=== PATIENT | male | born 1945 | race African-American/Black ===

== ENCOUNTER 2019-10-29 15:28 | Inpatient (IN) | payer OTHER ==
[~2019-10-29] VITALS: Ht 190.5 cm; Wt 85.5 kg
[2019-10-29] MEDS ORDERED: IV NORMAL SALINE 1000ML BAG 1,000 ML IV SCH (16:41)
[2019-10-29] MEDS ORDERED: fentaNYL PF VIAL 100 MCG/2 ML VIAL IVP ONE (16:45)
[2019-10-29] MEDS ORDERED: VANCOMYCIN PER PHARMACY MC ONE (17:00)
[2019-10-29] MEDS ORDERED: PIPERACILLIN/TAZOBACTAM 3.375 GM in IV NORMAL SALINE 50ML 50 ML IV ONE (17:00)
[2019-10-29] MEDS ORDERED: VANCOMYCIN 2 GM in IV NORMAL SALINE 500ML BAG 500 ML IV ONE (17:00)
--- NOTE | 2019-10-29 17:05 | PHYS DOC ---
Past Medical History Past Medical History: Hypertension Additional Past Medical Histor: PVD,NEUROPATHY Past Surgical History: Other Additional Past Surgical Histo: X2 TOE REMOVAL (01/15), X3 TOE REMOVAL (05/18) Smoking Status: Former Smoker Alcohol Use: Rarely General Adult EDM: Chief Complaint: OTHER COMPLAINTS HPI: HPI: Patient is a 74 year old male who presents with [facility] in his primary care physician. 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 Patient here today with multiple unstageable circular ulcerations to his right lower leg with maggots. Wounds are odorous. Patient rates his pain a 7 out of 10 states it is aching and sharp. Wounds are covered and exudative material and maggots. The wound that is on the lower posterior leg has ligaments showing. Patient states he has been going to [facility] care [facility] the [facility] and they have stated that everything looks good. Patient is currently on no antibiotics. Patient denies fevers. While I was in examining the patient Dr. Vickers who will be the admitting doctor walked into the room and took a look at the leg himself. Patient is and family are already educated the patient will be admitted to the hospital. Review of Systems: Review of Systems: Constitutional: Denies fever or chills. [] Eyes: Denies change in visual acuity. [] HENT: Denies nasal congestion or sore throat. [] Respiratory: Denies cough or shortness of breath. [] Cardiovascular: Denies chest pain or edema. [] GI: Denies abdominal pain, nausea, vomiting, bloody stools or diarrhea. [] : Denies dysuria. [] Musculoskeletal: Denies back pain or joint pain. [] Integument: Denies rash. [] Neurologic: Denies headache, focal weakness or sensory changes. [] Endocrine: Denies polyuria or polydipsia. [] Lymphatic: Denies swollen glands. [] Psychiatric: Denies depression or anxiety. [] Heart Score: Risk Factors: Risk Factors: DM, Current or recent (<one month) smoker, HTN, HLP, family history of CAD, obesity. Risk Scores: Score 0 - 3: 2.5% MACE over next 6 weeks - Discharge Home Score 4 - 6: 20.3% MACE over next 6 weeks - Admit for Clinical Observation Score 7 - 10: 72.7% MACE over next 6 weeks - Early Invasive Strategies Current Medications: Current Medications Medications (Trade) Dose Ordered Sig/Yannick Start Time Stop Time Status Last Admin Dose Admin Fentanyl Citrate (Fentanyl 2ml Vial) 50 mcg 1X ONCE 10/29/19 16:45 10/29/19 16:46 DC Piperacillin Sod/ Tazobactam Sod 3.375 gm/Sodium Chloride 50 ml @ 100 mls/hr 1X ONCE 10/29/19 17:00 10/29/19 17:29 Sodium Chloride 1,000 ml @ 1,000 mls/hr Q1H 10/29/19 16:41 10/29/19 17:40 Vancomycin HCl (Vanco Per Pharmacy) 1 each 1X ONCE 10/29/19 16:45 10/29/19 16:46 UNV Vancomycin HCl 2 gm/Sodium Chloride 500 ml @ 250 mls/hr 1X ONCE 10/29/19 17:00 10/29/19 18:59 Allergies: Allergies: Allergies Coded Allergies Type Severity Reaction Last Updated Verified No Known Drug Allergies 10/29/19 No Physical Exam: PE: Constitutional: Well developed, well nourished, no acute distress, non-toxic appearance. [] HENT: Normocephalic, atraumatic, bilateral external ears normal, oropharynx moist, no oral exudates, nose normal. [] Eyes: PERRLA, EOMI, conjunctiva normal, no discharge. [] Neck: Normal range of motion, no tenderness, supple, no stridor. [] Cardiovascular:Heart rate regular rhythm, no murmur [] Lungs & Thorax: Bilateral breath sounds clear to auscultation [] Abdomen: Bowel sounds normal, soft, no tenderness, no masses, no pulsatile m asses. [] Skin: Warm, dry, no erythema, no rash. [] Back: No tenderness, no CVA tenderness. [] Extremities: No tenderness, no cyanosis, no clubbing, ROM intact, no edema. [] Neurologic: Alert and oriented X 3, normal motor function, normal sensory function, no focal deficits noted. [] Psychologic: Affect normal, judgement normal, mood normal. [] Current Patient Data: Vital Signs: Vital Signs Date Time Temp Pulse Resp B/P (MAP) Pulse Ox O2 Delivery O2 Flow Rate FiO2 10/29/19 16:41 98.6 96 18 146/70 (95) 100 Room Air 98.6 EKG: EKG: [] Radiology/Procedures: Radiology/Procedures: [] Impression: [facility] [address] [place] [address] IMAGING REPORT Signed PATIENT: ERI MARQUES ACCOUNT: [id number] : 1945 LOCATION: ER AGE: 74 SEX: M EXAM STATUS: REG ER ORD. PHYSICIAN: GALI ZEE APRN REASON: wounds PROCEDURE: TIBIA FIBULA RIGHT FOOT RIGHT 3V, TIBIA FIBULA RIGHT Clinical Indication: Reason: wounds / Spl. Instructions: / History: Comparison: None. Findings: Probable old fracture of the fifth proximal phalanx. No acute fracture is seen. No bony erosion is identified. There is no dislocation. Arterial calcifications are seen. There is a soft tissue defect/ulcer of the dorsal foot overlying the fourth and fifth metatarsals. There are 2 small anterior soft tissue defects of the distal tibia each measuring about 8-9 mm. There is a large soft tissue defect posterior and medial to the distal diaphysis of the tibia. Small soft tissue defect posterior to the mid to distal tibial diaphysis. No acute fracture or bony erosion of the tibia or fibula is identified. The knee and ankle joints are intact. IMPRESSION: 1. No acute bone abnormality. 2. There are soft tissue defects/ulcers of the distal calf and foot as detailed above. Electronically signed by: Cristi Zavala MD (10/29/2019 5:42 PM) [id number] DICTATED and SIGNED BY: CRISTI ZAVALA MD DATE: 10/29/19 174 [facility] [address] [place] [address] IMAGING REPORT Signed PATIENT: ERI MARQUES ACCOUNT: [id number] : 1945 LOCATION: ER AGE: 74 SEX: M EXAM STATUS: REG ER ORD. PHYSICIAN: GALI ZEE APRN REASON: wound, PVD PROCEDURE: VENOUS LOWER EXTREMITY RIGHT Right lower extremity venous duplex Doppler ultrasound HISTORY: Right leg wound, peripheral vascular disease, no other clinical history provided. FINDINGS: No DVT evident by x-ray imaging with compressibility, patent color Doppler blood flow and augmentation of blood flow the right common femoral vein, common femoral vein, superficial femoral vein and popliteal vein. No DVT evident with patent color Doppler blood flow the posterior tibial and peroneal veins in the calf. IMPRESSION: Negative right leg for DVT. Electronically signed by: Rafa Madison MD (10/29/2019 6:14 PM) [facility] [place] DICTATED and SIGNED BY: RAFA MADISON MD DATE: 10/29/191813 Course & Med Decision Making: Course & Med Decision Making Pertinent Labs and Imaging studies reviewed. (See chart for details) Patient states that they have him on gabapentin and ibuprofen for his pain but is not working. There is no swelling of the extremity. A weak pulse can be felt in the right lower leg. The left lower leg is dressed from room wound care and he has a walking boot on. He is afebrile. Patient is ambulatory with a steady gait. Speaks in full clear sentences. Alert and oriented. I have ordered a culture of the wounds. I have started the patient on Zosyn and vancomycin. Wounds are cleaned with betadine and to also remove the maggots. Patient admitted to Dr. Vickers. I will also consult ID. [] Jenny Disclaimer: Jenny Disclaimer: This electronic medical record was generated, in whole or in part, using a voice recognition dictation system. Departure Departure Impression: Primary Impression: Lower extremity ulceration Qualified Codes: L97.919 - Non-pressure chronic ulcer of unspecified part of right lower leg with unspecified severity Disposition: ADMITTED INPATIENT Admitting Physician: [facility] Referrals: ROSELYN CHANG (PCP) Justicifation of Admission Dx: Justifications for Admission: Justification of Admission Dx: Yes Comments: multiple lower leg ulcerations GALI ZEE RAILWAYS ASSISTANT Oct 29, 2019 17:05
[2019-10-29 17:07] LABS: BASO # 0.2 x10^3/uL (0.0-0.2); BASO % 2 % (0-3); EOS # 0.2 x10^3/uL (0.0-0.7); EOS % 2 % (0-3); HEMATOCRIT 30.3 % (39.0-53.0); HEMOGLOBIN 10.1 g/dL (13.0-17.5); LYMPH # 2.8 x10^3/uL (1.0-4.8); LYMPH % 24 % (24-48); MEAN CORPUSCULAR HEMOGLOBIN 27 pg (25-35); MEAN CORPUSCULAR HGB CONC 33 g/dL (31-37); MEAN CORPUSCULAR VOLUME 81 fL (79-100); MONO % 8 % (0-9); NEUT # 7.6 x10^3/uL (1.8-7.7); NEUT % 65 % (31-73); PLATELET COUNT 567 x10^3/uL (140-400); RED BLOOD COUNT 3.75 x10^6/uL (4.30-5.70); RED CELL DISTRIBUTION WIDTH 15.3 % (11.5-14.5); WHITE BLOOD COUNT 11.7 x10^3/uL (4.0-11.0)
[2019-10-29 17:19] LABS: CALCIUM 9.4 mg/dL (8.5-10.1); CREATININE 1.5 mg/dL (0.7-1.3); GFR 55.5; POTASSIUM 3.2 mmol/L (3.5-5.1)
[2019-10-29 17:25] LABS: ALBUMIN 2.7 g/dL (3.4-5.0); ALBUMIN/GLOBULIN RATIO 0.6 (1.0-1.7); C-REACTIVE PROTEIN 4.6 mg/L (0-3.3); TOTAL BILIRUBIN 0.3 mg/dL (0.2-1.0); TOTAL PROTEIN 7.5 g/dL (6.4-8.2)
--- NOTE | 2019-10-29 17:45 | RAD ---
FOOT RIGHT 3V, TIBIA FIBULA RIGHT Clinical Indication: Reason: wounds / Spl. Instructions: / History: Comparison: None. Findings: Probable old fracture of the fifth proximal phalanx. No acute fracture is seen. No bony erosion is identified. There is no dislocation. Arterial calcifications are seen. There is a soft tissue defect/ulcer of the dorsal foot overlying the fourth and fifth metatarsals. There are 2 small anterior soft tissue defects of the distal tibia each measuring about 8-9 mm. There is a large soft tissue defect posterior and medial to the distal diaphysis of the tibia. Small soft tissue defect posterior to the mid to distal tibial diaphysis. No acute fracture or bony erosion of the tibia or fibula is identified. The knee and ankle joints are intact. IMPRESSION: 1. No acute bone abnormality. 2. There are soft tissue defects/ulcers of the distal calf and foot as detailed above. Electronically signed by: Cristi Zavala MD (10/29/2019 5:42 PM) [id number]
[2019-10-29] MEDS ORDERED: ONDANSETRON PF 4 MG/2 ML VIAL. IV PRN (18:00)
--- NOTE | 2019-10-29 18:17 | RAD ---
Right lower extremity venous duplex Doppler ultrasound HISTORY: Right leg wound, peripheral vascular disease, no other clinical history provided. FINDINGS: No DVT evident by x-ray imaging with compressibility, patent color Doppler blood flow and augmentation of blood flow the right common femoral vein, common femoral vein, superficial femoral vein and popliteal vein. No DVT evident with patent color Doppler blood flow the posterior tibial and peroneal veins in the calf. IMPRESSION: Negative right leg for DVT. Electronically signed by: Chris Madison MD (10/29/2019 6:14 PM) [facility]
[2019-10-29] MEDS: fentaNYL PF VIAL 100 MCG/2 ML VIAL IV PRN ×2 (20:14→22:48)
--- NOTE | 2019-10-29 21:47 | NUR ---
Call placed to patient's significant other, Shyanne Guerrero,[phone], left message regarding patient admitted, with the number to return call. Patient says that she would have the info on his meds, as he is forgetful and she keeps track of them.
[2019-10-29 23:00] VITALS: BP 143/64
--- NOTE | 2019-10-29 23:23 | NUR ---
In assessing patient's history regarding medications, he says he takes about 12 pills every 4 hours for his feet and legs pain, gabapentin was listed as one of them, but he doesn't know them all. this advertising writer used room phone, called SO's number, handed the phone to patient, to see if he can get names of the medications he's on. Monitoring. He did report that the medicine (fentanyl ivp) that he is getting doesn't work.
[2019-10-29] MEDS ORDERED: VANCOMYCIN PER PHARMACY MC PRN (23:45)
[2019-10-29] MEDS: oxyCODONE/APAP 10/325 1 TAB TABLET PO PRN (23:58)
--- NOTE | 2019-10-30 01:00 | NUR ---
Patient's wouds cleansed with saline wound wash, left lower leg xeroform petroleum gauze replaced, kerlix, patient refuses to let this check writer change the dressing on his left foot, 'It's got a pig skin graft on it..they just changed it saturday, and its to be changed once a week' It has a mesh covering\dressing over the areas of toe and foot amputation. His right lower leg cleansed with saline wound wash, non-adherant dressings applied, kerlix wrapped.
--- NOTE | 2019-10-30 01:35 | NUR ---
Pharmacy Vancomycin Dosing Note S:Consulted to monitor and dose vancomycin started 10/29/19. O:ERI MARQUES is a 74 year old M with Bacteremia . Height: 6 feet, 3 inches Weight: 85.5 kg [place] Body Weight: 84.50 Adjusted Body Weight: 84.90 Dosing Weight: Actual Other Antibiotics: LABS: Last BUN: 19 Last Creatinine: 1.5 Creatinine Clearance: 53 mL/min Last WBC: 11.7 Last Procalcitonin: Tmax (past 24 hours): Microbiology: I/O: Drug Levels: Last level: on at Last dose given 10/29/19 at 1700 Vancomycin Dosing: Loading Dose: 2000 mg x1 Dosing Weight: Actual Target Trough: 10-20 A: Based on: WT AND CRCL P: 1. Begin Vancomycin 1250 mg IV q24h 2. Follow up Trough level on 10/31/19 at 1630 3. Pharmacy will continue to monitor, follow and adjust therapy as needed. LOBO VALDEZ RPH, 10/30/19 0135 Signed: 10/30/19 at 0135 by LOBO VALDEZ RPH PHA
[2019-10-30 03:03] VITALS: BP 158/77
[2019-10-30] MEDS: oxyCODONE/APAP 10/325 1 TAB TABLET PO PRN ×4 (06:00→21:02)
[2019-10-30 07:00] VITALS: BP 156/78
--- NOTE | 2019-10-30 07:19 | NUR ---
Consult for Dr Perry left phone number on mobile phone,
[2019-10-30] MEDS: HYDROmorphone 2 MG/ML VIAL IV PRN (07:49)
[2019-10-30 11:00] VITALS: BP 156/70
[2019-10-30] MEDS ORDERED: PIP/TAZO PER PHARMACY MC PRN (12:00)
--- NOTE | 2019-10-30 12:01 | PDOC ---
Infectious Disease Note Vital Sign Vital Signs Vital Signs Date Time Temp Pulse Resp B/P (MAP) Pulse Ox O2 Delivery O2 Flow Rate FiO2 10/30/19 11:00 98.5 93 18 156/70 (98) 98 Room Air 98.5 Labs Lab Laboratory Tests Test 10/29/19 16:58 White Blood Count 11.7 x10^3/uL (4.0-11.0) Red Blood Count 3.75 x10^6/uL (4.30-5.70) Hemoglobin 10.1 g/dL (13.0-17.5) Hematocrit 30.3 % (39.0-53.0) Mean Corpuscular Volume 81 fL (79-100) Mean Corpuscular Hemoglobin 27 pg (25-35) Mean Corpuscular Hemoglobin Concent 33 g/dL (31-37) Red Cell Distribution Width 15.3 % (11.5-14.5) Platelet Count 567 x10^3/uL (140-400) Neutrophils (%) (Auto) 65 % (31-73) Lymphocytes (%) (Auto) 24 % (24-48) Monocytes (%) (Auto) 8 % (0-9) Eosinophils (%) (Auto) 2 % (0-3) Basophils (%) (Auto) 2 % (0-3) Neutrophils # (Auto) 7.6 x10^3/uL (1.8-7.7) Lymphocytes # (Auto) 2.8 x10^3/uL (1.0-4.8) Monocytes # (Auto) 1.0 x10^3/uL (0.0-1.1) Eosinophils # (Auto) 0.2 x10^3/uL (0.0-0.7) Basophils # (Auto) 0.2 x10^3/uL (0.0-0.2) Sodium Level 140 mmol/L (136-145) Potassium Level 3.2 mmol/L (3.5-5.1) Chloride Level 107 mmol/L (98-107) Carbon Dioxide Level 22 mmol/L (21-32) Anion Gap 11 (6-14) Blood Urea Nitrogen 19 mg/dL (8-26) Creatinine 1.5 mg/dL (0.7-1.3) Estimated GFR (Cockcroft-Gault) 55.5 BUN/Creatinine Ratio 13 (6-20) Glucose Level 79 mg/dL (70-99) Lactic Acid Level 1.2 mmol/L (0.4-2.0) Calcium Level 9.4 mg/dL (8.5-10.1) Total Bilirubin 0.3 mg/dL (0.2-1.0) Aspartate Amino Transf (AST/SGOT) 24 U/L (15-37) Alanine Aminotransferase (ALT/SGPT) 18 U/L (16-63) Alkaline Phosphatase 81 U/L (46-116) C-Reactive Protein, Quantitative 4.6 mg/L (0-3.3) Total Protein 7.5 g/dL (6.4-8.2) Albumin 2.7 g/dL (3.4-5.0) Albumin/Globulin Ratio 0.6 (1.0-1.7) Objective Assessment Chronic ulcerations right lower extremity asso increase pain, drainage, odor and maggots Nonhealing left forefoot amputation Leukocytosis Renal insufficiency. baseline Cr not known PVD h/o stents Peripheral neuropathy Plan Plan of Care [facility] Last seen a couple of days ago. Records requested Continue Zosyn Hold further vancomycin for now. Repeat labs f/u cultures Consult vascular Further rec to follow Full consult to follows Thank you Seen and d/w family. Dr. Ramos note reviewed and plan on B LE amp Will cont abx but given elevated WBC and risk for resistance with previous hospitaliztions and Renal insuff. Change to Dapto and Meropenem and micafungin F/u labs CK/Cr and CBC in am Attending Co-Sign Attending Co-Sign The patient was seen and interviewed as well as examined at the bedside. The chart was reviewed. The case was discussed. Agree with the plan of care. CHIQUITA FERREIRA APRN Oct 30, 2019 12:01 SHANIA WILLIAM MD Oct 30, 2019 16:07
--- NOTE | 2019-10-30 12:03 | PDOC ---
[employer] PROGRESS NOTE Chief Complaint Chief Complaint Severe peripheral vascular disease Chronic ulcerations right lower extremity asso increase pain, drainage, odor and maggots Nonhealing left forefoot amputation Leukocytosis Renal insufficiency. baseline Cr not known PVD h/o stents Peripheral neuropathy History of Present Illness History of Present Illness 10/30/2019 Patient seen and examined He has clean dry intact dressings on now He wants to have a bilateral below the knee amputation Chart reviewed Discussed with RN Vitals/I&O Vitals/I&O: Vital Signs Date Time Temp Pulse Resp B/P (MAP) Pulse Ox O2 Delivery O2 Flow Rate FiO2 10/30/19 11:00 98.5 93 18 156/70 (98) 98 Room Air 98.5 I & O 10/29/19 10/29/19 10/30/19 15:00 23:00 07:00 Intake Total 1550 ml Output Total 300 ml 1500 ml Balance 1250 ml -1500 ml Physical Exam General: Alert Heart: Regular rate Lungs: Clear Abdomen: Normal bowel sounds Extremities: Other (Both lower extremities with clean dry intact dressing) Skin: Other (He has numerous wounds on his legs please see the pictures) Labs Labs: Laboratory Tests Test 10/29/19 16:58 White Blood Count 11.7 x10^3/uL (4.0-11.0) Red Blood Count 3.75 x10^6/uL (4.30-5.70) Hemoglobin 10.1 g/dL (13.0-17.5) Hematocrit 30.3 % (39.0-53.0) Mean Corpuscular Volume 81 fL (79-100) Mean Corpuscular Hemoglobin 27 pg (25-35) Mean Corpuscular Hemoglobin Concent 33 g/dL (31-37) Red Cell Distribution Width 15.3 % (11.5-14.5) Platelet Count 567 x10^3/uL (140-400) Neutrophils (%) (Auto) 65 % (31-73) Lymphocytes (%) (Auto) 24 % (24-48) Monocytes (%) (Auto) 8 % (0-9) Eosinophils (%) (Auto) 2 % (0-3) Basophils (%) (Auto) 2 % (0-3) Neutrophils # (Auto) 7.6 x10^3/uL (1.8-7.7) Lymphocytes # (Auto) 2.8 x10^3/uL (1.0-4.8) Monocytes # (Auto) 1.0 x10^3/uL (0.0-1.1) Eosinophils # (Auto) 0.2 x10^3/uL (0.0-0.7) Basophils # (Auto) 0.2 x10^3/uL (0.0-0.2) Sodium Level 140 mmol/L (136-145) Potassium Level 3.2 mmol/L (3.5-5.1) Chloride Level 107 mmol/L (98-107) Carbon Dioxide Level 22 mmol/L (21-32) Anion Gap 11 (6-14) Blood Urea Nitrogen 19 mg/dL (8-26) Creatinine 1.5 mg/dL (0.7-1.3) Estimated GFR (Cockcroft-Gault) 55.5 BUN/Creatinine Ratio 13 (6-20) Glucose Level 79 mg/dL (70-99) Lactic Acid Level 1.2 mmol/L (0.4-2.0) Calcium Level 9.4 mg/dL (8.5-10.1) Total Bilirubin 0.3 mg/dL (0.2-1.0) Aspartate Amino Transf (AST/SGOT) 24 U/L (15-37) Alanine Aminotransferase (ALT/SGPT) 18 U/L (16-63) Alkaline Phosphatase 81 U/L (46-116) C-Reactive Protein, Quantitative 4.6 mg/L (0-3.3) Total Protein 7.5 g/dL (6.4-8.2) Albumin 2.7 g/dL (3.4-5.0) Albumin/Globulin Ratio 0.6 (1.0-1.7) Assessment and Plan Assessmemt and Plan Problems Medical Problems: (1) Lower extremity ulceration Status: Acute Severe peripheral vascular disease Chronic ulcerations right lower extremity asso increase pain, drainage, odor and maggots Nonhealing left forefoot amputation Leukocytosis Renal insufficiency. baseline Cr not known PVD h/o stents Peripheral neuropathy Plan Suspect he will need amputations but will await orthopedics input For now IV antibiotics Wound assisted meds DVT prophylaxis Full code Long-term prognosis guarded Comment Review of Relevant I have reviewed the following items solomon (where applicable) has been applied. Medications: Current Medications Medications (Trade) Dose Ordered Sig/Yannick Route PRN Reason Start Time Stop Time Status Last Admin Dose Admin Sodium Chloride 1,000 ml @ 1,000 mls/hr Q1H IV 10/29/19 16:41 10/29/19 17:40 DC 10/29/19 17:17 Fentanyl Citrate (Fentanyl 2ml Vial) 50 mcg 1X ONCE IVP 10/29/19 16:45 10/29/19 16:46 DC 10/29/19 17:17 Piperacillin Sod/ Tazobactam Sod 3.375 gm/Sodium Chloride 50 ml @ 100 mls/hr 1X ONCE IV 10/29/19 17:00 10/29/19 17:29 DC 10/29/19 18:06 Vancomycin HCl 2 gm/Sodium Chloride 500 ml @ 250 mls/hr 1X ONCE IV 10/29/19 17:00 10/29/19 18:59 DC 10/29/19 17:18 Fentanyl Citrate (Fentanyl 2ml Vial) 50 mcg PRN Q1HR PRN IV PAIN 10/29/19 18:00 10/29/19 23:47 DC 10/29/19 22:48 Oxycodone/ Acetaminophen (Percocet 10/325) 1 tab PRN Q4HRS PRN PO SEVERE PAIN 7-10 10/30/19 00:00 10/30/19 06:00 Vancomycin HCl (Vanco Per Pharmacy) 1 each PRN DAILY PRN MC SEE COMMENTS 10/29/19 23:45 10/30/19 01:33 Hydromorphone HCl (Dilaudid) 1 mg PRN Q2HR PRN IV breakthrough pain 10/30/19 07:15 10/30/19 07:49 Justicifation of Admission Dx: Justifications for Admission: Justification of Admission Dx: Yes BRIANNA LOVE III DO Oct 30, 2019 12:03
[2019-10-30] MEDS ORDERED: PIPERACILLIN/TAZOBACTAM 3.375 GM in IV NORMAL SALINE 50ML 50 ML IV SCH (12:15)
--- NOTE | 2019-10-30 12:35 | HP ---
ADMIT DATE: 10/29/2019 CHIEF COMPLAINT: This is redictated H and P. I dictated it last night, but apparently it has not showed up in the chart yet. Lower extremity swelling and wounds and maggots. HISTORY OF PRESENT ILLNESS: The patient is a pleasant 74-year-old male who presented yesterday afternoon to the ER with maggots coming out of his left leg. He has numerous wounds. I saw him in the ER. I discussed the case with ER physician. We have admitted the patient. We are consulting Orthopedics and Infectious Disease. PAST MEDICAL HISTORY: Peripheral vascular disease, chronic wounds. ALLERGIES: None. FAMILY HISTORY: Diabetes. SOCIAL HISTORY: He lives in the [facility]. He does not drink, smoke or take drugs. MEDICATIONS: Reviewed, please refer to the MRAD. REVIEW OF SYSTEMS: GENERAL: No history of weight change, weakness or fevers. SKIN: No bruising, hair changes or rashes. EYES: No blurred, double or loss of vision. NOSE AND THROAT: No history of nosebleeds, hoarseness or sore throat. HEART: No history of palpitations, chest pain or shortness of breath on exertion. LUNGS: Denies cough, hemoptysis, wheezing or shortness of breath. GASTROINTESTINAL: Denies changes in appetite, nausea, vomiting, diarrhea or constipation. GENITOURINARY: No history of frequency, urgency, hesitancy or nocturia. NEUROLOGIC: Denies history of numbness, tingling, tremor or weakness. PSYCHIATRIC: No history of panic, anxiety or depression. ENDOCRINE: No history of heat or cold intolerance, polyuria or polydipsia. EXTREMITIES: He complains of left leg wounds. PHYSICAL EXAMINATION: VITALS: Within normal limits and are stable. GENERAL: No apparent distress. Alert and oriented. HEENT: Normal cephalic atraumatic, external auditory canals are patent EYES: Extraocular muscles are intact, pupils are equally round and reactive to light and accommodation MUSCULOSKELETAL: Well developed, well nourished, good range of motion ENDOCRINE: No thyromegaly was palpated LYMPHATICS: No cervical chain or axillary nodes were noted HEMATOPOIETIC: No bruising NECK: Supple, no JVD, no thyromegaly was noted. LUNGS: Clear to auscultation in all lung cruz without rhonchi or wheezing. HEART: RRR, S1, S2 present. Peripheral pulses intact, no obvious murmurs were noted. ABDOMEN: Soft, nontender. Positive bowel sounds no organomegaly, normal bowel sounds. The left leg has numerous ulcerations with some maggots, please see the pictures. NEUROLOGIC: Normal speech, normal tone. A & O x3, moves all extremities, no obvious focal deficits. PSYCHIATRIC: Normal affect, normal mood. Stable. SKIN: No ulcerations or rashes, good skin turgor, no jaundice. VASCULAR: Good capillary refill, neurovascular bundle appears to be intact. ASSESSMENT AND PLAN: Severe peripheral vascular disease with severe lower extremity wound, suspect he is going to need a [id number] amputation. The patient will be admitted. We will start IV antibiotics. Consult Orthopedics. Consult Infectious Disease. Home meds, DVT prophylaxis. Full code. BRIANNA LOVE DO DR: EREN/deny JOB#: [id number] / [id number]
--- NOTE | 2019-10-30 12:55 | PDOC2 ---
CONSULT Date of Consult Date of Consult DATE: 10/30/19 TIME: 12:49 History of Present Illness Reason for Visit: Is a very pleasant 74-year-old male who has had significant bilateral lower extremity wounds who underwent debridement and transmetatarsal amputation on the left. Apparently had significant infestation with maggots requiring surgical therapy and ultimately amputation for gangrenous disease. He received a dermal graft to the left TMA site at the [facility]. These bandages are still in place. He has significant pain from both lower extremities and multiple wounds that are full-thickness gangrenous type wounds. We were asked to see the patient for evaluation of arterial blood flow as well as to advise on his lower extremity wounds. Patient apparently has had peripheral revascularization with stent placement at an outside facility. Past Medical History Cardiovascular: CAD, HTN, Hyperlipidemia Pulmonary: COPD Endocrine: Diabetes Family History Family History: Diabetes, Heart Disease Social History Quit ALCOHOL: none Current Problem List Problem List Problems Medical Problems: (1) Lower extremity ulceration Status: Acute Current Medications Current Medications Current Medications Vancomycin HCl (Vanco Per Pharmacy) 1 each 1X ONCE MC ; Start 10/29/19 at 17:00; Stop 10/29/19 at 18:04; Status DC Sodium Chloride 1,000 ml @ 1,000 mls/hr Q1H IV Last administered on 10/29/19at 17:17; Start 10/29/19 at 16:41; Stop 10/29/19 at 17:40; Status DC Fentanyl Citrate (Fentanyl 2ml Vial) 50 mcg 1X ONCE IVP Last administered on 10/29/19at 17:17; Start 10/29/19 at 16:45; Stop 10/29/19 at 16:46; Status DC Piperacillin Sod/ Tazobactam Sod 3.375 gm/Sodium Chloride 50 ml @ 100 mls/hr 1X ONCE IV Last administered on 10/29/19at 18:06; Start 10/29/19 at 17:00; Stop 10/29/19 at 17:29; Status DC Vancomycin HCl 2 gm/Sodium Chloride 500 ml @ 250 mls/hr 1X ONCE IV Last administered on 10/29/19at 17:18; Start 10/29/19 at 17:00; Stop 10/29/19 at 18:59; Status DC Ondansetron HCl (Zofran) 4 mg PRN Q8HRS PRN IV NAUSEA/VOMITING; Start 10/29/19 at 18:00; Stop 10/30/19 at 17:59 Fentanyl Citrate (Fentanyl 2ml Vial) 50 mcg PRN Q1HR PRN IV PAIN Last administ ered on 10/29/19at 22:48; Start 10/29/19 at 18:00; Stop 10/29/19 at 23:47; Status DC Oxycodone/ Acetaminophen (Percocet 10/325) 1 tab PRN Q4HRS PRN PO SEVERE PAIN 7-10 Last administered on 10/30/19at 06:00; Start 10/30/19 at 00:00 Vancomycin HCl 1.25 gm/Sodium Chloride 250 ml @ 167 mls/hr Q24H IV ; Start 10/30/19 at 17:00; Stop 10/30/19 at 12:06; Status DC Vancomycin HCl (Vancomycin Trough Level) 1 each 1X ONCE MC ; Start 10/31/19 at 16:30; Stop 10/31/19 at 16:31; Status Cancel Vancomycin HCl (Vanco Per Pharmacy) 1 each PRN DAILY PRN MC SEE COMMENTS Last administered on 10/30/19at 01:33; Start 10/29/19 at 23:45; Stop 10/30/19 at 12:06; Status DC Hydromorphone HCl (Dilaudid) 1 mg PRN Q2HR PRN IV breakthrough pain Last administered on 10/30/19at 07:49; Start 10/30/19 at 07:15 Lactobacillus Rhamnosus (Culturelle) 1 cap BID PO ; Start 10/30/19 at 21:00 Piperacillin Sod/ Tazobactam Sod (Zosyn Per Pharmacy) 1 each PRN DAILY PRN MC SEE COMMENTS; Start 10/30/19 at 12:00 Piperacillin Sod/ Tazobactam Sod 3.375 gm/Sodium Chloride 50 ml @ 100 mls/hr Q6HRS IV ; Start 10/30/19 at 12:15 Allergies Allergies: Coded Allergies: No Known Drug Allergies (Unverified , 10/29/19) ROS Skin: Yes Skin Lesion Changes Physical Exam General: Alert, Oriented X3, Cooperative HEENT: Atraumatic, PERRLA Lungs: Clear to auscultation, Normal air movement Heart: Regular rate, Normal S1, Normal S2 Abdomen: Normal bowel sounds, Soft, No tenderness Extremities: No edema, Other (Palpable popliteal pulses bilaterally, palpable femoral pulses bilaterally) Skin: Other (Significant full-thickness diffuse wounds involving bilateral lower extremities with full-thickness wound to the level of the Achilles tendon on the right and multiple other full-thickness wounds scattered throughout the below-knee area on the right and the left. The patient has an open TMA amputation site with dermal graft in place.) Neuro: Normal speech, Strength at 5/5 X4 ext, Normal tone, Sensation intact, Cranial nerves 3-12 NL Psych/Mental Status: Mental status NL, Mood NL MUSCULOSKELETAL: No muscular tenderness noted, Full range of motion without pain Vitals VITALS Vital Signs Date Time Temp Pulse Resp B/P (MAP) Pulse Ox O2 Delivery O2 Flow Rate FiO2 10/30/19 11:00 98.5 93 18 156/70 (98) 98 Room Air 98.5 Labs Labs Laboratory Tests Test 10/29/19 16:58 White Blood Count 11.7 x10^3/uL (4.0-11.0) Red Blood Count 3.75 x10^6/uL (4.30-5.70) Hemoglobin 10.1 g/dL (13.0-17.5) Hematocrit 30.3 % (39.0-53.0) Mean Corpuscular Volume 81 fL (79-100) Mean Corpuscular Hemoglobin 27 pg (25-35) Mean Corpuscular Hemoglobin Concent 33 g/dL (31-37) Red Cell Distribution Width 15.3 % (11.5-14.5) Platelet Count 567 x10^3/uL (140-400) Neutrophils (%) (Auto) 65 % (31-73) Lymphocytes (%) (Auto) 24 % (24-48) Monocytes (%) (Auto) 8 % (0-9) Eosinophils (%) (Auto) 2 % (0-3) Basophils (%) (Auto) 2 % (0-3) Neutrophils # (Auto) 7.6 x10^3/uL (1.8-7.7) Lymphocytes # (Auto) 2.8 x10^3/uL (1.0-4.8) Monocytes # (Auto) 1.0 x10^3/uL (0.0-1.1) Eosinophils # (Auto) 0.2 x10^3/uL (0.0-0.7) Basophils # (Auto) 0.2 x10^3/uL (0.0-0.2) Sodium Level 140 mmol/L (136-145) Potassium Level 3.2 mmol/L (3.5-5.1) Chloride Level 107 mmol/L (98-107) Carbon Dioxide Level 22 mmol/L (21-32) Anion Gap 11 (6-14) Blood Urea Nitrogen 19 mg/dL (8-26) Creatinine 1.5 mg/dL (0.7-1.3) Estimated GFR (Cockcroft-Gault) 55.5 BUN/Creatinine Ratio 13 (6-20) Glucose Level 79 mg/dL (70-99) Lactic Acid Level 1.2 mmol/L (0.4-2.0) Calcium Level 9.4 mg/dL (8.5-10.1) Total Bilirubin 0.3 mg/dL (0.2-1.0) Aspartate Amino Transf (AST/SGOT) 24 U/L (15-37) Alanine Aminotransferase (ALT/SGPT) 18 U/L (16-63) Alkaline Phosphatase 81 U/L (46-116) C-Reactive Protein, Quantitative 4.6 mg/L (0-3.3) Total Protein 7.5 g/dL (6.4-8.2) Albumin 2.7 g/dL (3.4-5.0) Albumin/Globulin Ratio 0.6 (1.0-1.7) Laboratory Tests Test 10/29/19 16:58 White Blood Count 11.7 x10^3/uL (4.0-11.0) Red Blood Count 3.75 x10^6/uL (4.30-5.70) Hemoglobin 10.1 g/dL (13.0-17.5) Hematocrit 30.3 % (39.0-53.0) Mean Corpuscular Volume 81 fL (79-100) Mean Corpuscular Hemoglobin 27 pg (25-35) Mean Corpuscular Hemoglobin Concent 33 g/dL (31-37) Red Cell Distribution Width 15.3 % (11.5-14.5) Platelet Count 567 x10^3/uL (140-400) Neutrophils (%) (Auto) 65 % (31-73) Lymphocytes (%) (Auto) 24 % (24-48) Monocytes (%) (Auto) 8 % (0-9) Eosinophils (%) (Auto) 2 % (0-3) Basophils (%) (Auto) 2 % (0-3) Neutrophils # (Auto) 7.6 x10^3/uL (1.8-7.7) Lymphocytes # (Auto) 2.8 x10^3/uL (1.0-4.8) Monocytes # (Auto) 1.0 x10^3/uL (0.0-1.1) Eosinophils # (Auto) 0.2 x10^3/uL (0.0-0.7) Basophils # (Auto) 0.2 x10^3/uL (0.0-0.2) Sodium Level 140 mmol/L (136-145) Potassium Level 3.2 mmol/L (3.5-5.1) Chloride Level 107 mmol/L (98-107) Carbon Dioxide Level 22 mmol/L (21-32) Anion Gap 11 (6-14) Blood Urea Nitrogen 19 mg/dL (8-26) Creatinine 1.5 mg/dL (0.7-1.3) Estimated GFR (Cockcroft-Gault) 55.5 BUN/Creatinine Ratio 13 (6-20) Glucose Level 79 mg/dL (70-99) Lactic Acid Level 1.2 mmol/L (0.4-2.0) Calcium Level 9.4 mg/dL (8.5-10.1) Total Bilirubin 0.3 mg/dL (0.2-1.0) Aspartate Amino Transf (AST/SGOT) 24 U/L (15-37) Alanine Aminotransferase (ALT/SGPT) 18 U/L (16-63) Alkaline Phosphatase 81 U/L (46-116) C-Reactive Protein, Quantitative 4.6 mg/L (0-3.3) Total Protein 7.5 g/dL (6.4-8.2) Albumin 2.7 g/dL (3.4-5.0) Albumin/Globulin Ratio 0.6 (1.0-1.7) Assessment/Plan Assessment/Plan Bilateral lower extremity atherosclerosis with gangrene--I do not see that limb salvage is possible for either lower extremity. Patient has diffuse tissue loss bilaterally with particular full-thickness wound involving the Achilles tendon on the right and a nonhealing transmetatarsal amputation site on the left. Patient is in extreme pain and does not want to go on with prolonged wound care. I have recommended bilateral below-knee amputations. He does understand that there is a risk of poor wound healing in this setting but I still think this would be the best operation. Patient understands the procedure offered and I did explain all the risks involved. He is agreeable to proceed. We will make appropriate arrangements for bilateral below-knee amputations. In the meantime he will continue broad-spectrum IV antibiotic therapy. If orthopedic surgery is involved and would like to do his amputations, that is also okay with us. Dalton Ramos DO, DALTON ROBLES DO Oct 30, 2019 12:55
--- NOTE | 2019-10-30 13:20 | NUR ---
Patient wounds on his BLE's were assessed by Dr Ramos with the discussion of bilateral BKA. Patient agreeable at this time to possibly have that done on Saturday. [facility]. IV antibiotics started and patient understands the prognosis and plan for the weekend. Will continue to monitor.
[2019-10-30 14:32] LABS: BASO % 0 % (0-3); EOS # 0.1 x10^3/uL (0.0-0.7); EOS % 1 % (0-3); HEMATOCRIT 27.1 % (39.0-53.0); HEMOGLOBIN 9.3 g/dL (13.0-17.5); LYMPH # 2.1 x10^3/uL (1.0-4.8); LYMPH % 18 % (24-48); MEAN CORPUSCULAR HEMOGLOBIN 28 pg (25-35); MEAN CORPUSCULAR HGB CONC 34 g/dL (31-37); MEAN CORPUSCULAR VOLUME 81 fL (79-100); MONO # 0.9 x10^3/uL (0.0-1.1); MONO % 7 % (0-9); NEUT # 8.7 x10^3/uL (1.8-7.7); NEUT % 73 % (31-73); PLATELET COUNT 527 x10^3/uL (140-400); RED BLOOD COUNT 3.35 x10^6/uL (4.30-5.70); RED CELL DISTRIBUTION WIDTH 15.1 % (11.5-14.5); WHITE BLOOD COUNT 11.9 x10^3/uL (4.0-11.0)
[2019-10-30 15:00] VITALS: BP 131/69
[2019-10-30 15:04] LABS: CALCIUM 8.7 mg/dL (8.5-10.1); CREATININE 1.2 mg/dL (0.7-1.3); GFR 71.8
[2019-10-30 15:07] LABS: POTASSIUM 2.4 mmol/L (3.5-5.1)
[2019-10-30] MEDS ORDERED: POTASSIUM CHLORIDE 20 MEQ TABLET.ER. PO ONE ×2 (15:30→19:30)
[2019-10-30] MEDS ORDERED: DAPTOmycin (GENERIC) IVPB 510 MG in IV NORMAL SALINE 50ML 50 ML IV SCH (16:00)
[2019-10-30] MEDS ORDERED: VANCOMYCIN 1.25 GM in IV NORMAL SALINE 250ML 250 ML IV SCH (17:00)
[2019-10-30] MEDS: MICAFUNGIN 100 MG in IV DEXTROSE 5% 100ML 100 ML IV SCH (17:08)
--- NOTE | 2019-10-30 18:11 | CONS ---
DATE OF CONSULTATION: 10/30/2019 REQUESTING PHYSICIAN: Jackelyn Long APRN REASON FOR CONSULTATION: Leg ulcerations. HISTORY OF PRESENT ILLNESS: This patient is a 74-year-old -[place] male with a past medical history of diabetes, hypertension, hyperlipidemia, peripheral neuropathy and peripheral vascular disease, status post revascularization lower extremities. [facility] [place] [facility] for chronic ulcerations lower extremities bilaterally. Earlier this year, he underwent an open transmetatarsal amputation of his left foot due to gangrene and osteomyelitis. He says he has been on antibiotics with little improvement. Over the last few days, he developed worsening pain, drainage and odor. He was found to have maggots in his wounds. X-ray imaging showed soft tissue defects. No fractures or bony erosions. A venous ultrasound was negative for DVT. The wounds were cleaned. The maggots removed and cultures were sent. He has since been admitted and started on vancomycin and Zosyn. PAST MEDICAL HISTORY: Peripheral vascular disease, peripheral neuropathy, diabetes, hypertension, hyperlipidemia, CVA, COPD, sleep apnea, posttraumatic stress disorder, depression, coronary artery disease. PAST SURGICAL HISTORY: Open transmetatarsal amputation of left foot. SOCIAL HISTORY: The patient lives at home. He has a significant other. 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 He drinks occasional beer. FAMILY HISTORY: Diabetes. ALLERGIES: No known drug allergies. MEDICATIONS: Reviewed on the MAR and includes vancomycin and Zosyn. REVIEW OF SYSTEMS: Today, the patient is feeling tired. He says he is still having quite a bit of pain. He is not very hungry. He denies fevers, chills, sweats or body aches. Denies nausea, vomiting or diarrhea. Denies cough, shortness of air, or chest discomfort. He is ambulatory. Denies rash or itching. Other reviews of systems negative. PHYSICAL EXAMINATION: VITAL SIGNS: Temperature 98.5, blood pressure 156/70, heart rate 93, respiratory rate 18, pulse oximetry 98% on room air. GENERAL: The patient is propped up in bed, alert, no apparent distress. HEENT: Pupils equally round and reactive. Oropharynx pink and moist. No lesions seen. NECK: Supple. LUNGS: Clear to auscultation. HEART: S1 and S2. ABDOMEN: Nondistended, soft, nontender with bowel sounds present. EXTREMITIES: No gross edema. He has multiple ulcerations various sizes with a foul odor and a sound with tendon exposure, lower extremities bilaterally. He has an open TMA left foot with a graft in place (refer to Wound Care notes for further descriptions and pictures). SKIN: Warm to touch. No signs of rash. NEUROLOGIC: Alert, answering questions appropriately, but is forgetful and is somewhat a poor historian. LABORATORY DATA: On admission, WBC 11.7, hemoglobin 10.1, platelets 567,000. Sodium 140, potassium 3.2, creatinine 1.5, BUN 19, glucose 79. Lactic acid 1.2, total bilirubin 0.3, AST 24, ALT 18. CRP 4.6, albumin 2.7. Wound cultures pending. Blood cultures pending. IMAGING: Per HPI. IMPRESSION: 1. Chronic ulceration lower extremities bilaterally associated with increased pain, drainage, odor and tendon exposure. 3. Nonhealing open transmetatarsal amputation, left foot. 4. Leukocytosis. 5. Renal insufficiency, baseline creatinine not known. 6. Peripheral vascular disease, status post revascularization. 7. Peripheral neuropathy. 8. Diabetes. 9. Hypertension. PLAN: 1. Records from the [facility] [place] have been requested. Given elevated WBC count and risk for resistance of previous hospitalizations and renal insufficiency, recommend changing antibiotics to daptomycin, meropenem and micafungin. Monitor for antibiotic toxicities. Vascular Surgery has been consulted. Dr. Ramos is recommending below-knee amputation bilaterally. 2. Local wound care as directed. Pain management per primary. 3. Discussed with nursing and significant other at bedside. Thank you, Jackelyn Long APRN, for asking us to participate in this patient's care. Should you have further questions or concerns, please call. The patient seen and examined and plan of care implemented by Dr. Shania William. SHANIA WILLIAM MD DR: MARY/deny JOB#: [id number] / [id number] DIANA
[2019-10-30] MEDS: MEROPENEM 500 MG in IV NORMAL SALINE 50ML 50 ML IV SCH ×2 (18:12→23:42)
[2019-10-30] MEDS: DAPTOmycin (GENERIC) IVPB 500 MG in IV NORMAL SALINE 50ML 50 ML IV SCH (18:41)
[2019-10-30 19:00] VITALS: BP 147/75
[2019-10-30] MEDS: LACTOBACILLUS RHAMNOSUS GG 1 CAPSULE. PO SCH (19:54)
[2019-10-30 23:00] VITALS: BP 146/83
[2019-10-31 03:00] VITALS: BP 148/77
[2019-10-31 04:26] LABS: BASO % 0 % (0-3); EOS # 0.1 x10^3/uL (0.0-0.7); EOS % 1 % (0-3); HEMATOCRIT 28.5 % (39.0-53.0); HEMOGLOBIN 9.4 g/dL (13.0-17.5); LYMPH % 18 % (24-48); MEAN CORPUSCULAR HEMOGLOBIN 27 pg (25-35); MEAN CORPUSCULAR HGB CONC 33 g/dL (31-37); MEAN CORPUSCULAR VOLUME 81 fL (79-100); MONO # 0.8 x10^3/uL (0.0-1.1); MONO % 8 % (0-9); NEUT # 8.2 x10^3/uL (1.8-7.7); NEUT % 73 % (31-73); PLATELET COUNT 486 x10^3/uL (140-400); RED BLOOD COUNT 3.52 x10^6/uL (4.30-5.70); WHITE BLOOD COUNT 11.1 x10^3/uL (4.0-11.0)
[2019-10-31 04:50] LABS: CREATININE 1.1 mg/dL (0.7-1.3); GFR 79.4
[2019-10-31] MEDS: MEROPENEM 500 MG in IV NORMAL SALINE 50ML 50 ML IV SCH ×3 (06:24→21:10)
[2019-10-31 07:59] VITALS: BP 154/89
--- NOTE | 2019-10-31 08:11 | RAD ---
Examination: TIBIA FIBULA LEFT History: Reason: pre-op for BKA / Spl. Instructions: / History: Comparison/Correlation: None Findings: Frontal and lateral views of the left tibia and fibula were obtained. There is graft material noted along the expected course of the distal left superficial femoral artery the proximal popliteal arterial level. Extensive vascular calcification is noted at the left knee and proximal tibial level. Significant calcifications are seen more distally involving the posterior tibial arterial level. Soft tissue gas or laceration is noted at the posterior medial distal tibial diametaphyseal level. No fracture or bony destructive findings. Impression: No fracture or bone destruction. Soft tissue gas or or ulceration of the distal segmental level. Electronically signed by: Lauri Lockett MD (10/31/2019 8:08 AM) [id number]
[2019-10-31] MEDS: LACTOBACILLUS RHAMNOSUS GG 1 CAPSULE. PO SCH ×2 (08:29→20:13)
[2019-10-31] MEDS: oxyCODONE/APAP 10/325 1 TAB TABLET PO PRN ×2 (08:29→15:26)
[2019-10-31] MEDS: HYDROmorphone 2 MG/ML VIAL IV PRN ×2 (08:30→15:27)
--- NOTE | 2019-10-31 11:48 | PDOC ---
Infectious Disease Note Subjective Subjective Pain controlled at the moment No fevers/chills/muscle aches/N/V/D/SOA ROS ROS as mentioned above Vital Sign Vital Signs Vital Signs Date Time Temp Pulse Resp B/P (MAP) Pulse Ox O2 Delivery O2 Flow Rate FiO2 10/31/19 09:29 20 Room Air 10/31/19 07:59 97.7 107 154/89 (110) 97 97.7 Physical Exam PHYSICAL EXAM GENERAL: Propped up in bed, alert, no apparent distress. HEENT: Pupils equally round and reactive. Oropharynx pink and moist. No lesions seen. NECK: Supple. LUNGS: Clear to auscultation. HEART: S1 and S2. ABDOMEN: Nondistended, soft, nontender with bowel sounds present. EXTREMITIES: No gross edema. Multiple ulcerations various sizes with foul odor and a some with tendon exposure, lower extremities bilaterally. Open TMA left foot with a graft in place. Today's dressings not taken down at this time. SKIN: Warm to touch. No signs of rash. NEUROLOGIC: Alert, answering questions appropriately, but is forgetful and is somewhat a poor historian. Labs Lab Laboratory Tests Test 10/30/19 13:40 10/30/19 14:10 10/31/19 03:12 Sodium Level 141 mmol/L (136-145) Potassium Level 2.4 mmol/L (3.5-5.1) 3.0 mmol/L (3.5-5.1) Chloride Level 107 mmol/L (98-107) Carbon Dioxide Level 23 mmol/L (21-32) Anion Gap 11 (6-14) Blood Urea Nitrogen 14 mg/dL (8-26) Creatinine 1.2 mg/dL (0.7-1.3) 1.1 mg/dL (0.7-1.3) Estimated GFR (Cockcroft-Gault) 71.8 79.4 Glucose Level 92 mg/dL (70-99) Calcium Level 8.7 mg/dL (8.5-10.1) White Blood Count 11.9 x10^3/uL (4.0-11.0) 11.1 x10^3/uL (4.0-11.0) Red Blood Count 3.35 x10^6/uL (4.30-5.70) 3.52 x10^6/uL (4.30-5.70) Hemoglobin 9.3 g/dL (13.0-17.5) 9.4 g/dL (13.0-17.5) Hematocrit 27.1 % (39.0-53.0) 28.5 % (39.0-53.0) Mean Corpuscular Volume 81 fL (79-100) 81 fL (79-100) Mean Corpuscular Hemoglobin 28 pg (25-35) 27 pg (25-35) Mean Corpuscular Hemoglobin Concent 34 g/dL (31-37) 33 g/dL (31-37) Red Cell Distribution Width 15.1 % (11.5-14.5) 15.0 % (11.5-14.5) Platelet Count 527 x10^3/uL (140-400) 486 x10^3/uL (140-400) Neutrophils (%) (Auto) 73 % (31-73) 73 % (31-73) Lymphocytes (%) (Auto) 18 % (24-48) 18 % (24-48) Monocytes (%) (Auto) 7 % (0-9) 8 % (0-9) Eosinophils (%) (Auto) 1 % (0-3) 1 % (0-3) Basophils (%) (Auto) 0 % (0-3) 0 % (0-3) Neutrophils # (Auto) 8.7 x10^3/uL (1.8-7.7) 8.2 x10^3/uL (1.8-7.7) Lymphocytes # (Auto) 2.1 x10^3/uL (1.0-4.8) 2.0 x10^3/uL (1.0-4.8) Monocytes # (Auto) 0.9 x10^3/uL (0.0-1.1) 0.8 x10^3/uL (0.0-1.1) Eosinophils # (Auto) 0.1 x10^3/uL (0.0-0.7) 0.1 x10^3/uL (0.0-0.7) Basophils # (Auto) 0.0 x10^3/uL (0.0-0.2) 0.0 x10^3/uL (0.0-0.2) Creatine Kinase 64 U/L (39-308) Findings: Frontal and lateral views of the left tibia and fibula were obtained. There is graft material noted along the expected course of the distal left superficial femoral artery the proximal popliteal arterial level. Extensive vascular calcification is noted at the left knee and proximal tibial level. Significant calcifications are seen more distally involving the posterior tibial arterial level. Soft tissue gas or laceration is noted at the posterior medial distal tibial diametaphyseal level. No fracture or bony destructive findings. Impression: No fracture or bone destruction. Soft tissue gas or or ulceration of the distal segmental level. Micro 10/29/19 Blood Culture - Preliminary, Resulted NO GROWTH AFTER 1 DAY GRAM STAIN Final Final GRAM NEGATIVE RODS:MODERATE SQUAMOUS EPI CELL:NONE SEEN PMN (WBCs):NONE SEEN ANAEROBIC-AEROBIC CULTURE PENDING Objective Assessment Chronic ulcerations right lower extremity asso increase pain, drainage, odor, tendon exposure and maggots. GNR on gram stain. 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 Cr better PVD h/o stents Peripheral neuropathy Plan [facility] of Care [facility] [place] Awaiting records Continue Dapto, meropenem, micafungin CK is 64 Monitor labs f/u cultures Vascular recommending bilateral BKA Local wound care as directed Patient discussed with [facility]. Chart reviewed in detail. Above plan co-formulated and agreed upon with [facility] on 10/31/2019. CHIQUITA FERREIRA APRN Oct 31, 2019 11:48 ASHLEY ALMAZAN MD Nov 01, 2019 19:50
[2019-10-31 11:59] VITALS: BP 159/73
--- NOTE | 2019-10-31 12:33 | PDOC ---
[facility] PROGRESS NOTE Chief Complaint Chief Complaint Severe peripheral vascular disease Chronic ulcerations right lower extremity asso increase pain, drainage, odor and maggots Nonhealing left forefoot amputation Leukocytosis Renal insufficiency. baseline Cr not known PVD h/o stents Peripheral neuropathy History of Present Illness History of Present Illness 10/30/2021 Patient seen and examined His lower extremities are both wrapped with clean dry intact dressing Chart reviewed Discussed with RN He is apparently been scheduled for bilateral below the knee amputations 10/30/2019 Patient seen and examined He has clean dry intact dressings on now He wants to have a bilateral below the knee amputation Chart reviewed Discussed with RN Vitals/I&O Vitals/I&O: Vital Signs Date Time Temp Pulse Resp B/P (MAP) Pulse Ox O2 Delivery O2 Flow Rate FiO2 10/31/19 09:29 20 Room Air 10/31/19 07:59 97.7 107 154/89 (110) 97 97.7 I & O 10/30/19 10/30/19 10/31/19 15:00 23:00 07:00 Intake Total 200 ml 300 ml Output Total 250 ml 300 ml 200 ml Balance -250 ml -100 ml 100 ml Physical Exam Physical Exam: GENERAL: Propped up in bed, alert, no apparent distress. HEENT: Pupils equally round and reactive. Oropharynx pink and moist. No lesions seen. NECK: Supple. LUNGS: Clear to auscultation. HEART: S1 and S2. ABDOMEN: Nondistended, soft, nontender with bowel sounds present. EXTREMITIES: No gross edema. Multiple ulcerations various sizes with foul odor and a some with tendon exposure, lower extremities bilaterally. Open TMA left foot with a graft in place. Today's dressings not taken down at this time. SKIN: Warm to touch. No signs of rash. NEUROLOGIC: Alert, answering questions appropriately, but is forgetful and is somewhat a poor historian. General: Alert, Oriented X3, Cooperative Heart: Regular rate, Normal S1, Normal S2 Lungs: Clear Abdomen: Normal bowel sounds, Soft, No tenderness Extremities: No edema, Other (Palpable popliteal pulses bilaterally, palpable femoral pulses bilaterally) Skin: Other (Significant full-thickness diffuse wounds involving bilateral lower extremities with full-thickness wound to the level of the Achilles tendon on the right and multiple other full-thickness wounds scattered throughout the below-knee area on the right and the left. The patient has an open TMA amputation site with dermal graft in place.) Labs Labs: Laboratory Tests Test 10/30/19 13:40 10/30/19 14:10 10/31/19 03:12 Sodium Level 141 mmol/L (136-145) Potassium Level 2.4 mmol/L (3.5-5.1) 3.0 mmol/L (3.5-5.1) Chloride Level 107 mmol/L (98-107) Carbon Dioxide Level 23 mmol/L (21-32) Anion Gap 11 (6-14) Blood Urea Nitrogen 14 mg/dL (8-26) Creatinine 1.2 mg/dL (0.7-1.3) 1.1 mg/dL (0.7-1.3) Estimated GFR (Cockcroft-Gault) 71.8 79.4 Glucose Level 92 mg/dL (70-99) Calcium Level 8.7 mg/dL (8.5-10.1) White Blood Count 11.9 x10^3/uL (4.0-11.0) 11.1 x10^3/uL (4.0-11.0) Red Blood Count 3.35 x10^6/uL (4.30-5.70) 3.52 x10^6/uL (4.30-5.70) Hemoglobin 9.3 g/dL (13.0-17.5) 9.4 g/dL (13.0-17.5) Hematocrit 27.1 % (39.0-53.0) 28.5 % (39.0-53.0) Mean Corpuscular Volume 81 fL (79-100) 81 fL (79-100) Mean Corpuscular Hemoglobin 28 pg (25-35) 27 pg (25-35) Mean Corpuscular Hemoglobin Concent 34 g/dL (31-37) 33 g/dL (31-37) Red Cell Distribution Width 15.1 % (11.5-14.5) 15.0 % (11.5-14.5) Platelet Count 527 x10^3/uL (140-400) 486 x10^3/uL (140-400) Neutrophils (%) (Auto) 73 % (31-73) 73 % (31-73) Lymphocytes (%) (Auto) 18 % (24-48) 18 % (24-48) Monocytes (%) (Auto) 7 % (0-9) 8 % (0-9) Eosinophils (%) (Auto) 1 % (0-3) 1 % (0-3) Basophils (%) (Auto) 0 % (0-3) 0 % (0-3) Neutrophils # (Auto) 8.7 x10^3/uL (1.8-7.7) 8.2 x10^3/uL (1.8-7.7) Lymphocytes # (Auto) 2.1 x10^3/uL (1.0-4.8) 2.0 x10^3/uL (1.0-4.8) Monocytes # (Auto) 0.9 x10^3/uL (0.0-1.1) 0.8 x10^3/uL (0.0-1.1) Eosinophils # (Auto) 0.1 x10^3/uL (0.0-0.7) 0.1 x10^3/uL (0.0-0.7) Basophils # (Auto) 0.0 x10^3/uL (0.0-0.2) 0.0 x10^3/uL (0.0-0.2) Creatine Kinase 64 U/L (39-308) Assessment and Plan Assessmemt and Plan Problems Medical Problems: (1) Lower extremity ulceration Status: Acute Severe peripheral vascular disease Chronic ulcerations right lower extremity asso increase pain, drainage, odor and maggots Nonhealing left forefoot amputation Leukocytosis Renal insufficiency. baseline Cr not known PVD h/o stents Peripheral neuropathy Plan Wound care IV antibiotics Home meds DVT prophylaxis Full code He will be going for probable bilateral below the knee amputation soon Appreciate subspecialist input Per infectious disease please see below; Plan of Care [facility] Awaiting records Continue Dapto, meropenem, micafungin CK is 64 Monitor labs f/u cultures Vascular recommending bilateral BKA Local wound care as directed Comment Review of Relevant I have reviewed the following items solomon (where applicable) has been applied. Medications: Current Medications Medications (Trade) Dose Ordered Sig/Yannick Route PRN Reason Start Time Stop Time Status Last Admin Dose Admin Lactobacillus Rhamnosus (Culturelle) 1 cap BID PO 10/30/19 21:00 10/31/19 08:29 Potassium Chloride (Klor-Con) 40 meq 1X ONCE PO 10/30/19 15:30 10/30/19 15:31 DC 10/30/19 15:35 Potassium Chloride (Klor-Con) 40 meq 1X ONCE PO 10/30/19 19:30 10/30/19 19:31 DC 10/30/19 19:53 Meropenem 500 mg/ Sodium Chloride 50 ml @ 100 mls/hr Q6HRS IV 10/30/19 18:00 10/31/19 06:24 Micafungin Sodium 100 mg/Dextrose 100 ml @ 100 mls/hr Q24H IV 10/30/19 17:00 10/30/19 17:08 Daptomycin 500 mg/ Sodium Chloride 50 ml @ 100 mls/hr Q24H IV 10/30/19 17:00 10/30/19 18:41 Justicifation of Admission Dx: Justifications for Admission: Justification of Admission Dx: Yes BRIANNA LOVE III DO Oct 31, 2019 12:33
[2019-10-31 15:59] VITALS: BP 133/75
[2019-10-31] MEDS: MICAFUNGIN 100 MG in IV DEXTROSE 5% 100ML 100 ML IV SCH (17:50)
[2019-10-31 19:35] VITALS: BP 131/77
[2019-10-31] MEDS: DAPTOmycin (GENERIC) IVPB 500 MG in IV NORMAL SALINE 50ML 50 ML IV SCH (20:04)
[2019-10-31] MEDS ORDERED: POTASSIUM CHLORIDE 20 MEQ TABLET.ER. PO ONE (20:30)
[2019-10-31 23:10] VITALS: BP 149/85
[2019-11-01] MEDS: MEROPENEM 500 MG in IV NORMAL SALINE 50ML 50 ML IV SCH ×5 (00:52→23:34)
[2019-11-01] MEDS: oxyCODONE/APAP 10/325 1 TAB TABLET PO PRN ×4 (01:00→23:42)
[2019-11-01 03:15] VITALS: BP 164/98
[2019-11-01 07:48] LABS: CALCIUM 8.6 mg/dL (8.5-10.1); GFR 88.6
[2019-11-01 07:51] LABS: POTASSIUM 2.8 mmol/L (3.5-5.1)
[2019-11-01 07:59] VITALS: BP 151/74
[2019-11-01] MEDS ORDERED: POTASSIUM CHLORIDE 20 MEQ TABLET.ER. PO ONE ×2 (08:30→17:00)
[2019-11-01] MEDS ORDERED: MAGNESIUM SULFATE 4GM 100 ML IV ONE (09:00)
[2019-11-01] MEDS: HYDROmorphone 2 MG/ML VIAL IV PRN ×2 (09:37→21:40)
[2019-11-01] MEDS: LACTOBACILLUS RHAMNOSUS GG 1 CAPSULE. PO SCH ×2 (09:38→21:00)
--- NOTE | 2019-11-01 11:37 | PDOC ---
Infectious Disease Note Subjective Subjective Says doing alright, hoping he will have his surgery tomorrow No increase pain/F/C/aches/N/V/D/SOA ROS ROS as mentioned above Vital Sign Vital Signs Vital Signs Date Time Temp Pulse Resp B/P (MAP) Pulse Ox O2 Delivery O2 Flow Rate FiO2 11/01/19 09:39 20 Room Air 11/01/19 07:59 98.1 91 151/74 (99) 96 98.1 Physical Exam PHYSICAL EXAM GENERAL: Propped up in bed, alert, watching TV HEENT: RERL, Oropharynx pink and moist. No lesions seen. NECK: Supple. LUNGS: Clear to auscultation. HEART: S1 and S2. ABDOMEN: Nondistended, soft, nontender with bowel sounds present. EXTREMITIES: No gross edema. Multiple ulcerations various sizes with foul odor and a some with tendon exposure, lower extremities bilaterally. Open TMA left foot with a graft in place. Today's dressings not taken down per patient's request. SKIN: Warm to touch. No signs of rash. NEUROLOGIC: Alert, answering questions appropriately, but is forgetful and is somewhat a poor historian. Labs Lab Laboratory Tests Test 11/01/19 06:00 Sodium Level 141 mmol/L (136-145) Potassium Level 2.8 mmol/L (3.5-5.1) Chloride Level 108 mmol/L (98-107) Carbon Dioxide Level 22 mmol/L (21-32) Anion Gap 11 (6-14) Blood Urea Nitrogen 9 mg/dL (8-26) Creatinine 1.0 mg/dL (0.7-1.3) Estimated GFR (Cockcroft-Gault) 88.6 Glucose Level 100 mg/dL (70-99) Calcium Level 8.6 mg/dL (8.5-10.1) Micro 10/29/19 Blood Culture - Preliminary, Resulted NO GROWTH AFTER 2 DAY GRAM STAIN Final Final GRAM NEGATIVE RODS:MODERATE SQUAMOUS EPI CELL:NONE SEEN PMN (WBCs):NONE SEEN ANAEROBIC-AEROBIC CULTURE PENDING Objective Assessment Chronic ulcerations right lower extremity asso increase pain, drainage, odor, tendon exposure and maggots. GNR on gram stain. 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 Cr better PVD h/o stents Peripheral neuropathy Hypokalemia Plan Plan of Care [facility] Awaiting records Continue Dapto, meropenem, micafungin CK is 64 Monitor labs f/u cultures Probiotics Vascular recommending bilateral BKA, deferred to ortho. Local wound care as directed Hypokalemia per primary D/w nursing Patient discussed with [employer] SYSTEMS ENGINEER. Chart reviewed in detail. Above plan co-formulated and agreed upon with [employer] SYSTEMS ENGINEER on 11/01/2019. CHIQUITA FERREIRA APRN Nov 01, 2019 11:37 ASHLEY ALMAZAN MD Nov 01, 2019 19:51
[2019-11-01 11:59] VITALS: BP 117/67
--- NOTE | 2019-11-01 13:54 | PDOC ---
[facility] PROGRESS NOTE Chief Complaint Chief Complaint Severe peripheral vascular disease Chronic ulcerations right lower extremity asso increase pain, drainage, odor and maggots Nonhealing left forefoot amputation Leukocytosis Renal insufficiency. baseline Cr not known PVD h/o stents Peripheral neuropathy History of Present Illness History of Present Illness 11/01/2019 Patient seen and examined Chart reviewed Discussed with RN 10/30/2021 Patient seen and examined His lower extremities are both wrapped with clean dry intact dressing Chart reviewed Discussed with RN He is apparently been scheduled for bilateral below the knee amputations 10/30/2019 Patient seen and examined He has clean dry intact dressings on now He wants to have a bilateral below the knee amputation Chart reviewed Discussed with RN Vitals/I&O Vitals/I&O: Vital Signs Date Time Temp Pulse Resp B/P (MAP) Pulse Ox O2 Delivery O2 Flow Rate FiO2 11/01/19 11:59 98.3 87 18 117/67 (84) 97 Room Air 98.3 I & O 10/31/19 10/31/19 11/01/19 15:00 23:00 07:00 Intake Total 150 ml Output Total 300 ml 875 ml Balance -300 ml -725 ml Physical Exam Physical Exam: GENERAL: Propped up in bed, alert, watching TV HEENT: RERL, Oropharynx pink and moist. No lesions seen. NECK: Supple. LUNGS: Clear to auscultation. HEART: S1 and S2. ABDOMEN: Nondistended, soft, nontender with bowel sounds present. EXTREMITIES: No gross edema. Multiple ulcerations various sizes with foul odor and a some with tendon exposure, lower extremities bilaterally. Open TMA left foot with a graft in place. Today's dressings not taken down per patient's request. SKIN: Warm to touch. No signs of rash. NEUROLOGIC: Alert, answering questions appropriately, but is forgetful and is somewhat a poor historian. General: Alert, Oriented X3, Cooperative Heart: Regular rate, Normal S1, Normal S2 Lungs: Clear Abdomen: Normal bowel sounds, Soft, No tenderness Extremities: No edema, Other (Palpable popliteal pulses bilaterally, palpable femoral pulses bilaterally) Skin: Other (Significant full-thickness diffuse wounds involving bilateral lower extremities with full-thickness wound to the level of the Achilles tendon on the right and multiple other full-thickness wounds scattered throughout the below-knee area on the right and the left. The patient has an open TMA amputation site with dermal graft in place.) Labs Labs: Laboratory Tests Test 11/01/19 06:00 Sodium Level 141 mmol/L (136-145) Potassium Level 2.8 mmol/L (3.5-5.1) Chloride Level 108 mmol/L (98-107) Carbon Dioxide Level 22 mmol/L (21-32) Anion Gap 11 (6-14) Blood Urea Nitrogen 9 mg/dL (8-26) Creatinine 1.0 mg/dL (0.7-1.3) Estimated GFR (Cockcroft-Gault) 88.6 Glucose Level 100 mg/dL (70-99) Calcium Level 8.6 mg/dL (8.5-10.1) Assessment and Plan Assessmemt and Plan Problems Medical Problems: (1) Lower extremity ulceration Status: Acute Severe peripheral vascular disease Chronic ulcerations right lower extremity asso increase pain, drainage, odor and maggots Nonhealing left forefoot amputation Leukocytosis Renal insufficiency. baseline Cr not known PVD h/o stents Peripheral neuropathy Plan Dr. Ramos is arranging for patient to go for bilateral lower extremity below the knee amputations and we certainly appreciate his help. For now we will continue the following; Wound care IV antibiotics Home meds DVT prophylaxis Full code Appreciate subspecialist input Per infectious disease please see below; Comment Review of Relevant I have reviewed the following items solomon (where applicable) has been applied. Medications: Current Medications Medications (Trade) Dose Ordered Sig/Yannick Route PRN Reason Start Time Stop Time Status Last Admin Dose Admin Potassium Chloride (Klor-Con) 40 meq 1X ONCE PO 10/31/19 20:30 10/31/19 20:31 DC 10/31/19 21:11 Magnesium Sulfate 100 ml @ 25 mls/hr 1X ONCE IV 11/01/19 09:00 11/01/19 12:59 DC 11/01/19 09:37 Potassium Chloride (Klor-Con) 40 meq 1X ONCE PO 11/01/19 08:30 11/01/19 08:31 DC 11/01/19 09:38 Justicifation of Admission Dx: Justifications for Admission: Justification of Admission Dx: Yes BRIANNA LOVE III DO Nov 01, 2019 13:54
[2019-11-01 15:59] VITALS: BP 145/76
[2019-11-01] MEDS: MICAFUNGIN 100 MG in IV DEXTROSE 5% 100ML 100 ML IV SCH (17:20)
[2019-11-01 19:00] VITALS: BP_SYST 144; BP_SYST 92; BP_DIAS 63; BP_DIAS 78
--- NOTE | 2019-11-01 20:00 | NUR ---
Pt refused to have BLE dressings changed. Pt stated that he's just going to get them "taken off" tomorrow. Explained to pt, that his surgery is likely not going to be until saturday or saturday d/t physician and OR availability, which is what had been communicated to this RN in report from Les. Pt does not think that is correct, insists that his surgery is tomorrow and there is no need for dressings to be changed.
[2019-11-01] MEDS: DAPTOmycin (GENERIC) IVPB 500 MG in IV NORMAL SALINE 50ML 50 ML IV SCH (20:35)
[2019-11-01 23:38] VITALS: BP 144/67
[2019-11-02] VITALS (7 sets, daily range): BP systolic 151–208; BP diastolic 77–116
[2019-11-02 05:07] LABS: CREATININE 1.2 mg/dL (0.7-1.3); GFR 71.8; POTASSIUM 3.3 mmol/L (3.5-5.1)
[2019-11-02] MEDS: MEROPENEM 500 MG in IV NORMAL SALINE 50ML 50 ML IV SCH ×3 (05:31→18:00)
[2019-11-02] MEDS: LACTOBACILLUS RHAMNOSUS GG 1 CAPSULE. PO SCH ×2 (08:12→21:00)
[2019-11-02] MEDS: POTASSIUM CHLORIDE 20 MEQ TABLET.ER. PO SCH (08:12)
--- NOTE | 2019-11-02 08:48 | NUR ---
SW following. Discussed with RN, pt from home, room air, COVID-19 negative. Pt having bilateral BKA, likely not today. PT/OT to work with pt after surgery. SW will continue to follow.
--- NOTE | 2019-11-02 08:52 | PDOC ---
PROGRESS NOTES Chief Complaint Chief Complaint Chronic ulceration lower extremities bilaterally associated with increased pain, drainage, odor and tendon exposure as well as maggot infestation Nonhealing open transmetatarsal amputation, left foot. Leukocytosis. Renal insufficiency, baseline creatinine not known. Peripheral vascular disease, status post revascularization. Peripheral neuropathy. Diabetes. Hypertension. History of Present Illness History of Present Illness Mr Guardado is a 74yo M [facility] w/ PMHx diabetes, hypertension, hyperlipidemia, peripheral neuropathy and peripheral vascular disease, status post revascularization lower extremities. He is followed by the [facility] wound care for chronic ulcerations lower extremities bilaterally. Earlier this year, he underwent an open transmetatarsal amputation of his left foot due to gangrene and osteomyelitis. He says he has been on antibiotics with little improvement. Over the last few days, he developed worsening pain, drainage and odor. He was found to have maggots in his wounds. X-ray imaging showed soft tissue defects. No fractures or bony erosions. A venous ultrasound was negative for DVT. The wounds were cleaned. The maggots removed and cultures were sent. He has since been admitted and started on vancomycin and Zosyn. Vascular surgery and ID were consulted. Afebrile. His only complaint today is that he wants to have his legs amputated. No chest pain or shortness of breath. 11/01/2019 Patient seen and examined Chart reviewed Discussed with RN 10/30/2021 Patient seen and examined His lower extremities are both wrapped with clean dry intact dressing Chart reviewed Discussed with RN He is apparently been scheduled for bilateral below the knee amputations 10/30/2019 Patient seen and examined He has clean dry intact dressings on now He wants to have a bilateral below the knee amputation Chart reviewed Discussed with RN Vitals Vitals Vital Signs Date Time Temp Pulse Resp B/P (MAP) Pulse Ox O2 Delivery O2 Flow Rate FiO2 11/02/19 07:00 98.3 92 18 151/77 (101) Room Air 98.0 98.3 11/01/19 23:38 97 Physical Exam Physical Exam GENERAL: Propped up in bed, alert, watching TV HEENT: RERL, Oropharynx pink and moist. No lesions seen. NECK: Supple. LUNGS: Clear to auscultation. HEART: S1 and S2. ABDOMEN: Nondistended, soft, nontender with bowel sounds present. EXTREMITIES: No gross edema. Multiple ulcerations various sizes with foul odor and a some with tendon exposure, lower extremities bilaterally. Open TMA left foot with a graft in place. Today's dressings not taken down per patient's request. SKIN: Warm to touch. No signs of rash. NEUROLOGIC: Alert, answering questions appropriately, but is forgetful and is somewhat a poor historian. General: Alert, Oriented X3, Cooperative Heart: Regular rate, Normal S1, Normal S2 Lungs: Clear Abdomen: Normal bowel sounds, Soft, No tenderness Extremities: No edema, Other (Palpable popliteal pulses bilaterally, palpable femoral pulses bilaterally) Skin: Other (Significant full-thickness diffuse wounds involving bilateral lower extremities with full-thickness wound to the level of the Achilles tendon on the right and multiple other full-thickness wounds scattered throughout the below-knee area on the right and the left. The patient has an open TMA amputation site with dermal graft in place.) Labs LABS Laboratory Tests Test 11/01/19 09:30 11/02/19 04:25 Coronavirus (COVID-19)(PCR) Negative (NEGATIVE) Sodium Level 145 mmol/L (136-145) Potassium Level 3.3 mmol/L (3.5-5.1) Chloride Level 112 mmol/L (98-107) Carbon Dioxide Level 21 mmol/L (21-32) Anion Gap 12 (6-14) Blood Urea Nitrogen 9 mg/dL (8-26) Creatinine 1.2 mg/dL (0.7-1.3) Estimated GFR (Cockcroft-Gault) 71.8 Glucose Level 102 mg/dL (70-99) Calcium Level 8.0 mg/dL (8.5-10.1) Assessment and Plan Assessmemt and Plan Problems Medical Problems: (1) Lower extremity ulceration Status: Acute Comment Review of Relevant I have reviewed the following items solomon (where applicable) has been applied. Labs Laboratory Tests Test 11/01/19 06:00 11/01/19 09:30 11/02/19 04:25 Sodium Level 141 mmol/L (136-145) 145 mmol/L (136-145) Potassium Level 2.8 mmol/L (3.5-5.1) 3.3 mmol/L (3.5-5.1) Chloride Level 108 mmol/L (98-107) 112 mmol/L (98-107) Carbon Dioxide Level 22 mmol/L (21-32) 21 mmol/L (21-32) Anion Gap 11 (6-14) 12 (6-14) Blood Urea Nitrogen 9 mg/dL (8-26) 9 mg/dL (8-26) Creatinine 1.0 mg/dL (0.7-1.3) 1.2 mg/dL (0.7-1.3) Estimated GFR (Cockcroft-Gault) 88.6 71.8 Glucose Level 100 mg/dL (70-99) 102 mg/dL (70-99) Calcium Level 8.6 mg/dL (8.5-10.1) 8.0 mg/dL (8.5-10.1) Coronavirus (COVID-19)(PCR) Negative (NEGATIVE) Laboratory Tests Test 11/01/19 09:30 11/02/19 04:25 Coronavirus (COVID-19)(PCR) Negative (NEGATIVE) Sodium Level 145 mmol/L (136-145) Potassium Level 3.3 mmol/L (3.5-5.1) Chloride Level 112 mmol/L (98-107) Carbon Dioxide Level 21 mmol/L (21-32) Anion Gap 12 (6-14) Blood Urea Nitrogen 9 mg/dL (8-26) Creatinine 1.2 mg/dL (0.7-1.3) Estimated GFR (Cockcroft-Gault) 71.8 Glucose Level 102 mg/dL (70-99) Calcium Level 8.0 mg/dL (8.5-10.1) Microbiology 10/29/19 Gram Stain - Final, Resulted 10/29/19 Aerobic and Anaerobic Culture - Preliminary, Resulted 10/29/19 Blood Culture - Preliminary, Resulted NO GROWTH AFTER 3 DAYS Medications Current Medications Vancomycin HCl (Vanco Per Pharmacy) 1 each 1X ONCE MC ; Start 10/29/19 at 17:00; Stop 10/30/19 at 16:05; Status DC Sodium Chloride 1,000 ml @ 1,000 mls/hr Q1H IV Last administered on 10/29/19at 17:17; Start 10/29/19 at 16:41; Stop 10/29/19 at 17:40; Status DC Fentanyl Citrate (Fentanyl 2ml Vial) 50 mcg 1X ONCE IVP Last administered on 10/29/19at 17:17; Start 10/29/19 at 16:45; Stop 10/29/19 at 16:46; Status DC Piperacillin Sod/ Tazobactam Sod 3.375 gm/Sodium Chloride 50 ml @ 100 mls/hr 1X ONCE IV Last administered on 10/29/19at 18:06; Start 10/29/19 at 17:00; Stop 10/29/19 at 17:29; Status DC Vancomycin HCl 2 gm/Sodium Chloride 500 ml @ 250 mls/hr 1X ONCE IV Last administered on 10/29/19at 17:18; Start 10/29/19 at 17:00; Stop 10/29/19 at 18:59; Status DC Ondansetron HCl (Zofran) 4 mg PRN Q8HRS PRN IV NAUSEA/VOMITING; Start 10/29/19 at 18:00; Stop 10/30/19 at 17:59; Status DC Fentanyl Citrate (Fentanyl 2ml Vial) 50 mcg PRN Q1HR PRN IV PAIN Last administered on 10/29/19at 22:48; Start 10/29/19 at 18:00; Stop 10/29/19 at 23:47; Status DC Oxycodone/ Acetaminophen (Percocet 10/325) 1 tab PRN Q4HRS PRN PO SEVERE PAIN 7-10 Last administered on 11/01/19at 23:42; Start 10/30/19 at 00:00 Vancomycin HCl 1.25 gm/Sodium Chloride 250 ml @ 167 mls/hr Q24H IV ; Start 10/30/19 at 17:00; Stop 10/30/19 at 12:06; Status DC Vancomycin HCl (Vancomycin Trough Level) 1 each 1X ONCE MC ; Start 10/31/19 at 16:30; Stop 10/31/19 at 16:31; Status Cancel Vancomycin HCl (Vanco Per Pharmacy) 1 each PRN DAILY PRN MC SEE COMMENTS Last administered on 10/30/19at 01:33; Start 10/29/19 at 23:45; Stop 10/30/19 at 12:06; Status DC Hydromorphone HCl (Dilaudid) 1 mg PRN Q2HR PRN IV breakthrough pain Last administered on 11/01/19at 21:40; Start 10/30/19 at 07:15 Lactobacillus Rhamnosus (Culturelle) 1 cap BID PO Last administered on 11/02/19at 08:12; Start 10/30/19 at 21:00 Piperacillin Sod/ Tazobactam Sod (Zosyn Per Pharmacy) 1 each PRN DAILY PRN MC SEE COMMENTS; Start 10/30/19 at 12:00; Stop 10/30/19 at 16:05; Status DC Piperacillin Sod/ Tazobactam Sod 3.375 gm/Sodium Chloride 50 ml @ 100 mls/hr Q6HRS IV Last administered on 10/30/19at 12:51; Start 10/30/19 at 12:15; Stop 10/30/19 at 16:05; Status DC Potassium Chloride (Klor-Con) 40 meq 1X ONCE PO Last administered on 10/30/19at 15:35; Start 10/30/19 at 15:30; Stop 10/30/19 at 15:31; Status DC Potassium Chloride (Klor-Con) 40 meq 1X ONCE PO Last administered on 10/30/19at 19:53; Start 10/30/19 at 19:30; Stop 10/30/19 at 19:31; Status DC Meropenem 500 mg/ Sodium Chloride 50 ml @ 100 mls/hr Q6HRS IV Last administered on 11/02/19at 05:31; Start 10/30/19 at 18:00 Daptomycin 510 mg/ Sodium Chloride 50 ml @ 100 mls/hr Q24H IV ; Start 10/30/19 at 16:00; Status Cancel Micafungin Sodium 100 mg/Dextrose 100 ml @ 100 mls/hr Q24H IV Last administered on 11/01/19at 17:20; Start 10/30/19 at 17:00 Daptomycin 500 mg/ Sodium Chloride 50 ml @ 100 mls/hr Q24H IV Last administered on 11/01/19at 20:35; Start 10/30/19 at 17:00 Potassium Chloride (Klor-Con) 40 meq 1X ONCE PO Last administered on 10/31/19at 21:11; Start 10/31/19 at 20:30; Stop 10/31/19 at 20:31; Status DC Magnesium Sulfate 100 ml @ 25 mls/hr 1X ONCE IV Last administered on 11/01/19at 09:37; Start 11/01/19 at 09:00; Stop 11/01/19 at 12:59; Status DC Potassium Chloride (Klor-Con) 40 meq 1X ONCE PO Last administered on 11/01/19at 09:38; Start 11/01/19 at 08:30; Stop 11/01/19 at 08:31; Status DC Potassium Chloride (Klor-Con) 20 meq [id number] PO Last administered on 11/02/19at 08:12; Start 11/02/19 at 08:00 Potassium Chloride (Klor-Con) 40 meq 1X ONCE PO Last administered on 11/01/19at 17:23; Start 11/01/19 at 17:00; Stop 11/01/19 at 17:01; Status DC Vitals/I & O Vital Sign - Last 24 Hours 11/01/19 11/01/19 11/01/19 11/01/19 09:37 09:39 10:07 10:39 Resp 20 20 20 20 O2 Delivery Room Air Room Air Room Air Room Air 11/01/19 11/01/19 11/01/19 11/01/19 11:59 15:59 17:23 18:24 Temp 98.3 98.6 98.3 98.6 Pulse 87 75 Resp 18 18 20 20 B/P (MAP) 117/67 (84) 145/76 (99) Pulse Ox 97 99 O2 Delivery Room Air Room Air Room Air Room Air 11/01/19 11/01/19 11/01/19 11/01/19 19:00 20:00 21:40 22:10 Temp 98.1 98.1 Pulse 75 Resp 18 20 18 B/P (MAP) 144/78 (100) Pulse Ox 100 O2 Delivery Room Air Room Air Room Air Room Air 11/01/19 11/01/19 11/02/19 11/02/19 23:38 23:42 00:42 03:00 Temp 99.1 98.6 99.1 98.6 Pulse 113 100 Resp 18 20 18 18 B/P (MAP) 144/67 (92) 153/82 (105) Pulse Ox 97 O2 Delivery Room Air Room Air Room Air Room Air O2 Flow Rate 98.0 11/02/19 07:00 Temp 98.3 98.3 Pulse 92 Resp 18 B/P (MAP) 151/77 (101) O2 Delivery Room Air O2 Flow Rate 98.0 Intake and Output 11/01/19 11/01/19 11/02/19 15:00 23:00 07:00 Intake Total 120 ml 200 ml 50 ml Output Total 200 ml 500 ml 450 ml Balance -80 ml -300 ml -400 ml Nutrition Consultation Dietary Evaluation: Recommendations by RD: Dietary education by RD, Increase Calorie Intake, Protein supplementation Comments: cardiac diet with trung bid rec : mvi q day per wound protocol Expected Outcomes/Goals: to meet >75% est nutr needs Malnutrition Findings: Body Fat Depletion (Non Severe: Mild Depletion Weight Status: Underweight Justicifation of Admission Dx: Justifications for Admission: Justification of Admission Dx: Yes RADHA HOLT MD Nov 02, 2019 08:52
[2019-11-02] MEDS ORDERED: PROCHLORPERAZINE 10 MG/2 ML VIAL. IV PRN (11:45)
[2019-11-02] MEDS ORDERED: ONDANSETRON PF 4 MG/2 ML VIAL. IV PRN (11:45)
[2019-11-02] MEDS ORDERED: IV RINGERS,LACTATED 1000ML 1,000 ML IV SCH ×2 (12:00→20:00)
[2019-11-02] MEDS: MULTIVITAMIN with MINERAL TABLET. PO SCH (13:32)
[2019-11-02] MEDS: ASCORBIC ACID 500 MG TABLET PO SCH ×2 (13:32→21:00)
[2019-11-02] MEDS ORDERED: PROPOFOL 10 MG/ML (20ML) VIAL. IV ONE (14:52)
[2019-11-02] MEDS ORDERED: LIDOCAINE 2% PF 5 ML VIAL. ONE (14:52)
[2019-11-02] MEDS ORDERED: ONDANSETRON PF 4 MG/2 ML VIAL. ONE (14:52)
[2019-11-02] MEDS ORDERED: DEXAMETHASONE SOD PHOS 4 MG/ML VIAL ONE (14:52)
[2019-11-02] MEDS ORDERED: fentaNYL PF VIAL 100 MCG/2 ML VIAL ONE ×4 (14:53→20:00)
--- NOTE | 2019-11-02 15:20 | NUR ---
Pt to surgery by bed accompanied by spouse.
--- NOTE | 2019-11-02 15:29 | NUR ---
Wound Care Pt off unit at time of WC team arrival, will FU tomorrow
--- NOTE | 2019-11-02 15:30 | PDOC ---
PROGRESS NOTES Subjective Subjective My legs hurt. I know I need to have them amputated. Pleasant 74-year-old male who has had significant bilateral lower extremity wounds who underwent debridement and transmetatarsal amputation on the left. Apparently had significant infestation with maggots requiring surgical therapy and ultimately amputation for gangrenous disease. He received a dermal graft to the left TMA site at the [facility]. These bandages are still in place. He has significant pain from both lower extremities and multiple wounds that are full-thickness gangrenous type wounds. We were asked to see the patient for evaluation of arterial blood flow as well as to advise on his lower extremity wounds. Patient apparently has had peripheral revascularization with stent placement at an outside facility. He was examined today at the bedside. He denies fever and chills, he denies CP and SOA. He denies N/V/D/C. Dr. Overton will be doing his bilateral BKA's today. Objective Objective Vital Signs Date Time Temp Pulse Resp B/P (MAP) Pulse Ox O2 Delivery O2 Flow Rate FiO2 11/02/19 11:00 98.1 87 18 156/86 (109) 100 Room Air 98.1 11/02/19 07:00 98.0 Intake and Output 11/02/19 07:00 Intake Total 370 ml Output Total 1150 ml Balance -780 ml Intake Oral 120 ml IV Total 250 ml Output Urine Total 1150 ml Physical Exam Physical Exam Alert and oriented x3. NAD. Respirations unlabored. He has significant full-thickness diffuse wounds involving bilateral lower extremities with full-thickness wound to the level of the Achilles tendon on the right and multiple other full-thickness wounds scattered throughout the below- knee area on the right and the left. The patient has an open TMA amputation site with dermal graft in place, with purulent drainage. He has 2+ femoral pulses and doppler PT pulses behind his ankles bilaterally. General: Alert, Oriented X3, Cooperative Neuro: Normal speech Psych/Mental Status: Mental status NL Assessment Assessment Problems Medical Problems: (1) Lower extremity ulceration Status: Acute Plan Plan of Care 74 year old gentleman with non-healing leg and foot wounds bilaterally, in spite of the presence of peripheral pulses. He is otherwise doing well and is ready for amputation for pain relief. Plan: proceed with bilateral BKA per ortho today. Vascular will sign off for now. We would be happy to see him again if there are any additional vascular concerns. Comment Review of Relevant I have reviewed the following items solomon (where applicable) has been applied. Labs Laboratory Tests Test 11/01/19 06:00 11/01/19 09:30 11/02/19 04:25 Sodium Level 141 mmol/L (136-145) 145 mmol/L (136-145) Potassium Level 2.8 mmol/L (3.5-5.1) 3.3 mmol/L (3.5-5.1) Chloride Level 108 mmol/L (98-107) 112 mmol/L (98-107) Carbon Dioxide Level 22 mmol/L (21-32) 21 mmol/L (21-32) Anion Gap 11 (6-14) 12 (6-14) Blood Urea Nitrogen 9 mg/dL (8-26) 9 mg/dL (8-26) Creatinine 1.0 mg/dL (0.7-1.3) 1.2 mg/dL (0.7-1.3) Estimated GFR (Cockcroft-Gault) 88.6 71.8 Glucose Level 100 mg/dL (70-99) 102 mg/dL (70-99) Calcium Level 8.6 mg/dL (8.5-10.1) 8.0 mg/dL (8.5-10.1) Coronavirus (COVID-19)(PCR) Negative (NEGATIVE) Laboratory Tests Test 11/02/19 04:25 Sodium Level 145 mmol/L (136-145) Potassium Level 3.3 mmol/L (3.5-5.1) Chloride Level 112 mmol/L (98-107) Carbon Dioxide Level 21 mmol/L (21-32) Anion Gap 12 (6-14) Blood Urea Nitrogen 9 mg/dL (8-26) Creatinine 1.2 mg/dL (0.7-1.3) Estimated GFR (Cockcroft-Gault) 71.8 Glucose Level 102 mg/dL (70-99) Calcium Level 8.0 mg/dL (8.5-10.1) Microbiology 10/29/19 Gram Stain - Final, Resulted 10/29/19 Aerobic and Anaerobic Culture - Preliminary, Resulted 10/29/19 Antimicrobic Susceptibility - Preliminary, Resulted 10/29/19 Blood Culture - Preliminary, Resulted NO GROWTH AFTER 3 DAYS Medications Current Medications Vancomycin HCl (Vanco Per Pharmacy) 1 each 1X ONCE MC ; Start 10/29/19 at 17:00; Stop 10/30/19 at 16:05; Status DC Sodium Chloride 1,000 ml @ 1,000 mls/hr Q1H IV Last administered on 10/29/19at 17:17; Start 10/29/19 at 16:41; Stop 10/29/19 at 17:40; Status DC Fentanyl Citrate (Fentanyl 2ml Vial) 50 mcg 1X ONCE IVP Last administered on 10/29/19at 17:17; Start 10/29/19 at 16:45; Stop 10/29/19 at 16:46; Status DC Piperacillin Sod/ Tazobactam Sod 3.375 gm/Sodium Chloride 50 ml @ 100 mls/hr 1X ONCE IV Last administered on 10/29/19at 18:06; Start 10/29/19 at 17:00; Stop 10/29/19 at 17:29; Status DC Vancomycin HCl 2 gm/Sodium Chloride 500 ml @ 250 mls/hr 1X ONCE IV Last administered on 10/29/19at 17:18; Start 10/29/19 at 17:00; Stop 10/29/19 at 18:59; Status DC Ondansetron HCl (Zofran) 4 mg PRN Q8HRS PRN IV NAUSEA/VOMITING; Start 10/29/19 at 18:00; Stop 10/30/19 at 17:59; Status DC Fentanyl Citrate (Fentanyl 2ml Vial) 50 mcg PRN Q1HR PRN IV PAIN Last administered on 10/29/19at 22:48; Start 10/29/19 at 18:00; Stop 10/29/19 at 23:47; Status DC Oxycodone/ Acetaminophen (Percocet 10/325) 1 tab PRN Q4HRS PRN PO SEVERE PAIN 7-10 Last administered on 11/01/19at 23:42; Start 10/30/19 at 00:00 Vancomycin HCl 1.25 gm/Sodium Chloride 250 ml @ 167 mls/hr Q24H IV ; Start 10/30/19 at 17:00; Stop 10/30/19 at 12:06; Status DC Vancomycin HCl (Vancomycin Trough Level) 1 each 1X ONCE MC ; Start 10/31/19 at 16:30; Stop 10/31/19 at 16:31; Status Cancel Vancomycin HCl (Vanco Per Pharmacy) 1 each PRN DAILY PRN MC SEE COMMENTS Last administered on 10/30/19at 01:33; Start 10/29/19 at 23:45; Stop 10/30/19 at 12:06; Status DC Hydromorphone HCl (Dilaudid) 1 mg PRN Q2HR PRN IV breakthrough pain Last administered on 11/01/19at 21:40; Start 10/30/19 at 07:15 Lactobacillus Rhamnosus (Culturelle) 1 cap BID PO Last administered on 11/02/19at 08:12; Start 10/30/19 at 21:00 Piperacillin Sod/ Tazobactam Sod (Zosyn Per Pharmacy) 1 each PRN DAILY PRN MC SEE COMMENTS; Start 10/30/19 at 12:00; Stop 10/30/19 at 16:05; Status DC Piperacillin Sod/ Tazobactam Sod 3.375 gm/Sodium Chloride 50 ml @ 100 mls/hr Q6HRS IV Last administered on 10/30/19at 12:51; Start 10/30/19 at 12:15; Stop 10/30/19 at 16:05; Status DC Potassium Chloride (Klor-Con) 40 meq 1X ONCE PO Last administered on 10/30/19at 15:35; Start 10/30/19 at 15:30; Stop 10/30/19 at 15:31; Status DC Potassium Chloride (Klor-Con) 40 meq 1X ONCE PO Last administered on 10/30/19at 19:53; Start 10/30/19 at 19:30; Stop 10/30/19 at 19:31; Status DC Meropenem 500 mg/ Sodium Chloride 50 ml @ 100 mls/hr Q6HRS IV Last administered on 11/02/19at 11:48; Start 10/30/19 at 18:00 Daptomycin 510 mg/ Sodium Chloride 50 ml @ 100 mls/hr Q24H IV ; Start 10/30/19 at 16:00; Status Cancel Micafungin Sodium 100 mg/Dextrose 100 ml @ 100 mls/hr Q24H IV Last administered on 11/01/19at 17:20; Start 10/30/19 at 17:00 Daptomycin 500 mg/ Sodium Chloride 50 ml @ 100 mls/hr Q24H IV Last administered on 11/01/19at 20:35; Start 10/30/19 at 17:00 Potassium Chloride (Klor-Con) 40 meq 1X ONCE PO Last administered on 10/31/19at 21:11; Start 10/31/19 at 20:30; Stop 10/31/19 at 20:31; Status DC Magnesium Sulfate 100 ml @ 25 mls/hr 1X ONCE IV Last administered on 11/01/19at 09:37; Start 11/01/19 at 09:00; Stop 11/01/19 at 12:59; Status DC Potassium Chloride (Klor-Con) 40 meq 1X ONCE PO Last administered on 11/01/19at 09:38; Start 11/01/19 at 08:30; Stop 11/01/19 at 08:31; Status DC Potassium Chloride (Klor-Con) 20 meq DAILYWBKFT PO Last administered on 11/02/19at 08:12; Start 11/02/19 at 08:00 Potassium Chloride (Klor-Con) 40 meq 1X ONCE PO Last administered on 11/01/19at 17:23; Start 11/01/19 at 17:00; Stop 11/01/19 at 17:01; Status DC Ondansetron HCl (Zofran) 4 mg PRN Q6HRS PRN IV NAUSEA/VOMITING; Start 11/02/19 at 11:45; Stop 11/02/19 at 21:00 Ringer's Solution 1,000 ml @ 30 mls/hr Q24H IV ; Start 11/02/19 at 12:00; Stop 11/02/19 at 21:00 Prochlorperazine Edisylate (Compazine) 5 mg PACU PRN PRN IV NAUSEA, MRX1; Start 11/02/19 at 11:45; Stop 11/02/19 at 21:00 Multivitamins (Thera M Plus) 1 tab DAILY PO ; Start 11/02/19 at 14:00 Ascorbic Acid (Vitamin C) 500 mg BID PO ; Start 11/02/19 at 14:00 Dexamethasone Sodium Phosphate (Decadron) 4 mg STK-MED ONCE .ROUTE ; Start 11/02/19 at 14:52; Stop 11/02/19 at 14:56; Status DC Ondansetron HCl (Zofran) 4 mg STK-MED ONCE .ROUTE ; Start 11/02/19 at 14:52; Stop 11/02/19 at 14:56; Status DC Lidocaine HCl (Lidocaine Pf 2% Vial) 5 ml STK-MED ONCE .ROUTE ; Start 11/02/19 at 14:52; Stop 11/02/19 at 14:57; Status DC Propofol (Diprivan) 200 mg STK-MED ONCE IV ; Start 11/02/19 at 14:52; Stop 11/02/19 at 14:59; Status DC Fentanyl Citrate (Fentanyl 2ml Vial) 100 mcg STK-MED ONCE .ROUTE ; Start 11/02/19 at 14:53; Stop 11/02/19 at 14:59; Status DC Vitals/I & O Vital Sign - Last 24 Hours 11/01/19 11/01/19 11/01/19 11/01/19 15:59 17:23 18:24 19:00 Temp 98.6 98.1 98.6 98.1 Pulse 75 75 Resp 18 20 20 18 B/P (MAP) 145/76 (99) 144/78 (100) Pulse Ox 99 100 O2 Delivery Room Air Room Air Room Air Room Air 11/01/19 11/01/19 11/01/19 11/01/19 20:00 21:40 22:10 23:38 Temp 99.1 99.1 Pulse 113 Resp 20 18 18 B/P (MAP) 144/67 (92) Pulse Ox 97 O2 Delivery Room Air Room Air Room Air Room Air 11/01/19 11/02/19 11/02/19 11/02/19 23:42 00:42 03:00 07:00 Temp 98.6 98.3 98.6 98.3 Pulse 100 92 Resp 20 18 18 18 B/P (MAP) 153/82 (105) 151/77 (101) O2 Delivery Room Air Room Air Room Air Room Air O2 Flow Rate 98.0 98.0 11/02/19 11/02/19 08:00 11:00 Temp 98.1 98.1 Pulse 87 Resp 18 B/P (MAP) 156/86 (109) Pulse Ox 100 O2 Delivery Room Air Room Air Intake and Output 11/01/19 11/01/19 11/02/19 15:00 23:00 07:00 Intake Total 120 ml 200 ml 50 ml Output Total 200 ml 500 ml 450 ml Balance -80 ml -300 ml -400 ml Justicifation of Admission Dx: Justifications for Admission: Justification of Admission Dx: Yes FUNMILAYO ZIEGLER [employer]TER Nov 02, 2019 15:30
[2019-11-02] MEDS: DAPTOmycin (GENERIC) IVPB 500 MG in IV NORMAL SALINE 50ML 50 ML IV SCH (16:41)
[2019-11-02] MEDS: MICAFUNGIN 100 MG in IV DEXTROSE 5% 100ML 100 ML IV SCH (17:40)
[2019-11-02] MEDS ORDERED: PHENYLEPHRINE in 0.9% NACL PF 1 MG/10 ML SYRINGE. IV ONE (17:41)
[2019-11-02] MEDS ORDERED: ePHEDrine PF IN SALINE 50 MG/10 ML SYRINGE. IV ONE (17:57)
[2019-11-02] MEDS ORDERED: MORPHINE SULFATE 2 MG/ML VIAL. ONE (19:54)
[2019-11-02] MEDS ORDERED: MORPHINE SULFATE 2 MG/ML VIAL. IV ONE (20:00)
[2019-11-02] MEDS: fentaNYL PF VIAL 100 MCG/2 ML VIAL IVP PRN ×2 (20:09→20:19)
[2019-11-02] MEDS ORDERED: MORPHINE SULFATE 2 MG/ML VIAL. IV PRN (20:15)
[2019-11-02] MEDS: HYDROmorphone 2 MG/ML VIAL IV PRN ×3 (20:20→22:04)
[2019-11-02] MEDS: LABETALOL 20 MG/4 ML DISP.SYRIN. IVP PRN ×2 (20:27→21:49)
[2019-11-02] MEDS ORDERED: IV NORMAL SALINE 1000ML BAG 1,000 ML IV ONE (21:00)
[2019-11-02] MEDS ORDERED: LABETALOL 20 MG/4 ML DISP.SYRIN. IVP PRN (22:45)
[2019-11-02] MEDS ORDERED: amLODIPine BESYLATE 5 MG TABLET PO ONE (23:00)
--- NOTE | 2019-11-02 23:24 | PDOC4 ---
Operative Note Operative Note Date of surgery: 11/02/2019 Preoperative diagnosis: Nonhealing infected odorous ulcers bilateral lower extremities with nonhealing left transmetatarsal amputation Postoperative diagnosis: Same Operative procedure: Bilateral below knee amputation Surgeon: Tian Anesthesia: General Estimated blood loss: 50 cc Complications: None Operative indications: Please see my dictated orthopedic consultation for detailed operative indications Operative text: Patient was identified procedure verified patient placed in the supine position on the operating table. After adequate amounts of general anesthesia were administered bilateral lower extremities were prepped and draped in the standard sterile fashion with thigh tourniquets. After timeout was performed patient procedure identified and verified the left lower extremity thi gh tourniquet was first inflated to 300 mmHg and the anterior portion of the below-knee amputation site was selected at 4 finger breaths below the tibial tubercle. The skin was sharply incised transversely and a posterior flap was fashioned to approximate anteriorly with the padding of the muscle and fascia. Anterior compartment muscle was divided by electrocautery at the proposed level of amputation skin was peeled back off the tibia to allow a transverse cut that was beveled anteriorly. Neurovascular bundles were doubly tied off with silk suture. Fibula was divided approximately 2 cm proximal to the tibial amputation site. And fascia and muscular padding were retained at the posterior flap neurovascular bundles were allowed to retract to avoid pressure or neuroma. Following removal of the distal extremity the tourniquet was deflated and bleeding points controlled by electrocautery thorough irrigation carried out with normal saline solution and the remaining tissue was well perfused. The fascia layers were reapposed with #1 Vicryl suture and skin was stapled. Attention was then turned to the right lower extremity where the thigh tourniquet was first inflated to 300 mmHg and the anterior portion of the below- knee amputation site was selected at 4 finger breaths below the tibial tubercle. The skin was sharply incised transversely and a posterior flap was fashioned to approximate anteriorly with the padding of the muscle and fascia. I specifically avoided 1 particular ulcerated skin area laterally and fashioning of the flaps and anterior compartment muscle was divided by electrocautery at the level of amputation skin was peeled back off the tibia to allow a transverse cut that was beveled anteriorly. Neurovascular bundles were doubly tied off with silk suture. Fibula was divided approximately 2 cm proximal to the tibial bony amputation site. Fascia and muscular padding were retained at the posterior flap neurovascular bundles were allowed to retract to avoid pressure or neuroma. Following removal of the distal extremity the tourniquet was deflated and bleeding points controlled by electrocautery thorough irrigation carried out with normal saline solution and the remaining tissue was noted to be well perfused. The fascia layers were reapposed with #1 Vicryl suture and skin was stapled. Dressings were then applied to both lower extremities consisting of Xeroform gauze at the staple line. Well-padded sterile dressings were then placed followed by soft roll and plaster casts were placed with the knees both held in extension for protection of the stump and avoidance of any contracture. Patient was returned to recovery room in stable condition having tolerated the procedure well MIRANDA CHAMBERS MD Nov 02, 2019 23:24
[2019-11-03] VITALS (12 sets, daily range): BP systolic 146–209; BP diastolic 50–112
[2019-11-03] MEDS: hydrALAZINE 20 MG/ML VIAL. IVP PRN ×2 (01:00→15:04)
[2019-11-03] MEDS: oxyCODONE/APAP 10/325 1 TAB TABLET PO PRN ×5 (01:03→20:46)
[2019-11-03] MEDS: HYDROmorphone 2 MG/ML VIAL IV PRN ×6 (01:11→23:34)
[2019-11-03] MEDS: MEROPENEM 500 MG in IV NORMAL SALINE 50ML 50 ML IV SCH ×5 (01:19→23:23)
[2019-11-03] MEDS ORDERED: LABETALOL 20 MG/4 ML DISP.SYRIN. IVP PRN (03:45)
--- NOTE | 2019-11-03 03:55 | CONS ---
DATE OF CONSULTATION: 11/02/2019 ORTHOPEDIC CONSULTATION REQUESTING PHYSICIAN: Bridgett Rock MD from Vascular Surgery. REASON FOR CONSULTATION: Recommendation for surgical treatment of bilateral below-knee amputations. HISTORY OF PRESENT ILLNESS: The patient is a 74-year-old male who is a of the [employer] who served in [employer] and has a history of diabetes and peripheral neuropathy and had undergone a previous revascularization of his lower extremities for peripheral vascular disease and had had some chronic ongoing ulcerations in his lower extremities and had undergone a transmetatarsal amputation of his left foot several months ago due to osteomyelitis and remains on antibiotics. His daughter who is with him indicates that despite the ongoing wound care at the [facility], she has noted it worsening and had voiced concern that not only is the foot not healing, but he is having ongoing other ulcerations in his legs and prior to admission, developed drainage, odor, worsening pain and she requested outside transfer and therefore he was admitted here for treatment and was found to have maggots in his wounds and since admission remains on intravenous antibiotics. Vascular Surgery evaluated him with vascular studies and strongly felt that due to his course of treatment that he would have very poor chance of healing the ongoing wounds and recommended bilateral below-knee amputations. PAST MEDICAL HISTORY: Significant for type 2 diabetes with peripheral neuropathy, peripheral vascular disease, COPD, history of stroke, hypertension, hyperlipidemia, sleep apnea, posttraumatic stress disorder, heart disease, and depression. PAST SURGICAL HISTORY: Significant for the left foot transmetatarsal amputation. 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 Occasional beer as far as alcohol consumption. Denies any drug use. He lives at home with his significant other and his daughters are involved in his care as well. FAMILY HISTORY: Significant for diabetes. ALLERGIES: He has no known drug allergies. MEDICATIONS: List is reviewed. REVIEW OF SYSTEMS: He says the legs are very painful for him and have been particularly over the last several days very severely. He said that he has been dealing with this for a very long time that the wound care is not working. He does get around with a motorized scooter and has been transferring previously, but has had some upper extremity weakness recently, which is also verified by his daughter that over really the past year or so, he has really lost some muscle mass and strength that he used to have. Denies any current chest pain, shortness of breath and is ambulatory in a limited fashion. IMPRESSION: 1. Nonhealing left foot transmetatarsal amputation and multiple chronic ulcerations and wounds of his lower extremities bilaterally with odor and drainage. 2. Increased pain in both lower extremities and leukocytosis. TREATMENT PLAN: I went over with he and his daughter my discussion with the vascular surgeons and their recommendations of bilateral below-knee amputations. I agree with this assessment, particularly given the difficult course with his wound care. There is really no reasonable way to obtain coverage over the exposed tendons that he has and the wound odor and additional sores on his legs make that even more difficult. I had gone over with him also the fact that while based on his vascular studies and evaluations that the below-knee amputation site would be expected to heal. There is a small possibility of nonhealing or continued infection and there is also the downside of increased energy of ambulating even with prostheses with the below-knee amputations approximately 40% more energy for each of them. He indicated that he was not really too concerned about that as he mainly got around with a scooter and he would have to work on transfers and we could cross the bridge later in terms of any prostheses. He had all his questions answered as did his daughter and he wants to proceed unequivocally with [id number] amputations bilaterally and wants to get it over with him and get on with it, so he can get healed up and stronger. Therefore, I agreed to proceed with surgery with him today and informed consent was obtained for bilateral below-knee amputations. MIRANDA CHAMBERS MD DR: DEBBY/deny JOB#: [id number] / [id number]
[2019-11-03 06:02] LABS: BASO % 0 % (0-3); EOS % 0 % (0-3); HEMATOCRIT 30.9 % (39.0-53.0); HEMOGLOBIN 10.2 g/dL (13.0-17.5); LYMPH # 1.5 x10^3/uL (1.0-4.8); LYMPH % 10 % (24-48); MEAN CORPUSCULAR HEMOGLOBIN 27 pg (25-35); MEAN CORPUSCULAR HGB CONC 33 g/dL (31-37); MEAN CORPUSCULAR VOLUME 81 fL (79-100); MONO # 1.4 x10^3/uL (0.0-1.1); MONO % 9 % (0-9); NEUT % 82 % (31-73); PLATELET COUNT 472 x10^3/uL (140-400); RED CELL DISTRIBUTION WIDTH 15.4 % (11.5-14.5)
[2019-11-03 06:16] LABS: CALCIUM 8.4 mg/dL (8.5-10.1); CREATININE 1.2 mg/dL (0.7-1.3); GFR 71.8; MAGNESIUM 2.1 mg/dL (1.8-2.4)
[2019-11-03 06:56] LABS: % LYMPHS 16 % (24-48); % MONOS 5 % (0-10); % SEGS 79 % (35-66)
[2019-11-03 06:57] LABS: PLT ESTIMATE INCREASED (ADEQUATE)
--- NOTE | 2019-11-03 07:11 | NUR ---
IP: Pt is mrsa + in R leg wound requiring contact precautions.
[2019-11-03] MEDS ORDERED: DEXTROSE 50% 25 GM / 50ML DISP.SYRIN. IV PRN (07:30)
[2019-11-03] MEDS ORDERED: POTASSIUM CHLORIDE 20 MEQ TABLET.ER. PO ONE (07:30)
[2019-11-03] MEDS: INSULIN LISPRO 300 UNITS/3 ML VIAL. SQ SCH ×4 (07:30→21:00)
--- NOTE | 2019-11-03 07:36 | PDOC ---
PROGRESS NOTES Chief Complaint Chief Complaint Chronic ulceration lower extremities bilaterally associated with increased pain, drainage, odor and tendon exposure as well as maggot infestation Nonhealing open transmetatarsal amputation, left foot. Leukocytosis. Renal insufficiency, baseline creatinine not known. Peripheral vascular disease, status post revascularization. Peripheral neuropathy. Diabetes. Hypertension. History of Present Illness History of Present Illness Mr Guardado is a 74yo M [facility] w/ PMHx diabetes, hypertension, hyperlipidemia, peripheral neuropathy and peripheral vascular disease, status post revascularization lower extremities. He is followed by the [facility] wound care for chronic ulcerations lower extremities bilaterally. Earlier this year, he underwent an open transmetatarsal amputation of his left foot due to gangrene and osteomyelitis. He says he has been on antibiotics with little improvement. Over the last few days, he developed worsening pain, drainage and odor. He was found to have maggots in his wounds. X-ray imaging showed soft tissue defects. No fractures or bony erosions. A venous ultrasound was negative for DVT. The wounds were cleaned. The maggots removed and cultures were sent. He has since been admitted and started on vancomycin and Zosyn. Vascular surgery and ID were consulted. 10/29: He wants to have a bilateral below the knee amputation 10/30: His lower extremities are both wrapped with clean dry intact dressing 10/31: BP elevated 11/01: Afebrile. Bilateral BKA. No chest pain or shortness of breath. Overnight hypertensive, minimally responsive to hydralazine, added labetalol with good effect. Afebrile. WBC 16. K 3. He is drowsy today, in quite a bit of pain, did just work with PT and OT. Plan: Cont daptomycin, merrem, micafungin Add glucose checks, sliding scale Vitals Vitals Vital Signs Date Time Temp Pulse Resp B/P (MAP) Pulse Ox O2 Delivery O2 Flow Rate FiO2 11/03/19 06:42 99 Nasal Cannula 2.0 11/03/19 05:55 97 16 163/89 (113) 11/03/19 03:00 99.0 99.0 Physical Exam Physical Exam GENERAL: Propped up in bed, alert, watching TV HEENT: RERL, Oropharynx pink and moist. No lesions seen. NECK: Supple. LUNGS: Clear to auscultation. HEART: S1 and S2. ABDOMEN: Nondistended, soft, nontender with bowel sounds present. EXTREMITIES: No gross edema. Multiple ulcerations various sizes with foul odor and a some with tendon exposure, lower extremities bilaterally. Open TMA left foot with a graft in place. Today's dressings not taken down per patient's request. SKIN: Warm to touch. No signs of rash. NEUROLOGIC: Alert, answering questions appropriately, but is forgetful and is somewhat a poor historian. General: Alert, Oriented X3, Cooperative Heart: Regular rate, Normal S1, Normal S2 Lungs: Clear Abdomen: Normal bowel sounds, Soft, No tenderness Extremities: No edema, Other (Palpable popliteal pulses bilaterally, palpable femoral pulses bilaterally) Skin: Other (Significant full-thickness diffuse wounds involving bilateral lower extremities with full-thickness wound to the level of the Achilles tendon on the right and multiple other full-thickness wounds scattered throughout the below-knee area on the right and the left. The patient has an open TMA amputation site with dermal graft in place.) Labs LABS Laboratory Tests Test 11/03/19 04:40 White Blood Count 16.0 x10^3/uL (4.0-11.0) Red Blood Count 3.80 x10^6/uL (4.30-5.70) Hemoglobin 10.2 g/dL (13.0-17.5) Hematocrit 30.9 % (39.0-53.0) Mean Corpuscular Volume 81 fL (79-100) Mean Corpuscular Hemoglobin 27 pg (25-35) Mean Corpuscular Hemoglobin Concent 33 g/dL (31-37) Red Cell Distribution Width 15.4 % (11.5-14.5) Platelet Count 472 x10^3/uL (140-400) Neutrophils (%) (Auto) 82 % (31-73) Lymphocytes (%) (Auto) 10 % (24-48) Monocytes (%) (Auto) 9 % (0-9) Eosinophils (%) (Auto) 0 % (0-3) Basophils (%) (Auto) 0 % (0-3) Neutrophils # (Auto) 13.0 x10^3/uL (1.8-7.7) Lymphocytes # (Auto) 1.5 x10^3/uL (1.0-4.8) Monocytes # (Auto) 1.4 x10^3/uL (0.0-1.1) Eosinophils # (Auto) 0.0 x10^3/uL (0.0-0.7) Basophils # (Auto) 0.0 x10^3/uL (0.0-0.2) Segmented Neutrophils % 79 % (35-66) Lymphocytes % 16 % (24-48) Monocytes % 5 % (0-10) Platelet Estimate Increased (ADEQUATE) Sodium Level 142 mmol/L (136-145) Potassium Level 3.0 mmol/L (3.5-5.1) Chloride Level 110 mmol/L (98-107) Carbon Dioxide Level 19 mmol/L (21-32) Anion Gap 13 (6-14) Blood Urea Nitrogen 11 mg/dL (8-26) Creatinine 1.2 mg/dL (0.7-1.3) Estimated GFR (Cockcroft-Gault) 71.8 Glucose Level 110 mg/dL (70-99) Calcium Level 8.4 mg/dL (8.5-10.1) Magnesium Level 2.1 mg/dL (1.8-2.4) Assessment and Plan Assessmemt and Plan Problems Medical Problems: (1) Lower extremity ulceration Status: Acute Comment Review of Relevant I have reviewed the following items solomon (where applicable) has been applied. Labs Laboratory Tests Test 11/01/19 09:30 11/02/19 04:25 11/03/19 04:40 Coronavirus (COVID-19)(PCR) Negative (NEGATIVE) Sodium Level 145 mmol/L (136-145) 142 mmol/L (136-145) Potassium Level 3.3 mmol/L (3.5-5.1) 3.0 mmol/L (3.5-5.1) Chloride Level 112 mmol/L (98-107) 110 mmol/L (98-107) Carbon Dioxide Level 21 mmol/L (21-32) 19 mmol/L (21-32) Anion Gap 12 (6-14) 13 (6-14) Blood Urea Nitrogen 9 mg/dL (8-26) 11 mg/dL (8-26) Creatinine 1.2 mg/dL (0.7-1.3) 1.2 mg/dL (0.7-1.3) Estimated GFR (Cockcroft-Gault) 71.8 71.8 Glucose Level 102 mg/dL (70-99) 110 mg/dL (70-99) Calcium Level 8.0 mg/dL (8.5-10.1) 8.4 mg/dL (8.5-10.1) White Blood Count 16.0 x10^3/uL (4.0-11.0) Red Blood Count 3.80 x10^6/uL (4.30-5.70) Hemoglobin 10.2 g/dL (13.0-17.5) Hematocrit 30.9 % (39.0-53.0) Mean Corpuscular Volume 81 fL (79-100) Mean Corpuscular Hemoglobin 27 pg (25-35) Mean Corpuscular Hemoglobin Concent 33 g/dL (31-37) Red Cell Distribution Width 15.4 % (11.5-14.5) Platelet Count 472 x10^3/uL (140-400) Neutrophils (%) (Auto) 82 % (31-73) Lymphocytes (%) (Auto) 10 % (24-48) Monocytes (%) (Auto) 9 % (0-9) Eosinophils (%) (Auto) 0 % (0-3) Basophils (%) (Auto) 0 % (0-3) Neutrophils # (Auto) 13.0 x10^3/uL (1.8-7.7) Lymphocytes # (Auto) 1.5 x10^3/uL (1.0-4.8) Monocytes # (Auto) 1.4 x10^3/uL (0.0-1.1) Eosinophils # (Auto) 0.0 x10^3/uL (0.0-0.7) Basophils # (Auto) 0.0 x10^3/uL (0.0-0.2) Segmented Neutrophils % 79 % (35-66) Lymphocytes % 16 % (24-48) Monocytes % 5 % (0-10) Platelet Estimate Increased (ADEQUATE) Magnesium Level 2.1 mg/dL (1.8-2.4) Laboratory Tests Test 11/03/19 04:40 White Blood Count 16.0 x10^3/uL (4.0-11.0) Red Blood Count 3.80 x10^6/uL (4.30-5.70) Hemoglobin 10.2 g/dL (13.0-17.5) Hematocrit 30.9 % (39.0-53.0) Mean Corpuscular Volume 81 fL (79-100) Mean Corpuscular Hemoglobin 27 pg (25-35) Mean Corpuscular Hemoglobin Concent 33 g/dL (31-37) Red Cell Distribution Width 15.4 % (11.5-14.5) Platelet Count 472 x10^3/uL (140-400) Neutrophils (%) (Auto) 82 % (31-73) Lymphocytes (%) (Auto) 10 % (24-48) Monocytes (%) (Auto) 9 % (0-9) Eosinophils (%) (Auto) 0 % (0-3) Basophils (%) (Auto) 0 % (0-3) Neutrophils # (Auto) 13.0 x10^3/uL (1.8-7.7) Lymphocytes # (Auto) 1.5 x10^3/uL (1.0-4.8) Monocytes # (Auto) 1.4 x10^3/uL (0.0-1.1) Eosinophils # (Auto) 0.0 x10^3/uL (0.0-0.7) Basophils # (Auto) 0.0 x10^3/uL (0.0-0.2) Segmented Neutrophils % 79 % (35-66) Lymphocytes % 16 % (24-48) Monocytes % 5 % (0-10) Platelet Estimate Increased (ADEQUATE) Sodium Level 142 mmol/L (136-145) Potassium Level 3.0 mmol/L (3.5-5.1) Chloride Level 110 mmol/L (98-107) Carbon Dioxide Level 19 mmol/L (21-32) Anion Gap 13 (6-14) Blood Urea Nitrogen 11 mg/dL (8-26) Creatinine 1.2 mg/dL (0.7-1.3) Estimated GFR (Cockcroft-Gault) 71.8 Glucose Level 110 mg/dL (70-99) Calcium Level 8.4 mg/dL (8.5-10.1) Magnesium Level 2.1 mg/dL (1.8-2.4) Microbiology 10/29/19 Gram Stain - Final, Resulted 10/29/19 Aerobic and Anaerobic Culture - Preliminary, Resulted 10/29/19 Antimicrobic Susceptibility - Preliminary, Resulted 10/29/19 Blood Culture - Preliminary, Resulted NO GROWTH AFTER 4 DAYS Medications Current Medications Vancomycin HCl (Vanco Per Pharmacy) 1 each 1X ONCE MC ; Start 10/29/19 at 17:00; Stop 10/30/19 at 16:05; Status DC Sodium Chloride 1,000 ml @ 1,000 mls/hr Q1H IV Last administered on 10/29/19at 17:17; Start 10/29/19 at 16:41; Stop 10/29/19 at 17:40; Status DC Fentanyl Citrate (Fentanyl 2ml Vial) 50 mcg 1X ONCE IVP Last administered on 10/29/19at 17:17; Start 10/29/19 at 16:45; Stop 10/29/19 at 16:46; Status DC Piperacillin Sod/ Tazobactam Sod 3.375 gm/Sodium Chloride 50 ml @ 100 mls/hr 1X ONCE IV Last administered on 10/29/19at 18:06; Start 10/29/19 at 17:00; Stop 10/29/19 at 17:29; Status DC Vancomycin HCl 2 gm/Sodium Chloride 500 ml @ 250 mls/hr 1X ONCE IV Last administered on 10/29/19at 17:18; Start 10/29/19 at 17:00; Stop 10/29/19 at 18:59; Status DC Ondansetron HCl (Zofran) 4 mg PRN Q8HRS PRN IV NAUSEA/VOMITING; Start 10/29/19 at 18:00; Stop 10/30/19 at 17:59; Status DC Fentanyl Citrate (Fentanyl 2ml Vial) 50 mcg PRN Q1HR PRN IV PAIN Last administered on 10/29/19at 22:48; Start 10/29/19 at 18:00; Stop 10/29/19 at 23:47; Status DC Oxycodone/ Acetaminophen (Percocet 10/325) 1 tab PRN Q4HRS PRN PO SEVERE PAIN 7-10 Last administered on 11/03/19at 06:36; Start 10/30/19 at 00:00 Vancomycin HCl 1.25 gm/Sodium Chloride 250 ml @ 167 mls/hr Q24H IV ; Start 10/30/19 at 17:00; Stop 10/30/19 at 12:06; Status DC Vancomycin HCl (Vancomycin Trough Level) 1 each 1X ONCE MC ; Start 10/31/19 at 16:30; Stop 10/31/19 at 16:31; Status Cancel Vancomycin HCl (Vanco Per Pharmacy) 1 each PRN DAILY PRN MC SEE COMMENTS Last administered on 10/30/19at 01:33; Start 10/29/19 at 23:45; Stop 10/30/19 at 12:06; Status DC Hydromorphone HCl (Dilaudid) 1 mg PRN Q2HR PRN IV breakthrough pain Last administered on 11/03/19at 06:36; Start 10/30/19 at 07:15 Lactobacillus Rhamnosus (Culturelle) 1 cap BID PO Last administered on 11/02/19at 08:12; Start 10/30/19 at 21:00 Piperacillin Sod/ Tazobactam Sod (Zosyn Per Pharmacy) 1 each PRN DAILY PRN MC SEE COMMENTS; Start 10/30/19 at 12:00; Stop 10/30/19 at 16:05; Status DC Piperacillin Sod/ Tazobactam Sod 3.375 gm/Sodium Chloride 50 ml @ 100 mls/hr Q6HRS IV Last administered on 10/30/19at 12:51; Start 10/30/19 at 12:15; Stop 10/30/19 at 16:05; Status DC Potassium Chloride (Klor-Con) 40 meq 1X ONCE PO Last administered on 10/30/19at 15:35; Start 10/30/19 at 15:30; Stop 10/30/19 at 15:31; Status DC Potassium Chloride (Klor-Con) 40 meq 1X ONCE PO Last administered on 10/30/19at 19:53; Start 10/30/19 at 19:30; Stop 10/30/19 at 19:31; Status DC Meropenem 500 mg/ Sodium Chloride 50 ml @ 100 mls/hr Q6HRS IV Last administered on 11/03/19at 06:37; Start 10/30/19 at 18:00 Daptomycin 510 mg/ Sodium Chloride 50 ml @ 100 mls/hr Q24H IV ; Start 10/30/19 at 16:00; Status Cancel Micafungin Sodium 100 mg/Dextrose 100 ml @ 100 mls/hr Q24H IV Last administered on 11/02/19at 17:40; Start 10/30/19 at 17:00 Daptomycin 500 mg/ Sodium Chloride 50 ml @ 100 mls/hr Q24H IV Last administered on 11/02/19at 16:41; Start 10/30/19 at 17:00 Potassium Chloride (Klor-Con) 40 meq 1X ONCE PO Last administered on 10/31/19at 21:11; Start 10/31/19 at 20:30; Stop 10/31/19 at 20:31; Status DC Magnesium Sulfate 100 ml @ 25 mls/hr 1X ONCE IV Last administered on 11/01/19at 09:37; Start 11/01/19 at 09:00; Stop 11/01/19 at 12:59; Status DC Potassium Chloride (Klor-Con) 40 meq 1X ONCE PO Last administered on 11/01/19at 09:38; Start 11/01/19 at 08:30; Stop 11/01/19 at 08:31; Status DC Potassium Chloride (Klor-Con) 20 meq DAILYWBKFT PO Last administered on 11/02/19at 08:12; Start 11/02/19 at 08:00 Potassium Chloride (Klor-Con) 40 meq 1X ONCE PO Last administered on 11/01/19at 17:23; Start 11/01/19 at 17:00; Stop 11/01/19 at 17:01; Status DC Ondansetron HCl (Zofran) 4 mg PRN Q6HRS PRN IV NAUSEA/VOMITING; Start 11/02/19 at 11:45; Stop 11/02/19 at 21:00; Status DC Ringer's Solution 1,000 ml @ 30 mls/hr Q24H IV ; Start 11/02/19 at 12:00; Stop 11/02/19 at 21:00; Status Cancel Prochlorperazine Edisylate (Compazine) 5 mg PACU PRN PRN IV NAUSEA, MRX1 Last administered on 11/02/19at 20:18; Start 11/02/19 at 11:45; Stop 11/02/19 at 21:00; Status DC Multivitamins (Thera M Plus) 1 tab DAILY PO ; Start 11/02/19 at 14:00 Ascorbic Acid (Vitamin C) 500 mg BID PO ; Start 11/02/19 at 14:00 Dexamethasone Sodium Phosphate (Decadron) 4 mg STK-MED ONCE .ROUTE ; Start 11/02/19 at 14:52; Stop 11/02/19 at 14:56; Status DC Ondansetron HCl (Zofran) 4 mg STK-MED ONCE .ROUTE ; Start 11/02/19 at 14:52; Stop 11/02/19 at 14:56; Status DC Lidocaine HCl (Lidocaine Pf 2% Vial) 5 ml STK-MED ONCE .ROUTE ; Start 11/02/19 at 14:52; Stop 11/02/19 at 14:57; Status DC Propofol (Diprivan) 200 mg STK-MED ONCE IV ; Start 11/02/19 at 14:52; Stop 11/02/19 at 14:59; Status DC Fentanyl Citrate (Fentanyl 2ml Vial) 100 mcg STK-MED ONCE .ROUTE ; Start 11/02/19 at 14:53; Stop 11/02/19 at 14:59; Status DC Phenylephrine HCl (PHENYLEPHRINE in 0.9% NACL PF) 1 mg STK-MED ONCE IV ; Start 11/02/19 at 17:41; Stop 11/02/19 at 17:41; Status DC Fentanyl Citrate (Fentanyl 2ml Vial) 100 mcg STK-MED ONCE .ROUTE ; Start 11/02/19 at 17:45; Stop 11/02/19 at 17:45; Status DC Ephedrine Sulfate (ePHEDrine PF IN SALINE SYRINGE) 50 mg STK-MED ONCE IV ; Start 11/02/19 at 17:57; Stop 11/02/19 at 17:57; Status DC Fentanyl Citrate (Fentanyl 2ml Vial) 100 mcg STK-MED ONCE .ROUTE ; Start 11/02/19 at 18:59; Stop 11/02/19 at 18:59; Status DC Morphine Sulfate (Morphine Sulfate) 2 mg STK-MED ONCE .ROUTE ; Start 11/02/19 at 19:54; Stop 11/02/19 at 19:54; Status DC Morphine Sulfate (Morphine Sulfate) 2 mg 1X ONCE IV Last administered on 11/02/19at 20:02; Start 11/02/19 at 20:00; Stop 11/02/19 at 20:08; Status DC Ringer's Solution 1,000 ml @ 30 mls/hr Q24H IV ; Start 11/02/19 at 20:00; Stop 11/03/19 at 07:59 Fentanyl Citrate (Fentanyl 2ml Vial) 100 mcg STK-MED ONCE .ROUTE ; Start 11/02/19 at 20:00; Stop 11/02/19 at 20:01; Status DC Fentanyl Citrate (Fentanyl 2ml Vial) 50 mcg PRN Q10MIN PRN IVP PAIN Last administered on 11/02/19at 20:09; Start 11/02/19 at 20:15; Stop 11/03/19 at 01:00; Status DC Morphine Sulfate (Morphine Sulfate) 2 mg PRN Q10MIN PRN IV pain ; Start 11/02/19 at 20:15; Stop 11/03/19 at 01:00; Status DC Hydromorphone HCl (Dilaudid) 1 mg PRN Q10MIN PRN IV pain, 2ND CHOICE Last administered on 11/02/19at 20:46; Start 11/02/19 at 20:15; Stop 11/03/19 at 01:00; Status DC Labetalol HCl (Normodyne Iv Push) 10 mg PRN Q10MIN PRN IVP HYPERTENSION Last administered on 11/02/19at 21:49; Start 11/02/19 at 20:15; Stop 11/02/19 at 22:12; Status DC Sodium Chloride 1,000 ml @ 125 mls/hr 1X ONCE IV ; Start 11/02/19 at 21:00; Stop 11/03/19 at 04:59; Status DC Hydralazine HCl (Apresoline Inj) 10 mg PRN Q4HRS PRN IVP ELEVATED BP, SEE COMMENTS Last administered on 11/03/19at 01:00; Start 11/02/19 at 22:45 Polyethylene Glycol (miraLAX PACKET) 17 gm DAILY PO ; Start 11/03/19 at 09:00 Psyllium Hydrophilic Mucilloid (Metamucil Fiber Packet) 1 pkt DAILY PO ; Start 11/03/19 at 09:00 Amlodipine Besylate (Norvasc) 5 mg 1X ONCE PO Last administered on 11/03/19at 02:56; Start 11/02/19 at 23:00; Stop 11/02/19 at 23:01; Status DC Amlodipine Besylate (Norvasc) 5 mg DAILY PO ; Start 11/03/19 at 09:00 Labetalol HCl (Normodyne Iv Push) 10 mg PRN Q2HR PRN IVP HYPERTENSION Last administered on 11/03/19at 02:08; Start 11/02/19 at 22:45; Stop 11/03/19 at 03:46; Status DC Labetalol HCl (Normodyne Iv Push) 20 mg PRN Q2HR PRN IVP HYPERTENSION Last administered on 11/03/19at 04:04; Start 11/03/19 at 03:45 Potassium Chloride/Water 100 ml @ 100 mls/hr Q1H IV ; Start 11/03/19 at 07:30; Stop 11/03/19 at 09:29; Status UNV Potassium Chloride (Klor-Con) 20 meq 1X ONCE PO ; Start 11/03/19 at 07:30; Stop 11/03/19 at 07:31; Status UNV Insulin Human Lispro (HumaLOG) 0-5 UNITS TIDACHC SQ ; Start 11/03/19 at 07:30; Status UNV Dextrose (Dextrose 50%-Water Syringe) 12.5 gm PRN Q15MIN PRN IV SEE COMMENTS; Start 11/03/19 at 07:30; Status UNV Vitals/I & O Vital Sign - Last 24 Hours 11/02/19 11/02/19 11/02/19 11/02/19 08:00 11:00 15:00 15:38 Temp 98.1 98.0 97.6 98.1 98.0 97.6 Pulse 87 82 103 Resp 18 18 20 B/P (MAP) 156/86 (109) 179/85 (116) 192/91 Pulse Ox 100 98 98 O2 Delivery Room Air Room Air Room Air Room Air 11/02/19 11/02/19 11/02/19 11/02/19 16:00 19:47 19:47 20:02 Temp 97.9 97.9 Pulse 85 97 Resp 20 20 20 B/P (MAP) 180/85 179/89 Pulse Ox 100 97 O2 Delivery Room Air Simple Mask Mask Simple Mask O2 Flow Rate 10 10 10.0 11/02/19 11/02/19 11/02/19 11/02/19 20:02 20:09 20:17 20:19 Pulse 104 127 Resp 22 22 20 20 B/P (MAP) 190/105 218/105 Pulse Ox 100 99 100 O2 Delivery Simple Mask Simple Mask Simple Mask Simple Mask O2 Flow Rate 10 10.0 10 10.0 11/02/19 11/02/19 11/02/19 11/02/19 20:20 20:27 20:32 20:46 Pulse 144 90 Resp 20 20 20 B/P (MAP) 218/105 182/88 Pulse Ox 99 100 99 O2 Delivery Simple Mask Room Air Aerosol Mask O2 Flow Rate 10.0 10.0 11/02/19 11/02/19 11/02/19 11/02/19 20:47 21:00 21:20 21:20 Pulse 93 119 Resp 20 B/P (MAP) 165/79 199/115 (143) Pulse Ox 98 98 O2 Delivery Nasal Cannula Nasal Cannula Nasal Cannula Nasal Cannula O2 Flow Rate 2 2 2.0 2.0 11/02/19 11/02/19 11/02/19 11/02/19 21:35 21:49 21:50 22:04 Pulse 106 119 101 B/P (MAP) 199/115 Pulse Ox 98 97 99 O2 Delivery Nasal Cannula Nasal Cannula Nasal Cannula O2 Flow Rate 2.0 2.0 2.0 11/02/19 11/02/19 11/02/19 11/02/19 22:25 22:34 22:50 23:50 Pulse 100 117 111 B/P (MAP) 208/116 (146) 175/98 (123) Pulse Ox 95 97 97 O2 Delivery Nasal Cannula Nasal Cannula Nasal Cannula Nasal Cannula O2 Flow Rate 2.0 2.0 2.0 2.0 11/03/19 11/03/19 11/03/19 11/03/19 00:50 01:00 01:03 01:11 Pulse 137 137 B/P (MAP) 209/112 (144) 209/112 Pulse Ox 99 O2 Delivery Nasal Cannula Nasal Cannula Nasal Cannula O2 Flow Rate 2.0 2.0 2.0 11/03/19 11/03/19 11/03/19 11/03/19 01:50 02:08 02:17 02:17 Pulse 115 115 B/P (MAP) 176/93 (120) 183/92 Pulse Ox 100 O2 Delivery Nasal Cannula Nasal Cannula Nasal Cannula O2 Flow Rate 2.0 2.0 2.0 11/03/19 11/03/19 11/03/19 11/03/19 02:56 03:00 03:34 03:35 Temp 99.0 99.0 Pulse 109 112 108 Resp 16 16 B/P (MAP) 181/92 182/94 (123) 196/99 (131) Pulse Ox 99 100 100 O2 Delivery Nasal Cannula Nasal Cannula Nasal Cannula O2 Flow Rate 2.0 2.0 2.0 11/03/19 11/03/19 11/03/19 11/03/19 04:02 04:04 05:55 06:36 Pulse 110 109 97 Resp 16 16 B/P (MAP) 176/87 (116) 176/87 163/89 (113) Pulse Ox 99 99 99 O2 Delivery Nasal Cannula Nasal Cannula Nasal Cannula O2 Flow Rate 2.0 2.0 2.0 11/03/19 11/03/19 06:36 06:42 Pulse Ox 99 99 O2 Delivery Nasal Cannula Nasal Cannula O2 Flow Rate 2.0 2.0 Intake and Output 11/02/19 11/02/19 11/03/19 15:00 23:00 07:00 Intake Total 0 ml 600 ml Output Total 400 ml 475 ml 975 ml Balance -400 ml 125 ml -975 ml Nutrition Consultation Dietary Evaluation: Recommendations by RD: Dietary education by RD, Increase Calorie Intake, Protein supplementation Comments: cardiac diet with ensure tid mvi and vit c per wound protocal Expected Outcomes/Goals: to meet >75% est nutr needs- not met, goal ongoing Malnutrition Findings: Body Fat Depletion (Non Severe: Mild Depletion Weight Status: Underweight Justicifation of Admission Dx: Justifications for Admission: Justification of Admission Dx: Yes RADHA HOLT MD Nov 03, 2019 07:36
[2019-11-03] MEDS: ASCORBIC ACID 500 MG TABLET PO SCH ×2 (08:26→20:45)
[2019-11-03] MEDS: MULTIVITAMIN with MINERAL TABLET. PO SCH (08:26)
[2019-11-03] MEDS: LACTOBACILLUS RHAMNOSUS GG 1 CAPSULE. PO SCH ×2 (08:26→20:45)
[2019-11-03] MEDS: amLODIPine BESYLATE 5 MG TABLET PO SCH (08:27)
[2019-11-03] MEDS: PSYLLIUM HUSK (SUGAR FREE) 1 PKT PACKET PO SCH (08:27)
[2019-11-03] MEDS: POTASSIUM CHLORIDE 20 MEQ TABLET.ER. PO SCH (08:27)
[2019-11-03] MEDS: POLYETHYLENE GLYCOL 3350 17 GM PACKET. PO SCH (08:27)
[2019-11-03] MEDS: POTASSIUM CHLORIDE 10MEQ 100 ML IV SCH ×2 (08:30→10:15)
--- NOTE | 2019-11-03 09:55 | NUR ---
SW following. Discussed with RN, pt had bilateral BKA late last night. PT/OT to work with pt to determine needs at discharge. SW will continue to follow.
--- NOTE | 2019-11-03 11:00 | PDOC ---
Infectious Disease Note Subjective Subjective Sleepy. nodded ok No F/C/aches/N/V/D/SOA ROS ROS o/w neg Vital Sign Vital Signs Vital Signs Date Time Temp Pulse Resp B/P (MAP) Pulse Ox O2 Delivery O2 Flow Rate FiO2 11/03/19 10:20 100 Room Air 11/03/19 08:27 101 159/87 11/03/19 07:31 2.0 11/03/19 07:00 97.9 18 97.9 Physical Exam PHYSICAL EXAM GENERAL: Propped up in bed, Arousable. NAD HEENT: RERL, Oropharynx pink and moist. No lesions seen. NECK: Supple. LUNGS: Clear to auscultation. HEART: S1 and S2. ABDOMEN: Nondistended, soft, nontender with bowel sounds present. EXTREMITIES: No gross edema. Wounds dressed with casts Luis Antonio SKIN: Warm to touch. No signs of rash. NEUROLOGIC: Awakens but min responses Labs Lab Laboratory Tests Test 11/03/19 04:40 11/03/19 07:46 White Blood Count 16.0 x10^3/uL (4.0-11.0) Red Blood Count 3.80 x10^6/uL (4.30-5.70) Hemoglobin 10.2 g/dL (13.0-17.5) Hematocrit 30.9 % (39.0-53.0) Mean Corpuscular Volume 81 fL (79-100) Mean Corpuscular Hemoglobin 27 pg (25-35) Mean Corpuscular Hemoglobin Concent 33 g/dL (31-37) Red Cell Distribution Width 15.4 % (11.5-14.5) Platelet Count 472 x10^3/uL (140-400) Neutrophils (%) (Auto) 82 % (31-73) Lymphocytes (%) (Auto) 10 % (24-48) Monocytes (%) (Auto) 9 % (0-9) Eosinophils (%) (Auto) 0 % (0-3) Basophils (%) (Auto) 0 % (0-3) Neutrophils # (Auto) 13.0 x10^3/uL (1.8-7.7) Lymphocytes # (Auto) 1.5 x10^3/uL (1.0-4.8) Monocytes # (Auto) 1.4 x10^3/uL (0.0-1.1) Eosinophils # (Auto) 0.0 x10^3/uL (0.0-0.7) Basophils # (Auto) 0.0 x10^3/uL (0.0-0.2) Segmented Neutrophils % 79 % (35-66) Lymphocytes % 16 % (24-48) Monocytes % 5 % (0-10) Platelet Estimate Increased (ADEQUATE) Sodium Level 142 mmol/L (136-145) Potassium Level 3.0 mmol/L (3.5-5.1) Chloride Level 110 mmol/L (98-107) Carbon Dioxide Level 19 mmol/L (21-32) Anion Gap 13 (6-14) Blood Urea Nitrogen 11 mg/dL (8-26) Creatinine 1.2 mg/dL (0.7-1.3) Estimated GFR (Cockcroft-Gault) 71.8 Glucose Level 110 mg/dL (70-99) Calcium Level 8.4 mg/dL (8.5-10.1) Magnesium Level 2.1 mg/dL (1.8-2.4) Glucose (Fingerstick) 121 mg/dL (70-99) Micro ANAEROBIC-AEROBIC CULTURE Preliminary Preliminary MIXED AEROBIC ZAIDA INCLUDING: FEW [STAPHYLOCOCCUS AUREUS (MRSA)] MANY [ESCHERICHIA COLI] MANY [KLEBSIELLA PNEUMONIAE] FEW [PROTEUS SPECIES] STAPHYLOCOCCUS AUREUS (MRSA) ESCHERICHIA COLI KLEBSIELLA PNEUMONIAE PROTEUS SPECIES ANTIMICROBIAL SUSCEPTIBILITY Preliminary Comment POS KERRIE TYPE 38 STAPHYLOCOCCUS AUREUS (MRSA) ANTIBIOTIC RESULT INTERPRETATION AZITHROMYCIN >4 R CLINDAMYCIN 0.5 S CEFOXITIN SCREEN >4 POS CIPROFLOXACIN >2 R CEFTAROLINE <=0.5 S DAPTOMYCIN 1 S ERYTHROMYCIN >4 R GENTAMICIN <=4 S INDUCIBLE CLINDAMYCIN <=4/0.5 NEG LINEZOLID 2 S CONTINUED ON NEXT PAGE RUN DATE: 11/02/19 [facility] *LIVE* PAGE 2 RUN TIME: 1223 Specimen Inquiry SPEC: [id number] PATIENT: ERI MARQUES [id number] (Continued) Procedure Result ANTIMICROBIAL SUSCEPTIBILITY Preliminary (continued) LEVOFLOXACIN >4 R OXACILLIN >2 R PENICILLIN >2 R* RIFAMPIN <=1 S TRIMETHOPRIM/SULFAMETHOXAZOLE <=0.5/9.5 S TETRACYCLINE >8 R VANCOMYCIN 1 S Microbiology 10/29/19 Gram Stain - Final, Resulted 10/29/19 Aerobic and Anaerobic Culture - Preliminary, Resulted 10/29/19 Antimicrobic Susceptibility - Preliminary, Resulted 10/29/19 Blood Culture - Preliminary, Resulted NO GROWTH AFTER 4 DAYS Objective Assessment Chronic ulcerations right lower extremity assoc increase pain, drainage, odor, tendon exposure and maggots. 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 Cr stable PVD h/o stents Peripheral neuropathy Hypokalemia Plan [facility] Awaiting records Continue Dapto, meropenem, micafungin CK is 65 Monitor labs f/u cultures Probiotics Local wound care per Ortho SHANIA WILLIAM MD Nov 03, 2019 10:59
[2019-11-03] MEDS: DAPTOmycin (GENERIC) IVPB 500 MG in IV NORMAL SALINE 50ML 50 ML IV SCH (16:29)
[2019-11-03] MEDS ORDERED: KETOROLAC 15 MG/ML VIAL. IVP ONE (16:45)
[2019-11-03] MEDS: MICAFUNGIN 100 MG in IV DEXTROSE 5% 100ML 100 ML IV SCH (18:04)
--- NOTE | 2019-11-03 19:12 | RAD ---
AP chest. HISTORY: Elevated temperature, elevated heart rate AP view was taken of the chest. Patient's taken a poor inspiration. Heart is normal in size. There are no confluent infiltrates. There is no effusion. IMPRESSION: 1. No acute infiltrates. Electronically signed by: Piero Linares MD (11/03/2019 7:09 PM) [facility]
[2019-11-04 03:00] VITALS: BP 153/76
[2019-11-04 05:25] LABS: BASO # 0.1 x10^3/uL (0.0-0.2); BASO % 1 % (0-3); EOS % 0 % (0-3); HEMATOCRIT 28.1 % (39.0-53.0); HEMOGLOBIN 9.3 g/dL (13.0-17.5); LYMPH # 1.5 x10^3/uL (1.0-4.8); LYMPH % 11 % (24-48); MEAN CORPUSCULAR HEMOGLOBIN 27 pg (25-35); MEAN CORPUSCULAR HGB CONC 33 g/dL (31-37); MEAN CORPUSCULAR VOLUME 82 fL (79-100); MONO # 1.2 x10^3/uL (0.0-1.1); MONO % 8 % (0-9); NEUT # 11.4 x10^3/uL (1.8-7.7); NEUT % 81 % (31-73); PLATELET COUNT 397 x10^3/uL (140-400); RED BLOOD COUNT 3.45 x10^6/uL (4.30-5.70); RED CELL DISTRIBUTION WIDTH 15.2 % (11.5-14.5); WHITE BLOOD COUNT 14.2 x10^3/uL (4.0-11.0)
[2019-11-04 05:48] LABS: CREATININE 1.1 mg/dL (0.7-1.3); GFR 79.4; POTASSIUM 3.1 mmol/L (3.5-5.1)
[2019-11-04] MEDS: MEROPENEM 500 MG in IV NORMAL SALINE 50ML 50 ML IV SCH ×3 (06:03→17:00)
[2019-11-04] MEDS: oxyCODONE/APAP 10/325 1 TAB TABLET PO PRN ×4 (06:11→21:12)
[2019-11-04 07:00] VITALS: BP 182/83
[2019-11-04] MEDS: INSULIN LISPRO 300 UNITS/3 ML VIAL. SQ SCH ×2 (07:30→11:30)
[2019-11-04] MEDS: PSYLLIUM HUSK (SUGAR FREE) 1 PKT PACKET PO SCH (08:07)
[2019-11-04] MEDS: POLYETHYLENE GLYCOL 3350 17 GM PACKET. PO SCH (08:07)
[2019-11-04] MEDS: ASCORBIC ACID 500 MG TABLET PO SCH ×2 (08:10→21:12)
[2019-11-04] MEDS: amLODIPine BESYLATE 5 MG TABLET PO SCH (08:10)
[2019-11-04] MEDS: LACTOBACILLUS RHAMNOSUS GG 1 CAPSULE. PO SCH ×2 (08:10→21:11)
[2019-11-04] MEDS: MULTIVITAMIN with MINERAL TABLET. PO SCH (08:10)
[2019-11-04] MEDS: POTASSIUM CHLORIDE 20 MEQ TABLET.ER. PO SCH (08:10)
[2019-11-04] MEDS: HYDROmorphone 2 MG/ML VIAL IV PRN ×2 (08:12→10:24)
--- NOTE | 2019-11-04 09:14 | PDOC ---
PROGRESS NOTES Chief Complaint Chief Complaint impression Chronic ulceration lower extremities bilaterally associated with increased pain, drainage, odor and tendon exposure as well as maggot infestation Nonhealing open transmetatarsal amputation, left foot. Leukocytosis. Renal insufficiency, baseline creatinine not known. Peripheral vascular disease, status post revascularization. Peripheral neuropathy. Diabetes. Hypertension 11/03 Continue Dapto, meropenem, micafungin IV d/w RN History of Present Illness History of Present Illness Mr Guardado is a 74yo M [facility] w/ PMHx diabetes, hypertension, hyperlipidemia, peripheral neuropathy and peripheral vascular disease, status post revascularization lower extremities. He is followed by the [place] wound care for chronic ulcerations lower extremities bilaterally. Earlier this year, he underwent an open transmetatarsal amputation of his left foot due to gangrene and osteomyelitis. He says he has been on antibiotics with little improvement. Over the last few days, he developed worsening pain, drainage and odor. He was found to have maggots in his wounds. X-ray imaging showed soft tissue defects. No fractures or bony erosions. A venous ultrasound was negative for DVT. The wounds were cleaned. The maggots removed and cultures were sent. He has since been admitted and started on vancomycin and Zosyn. Vascular surgery and ID were consulted. 10/29: He wants to have a bilateral below the knee amputation 10/30: His lower extremities are both wrapped with clean dry intact dressing 10/31: BP elevated 11/01: Afebrile. Bilateral BKA. No chest pain or shortness of breath. Overnight hypertensive, minimally responsive to hydralazine, added labetalol with good effect. Afebrile. WBC 16. K 3. He is drowsy today, in quite a bit of pain, did just work with PT and OT. Plan: Cont daptomycin, merrem, micafungin Add glucose checks, sliding scale Vitals Vitals Vital Signs Date Time Temp Pulse Resp B/P (MAP) Pulse Ox O2 Delivery O2 Flow Rate FiO2 11/04/19 08:12 99 Room Air 11/04/19 08:10 106 182/83 11/04/19 07:00 98.8 18 98.8 11/04/19 06:11 2.0 Physical Exam Physical Exam GENERAL: Propped up in bed, Arousable. NAD HEENT: RERL, Oropharynx pink and moist. No lesions seen. NECK: Supple. LUNGS: Clear to auscultation. HEART: S1 and S2. ABDOMEN: Nondistended, soft, nontender with bowel sounds present. EXTREMITIES: No gross edema. Wounds dressed with casts Luis Antonio SKIN: Warm to touch. No signs of rash. NEUROLOGIC: Awakens but min responses General: Alert, Oriented X3, Cooperative, mild distress Heart: Regular rate, Normal S1, Normal S2 Lungs: Clear Abdomen: Normal bowel sounds, Soft, No tenderness Extremities: No edema, Other (Palpable popliteal pulses bilaterally, palpable femoral pulses bilaterally) Skin: Other (Significant full-thickness diffuse wounds involving bilateral lower extremities with full-thickness wound to the level of the Achilles tendon on the right and multiple other full-thickness wounds scattered throughout the below-knee area on the right and the left. The patient has an open TMA amputation site with dermal graft in place.) Labs LABS Examination: TIBIA FIBULA LEFT History: Reason: pre-op for BKA / Spl. Instructions: / History: Comparison/Correlation: None Findings: Frontal and lateral views of the left tibia and fibula were obtained. There is graft material noted along the expected course of the distal left superficial femoral artery the proximal popliteal arterial level. Extensive vascular calcification is noted at the left knee and proximal tibial level. Significant calcifications are seen more distally involving the posterior tibial arterial level. Soft tissue gas or laceration is noted at the posterior medial distal tibial diametaphyseal level. No fracture or bony destructive findings. Impression: No fracture or bone destruction. Soft tissue gas or or ulceration of the distal segmental level. Electronically signed by: Lauri Sharma MD (10/31/2019 8:08 AM) [id number] DICTATED and SIGNED BY: LAURI SHARMA MD DATE: 10/31/19 0808 Laboratory Tests Test 11/03/19 11:34 11/03/19 17:03 11/03/19 20:57 11/04/19 04:50 Glucose (Fingerstick) 119 mg/dL (70-99) 120 mg/dL (70-99) 110 mg/dL (70-99) White Blood Count 14.2 x10^3/uL (4.0-11.0) Red Blood Count 3.45 x10^6/uL (4.30-5.70) Hemoglobin 9.3 g/dL (13.0-17.5) Hematocrit 28.1 % (39.0-53.0) Mean Corpuscular Volume 82 fL (79-100) Mean Corpuscular Hemoglobin 27 pg (25-35) Mean Corpuscular Hemoglobin Concent 33 g/dL (31-37) Red Cell Distribution Width 15.2 % (11.5-14.5) Platelet Count 397 x10^3/uL (140-400) Neutrophils (%) (Auto) 81 % (31-73) Lymphocytes (%) (Auto) 11 % (24-48) Monocytes (%) (Auto) 8 % (0-9) Eosinophils (%) (Auto) 0 % (0-3) Basophils (%) (Auto) 1 % (0-3) Neutrophils # (Auto) 11.4 x10^3/uL (1.8-7.7) Lymphocytes # (Auto) 1.5 x10^3/uL (1.0-4.8) Monocytes # (Auto) 1.2 x10^3/uL (0.0-1.1) Eosinophils # (Auto) 0.0 x10^3/uL (0.0-0.7) Basophils # (Auto) 0.1 x10^3/uL (0.0-0.2) Sodium Level 144 mmol/L (136-145) Potassium Level 3.1 mmol/L (3.5-5.1) Chloride Level 111 mmol/L (98-107) Carbon Dioxide Level 18 mmol/L (21-32) Anion Gap 15 (6-14) Blood Urea Nitrogen 10 mg/dL (8-26) Creatinine 1.1 mg/dL (0.7-1.3) Estimated GFR (Cockcroft-Gault) 79.4 Glucose Level 128 mg/dL (70-99) Calcium Level 8.0 mg/dL (8.5-10.1) Test 11/04/19 07:17 Glucose (Fingerstick) 113 mg/dL (70-99) Assessment and Plan Assessmemt and Plan Problems Medical Problems: (1) Lower extremity ulceration Status: Acute Comment Review of Relevant I have reviewed the following items solomon (where applicable) has been applied. Labs Laboratory Tests Test 11/03/19 04:40 11/03/19 07:46 11/03/19 11:34 11/03/19 17:03 White Blood Count 16.0 x10^3/uL (4.0-11.0) Red Blood Count 3.80 x10^6/uL (4.30-5.70) Hemoglobin 10.2 g/dL (13.0-17.5) Hematocrit 30.9 % (39.0-53.0) Mean Corpuscular Volume 81 fL (79-100) Mean Corpuscular Hemoglobin 27 pg (25-35) Mean Corpuscular Hemoglobin Concent 33 g/dL (31-37) Red Cell Distribution Width 15.4 % (11.5-14.5) Platelet Count 472 x10^3/uL (140-400) Neutrophils (%) (Auto) 82 % (31-73) Lymphocytes (%) (Auto) 10 % (24-48) Monocytes (%) (Auto) 9 % (0-9) Eosinophils (%) (Auto) 0 % (0-3) Basophils (%) (Auto) 0 % (0-3) Neutrophils # (Auto) 13.0 x10^3/uL (1.8-7.7) Lymphocytes # (Auto) 1.5 x10^3/uL (1.0-4.8) Monocytes # (Auto) 1.4 x10^3/uL (0.0-1.1) Eosinophils # (Auto) 0.0 x10^3/uL (0.0-0.7) Basophils # (Auto) 0.0 x10^3/uL (0.0-0.2) Segmented Neutrophils % 79 % (35-66) Lymphocytes % 16 % (24-48) Monocytes % 5 % (0-10) Platelet Estimate Increased (ADEQUATE) Sodium Level 142 mmol/L (136-145) Potassium Level 3.0 mmol/L (3.5-5.1) Chloride Level 110 mmol/L (98-107) Carbon Dioxide Level 19 mmol/L (21-32) Anion Gap 13 (6-14) Blood Urea Nitrogen 11 mg/dL (8-26) Creatinine 1.2 mg/dL (0.7-1.3) Estimated GFR (Cockcroft-Gault) 71.8 Glucose Level 110 mg/dL (70-99) Calcium Level 8.4 mg/dL (8.5-10.1) Magnesium Level 2.1 mg/dL (1.8-2.4) Glucose (Fingerstick) 121 mg/dL (70-99) 119 mg/dL (70-99) 120 mg/dL (70-99) Test 11/03/19 20:57 11/04/19 04:50 11/04/19 07:17 Glucose (Fingerstick) 110 mg/dL (70-99) 113 mg/dL (70-99) White Blood Count 14.2 x10^3/uL (4.0-11.0) Red Blood Count 3.45 x10^6/uL (4.30-5.70) Hemoglobin 9.3 g/dL (13.0-17.5) Hematocrit 28.1 % (39.0-53.0) Mean Corpuscular Volume 82 fL (79-100) Mean Corpuscular Hemoglobin 27 pg (25-35) Mean Corpuscular Hemoglobin Concent 33 g/dL (31-37) Red Cell Distribution Width 15.2 % (11.5-14.5) Platelet Count 397 x10^3/uL (140-400) Neutrophils (%) (Auto) 81 % (31-73) Lymphocytes (%) (Auto) 11 % (24-48) Monocytes (%) (Auto) 8 % (0-9) Eosinophils (%) (Auto) 0 % (0-3) Basophils (%) (Auto) 1 % (0-3) Neutrophils # (Auto) 11.4 x10^3/uL (1.8-7.7) Lymphocytes # (Auto) 1.5 x10^3/uL (1.0-4.8) Monocytes # (Auto) 1.2 x10^3/uL (0.0-1.1) Eosinophils # (Auto) 0.0 x10^3/uL (0.0-0.7) Basophils # (Auto) 0.1 x10^3/uL (0.0-0.2) Sodium Level 144 mmol/L (136-145) Potassium Level 3.1 mmol/L (3.5-5.1) Chloride Level 111 mmol/L (98-107) Carbon Dioxide Level 18 mmol/L (21-32) Anion Gap 15 (6-14) Blood Urea Nitrogen 10 mg/dL (8-26) Creatinine 1.1 mg/dL (0.7-1.3) Estimated GFR (Cockcroft-Gault) 79.4 Glucose Level 128 mg/dL (70-99) Calcium Level 8.0 mg/dL (8.5-10.1) Laboratory Tests Test 11/03/19 11:34 11/03/19 17:03 11/03/19 20:57 11/04/19 04:50 Glucose (Fingerstick) 119 mg/dL (70-99) 120 mg/dL (70-99) 110 mg/dL (70-99) White Blood Count 14.2 x10^3/uL (4.0-11.0) Red Blood Count 3.45 x10^6/uL (4.30-5.70) Hemoglobin 9.3 g/dL (13.0-17.5) Hematocrit 28.1 % (39.0-53.0) Mean Corpuscular Volume 82 fL (79-100) Mean Corpuscular Hemoglobin 27 pg (25-35) Mean Corpuscular Hemoglobin Concent 33 g/dL (31-37) Red Cell Distribution Width 15.2 % (11.5-14.5) Platelet Count 397 x10^3/uL (140-400) Neutrophils (%) (Auto) 81 % (31-73) Lymphocytes (%) (Auto) 11 % (24-48) Monocytes (%) (Auto) 8 % (0-9) Eosinophils (%) (Auto) 0 % (0-3) Basophils (%) (Auto) 1 % (0-3) Neutrophils # (Auto) 11.4 x10^3/uL (1.8-7.7) Lymphocytes # (Auto) 1.5 x10^3/uL (1.0-4.8) Monocytes # (Auto) 1.2 x10^3/uL (0.0-1.1) Eosinophils # (Auto) 0.0 x10^3/uL (0.0-0.7) Basophils # (Auto) 0.1 x10^3/uL (0.0-0.2) Sodium Level 144 mmol/L (136-145) Potassium Level 3.1 mmol/L (3.5-5.1) Chloride Level 111 mmol/L (98-107) Carbon Dioxide Level 18 mmol/L (21-32) Anion Gap 15 (6-14) Blood Urea Nitrogen 10 mg/dL (8-26) Creatinine 1.1 mg/dL (0.7-1.3) Estimated GFR (Cockcroft-Gault) 79.4 Glucose Level 128 mg/dL (70-99) Calcium Level 8.0 mg/dL (8.5-10.1) Test 11/04/19 07:17 Glucose (Fingerstick) 113 mg/dL (70-99) Microbiology 10/29/19 Gram Stain - Final, Resulted 10/29/19 Aerobic and Anaerobic Culture - Preliminary, Resulted 10/29/19 Antimicrobic Susceptibility - Preliminary, Resulted 10/29/19 Blood Culture - Final, Complete NO GROWTH AFTER 5 DAYS Medications Current Medications Vancomycin HCl (Vanco Per Pharmacy) 1 each 1X ONCE MC ; Start 10/29/19 at 17:00; Stop 10/30/19 at 16:05; Status DC Sodium Chloride 1,000 ml @ 1,000 mls/hr Q1H IV Last administered on 10/29/19at 17:17; Start 10/29/19 at 16:41; Stop 10/29/19 at 17:40; Status DC Fentanyl Citrate (Fentanyl 2ml Vial) 50 mcg 1X ONCE IVP Last administered on 10/29/19at 17:17; Start 10/29/19 at 16:45; Stop 10/29/19 at 16:46; Status DC Piperacillin Sod/ Tazobactam Sod 3.375 gm/Sodium Chloride 50 ml @ 100 mls/hr 1X ONCE IV Last administered on 10/29/19at 18:06; Start 10/29/19 at 17:00; Stop 10/29/19 at 17:29; Status DC Vancomycin HCl 2 gm/Sodium Chloride 500 ml @ 250 mls/hr 1X ONCE IV Last administered on 10/29/19at 17:18; Start 10/29/19 at 17:00; Stop 10/29/19 at 18:59; Status DC Ondansetron HCl (Zofran) 4 mg PRN Q8HRS PRN IV NAUSEA/VOMITING; Start 10/29/19 at 18:00; Stop 10/30/19 at 17:59; Status DC Fentanyl Citrate (Fentanyl 2ml Vial) 50 mcg PRN Q1HR PRN IV PAIN Last administered on 10/29/19at 22:48; Start 10/29/19 at 18:00; Stop 10/29/19 at 23:47; Status DC Oxycodone/ Acetaminophen (Percocet 10/325) 1 tab PRN Q4HRS PRN PO SEVERE PAIN 7-10 Last administered on 11/04/19at 06:11; Start 10/30/19 at 00:00 Vancomycin HCl 1.25 gm/Sodium Chloride 250 ml @ 167 mls/hr Q24H IV ; Start 10/30/19 at 17:00; Stop 10/30/19 at 12:06; Status DC Vancomycin HCl (Vancomycin Trough Level) 1 each 1X ONCE MC ; Start 10/31/19 at 16:30; Stop 10/31/19 at 16:31; Status Cancel Vancomycin HCl (Vanco Per Pharmacy) 1 each PRN DAILY PRN MC SEE COMMENTS Last administered on 10/30/19at 01:33; Start 10/29/19 at 23:45; Stop 10/30/19 at 12:06; Status DC Hydromorphone HCl (Dilaudid) 1 mg PRN Q2HR PRN IV breakthrough pain Last administered on 11/04/19at 08:12; Start 10/30/19 at 07:15 Lactobacillus Rhamnosus (Culturelle) 1 cap BID PO Last administered on 11/04/19at 08:10; Start 10/30/19 at 21:00 Piperacillin Sod/ Tazobactam Sod (Zosyn Per Pharmacy) 1 each PRN DAILY PRN MC SEE COMMENTS; Start 10/30/19 at 12:00; Stop 10/30/19 at 16:05; Status DC Piperacillin Sod/ Tazobactam Sod 3.375 gm/Sodium Chloride 50 ml @ 100 mls/hr Q6HRS IV Last administered on 10/30/19at 12:51; Start 10/30/19 at 12:15; Stop 10/30/19 at 16:05; Status DC Potassium Chloride (Klor-Con) 40 meq 1X ONCE PO Last administered on 10/30/19at 15:35; Start 10/30/19 at 15:30; Stop 10/30/19 at 15:31; Status DC Potassium Chloride (Klor-Con) 40 meq 1X ONCE PO Last administered on 10/30/19at 19:53; Start 10/30/19 at 19:30; Stop 10/30/19 at 19:31; Status DC Meropenem 500 mg/ Sodium Chloride 50 ml @ 100 mls/hr Q6HRS IV Last administered on 11/04/19at 06:03; Start 10/30/19 at 18:00 Daptomycin 510 mg/ Sodium Chloride 50 ml @ 100 mls/hr Q24H IV ; Start 10/30/19 at 16:00; Status Cancel Micafungin Sodium 100 mg/Dextrose 100 ml @ 100 mls/hr Q24H IV Last administered on 11/03/19at 18:04; Start 10/30/19 at 17:00 Daptomycin 500 mg/ Sodium Chloride 50 ml @ 100 mls/hr Q24H IV Last administered on 11/03/19at 16:29; Start 10/30/19 at 17:00 Potassium Chloride (Klor-Con) 40 meq 1X ONCE PO Last administered on 10/31/19at 21:11; Start 10/31/19 at 20:30; Stop 10/31/19 at 20:31; Status DC Magnesium Sulfate 100 ml @ 25 mls/hr 1X ONCE IV Last administered on 11/01/19at 09:37; Start 11/01/19 at 09:00; Stop 11/01/19 at 12:59; Status DC Potassium Chloride (Klor-Con) 40 meq 1X ONCE PO Last administered on 11/01/19at 09:38; Start 11/01/19 at 08:30; Stop 11/01/19 at 08:31; Status DC Potassium Chloride (Klor-Con) 20 meq DAILYWBKFT PO Last administered on 11/04/19at 08:10; Start 11/02/19 at 08:00 Potassium Chloride (Klor-Con) 40 meq 1X ONCE PO Last administered on 11/01/19at 17:23; Start 11/01/19 at 17:00; Stop 11/01/19 at 17:01; Status DC Ondansetron HCl (Zofran) 4 mg PRN Q6HRS PRN IV NAUSEA/VOMITING; Start 11/02/19 at 11:45; Stop 11/02/19 at 21:00; Status DC Ringer's Solution 1,000 ml @ 30 mls/hr Q24H IV ; Start 11/02/19 at 12:00; Stop 11/02/19 at 21:00; Status Cancel Prochlorperazine Edisylate (Compazine) 5 mg PACU PRN PRN IV NAUSEA, MRX1 Last administered on 11/02/19at 20:18; Start 11/02/19 at 11:45; Stop 11/02/19 at 21:00; Status DC Multivitamins (Thera M Plus) 1 tab DAILY PO Last administered on 11/04/19at 08:10; Start 11/02/19 at 14:00 Ascorbic Acid (Vitamin C) 500 mg BID PO Last administered on 11/04/19at 08:10; Start 11/02/19 at 14:00 Dexamethasone Sodium Phosphate (Decadron) 4 mg STK-MED ONCE .ROUTE ; Start 11/02/19 at 14:52; Stop 11/02/19 at 14:56; Status DC Ondansetron HCl (Zofran) 4 mg STK-MED ONCE .ROUTE ; Start 11/02/19 at 14:52; Stop 11/02/19 at 14:56; Status DC Lidocaine HCl (Lidocaine Pf 2% Vial) 5 ml STK-MED ONCE .ROUTE ; Start 11/02/19 at 14:52; Stop 11/02/19 at 14:57; Status DC Propofol (Diprivan) 200 mg STK-MED ONCE IV ; Start 11/02/19 at 14:52; Stop 11/02/19 at 14:59; Status DC Fentanyl Citrate (Fentanyl 2ml Vial) 100 mcg STK-MED ONCE .ROUTE ; Start 11/02/19 at 14:53; Stop 11/02/19 at 14:59; Status DC Phenylephrine HCl (PHENYLEPHRINE in 0.9% NACL PF) 1 mg STK-MED ONCE IV ; Start 11/02/19 at 17:41; Stop 11/02/19 at 17:41; Status DC Fentanyl Citrate (Fentanyl 2ml Vial) 100 mcg STK-MED ONCE .ROUTE ; Start 11/02/19 at 17:45; Stop 11/02/19 at 17:45; Status DC Ephedrine Sulfate (ePHEDrine PF IN SALINE SYRINGE) 50 mg STK-MED ONCE IV ; Start 11/02/19 at 17:57; Stop 11/02/19 at 17:57; Status DC Fentanyl Citrate (Fentanyl 2ml Vial) 100 mcg STK-MED ONCE .ROUTE ; Start 11/02/19 at 18:59; Stop 11/02/19 at 18:59; Status DC Morphine Sulfate (Morphine Sulfate) 2 mg STK-MED ONCE .ROUTE ; Start 11/02/19 at 19:54; Stop 11/02/19 at 19:54; Status DC Morphine Sulfate (Morphine Sulfate) 2 mg 1X ONCE IV Last administered on 11/02/19at 20:02; Start 11/02/19 at 20:00; Stop 11/02/19 at 20:08; Status DC Ringer's Solution 1,000 ml @ 30 mls/hr Q24H IV ; Start 11/02/19 at 20:00; Stop 11/03/19 at 07:59; Status DC Fentanyl Citrate (Fentanyl 2ml Vial) 100 mcg STK-MED ONCE .ROUTE ; Start 11/02/19 at 20:00; Stop 11/02/19 at 20:01; Status DC Fentanyl Citrate (Fentanyl 2ml Vial) 50 mcg PRN Q10MIN PRN IVP PAIN Last administered on 11/02/19at 20:09; Start 11/02/19 at 20:15; Stop 11/03/19 at 01:00; Status DC Morphine Sulfate (Morphine Sulfate) 2 mg PRN Q10MIN PRN IV pain ; Start 11/02/19 at 20:15; Stop 11/03/19 at 01:00; Status DC Hydromorphone HCl (Dilaudid) 1 mg PRN Q10MIN PRN IV pain, 2ND CHOICE Last administered on 11/02/19at 20:46; Start 11/02/19 at 20:15; Stop 11/03/19 at 01:00; Status DC Labetalol HCl (Normodyne Iv Push) 10 mg PRN Q10MIN PRN IVP HYPERTENSION Last administered on 11/02/19at 21:49; Start 11/02/19 at 20:15; Stop 11/02/19 at 22:12; Status DC Sodium Chloride 1,000 ml @ 125 mls/hr 1X ONCE IV ; Start 11/02/19 at 21:00; Stop 11/03/19 at 04:59; Status DC Hydralazine HCl (Apresoline Inj) 10 mg PRN Q4HRS PRN IVP HTN, SEE COMMENTS, 1ST CHOICE Last administered on 11/03/19at 15:04; Start 11/02/19 at 22:45 Polyethylene Glycol (miraLAX PACKET) 17 gm DAILY PO Last administered on 11/04/19 08:07; Start 11/03/19 at 09:00 Psyllium Hydrophilic Mucilloid (Metamucil Fiber Packet) 1 pkt DAILY PO Last ad ministered on 11/04/19 08:07; Start 11/03/19 at 09:00 Amlodipine Besylate (Norvasc) 5 mg 1X ONCE PO Last administered on 11/03/19at 02:56; Start 11/02/19 at 23:00; Stop 11/02/19 at 23:01; Status DC Amlodipine Besylate (Norvasc) 5 mg DAILY PO Last administered on 11/04/19 08:10; Start 11/03/19 at 09:00 Labetalol HCl (Normodyne Iv Push) 10 mg PRN Q2HR PRN IVP HYPERTENSION Last administered on 11/03/19at 02:08; Start 11/02/19 at 22:45; Stop 11/03/19 at 03:46; Status DC Labetalol HCl (Normodyne Iv Push) 20 mg PRN Q2HR PRN IVP HYPERTENSION, 2ND CHOICE Last administered on 11/03/19at 04:04; Start 11/03/19 at 03:45 Potassium Chloride/Water 100 ml @ 100 mls/hr Q1H IV Last administered on 11/03/19at 10:15; Start 11/03/19 at 08:00; Stop 11/03/19 at 09:59; Status DC Potassium Chloride (Klor-Con) 20 meq 1X ONCE PO Last administered on 11/03/19at 08:26; Start 11/03/19 at 07:30; Stop 11/03/19 at 07:43; Status DC Insulin Human Lispro (HumaLOG) 0-5 UNITS TIDACHC SQ ; Start 11/03/19 at 07:30 Dextrose (Dextrose 50%-Water Syringe) 12.5 gm PRN Q15MIN PRN IV SEE COMMENTS; Start 11/03/19 at 07:30 Ketorolac Tromethamine (Toradol 15mg Vial) 15 mg 1X ONCE IVP Last administered on 11/03/19at 16:52; Start 11/03/19 at 16:45; Stop 11/03/19 at 16:46; Status DC Vitals/I & O Vital Sign - Last 24 Hours 11/03/19 11/03/19 11/03/19 11/03/19 10:20 11:00 11:22 14:59 Temp 98.0 98.0 Pulse 89 Resp 18 B/P (MAP) 162/79 (106) Pulse Ox 100 100 100 100 O2 Delivery Room Air Room Air Room Air Room Air 11/03/19 11/03/19 11/03/19 11/03/19 15:00 15:00 15:04 15:44 Temp 101.1 101.1 Pulse 113 112 Resp 18 B/P (MAP) 167/89 (115) 176/88 Pulse Ox 100 98 100 O2 Delivery Room Air Room Air 11/03/19 11/03/19 11/03/19 11/03/19 15:44 16:46 17:17 17:19 Temp 101.3 101.8 101.3 101.8 Pulse 124 126 B/P (MAP) 162/85 (110) 157/85 (109) Pulse Ox 100 100 O2 Delivery Room Air Room Air 11/03/19 11/03/19 11/03/19 11/03/19 17:38 18:07 19:50 20:46 Temp 100.4 100.4 Resp 18 Pulse Ox 100 100 O2 Delivery Room Air Room Air Room Air O2 Flow Rate 2.0 11/03/19 11/03/19 11/03/19 11/04/19 21:46 23:00 23:34 00:04 Temp 97.7 97.7 Pulse 116 Resp 19 20 17 18 B/P (MAP) 146/50 (82) Pulse Ox 100 95 100 100 O2 Delivery Room Air Room Air Room Air Room Air O2 Flow Rate 2.0 2.0 2.0 11/04/19 11/04/19 11/04/19 11/04/19 03:00 06:11 07:00 07:27 Temp 99.0 98.8 99.0 98.8 Pulse 115 106 Resp 18 17 18 B/P (MAP) 153/76 (101) 182/83 (116) Pulse Ox 99 99 96 99 O2 Delivery Room Air Room Air Room Air Room Air O2 Flow Rate 2.0 11/04/19 11/04/19 11/04/19 07:30 08:10 08:12 Pulse 106 B/P (MAP) 182/83 Pulse Ox 99 O2 Delivery Room Air Room Air Intake and Output 11/03/19 11/03/19 11/04/19 15:00 23:00 07:00 Intake Total 100 ml 300 ml 450 ml Output Total 975 ml 700 ml Balance 100 ml -675 ml -250 ml Nutrition Consultation Dietary Evaluation: Recommendations by RD: Dietary education by RD, Increase Calorie Intake, Protein supplementation Comments: cardiac diet with ensure tid mvi and vit c per wound protocal Expected Outcomes/Goals: to meet >75% est nutr needs- not met, goal ongoing Malnutrition Findings: Body Fat Depletion (Non Severe: Mild Depletion Weight Status: Underweight Justicifation of Admission Dx: Justifications for Admission: Justification of Admission Dx: Yes MARKIE GARCIA MD Nov 04, 2019 09:14
--- NOTE | 2019-11-04 09:56 | PDOC ---
Infectious Disease Note Subjective Subjective Having pain. No Flatus or BM yet No F/C/aches/N/V/D/SOA Vital Sign Vital Signs Vital Signs Date Time Temp Pulse Resp B/P (MAP) Pulse Ox O2 Delivery O2 Flow Rate FiO2 11/04/19 09:24 99 Room Air 11/04/19 08:10 106 182/83 11/04/19 07:00 98.8 18 98.8 11/04/19 06:11 2.0 Physical Exam PHYSICAL EXAM GENERAL: Propped up in bed, Alert. NAD HEENT: COSME, Oropharynx pink and moist. No lesions seen. NECK: Supple. LUNGS: Clear to auscultation. HEART: S1 and S2. ABDOMEN: Nondistended, soft, nontender with bowel sounds present. EXTREMITIES: No gross edema. Wounds dressed with casts Luis Antonio SKIN: Warm to touch. No signs of rash. NEUROLOGIC: Alert and appropriate Labs Lab Laboratory Tests Test 11/03/19 11:34 11/03/19 17:03 11/03/19 20:57 11/04/19 04:50 Glucose (Fingerstick) 119 mg/dL (70-99) 120 mg/dL (70-99) 110 mg/dL (70-99) White Blood Count 14.2 x10^3/uL (4.0-11.0) Red Blood Count 3.45 x10^6/uL (4.30-5.70) Hemoglobin 9.3 g/dL (13.0-17.5) Hematocrit 28.1 % (39.0-53.0) Mean Corpuscular Volume 82 fL (79-100) Mean Corpuscular Hemoglobin 27 pg (25-35) Mean Corpuscular Hemoglobin Concent 33 g/dL (31-37) Red Cell Distribution Width 15.2 % (11.5-14.5) Platelet Count 397 x10^3/uL (140-400) Neutrophils (%) (Auto) 81 % (31-73) Lymphocytes (%) (Auto) 11 % (24-48) Monocytes (%) (Auto) 8 % (0-9) Eosinophils (%) (Auto) 0 % (0-3) Basophils (%) (Auto) 1 % (0-3) Neutrophils # (Auto) 11.4 x10^3/uL (1.8-7.7) Lymphocytes # (Auto) 1.5 x10^3/uL (1.0-4.8) Monocytes # (Auto) 1.2 x10^3/uL (0.0-1.1) Eosinophils # (Auto) 0.0 x10^3/uL (0.0-0.7) Basophils # (Auto) 0.1 x10^3/uL (0.0-0.2) Sodium Level 144 mmol/L (136-145) Potassium Level 3.1 mmol/L (3.5-5.1) Chloride Level 111 mmol/L (98-107) Carbon Dioxide Level 18 mmol/L (21-32) Anion Gap 15 (6-14) Blood Urea Nitrogen 10 mg/dL (8-26) Creatinine 1.1 mg/dL (0.7-1.3) Estimated GFR (Cockcroft-Gault) 79.4 Glucose Level 128 mg/dL (70-99) Calcium Level 8.0 mg/dL (8.5-10.1) Test 11/04/19 07:17 Glucose (Fingerstick) 113 mg/dL (70-99) Micro ANAEROBIC-AEROBIC CULTURE Preliminary Preliminary MIXED AEROBIC ZAIDA INCLUDING: FEW [STAPHYLOCOCCUS AUREUS (MRSA)] MANY [ESCHERICHIA COLI] MANY [KLEBSIELLA PNEUMONIAE] FEW [PROTEUS SPECIES] STAPHYLOCOCCUS AUREUS (MRSA) ESCHERICHIA COLI KLEBSIELLA PNEUMONIAE PROTEUS SPECIES ANTIMICROBIAL SUSCEPTIBILITY Preliminary Comment POS KERRIE TYPE 38 STAPHYLOCOCCUS AUREUS (MRSA) ANTIBIOTIC RESULT INTERPRETATION AZITHROMYCIN >4 R CLINDAMYCIN 0.5 S CEFOXITIN SCREEN >4 POS CIPROFLOXACIN >2 R CEFTAROLINE <=0.5 S DAPTOMYCIN 1 S ERYTHROMYCIN >4 R GENTAMICIN <=4 S INDUCIBLE CLINDAMYCIN <=4/0.5 NEG LINEZOLID 2 S CONTINUED ON NEXT PAGE RUN DATE: 11/02/19 [facility] *LIVE* PAGE 2 RUN TIME: 1223 Specimen Inquiry --------- --- SPEC: [id number] PATIENT: ERI MARQUES [id number] (Continued) Procedure Result ANTIMICROBIAL SUSCEPTIBILITY Preliminary (continued) LEVOFLOXACIN >4 R OXACILLIN >2 R PENICILLIN >2 R* RIFAMPIN <=1 S TRIMETHOPRIM/SULFAMETHOXAZOLE <=0.5/9.5 S TETRACYCLINE >8 R VANCOMYCIN 1 S Microbiology 10/29/19 Gram Stain - Final, Resulted 10/29/19 Aerobic and Anaerobic Culture - Preliminary, Resulted 10/29/19 Antimicrobic Susceptibility - Preliminary, Resulted 10/29/19 Blood Culture - Preliminary, Resulted NO GROWTH AFTER 4 DAYS Objective Assessment Fever - better Chronic ulcerations right lower extremity assoc increase pain, drainage, odor, tendon exposure and maggots. 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 Cr stable PVD h/o stents Peripheral neuropathy Hypokalemia Plan Plan of Care Continue Dapto, meropenem, micafungin will wean soon hopefully. Await Ortho f/u CK is 64 Monitor labs f/u cultures Probiotics Local wound care per Ortho SHANIA WILLIAM MD Nov 04, 2019 09:56
--- NOTE | 2019-11-04 10:20 | NUR ---
SW following. Discussed with RN, pt in too much pain to work with PT yesterday, OT recommending acute rehab. SW to meet with pt to determine where he would like to go for rehab. Pt currently on IV dapto, merrem, micafungin. SW reached out to [facility] to determine if they are in [facility]. SW will continue to follow.
[2019-11-04 11:00] VITALS: BP 166/89
[2019-11-04] MEDS ORDERED: POTASSIUM CHLORIDE 20 MEQ TABLET.ER. PO ONE (12:15)
[2019-11-04] MEDS: IV 1/2 NORMAL SALINE 1,000 ML IV SCH (12:34)
[2019-11-04] MEDS: hydrALAZINE 20 MG/ML VIAL. IVP PRN (12:36)
[2019-11-04 13:08] LABS: BILIRUBIN,URINE NEGATIVE (NEG); CLARITY,URINE CLEAR; COLOR,URINE YELLOW; NITRITE,URINE NEGATIVE (NEG); PROTEIN,URINE 100 mg/dL (NEG-TRACE)
[2019-11-04 13:17] LABS: BACTERIA,URINE FEW /HPF (0-FEW)
[2019-11-04 14:53] VITALS: BP 149/78
[2019-11-04] MEDS: DAPTOmycin (GENERIC) IVPB 500 MG in IV NORMAL SALINE 50ML 50 ML IV SCH (15:28)
[2019-11-04] MEDS: MICAFUNGIN 100 MG in IV DEXTROSE 5% 100ML 100 ML IV SCH (16:03)
--- NOTE | 2019-11-04 16:57 | NUR ---
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 Overton. No other wounds noted on skin assessment. Wound care will sign off.
[2019-11-04 19:00] VITALS: BP 155/80
[2019-11-04 23:00] VITALS: BP 141/62
[2019-11-05] MEDS: HYDROmorphone 2 MG/ML VIAL IV PRN (00:59)
[2019-11-05] MEDS: MEROPENEM 500 MG in IV NORMAL SALINE 50ML 50 ML IV SCH ×2 (01:00→05:15)
[2019-11-05] MEDS: IV 1/2 NORMAL SALINE 1,000 ML IV SCH ×2 (01:01→16:15)
[2019-11-05 03:00] VITALS: BP 162/80
[2019-11-05 04:34] LABS: BASO % 0 % (0-3); EOS % 0 % (0-3); HEMATOCRIT 25.5 % (39.0-53.0); HEMOGLOBIN 8.4 g/dL (13.0-17.5); LYMPH % 17 % (24-48); MEAN CORPUSCULAR HEMOGLOBIN 27 pg (25-35); MEAN CORPUSCULAR HGB CONC 33 g/dL (31-37); MEAN CORPUSCULAR VOLUME 82 fL (79-100); MONO # 1.1 x10^3/uL (0.0-1.1); MONO % 9 % (0-9); NEUT # 8.5 x10^3/uL (1.8-7.7); NEUT % 73 % (31-73); PLATELET COUNT 363 x10^3/uL (140-400); RED BLOOD COUNT 3.11 x10^6/uL (4.30-5.70); RED CELL DISTRIBUTION WIDTH 14.9 % (11.5-14.5); WHITE BLOOD COUNT 11.7 x10^3/uL (4.0-11.0)
[2019-11-05 05:08] LABS: ALBUMIN/GLOBULIN RATIO 0.4 (1.0-1.7); CALCIUM 8.3 mg/dL (8.5-10.1); GFR 88.6; POTASSIUM 3.2 mmol/L (3.5-5.1); TOTAL BILIRUBIN 0.4 mg/dL (0.2-1.0); TOTAL PROTEIN 6.8 g/dL (6.4-8.2)
[2019-11-05] MEDS: hydrALAZINE 20 MG/ML VIAL. IVP PRN (05:44)
[2019-11-05] MEDS: oxyCODONE/APAP 10/325 1 TAB TABLET PO PRN ×2 (06:21→16:15)
[2019-11-05 07:00] VITALS: BP 166/72
[2019-11-05] MEDS ORDERED: POTASSIUM CHLORIDE 20 MEQ TABLET.ER. PO SCH (08:00)
[2019-11-05] MEDS: PSYLLIUM HUSK (SUGAR FREE) 1 PKT PACKET PO SCH (09:06)
[2019-11-05] MEDS: POLYETHYLENE GLYCOL 3350 17 GM PACKET. PO SCH (09:06)
[2019-11-05] MEDS: amLODIPine BESYLATE 5 MG TABLET PO SCH (09:07)
[2019-11-05] MEDS: ASCORBIC ACID 500 MG TABLET PO SCH ×2 (09:07→21:51)
[2019-11-05] MEDS: LACTOBACILLUS RHAMNOSUS GG 1 CAPSULE. PO SCH ×2 (09:07→21:51)
[2019-11-05] MEDS: POTASSIUM CHLORIDE 20 MEQ TABLET.ER. PO SCH (09:07)
[2019-11-05] MEDS: MULTIVITAMIN with MINERAL TABLET. PO SCH (09:07)
--- NOTE | 2019-11-05 09:28 | PDOC ---
Infectious Disease Note Subjective Subjective Better. No N/V/D/constipation No F/C/aches/SOA ROS ROS o/w neg Vital Sign Vital Signs Vital Signs Date Time Temp Pulse Resp B/P (MAP) Pulse Ox O2 Delivery O2 Flow Rate FiO2 11/05/19 09:07 97 166/72 11/05/19 07:00 98.6 18 97 Room Air 98.6 11/05/19 06:21 2.0 Physical Exam PHYSICAL EXAM GENERAL: Propped up in bed, Alert. NAD looks better HEENT: COSME, Oropharynx pink and moist. No lesions seen. NECK: Supple. LUNGS: Clear to auscultation. HEART: S1 and S2. ABDOMEN: Nondistended, soft, nontender with bowel sounds present. EXTREMITIES: No gross edema. Wounds dressed with casts Luis Antonio SKIN: Warm to touch. No signs of rash. NEUROLOGIC: Alert and appropriate Labs Lab Laboratory Tests Test 11/04/19 11:50 11/04/19 12:40 11/05/19 03:50 Glucose (Fingerstick) 94 mg/dL (70-99) Urine Collection Type Unknown Urine Color Yellow Urine Clarity Clear Urine pH 7.0 (<5.0-8.0) Urine Specific [place] 1.015 (1.000-1.030) Urine Protein 100 mg/dL (NEG-TRACE) Urine Glucose (UA) Negative mg/dL (NEG) Urine Ketones (Stick) Trace mg/dL (NEG) Urine Blood Large (NEG) Urine Nitrite Negative (NEG) Urine Bilirubin Negative (NEG) Urine Urobilinogen Dipstick 1.0 mg/dL (0.2 mg/dL) Urine Leukocyte Esterase Negative (NEG) Urine RBC 6-10 /HPF (0-2) Urine WBC 1-4 /HPF (0-4) Urine Bacteria Few /HPF (0-FEW) White Blood Count 11.7 x10^3/uL (4.0-11.0) Red Blood Count 3.11 x10^6/uL (4.30-5.70) Hemoglobin 8.4 g/dL (13.0-17.5) Hematocrit 25.5 % (39.0-53.0) Mean Corpuscular Volume 82 fL (79-100) Mean Corpuscular Hemoglobin 27 pg (25-35) Mean Corpuscular Hemoglobin Concent 33 g/dL (31-37) Red Cell Distribution Width 14.9 % (11.5-14.5) Platelet Count 363 x10^3/uL (140-400) Neutrophils (%) (Auto) 73 % (31-73) Lymphocytes (%) (Auto) 17 % (24-48) Monocytes (%) (Auto) 9 % (0-9) Eosinophils (%) (Auto) 0 % (0-3) Basophils (%) (Auto) 0 % (0-3) Neutrophils # (Auto) 8.5 x10^3/uL (1.8-7.7) Lymphocytes # (Auto) 2.0 x10^3/uL (1.0-4.8) Monocytes # (Auto) 1.1 x10^3/uL (0.0-1.1) Eosinophils # (Auto) 0.0 x10^3/uL (0.0-0.7) Basophils # (Auto) 0.0 x10^3/uL (0.0-0.2) Sodium Level 143 mmol/L (136-145) Potassium Level 3.2 mmol/L (3.5-5.1) Chloride Level 110 mmol/L (98-107) Carbon Dioxide Level 17 mmol/L (21-32) Anion Gap 16 (6-14) Blood Urea Nitrogen 12 mg/dL (8-26) Creatinine 1.0 mg/dL (0.7-1.3) Estimated GFR (Cockcroft-Gault) 88.6 BUN/Creatinine Ratio 12 (6-20) Glucose Level 99 mg/dL (70-99) Calcium Level 8.3 mg/dL (8.5-10.1) Total Bilirubin 0.4 mg/dL (0.2-1.0) Aspartate Amino Transf (AST/SGOT) 80 U/L (15-37) Alanine Aminotransferase (ALT/SGPT) 41 U/L (16-63) Alkaline Phosphatase 80 U/L (46-116) Total Protein 6.8 g/dL (6.4-8.2) Albumin 2.0 g/dL (3.4-5.0) Albumin/Globulin Ratio 0.4 (1.0-1.7) Micro ANAEROBIC-AEROBIC CULTURE Preliminary Preliminary MIXED AEROBIC ZAIDA INCLUDING: FEW [STAPHYLOCOCCUS AUREUS (MRSA)] MANY [ESCHERICHIA COLI] MANY [KLEBSIELLA PNEUMONIAE] FEW [PROTEUS SPECIES] STAPHYLOCOCCUS AUREUS (MRSA) ESCHERICHIA COLI KLEBSIELLA PNEUMONIAE PROTEUS SPECIES ANTIMICROBIAL SUSCEPTIBILITY Preliminary Comment POS KERRIE TYPE 38 STAPHYLOCOCCUS AUREUS (MRSA) ANTIBIOTIC RESULT INTERPRETATION AZITHROMYCIN >4 R CLINDAMYCIN 0.5 S CEFOXITIN SCREEN >4 POS CIPROFLOXACIN >2 R CEFTAROLINE <=0.5 S DAPTOMYCIN 1 S ERYTHROMYCIN >4 R GENTAMICIN <=4 S INDUCIBLE CLINDAMYCIN <=4/0.5 NEG LINEZOLID 2 S CONTINUED ON NEXT PAGE RUN DATE: 11/02/19 [facility] *LIVE* PAGE 2 RUN TIME: 1223 Specimen Inquiry SPEC: [id number] PATIENT: ERI MARQUES [id number] (Continued) Procedure Result ANTIMICROBIAL SUSCEPTIBILITY Preliminary (continued) LEVOFLOXACIN >4 R OXACILLIN >2 R PENICILLIN >2 R* RIFAMPIN <=1 S TRIMETHOPRIM/SULFAMETHOXAZOLE <=0.5/9.5 S TETRACYCLINE >8 R VANCOMYCIN 1 S Microbiology 10/29/19 Gram Stain - Final, Resulted 10/29/19 Aerobic and Anaerobic Culture - Preliminary, Resulted 10/29/19 Antimicrobic Susceptibility - Preliminary, Resulted 10/29/19 Blood Culture - Preliminary, Resulted NO GROWTH AFTER 4 DAYS Objective Assessment Fever - better Chronic ulcerations right lower extremity assoc increase pain, drainage, odor, tendon exposure and maggots. 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 Cr stable PVD h/o stents Peripheral neuropathy Hypokalemia Plan Plan of Care D/w Dr. Overton this am - states source of potential infection is gone and the tissue bled well and looked good post op- cast to prevent Contractures Discontinue Dapto, meropenem, micafungin will wean soon hopefully. Await Ortho f/u CK is 64 Monitor labs f/u cultures Probiotics Local wound care per Ortho ID to sign off d/w nursing SHANIA WILLIAM MD Nov 05, 2019 09:28
[2019-11-05 11:00] VITALS: BP 151/78
--- NOTE | 2019-11-05 11:00 | PDOC ---
PROGRESS NOTES Chief Complaint Chief Complaint impression Chronic ulceration lower extremities bilaterally associated with increased pain, drainage, odor and tendon exposure as well as maggot infestation Nonhealing open transmetatarsal amputation, left foot. Leukocytosis. Renal insufficiency, baseline creatinine not known. Peripheral vascular disease, status post revascularization. Peripheral neuropathy. Diabetes. Hypertension 11/03 Continue Dapto, meropenem, micafungin IV 11/04 cast to prevent Contractures Discontinue Dapto, meropenem, micafungin will wean soon Await Ortho f/u d/w RN History of Present Illness History of Present Illness Mr Guardado is a 74yo M [facility] w/ PMHx diabetes, hypertension, hyperlipidemia, peripheral neuropathy and peripheral vascular disease, status post revascularization lower extremities. He is followed by the [place] wound care for chronic ulcerations lower extremities bilaterally. Earlier this year, he underwent an open transmetatarsal amputation of his left foot due to gangrene and osteomyelitis. He says he has been on antibiotics with little improvement. Over the last few days, he developed worsening pain, drainage and odor. He was found to have maggots in his wounds. X-ray imaging showed soft tissue defects. No fractures or bony erosions. A venous ultrasound was negative for DVT. The wounds were cleaned. The maggots removed and cultures were sent. He has since been admitted and started on vancomycin and Zosyn. Vascular surgery and ID were consulted. 10/29: He wants to have a bilateral below the knee amputation 10/30: His lower extremities are both wrapped with clean dry intact dressing 10/31: BP elevated 11/01: Afebrile. Bilateral BKA. No chest pain or shortness of breath. Overnight hypertensive, minimally responsive to hydralazine, added labetalol with good effect. Afebrile. WBC 16. K 3. He is drowsy today, in quite a bit of pain, did just work with PT and OT. Plan: Cont daptomycin, merrem, micafungin Add glucose checks, sliding scale Vitals Vitals Vital Signs Date Time Temp Pulse Resp B/P (MAP) Pulse Ox O2 Delivery O2 Flow Rate FiO2 11/05/19 09:07 97 166/72 11/05/19 07:00 98.6 18 97 Room Air 98.6 11/05/19 06:21 2.0 Physical Exam Physical Exam GENERAL: Propped up in bed, Alert. NAD looks better HEENT: COSME, Oropharynx pink and moist. No lesions seen. NECK: Supple. LUNGS: Clear to auscultation. HEART: S1 and S2. ABDOMEN: Nondistended, soft, nontender with bowel sounds present. EXTREMITIES: No gross edema. Wounds dressed with casts Luis Antonio SKIN: Warm to touch. No signs of rash. NEUROLOGIC: Alert and appropriate General: Alert, Oriented X3, Cooperative, mild distress Heart: Regular rate, Normal S1, Normal S2 Lungs: Clear Abdomen: Normal bowel sounds, Soft, No tenderness Extremities: No edema, Other (Palpable popliteal pulses bilaterally, palpable femoral pulses bilaterally) Skin: Other (Significant full-thickness diffuse wounds involving bilateral lower extremities with full-thickness wound to the level of the Achilles tendon on the right and multiple other full-thickness wounds scattered throughout the below-knee area on the right and the left. The patient has an open TMA amputation site with dermal graft in place.) Labs LABS BERNARDO,ROSELYN CHAMBERS,MIRANDA Mckee MD ORDERED: BCULT Procedure Result BLOOD CULTURE Preliminary NO GROWTH AFTER 1 DAY Laboratory Tests Test 11/04/19 11:50 11/04/19 12:40 11/05/19 03:50 Glucose (Fingerstick) 94 mg/dL (70-99) Urine Collection Type Unknown Urine Color Yellow Urine Clarity Clear Urine pH 7.0 (<5.0-8.0) Urine Specific [place] 1.015 (1.000-1.030) Urine Protein 100 mg/dL (NEG-TRACE) Urine Glucose (UA) Negative mg/dL (NEG) Urine Ketones (Stick) Trace mg/dL (NEG) Urine Blood Large (NEG) Urine Nitrite Negative (NEG) Urine Bilirubin Negative (NEG) Urine Urobilinogen Dipstick 1.0 mg/dL (0.2 mg/dL) Urine Leukocyte Esterase Negative (NEG) Urine RBC 6-10 /HPF (0-2) Urine WBC 1-4 /HPF (0-4) Urine Bacteria Few /HPF (0-FEW) White Blood Count 11.7 x10^3/uL (4.0-11.0) Red Blood Count 3.11 x10^6/uL (4.30-5.70) Hemoglobin 8.4 g/dL (13.0-17.5) Hematocrit 25.5 % (39.0-53.0) Mean Corpuscular Volume 82 fL (79-100) Mean Corpuscular Hemoglobin 27 pg (25-35) Mean Corpuscular Hemoglobin Concent 33 g/dL (31-37) Red Cell Distribution Width 14.9 % (11.5-14.5) Platelet Count 363 x10^3/uL (140-400) Neutrophils (%) (Auto) 73 % (31-73) Lymphocytes (%) (Auto) 17 % (24-48) Monocytes (%) (Auto) 9 % (0-9) Eosinophils (%) (Auto) 0 % (0-3) Basophils (%) (Auto) 0 % (0-3) Neutrophils # (Auto) 8.5 x10^3/uL (1.8-7.7) Lymphocytes # (Auto) 2.0 x10^3/uL (1.0-4.8) Monocytes # (Auto) 1.1 x10^3/uL (0.0-1.1) Eosinophils # (Auto) 0.0 x10^3/uL (0.0-0.7) Basophils # (Auto) 0.0 x10^3/uL (0.0-0.2) Sodium Level 143 mmol/L (136-145) Potassium Level 3.2 mmol/L (3.5-5.1) Chloride Level 110 mmol/L (98-107) Carbon Dioxide Level 17 mmol/L (21-32) Anion Gap 16 (6-14) Blood Urea Nitrogen 12 mg/dL (8-26) Creatinine 1.0 mg/dL (0.7-1.3) Estimated GFR (Cockcroft-Gault) 88.6 BUN/Creatinine Ratio 12 (6-20) Glucose Level 99 mg/dL (70-99) Calcium Level 8.3 mg/dL (8.5-10.1) Total Bilirubin 0.4 mg/dL (0.2-1.0) Aspartate Amino Transf (AST/SGOT) 80 U/L (15-37) Alanine Aminotransferase (ALT/SGPT) 41 U/L (16-63) Alkaline Phosphatase 80 U/L (46-116) Total Protein 6.8 g/dL (6.4-8.2) Albumin 2.0 g/dL (3.4-5.0) Albumin/Globulin Ratio 0.4 (1.0-1.7) Assessment and Plan Assessmemt and Plan Problems Medical Problems: (1) Lower extremity ulceration Status: Acute Comment Review of Relevant I have reviewed the following items solomon (where applicable) has been applied. Labs Laboratory Tests Test 11/03/19 11:34 11/03/19 17:03 11/03/19 20:57 11/04/19 04:50 Glucose (Fingerstick) 119 mg/dL (70-99) 120 mg/dL (70-99) 110 mg/dL (70-99) White Blood Count 14.2 x10^3/uL (4.0-11.0) Red Blood Count 3.45 x10^6/uL (4.30-5.70) Hemoglobin 9.3 g/dL (13.0-17.5) Hematocrit 28.1 % (39.0-53.0) Mean Corpuscular Volume 82 fL (79-100) Mean Corpuscular Hemoglobin 27 pg (25-35) Mean Corpuscular Hemoglobin Concent 33 g/dL (31-37) Red Cell Distribution Width 15.2 % (11.5-14.5) Platelet Count 397 x10^3/uL (140-400) Neutrophils (%) (Auto) 81 % (31-73) Lymphocytes (%) (Auto) 11 % (24-48) Monocytes (%) (Auto) 8 % (0-9) Eosinophils (%) (Auto) 0 % (0-3) Basophils (%) (Auto) 1 % (0-3) Neutrophils # (Auto) 11.4 x10^3/uL (1.8-7.7) Lymphocytes # (Auto) 1.5 x10^3/uL (1.0-4.8) Monocytes # (Auto) 1.2 x10^3/uL (0.0-1.1) Eosinophils # (Auto) 0.0 x10^3/uL (0.0-0.7) Basophils # (Auto) 0.1 x10^3/uL (0.0-0.2) Sodium Level 144 mmol/L (136-145) Potassium Level 3.1 mmol/L (3.5-5.1) Chloride Level 111 mmol/L (98-107) Carbon Dioxide Level 18 mmol/L (21-32) Anion Gap 15 (6-14) Blood Urea Nitrogen 10 mg/dL (8-26) Creatinine 1.1 mg/dL (0.7-1.3) Estimated GFR (Cockcroft-Gault) 79.4 Glucose Level 128 mg/dL (70-99) Calcium Level 8.0 mg/dL (8.5-10.1) Test 11/04/19 07:17 11/04/19 11:50 11/04/19 12:40 11/05/19 03:50 Glucose (Fingerstick) 113 mg/dL (70-99) 94 mg/dL (70-99) Urine Collection Type Unknown Urine Color Yellow Urine Clarity Clear Urine pH 7.0 (<5.0-8.0) Urine Specific [place] 1.015 (1.000-1.030) Urine Protein 100 mg/dL (NEG-TRACE) Urine Glucose (UA) Negative mg/dL (NEG) Urine Ketones (Stick) Trace mg/dL (NEG) Urine Blood Large (NEG) Urine Nitrite Negative (NEG) Urine Bilirubin Negative (NEG) Urine Urobilinogen Dipstick 1.0 mg/dL (0.2 mg/dL) Urine Leukocyte Esterase Negative (NEG) Urine RBC 6-10 /HPF (0-2) Urine WBC 1-4 /HPF (0-4) Urine Bacteria Few /HPF (0-FEW) White Blood Count 11.7 x10^3/uL (4.0-11.0) Red Blood Count 3.11 x10^6/uL (4.30-5.70) Hemoglobin 8.4 g/dL (13.0-17.5) Hematocrit 25.5 % (39.0-53.0) Mean Corpuscular Volume 82 fL (79-100) Mean Corpuscular Hemoglobin 27 pg (25-35) Mean Corpuscular Hemoglobin Concent 33 g/dL (31-37) Red Cell Distribution Width 14.9 % (11.5-14.5) Platelet Count 363 x10^3/uL (140-400) Neutrophils (%) (Auto) 73 % (31-73) Lymphocytes (%) (Auto) 17 % (24-48) Monocytes (%) (Auto) 9 % (0-9) Eosinophils (%) (Auto) 0 % (0-3) Basophils (%) (Auto) 0 % (0-3) Neutrophils # (Auto) 8.5 x10^3/uL (1.8-7.7) Lymphocytes # (Auto) 2.0 x10^3/uL (1.0-4.8) Monocytes # (Auto) 1.1 x10^3/uL (0.0-1.1) Eosinophils # (Auto) 0.0 x10^3/uL (0.0-0.7) Basophils # (Auto) 0.0 x10^3/uL (0.0-0.2) Sodium Level 143 mmol/L (136-145) Potassium Level 3.2 mmol/L (3.5-5.1) Chloride Level 110 mmol/L (98-107) Carbon Dioxide Level 17 mmol/L (21-32) Anion Gap 16 (6-14) Blood Urea Nitrogen 12 mg/dL (8-26) Creatinine 1.0 mg/dL (0.7-1.3) Estimated GFR (Cockcroft-Gault) 88.6 BUN/Creatinine Ratio 12 (6-20) Glucose Level 99 mg/dL (70-99) Calcium Level 8.3 mg/dL (8.5-10.1) Total Bilirubin 0.4 mg/dL (0.2-1.0) Aspartate Amino Transf (AST/SGOT) 80 U/L (15-37) Alanine Aminotransferase (ALT/SGPT) 41 U/L (16-63) Alkaline Phosphatase 80 U/L (46-116) Total Protein 6.8 g/dL (6.4-8.2) Albumin 2.0 g/dL (3.4-5.0) Albumin/Globulin Ratio 0.4 (1.0-1.7) Laboratory Tests Test 11/04/19 11:50 11/04/19 12:40 11/05/19 03:50 Glucose (Fingerstick) 94 mg/dL (70-99) Urine Collection Type Unknown Urine Color Yellow Urine Clarity Clear Urine pH 7.0 (<5.0-8.0) Urine Specific [place] 1.015 (1.000-1.030) Urine Protein 100 mg/dL (NEG-TRACE) Urine Glucose (UA) Negative mg/dL (NEG) Urine Ketones (Stick) Trace mg/dL (NEG) Urine Blood Large (NEG) Urine Nitrite Negative (NEG) Urine Bilirubin Negative (NEG) Urine Urobilinogen Dipstick 1.0 mg/dL (0.2 mg/dL) Urine Leukocyte Esterase Negative (NEG) Urine RBC 6-10 /HPF (0-2) Urine WBC 1-4 /HPF (0-4) Urine Bacteria Few /HPF (0-FEW) White Blood Count 11.7 x10^3/uL (4.0-11.0) Red Blood Count 3.11 x10^6/uL (4.30-5.70) Hemoglobin 8.4 g/dL (13.0-17.5) Hematocrit 25.5 % (39.0-53.0) Mean Corpuscular Volume 82 fL (79-100) Mean Corpuscular Hemoglobin 27 pg (25-35) Mean Corpuscular Hemoglobin Concent 33 g/dL (31-37) Red Cell Distribution Width 14.9 % (11.5-14.5) Platelet Count 363 x10^3/uL (140-400) Neutrophils (%) (Auto) 73 % (31-73) Lymphocytes (%) (Auto) 17 % (24-48) Monocytes (%) (Auto) 9 % (0-9) Eosinophils (%) (Auto) 0 % (0-3) Basophils (%) (Auto) 0 % (0-3) Neutrophils # (Auto) 8.5 x10^3/uL (1.8-7.7) Lymphocytes # (Auto) 2.0 x10^3/uL (1.0-4.8) Monocytes # (Auto) 1.1 x10^3/uL (0.0-1.1) Eosinophils # (Auto) 0.0 x10^3/uL (0.0-0.7) Basophils # (Auto) 0.0 x10^3/uL (0.0-0.2) Sodium Level 143 mmol/L (136-145) Potassium Level 3.2 mmol/L (3.5-5.1) Chloride Level 110 mmol/L (98-107) Carbon Dioxide Level 17 mmol/L (21-32) Anion Gap 16 (6-14) Blood Urea Nitrogen 12 mg/dL (8-26) Creatinine 1.0 mg/dL (0.7-1.3) Estimated GFR (Cockcroft-Gault) 88.6 BUN/Creatinine Ratio 12 (6-20) Glucose Level 99 mg/dL (70-99) Calcium Level 8.3 mg/dL (8.5-10.1) Total Bilirubin 0.4 mg/dL (0.2-1.0) Aspartate Amino Transf (AST/SGOT) 80 U/L (15-37) Alanine Aminotransferase (ALT/SGPT) 41 U/L (16-63) Alkaline Phosphatase 80 U/L (46-116) Total Protein 6.8 g/dL (6.4-8.2) Albumin 2.0 g/dL (3.4-5.0) Albumin/Globulin Ratio 0.4 (1.0-1.7) Microbiology 11/03/19 Blood Culture - Preliminary, Resulted NO GROWTH AFTER 1 DAY 10/29/19 Gram Stain - Final, Complete 10/29/19 Aerobic and Anaerobic Culture - Final, Complete 10/29/19 Antimicrobic Susceptibility - Final, Complete Medications Current Medications Vancomycin HCl (Vanco Per Pharmacy) 1 each 1X ONCE MC ; Start 10/29/19 at 17:00; Stop 10/30/19 at 16:05; Status DC Sodium Chloride 1,000 ml @ 1,000 mls/hr Q1H IV Last administered on 10/29/19at 17:17; Start 10/29/19 at 16:41; Stop 10/29/19 at 17:40; Status DC Fentanyl Citrate (Fentanyl 2ml Vial) 50 mcg 1X ONCE IVP Last administered on 10/29/19at 17:17; Start 10/29/19 at 16:45; Stop 10/29/19 at 16:46; Status DC Piperacillin Sod/ Tazobactam Sod 3.375 gm/Sodium Chloride 50 ml @ 100 mls/hr 1X ONCE IV Last administered on 10/29/19at 18:06; Start 10/29/19 at 17:00; Stop 10/29/19 at 17:29; Status DC Vancomycin HCl 2 gm/Sodium Chloride 500 ml @ 250 mls/hr 1X ONCE IV Last administered on 10/29/19at 17:18; Start 10/29/19 at 17:00; Stop 10/29/19 at 18:59; Status DC Ondansetron HCl (Zofran) 4 mg PRN Q8HRS PRN IV NAUSEA/VOMITING; Start 10/29/19 at 18:00; Stop 10/30/19 at 17:59; Status DC Fentanyl Citrate (Fentanyl 2ml Vial) 50 mcg PRN Q1HR PRN IV PAIN Last administered on 10/29/19at 22:48; Start 10/29/19 at 18:00; Stop 10/29/19 at 23:47; Status DC Oxycodone/ Acetaminophen (Percocet 10/325) 1 tab PRN Q4HRS PRN PO SEVERE PAIN 7-10 Last administered on 11/05/19at 06:21; Start 10/30/19 at 00:00 Vancomycin HCl 1.25 gm/Sodium Chloride 250 ml @ 167 mls/hr Q24H IV ; Start 10/30/19 at 17:00; Stop 10/30/19 at 12:06; Status DC Vancomycin HCl (Vancomycin Trough Level) 1 each 1X ONCE MC ; Start 10/31/19 at 16:30; Stop 10/31/19 at 16:31; Status Cancel Vancomycin HCl (Vanco Per Pharmacy) 1 each PRN DAILY PRN MC SEE COMMENTS Last administered on 10/30/19at 01:33; Start 10/29/19 at 23:45; Stop 10/30/19 at 12:06; Status DC Hydromorphone HCl (Dilaudid) 1 mg PRN Q2HR PRN IV breakthrough pain Last administered on 11/05/19at 00:59; Start 10/30/19 at 07:15 Lactobacillus Rhamnosus (Culturelle) 1 cap BID PO Last administered on 11/05/19at 09:07; Start 10/30/19 at 21:00 Piperacillin Sod/ Tazobactam Sod (Zosyn Per Pharmacy) 1 each PRN DAILY PRN MC SEE COMMENTS; Start 10/30/19 at 12:00; Stop 10/30/19 at 16:05; Status DC Piperacillin Sod/ Tazobactam Sod 3.375 gm/Sodium Chloride 50 ml @ 100 mls/hr Q6HRS IV Last administered on 10/30/19at 12:51; Start 10/30/19 at 12:15; Stop 10/30/19 at 16:05; Status DC Potassium Chloride (Klor-Con) 40 meq 1X ONCE PO Last administered on 10/30/19at 15:35; Start 10/30/19 at 15:30; Stop 10/30/19 at 15:31; Status DC Potassium Chloride (Klor-Con) 40 meq 1X ONCE PO Last administered on 10/30/19at 19:53; Start 10/30/19 at 19:30; Stop 10/30/19 at 19:31; Status DC Meropenem 500 mg/ Sodium Chloride 50 ml @ 100 mls/hr Q6HRS IV Last administered on 11/05/19at 05:15; Start 10/30/19 at 18:00; Stop 11/05/19 at 09:59; Status DC Daptomycin 510 mg/ Sodium Chloride 50 ml @ 100 mls/hr Q24H IV ; Start 10/30/19 at 16:00; Status Cancel Micafungin Sodium 100 mg/Dextrose 100 ml @ 100 mls/hr Q24H IV Last administered on 11/04/19at 16:03; Start 10/30/19 at 17:00; Stop 11/05/19 at 09:59; Status DC Daptomycin 500 mg/ Sodium Chloride 50 ml @ 100 mls/hr Q24H IV Last administered on 11/04/19at 15:28; Start 10/30/19 at 17:00; Stop 11/05/19 at 09:59; Status DC Potassium Chloride (Klor-Con) 40 meq 1X ONCE PO Last administered on 10/31/19at 21:11; Start 10/31/19 at 20:30; Stop 10/31/19 at 20:31; Status DC Magnesium Sulfate 100 ml @ 25 mls/hr 1X ONCE IV Last administered on 11/01/19at 09:37; Start 11/01/19 at 09:00; Stop 11/01/19 at 12:59; Status DC Potassium Chloride (Klor-Con) 40 meq 1X ONCE PO Last administered on 11/01/19at 09:38; Start 11/01/19 at 08:30; Stop 11/01/19 at 08:31; Status DC Potassium Chloride (Klor-Con) 20 meq DAILYWBKFT PO Last administered on 11/05/19at 09:07; Start 11/02/19 at 08:00 Potassium Chloride (Klor-Con) 40 meq 1X ONCE PO Last administered on 11/01/19at 17:23; Start 11/01/19 at 17:00; Stop 11/01/19 at 17:01; Status DC Ondansetron HCl (Zofran) 4 mg PRN Q6HRS PRN IV NAUSEA/VOMITING; Start 11/02/19 at 11:45; Stop 11/02/19 at 21:00; Status DC Ringer's Solution 1,000 ml @ 30 mls/hr Q24H IV ; Start 11/02/19 at 12:00; Stop 11/02/19 at 21:00; Status Cancel Prochlorperazine Edisylate (Compazine) 5 mg PACU PRN PRN IV NAUSEA, MRX1 Last administered on 11/02/19at 20:18; Start 11/02/19 at 11:45; Stop 11/02/19 at 21:00; Status DC Multivitamins (Thera M Plus) 1 tab DAILY PO Last administered on 11/05/19at 09:07; Start 11/02/19 at 14:00 Ascorbic Acid (Vitamin C) 500 mg BID PO Last administered on 11/05/19at 09:07; Start 11/02/19 at 14:00 Dexamethasone Sodium Phosphate (Decadron) 4 mg STK-MED ONCE .ROUTE ; Start 11/02/19 at 14:52; Stop 11/02/19 at 14:56; Status DC Ondansetron HCl (Zofran) 4 mg STK-MED ONCE .ROUTE ; Start 11/02/19 at 14:52; Stop 11/02/19 at 14:56; Status DC Lidocaine HCl (Lidocaine Pf 2% Vial) 5 ml STK-MED ONCE .ROUTE ; Start 11/02/19 at 14:52; Stop 11/02/19 at 14:57; Status DC Propofol (Diprivan) 200 mg STK-MED ONCE IV ; Start 11/02/19 at 14:52; Stop 11/02/19 at 14:59; Status DC Fentanyl Citrate (Fentanyl 2ml Vial) 100 mcg STK-MED ONCE .ROUTE ; Start 11/02/19 at 14:53; Stop 11/02/19 at 14:59; Status DC Phenylephrine HCl (PHENYLEPHRINE in 0.9% NACL PF) 1 mg STK-MED ONCE IV ; Start 11/02/19 at 17:41; Stop 11/02/19 at 17:41; Status DC Fentanyl Citrate (Fentanyl 2ml Vial) 100 mcg STK-MED ONCE .ROUTE ; Start 11/02/19 at 17:45; Stop 11/02/19 at 17:45; Status DC Ephedrine Sulfate (ePHEDrine PF IN SALINE SYRINGE) 50 mg STK-MED ONCE IV ; Start 11/02/19 at 17:57; Stop 11/02/19 at 17:57; Status DC Fentanyl Citrate (Fentanyl 2ml Vial) 100 mcg STK-MED ONCE .ROUTE ; Start 11/02/19 at 18:59; Stop 11/02/19 at 18:59; Status DC Morphine Sulfate (Morphine Sulfate) 2 mg STK-MED ONCE .ROUTE ; Start 11/02/19 at 19:54; Stop 11/02/19 at 19:54; Status DC Morphine Sulfate (Morphine Sulfate) 2 mg 1X ONCE IV Last administered on 11/02/19at 20:02; Start 11/02/19 at 20:00; Stop 11/02/19 at 20:08; Status DC Ringer's Solution 1,000 ml @ 30 mls/hr Q24H IV ; Start 11/02/19 at 20:00; Stop 11/03/19 at 07:59; Status DC Fentanyl Citrate (Fentanyl 2ml Vial) 100 mcg STK-MED ONCE .ROUTE ; Start 11/02/19 at 20:00; Stop 11/02/19 at 20:01; Status DC Fentanyl Citrate (Fentanyl 2ml Vial) 50 mcg PRN Q10MIN PRN IVP PAIN Last administered on 11/02/19at 20:09; Start 11/02/19 at 20:15; Stop 11/03/19 at 01:00; Status DC Morphine Sulfate (Morphine Sulfate) 2 mg PRN Q10MIN PRN IV pain ; Start 11/02/19 at 20:15; Stop 11/03/19 at 01:00; Status DC Hydromorphone HCl (Dilaudid) 1 mg PRN Q10MIN PRN IV pain, 2ND CHOICE Last administered on 11/02/19at 20:46; Start 11/02/19 at 20:15; Stop 11/03/19 at 01:00; Status DC Labetalol HCl (Normodyne Iv Push) 10 mg PRN Q10MIN PRN IVP HYPERTENSION Last administered on 11/02/19at 21:49; Start 11/02/19 at 20:15; Stop 11/02/19 at 22:12; Status DC Sodium Chloride 1,000 ml @ 125 mls/hr 1X ONCE IV ; Start 11/02/19 at 21:00; Stop 11/03/19 at 04:59; Status DC Hydralazine HCl (Apresoline Inj) 10 mg PRN Q4HRS PRN IVP HTN, SEE COMMENTS, 1ST CHOICE Last administered on 11/05/19at 05:44; Start 11/02/19 at 22:45 Polyethylene Glycol (miraLAX PACKET) 17 gm DAILY PO Last administered on 11/05/19at 09:06; Start 11/03/19 at 09:00 Psyllium Hydrophilic Mucilloid (Metamucil Fiber Packet) 1 pkt DAILY PO Last administered on 11/05/19at 09:06; Start 11/03/19 at 09:00 Amlodipine Besylate (Norvasc) 5 mg 1X ONCE PO Last administered on 11/03/19at 02:56; Start 11/02/19 at 23:00; Stop 11/02/19 at 23:01; Status DC Amlodipine Besylate (Norvasc) 5 mg DAILY PO Last administered on 11/05/19at 09:07; Start 11/03/19 at 09:00 Labetalol HCl (Normodyne Iv Push) 10 mg PRN Q2HR PRN IVP HYPERTENSION Last administered on 11/03/19at 02:08; Start 11/02/19 at 22:45; Stop 11/03/19 at 03:46; Status DC Labetalol HCl (Normodyne Iv Push) 20 mg PRN Q2HR PRN IVP HYPERTENSION, 2ND CHOICE Last administered on 11/03/19at 04:04; Start 11/03/19 at 03:45 Potassium Chloride/Water 100 ml @ 100 mls/hr Q1H IV Last administered on 11/03/19at 10:15; Start 11/03/19 at 08:00; Stop 11/03/19 at 09:59; Status DC Potassium Chloride (Klor-Con) 20 meq 1X ONCE PO Last administered on 11/03/19at 08:26; Start 11/03/19 at 07:30; Stop 11/03/19 at 07:43; Status DC Insulin Human Lispro (HumaLOG) 0-5 UNITS TIDACHC SQ ; Start 11/03/19 at 07:30; Stop 11/04/19 at 17:06; Status DC Dextrose (Dextrose 50%-Water Syringe) 12.5 gm PRN Q15MIN PRN IV SEE COMMENTS; Start 11/03/19 at 07:30; Stop 11/04/19 at 17:06; Status DC Ketorolac Tromethamine (Toradol 15mg Vial) 15 mg 1X ONCE IVP Last administered on 11/03/19at 16:52; Start 11/03/19 at 16:45; Stop 11/03/19 at 16:46; Status DC Potassium Chloride (Klor-Con) 40 meq 1X ONCE PO Last administered on 11/04/19at 12:34; Start 11/04/19 at 12:15; Stop 11/04/19 at 12:18; Status DC Potassium Chloride (Klor-Con) 20 meq DAILYWBKFT PO ; Start 11/05/19 at 08:00 Sodium Chloride 1,000 ml @ 75 mls/hr [id number] IV Last administered on 11/05/19at 01:01; Start 11/04/19 at 12:15 Vitals/I & O Vital Sign - Last 24 Hours 11/04/19 11/04/19 11/04/19 11/04/19 11:00 11:40 12:36 14:53 Temp 98.1 98.2 98.1 98.2 Pulse 109 109 117 Resp 18 20 B/P (MAP) 166/89 (114) 166/89 149/78 (101) Pulse Ox 97 97 98 O2 Delivery Room Air Room Air Room Air 11/04/19 11/04/19 11/04/19 11/04/19 15:26 16:27 19:00 19:50 Temp 98.8 98.8 Pulse 116 Resp 18 B/P (MAP) 155/80 (105) Pulse Ox 98 98 99 O2 Delivery Room Air Room Air Room Air Room Air 11/04/19 11/04/19 11/04/19 11/05/19 21:12 22:12 23:00 00:59 Temp 98.9 98.9 Pulse 103 Resp 18 18 18 17 B/P (MAP) 141/62 (88) Pulse Ox 99 97 97 97 O2 Delivery Room Air Room Air Room Air Room Air O2 Flow Rate 2.0 2.0 2.0 11/05/19 11/05/19 11/05/19 11/05/19 01:29 03:00 05:44 06:21 Temp 98.9 98.9 Pulse 100 100 Resp 17 18 18 B/P (MAP) 162/80 (107) 162/80 Pulse Ox 97 96 96 O2 Delivery Room Air Room Air Room Air O2 Flow Rate 2.0 2.0 11/05/19 11/05/19 07:00 09:07 Temp 98.6 98.6 Pulse 97 97 Resp 18 B/P (MAP) 166/72 (103) 166/72 Pulse Ox 97 O2 Delivery Room Air Intake and Output 11/04/19 11/04/19 11/05/19 15:00 23:00 07:00 Intake Total 0 ml 0 ml 1050 ml Output Total 800 ml Balance 0 ml 0 ml 250 ml Nutrition Consultation Dietary Evaluation: Recommendations by RD: Dietary education by RD, Increase Calorie Intake, Protein supplementation Comments: cardiac diet with ensure tid mvi and vit c per wound protocal Expected Outcomes/Goals: to meet >75% est nutr needs- not met, goal ongoing Malnutrition Findings: Body Fat Depletion (Non Severe: Mild Depletion Weight Status: Underweight Justicifation of Admission Dx: Justifications for Admission: Justification of Admission Dx: Yes MARKIE GARCIA MD Nov 05, 2019 11:00
--- NOTE | 2019-11-05 11:26 | NUR ---
Dtr Brandie Guardado [phone] called for update
[2019-11-05 15:00] VITALS: BP 169/81
--- NOTE | 2019-11-05 16:24 | NUR ---
CHARLES following. Spoke with RN and CM. Reviewed chart. CHARLES LVM for dtr Rita at [phone]. CHARLES phoned and faxed a referral to [facility], , (fax) as [facility] stated they are in-network [facility]. CHARLES also LVM for [facility] to see if they are in-network. Pt COVID negative and on IV abx per [facility]. CHARLES to continue following. Addendum: 11/05/19 at 1738 by ANTONIO SOTO Spoke with dtr Rita and pt on the phone. Patient Choice of Vendor form completed.
[2019-11-05 19:00] VITALS: BP 138/76
[2019-11-05 23:00] VITALS: BP 153/79
[2019-11-06] VITALS (7 sets, daily range): BP systolic 108–170; BP diastolic 68–96
[2019-11-06] MEDS: hydrALAZINE 20 MG/ML VIAL. IVP PRN (04:41)
[2019-11-06] MEDS: IV 1/2 NORMAL SALINE 1,000 ML IV SCH (04:42)
[2019-11-06] MEDS: oxyCODONE/APAP 10/325 1 TAB TABLET PO PRN ×2 (05:25→21:27)
[2019-11-06] MEDS ORDERED: POTASSIUM CHLORIDE 20 MEQ TABLET.ER. PO SCH (08:00)
[2019-11-06] MEDS: POTASSIUM CHLORIDE 20 MEQ TABLET.ER. PO SCH (08:25)
[2019-11-06] MEDS: LACTOBACILLUS RHAMNOSUS GG 1 CAPSULE. PO SCH ×2 (08:25→21:27)
[2019-11-06] MEDS: ASCORBIC ACID 500 MG TABLET PO SCH ×2 (08:25→21:27)
[2019-11-06] MEDS: amLODIPine BESYLATE 5 MG TABLET PO SCH (08:25)
[2019-11-06] MEDS: MULTIVITAMIN with MINERAL TABLET. PO SCH (08:25)
[2019-11-06] MEDS: PSYLLIUM HUSK (SUGAR FREE) 1 PKT PACKET PO SCH (08:26)
[2019-11-06] MEDS: POLYETHYLENE GLYCOL 3350 17 GM PACKET. PO SCH (08:26)
[2019-11-06 09:25] LABS: CALCIUM 8.4 mg/dL (8.5-10.1); CREATININE 0.9 mg/dL (0.7-1.3); GFR 100.1
--- NOTE | 2019-11-06 09:30 | PDOC ---
PROGRESS NOTES Chief Complaint Chief Complaint impression Chronic ulceration lower extremities bilaterally associated with increased pain, drainage, odor and tendon exposure as well as maggot infestation Nonhealing open transmetatarsal amputation, left foot. Leukocytosis. Renal insufficiency, baseline creatinine not known. Peripheral vascular disease, status post revascularization. Peripheral neuropathy. Diabetes. 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 He is followed by the [facility] wound care for chronic ulcerations lower extremities bilaterally. Earlier this year, he underwent an open transmetatarsal amputation of his left foot due to gangrene and osteomyelitis. He says he has been on antibiotics with little improvement. Over the last few days, he developed worsening pain, drainage and odor. He was found to have maggots in his wounds. X-ray imaging showed soft tissue defects. No fractures or bony erosions. A venous ultrasound was negative for DVT. The wounds were cleaned. The maggots removed and cultures were sent. He has since been admitted and started on vancomycin and Zosyn. Vascular surgery and ID were consulted. 10/29: He wants to have a bilateral below the knee amputation 10/30: His lower extremities are both wrapped with clean dry intact dressing 10/31: BP elevated 11/01: Afebrile. Bilateral BKA. No chest pain or shortness of breath. Overnight hypertensive, minimally responsive to hydralazine, added labetalol with good effect. Afebrile. WBC 16. K 3. He is drowsy today, in quite a bit of pain, did just work with PT and OT. Plan: d/c daptomycin, merrem, micafungin 11/04 Add glucose checks, sliding scale Vitals Vitals Vital Signs Date Time Temp Pulse Resp B/P (MAP) Pulse Ox O2 Delivery O2 Flow Rate FiO2 11/06/19 08:25 95 142/68 11/06/19 08:00 Room Air 11/06/19 07:15 98.2 16 99 98.2 Physical Exam Physical Exam GENERAL: Propped up in bed, Alert. NAD looks better HEENT: COSME, Oropharynx pink and moist. No lesions seen. NECK: Supple. LUNGS: Clear to auscultation. HEART: S1 and S2. ABDOMEN: Nondistended, soft, nontender with bowel sounds present. EXTREMITIES: No gross edema. Wounds dressed with casts Luis Antonio SKIN: Warm to touch. No signs of rash. NEUROLOGIC: Alert and appropriate General: Alert, Oriented X3, Cooperative, mild distress Heart: Regular rate, Normal S1, Normal S2 Lungs: Clear Abdomen: Normal bowel sounds, Soft, No tenderness Extremities: No cyanosis, No edema, Other (Palpable popliteal pulses bilaterally, palpable femoral pulses bilaterally) Skin: Other (Significant full-thickness diffuse wounds involving bilateral lower extremities with full-thickness wound to the level of the Achilles tendon on the right and multiple other full-thickness wounds scattered throughout the below-knee area on the right and the left. The patient has an open TMA amputation site with dermal graft in place.) Assessment and Plan Assessmemt and Plan Problems Medical Problems: (1) Lower extremity ulceration Status: Acute Comment Review of Relevant I have reviewed the following items solomon (where applicable) has been applied. Labs Laboratory Tests Test 11/04/19 11:50 11/04/19 12:40 11/05/19 03:50 Glucose (Fingerstick) 94 mg/dL (70-99) Urine Collection Type Unknown Urine Color Yellow Urine Clarity Clear Urine pH 7.0 (<5.0-8.0) Urine Specific Ava 1.015 (1.000-1.030) Urine Protein 100 mg/dL (NEG-TRACE) Urine Glucose (UA) Negative mg/dL (NEG) Urine Ketones (Stick) Trace mg/dL (NEG) Urine Blood Large (NEG) Urine Nitrite Negative (NEG) Urine Bilirubin Negative (NEG) Urine Urobilinogen Dipstick 1.0 mg/dL (0.2 mg/dL) Urine Leukocyte Esterase Negative (NEG) Urine RBC 6-10 /HPF (0-2) Urine WBC 1-4 /HPF (0-4) Urine Bacteria Few /HPF (0-FEW) White Blood Count 11.7 x10^3/uL (4.0-11.0) Red Blood Count 3.11 x10^6/uL (4.30-5.70) Hemoglobin 8.4 g/dL (13.0-17.5) Hematocrit 25.5 % (39.0-53.0) Mean Corpuscular Volume 82 fL (79-100) Mean Corpuscular Hemoglobin 27 pg (25-35) Mean Corpuscular Hemoglobin Concent 33 g/dL (31-37) Red Cell Distribution Width 14.9 % (11.5-14.5) Platelet Count 363 x10^3/uL (140-400) Neutrophils (%) (Auto) 73 % (31-73) Lymphocytes (%) (Auto) 17 % (24-48) Monocytes (%) (Auto) 9 % (0-9) Eosinophils (%) (Auto) 0 % (0-3) Basophils (%) (Auto) 0 % (0-3) Neutrophils # (Auto) 8.5 x10^3/uL (1.8-7.7) Lymphocytes # (Auto) 2.0 x10^3/uL (1.0-4.8) Monocytes # (Auto) 1.1 x10^3/uL (0.0-1.1) Eosinophils # (Auto) 0.0 x10^3/uL (0.0-0.7) Basophils # (Auto) 0.0 x10^3/uL (0.0-0.2) Sodium Level 143 mmol/L (136-145) Potassium Level 3.2 mmol/L (3.5-5.1) Chloride Level 110 mmol/L (98-107) Carbon Dioxide Level 17 mmol/L (21-32) Anion Gap 16 (6-14) Blood Urea Nitrogen 12 mg/dL (8-26) Creatinine 1.0 mg/dL (0.7-1.3) Estimated GFR (Cockcroft-Gault) 88.6 BUN/Creatinine Ratio 12 (6-20) Glucose Level 99 mg/dL (70-99) Calcium Level 8.3 mg/dL (8.5-10.1) Total Bilirubin 0.4 mg/dL (0.2-1.0) Aspartate Amino Transf (AST/SGOT) 80 U/L (15-37) Alanine Aminotransferase (ALT/SGPT) 41 U/L (16-63) Alkaline Phosphatase 80 U/L (46-116) Total Protein 6.8 g/dL (6.4-8.2) Albumin 2.0 g/dL (3.4-5.0) Albumin/Globulin Ratio 0.4 (1.0-1.7) Microbiology 11/03/19 Blood Culture - Preliminary, Resulted NO GROWTH AFTER 2 DAYS 10/29/19 Gram Stain - Final, Complete 10/29/19 Aerobic and Anaerobic Culture - Final, Complete 10/29/19 Antimicrobic Susceptibility - Final, Complete Medications Current Medications Vancomycin HCl (Vanco Per Pharmacy) 1 each 1X ONCE MC ; Start 10/29/19 at 17:00; Stop 10/30/19 at 16:05; Status DC Sodium Chloride 1,000 ml @ 1,000 mls/hr Q1H IV Last administered on 10/29/19at 17:17; Start 10/29/19 at 16:41; Stop 10/29/19 at 17:40; Status DC Fentanyl Citrate (Fentanyl 2ml Vial) 50 mcg 1X ONCE IVP Last administered on 10/29/19at 17:17; Start 10/29/19 at 16:45; Stop 10/29/19 at 16:46; Status DC Piperacillin Sod/ Tazobactam Sod 3.375 gm/Sodium Chloride 50 ml @ 100 mls/hr 1X ONCE IV Last administered on 10/29/19at 18:06; Start 10/29/19 at 17:00; Stop 10/29/19 at 17:29; Status DC Vancomycin HCl 2 gm/Sodium Chloride 500 ml @ 250 mls/hr 1X ONCE IV Last administered on 10/29/19at 17:18; Start 10/29/19 at 17:00; Stop 10/29/19 at 18:59; Status DC Ondansetron HCl (Zofran) 4 mg PRN Q8HRS PRN IV NAUSEA/VOMITING; Start 10/29/19 at 18:00; Stop 10/30/19 at 17:59; Status DC Fentanyl Citrate (Fentanyl 2ml Vial) 50 mcg PRN Q1HR PRN IV PAIN Last administered on 10/29/19at 22:48; Start 10/29/19 at 18:00; Stop 10/29/19 at 23:47; Status DC Oxycodone/ Acetaminophen (Percocet 10/325) 1 tab PRN Q4HRS PRN PO SEVERE PAIN 7-10 Last administered on 11/06/19at 05:25; Start 10/30/19 at 00:00 Vancomycin HCl 1.25 gm/Sodium Chloride 250 ml @ 167 mls/hr Q24H IV ; Start 10/30/19 at 17:00; Stop 10/30/19 at 12:06; Status DC Vancomycin HCl (Vancomycin Trough Level) 1 each 1X ONCE MC ; Start 10/31/19 at 16:30; Stop 10/31/19 at 16:31; Status Cancel Vancomycin HCl (Vanco Per Pharmacy) 1 each PRN DAILY PRN MC SEE COMMENTS Last administered on 10/30/19at 01:33; Start 10/29/19 at 23:45; Stop 10/30/19 at 12:06; Status DC Hydromorphone HCl (Dilaudid) 1 mg PRN Q2HR PRN IV breakthrough pain Last administered on 11/05/19at 00:59; Start 10/30/19 at 07:15 Lactobacillus Rhamnosus (Culturelle) 1 cap BID PO Last administered on 11/06/19at 08:25; Start 10/30/19 at 21:00 Piperacillin Sod/ Tazobactam Sod (Zosyn Per Pharmacy) 1 each PRN DAILY PRN MC SEE COMMENTS; Start 10/30/19 at 12:00; Stop 10/30/19 at 16:05; Status DC Piperacillin Sod/ Tazobactam Sod 3.375 gm/Sodium Chloride 50 ml @ 100 mls/hr Q6HRS IV Last administered on 10/30/19at 12:51; Start 10/30/19 at 12:15; Stop 10/30/19 at 16:05; Status DC Potassium Chloride (Klor-Con) 40 meq 1X ONCE PO Last administered on 10/30/19at 15:35; Start 10/30/19 at 15:30; Stop 10/30/19 at 15:31; Status DC Potassium Chloride (Klor-Con) 40 meq 1X ONCE PO Last administered on 10/30/19at 19:53; Start 10/30/19 at 19:30; Stop 10/30/19 at 19:31; Status DC Meropenem 500 mg/ Sodium Chloride 50 ml @ 100 mls/hr Q6HRS IV Last administered on 11/05/19at 05:15; Start 10/30/19 at 18:00; Stop 11/05/19 at 09:59; Status DC Daptomycin 510 mg/ Sodium Chloride 50 ml @ 100 mls/hr Q24H IV ; Start 10/30/19 at 16:00; Status Cancel Micafungin Sodium 100 mg/Dextrose 100 ml @ 100 mls/hr Q24H IV Last administe red on 11/04/19at 16:03; Start 10/30/19 at 17:00; Stop 11/05/19 at 09:59; Status DC Daptomycin 500 mg/ Sodium Chloride 50 ml @ 100 mls/hr Q24H IV Last administered on 11/04/19at 15:28; Start 10/30/19 at 17:00; Stop 11/05/19 at 09:59; Status DC Potassium Chloride (Klor-Con) 40 meq 1X ONCE PO Last administered on 10/31/19at 21:11; Start 10/31/19 at 20:30; Stop 10/31/19 at 20:31; Status DC Magnesium Sulfate 100 ml @ 25 mls/hr 1X ONCE IV Last administered on 11/01/19at 09:37; Start 11/01/19 at 09:00; Stop 11/01/19 at 12:59; Status DC Potassium Chloride (Klor-Con) 40 meq 1X ONCE PO Last administered on 11/01/19at 09:38; Start 11/01/19 at 08:30; Stop 11/01/19 at 08:31; Status DC Potassium Chloride (Klor-Con) 20 meq DAILYWBKFT PO Last administered on 11/06/19at 08:25; Start 11/02/19 at 08:00 Potassium Chloride (Klor-Con) 40 meq 1X ONCE PO Last administered on 11/01/19at 17:23; Start 11/01/19 at 17:00; Stop 11/01/19 at 17:01; Status DC Ondansetron HCl (Zofran) 4 mg PRN Q6HRS PRN IV NAUSEA/VOMITING; Start 11/02/19 at 11:45; Stop 11/02/19 at 21:00; Status DC Ringer's Solution 1,000 ml @ 30 mls/hr Q24H IV ; Start 11/02/19 at 12:00; Stop 11/02/19 at 21:00; Status Cancel Prochlorperazine Edisylate (Compazine) 5 mg PACU PRN PRN IV NAUSEA, MRX1 Last administered on 11/02/19at 20:18; Start 11/02/19 at 11:45; Stop 11/02/19 at 21:00; Status DC Multivitamins (Thera M Plus) 1 tab DAILY PO Last administered on 11/06/19at 08:25; Start 11/02/19 at 14:00 Ascorbic Acid (Vitamin C) 500 mg BID PO Last administered on 11/06/19at 08:25; Start 11/02/19 at 14:00 Dexamethasone Sodium Phosphate (Decadron) 4 mg STK-MED ONCE .ROUTE ; Start 11/02/19 at 14:52; Stop 11/02/19 at 14:56; Status DC Ondansetron HCl (Zofran) 4 mg STK-MED ONCE .ROUTE ; Start 11/02/19 at 14:52; Stop 11/02/19 at 14:56; Status DC Lidocaine HCl (Lidocaine Pf 2% Vial) 5 ml STK-MED ONCE .ROUTE ; Start 11/02/19 at 14:52; Stop 11/02/19 at 14:57; Status DC Propofol (Diprivan) 200 mg STK-MED ONCE IV ; Start 11/02/19 at 14:52; Stop 11/02/19 at 14:59; Status DC Fentanyl Citrate (Fentanyl 2ml Vial) 100 mcg STK-MED ONCE .ROUTE ; Start 11/02/19 at 14:53; Stop 11/02/19 at 14:59; Status DC Phenylephrine HCl (PHENYLEPHRINE in 0.9% NACL PF) 1 mg STK-MED ONCE IV ; Start 11/02/19 at 17:41; Stop 11/02/19 at 17:41; Status DC Fentanyl Citrate (Fentanyl 2ml Vial) 100 mcg STK-MED ONCE .ROUTE ; Start 11/02/19 at 17:45; Stop 11/02/19 at 17:45; Status DC Ephedrine Sulfate (ePHEDrine PF IN SALINE SYRINGE) 50 mg STK-MED ONCE IV ; Start 11/02/19 at 17:57; Stop 11/02/19 at 17:57; Status DC Fentanyl Citrate (Fentanyl 2ml Vial) 100 mcg STK-MED ONCE .ROUTE ; Start 11/02/19 at 18:59; Stop 11/02/19 at 18:59; Status DC Morphine Sulfate (Morphine Sulfate) 2 mg STK-MED ONCE .ROUTE ; Start 11/02/19 at 19:54; Stop 11/02/19 at 19:54; Status DC Morphine Sulfate (Morphine Sulfate) 2 mg 1X ONCE IV Last administered on 11/02/19at 20:02; Start 11/02/19 at 20:00; Stop 11/02/19 at 20:08; Status DC Ringer's Solution 1,000 ml @ 30 mls/hr Q24H IV ; Start 11/02/19 at 20:00; Stop 11/03/19 at 07:59; Status DC Fentanyl Citrate (Fentanyl 2ml Vial) 100 mcg STK-MED ONCE .ROUTE ; Start 11/02/19 at 20:00; Stop 11/02/19 at 20:01; Status DC Fentanyl Citrate (Fentanyl 2ml Vial) 50 mcg PRN Q10MIN PRN IVP PAIN Last administered on 11/02/19at 20:09; Start 11/02/19 at 20:15; Stop 11/03/19 at 01:00; Status DC Morphine Sulfate (Morphine Sulfate) 2 mg PRN Q10MIN PRN IV pain ; Start 11/02/19 at 20:15; Stop 11/03/19 at 01:00; Status DC Hydromorphone HCl (Dilaudid) 1 mg PRN Q10MIN PRN IV pain, 2ND CHOICE Last administered on 11/02/19at 20:46; Start 11/02/19 at 20:15; Stop 11/03/19 at 01:00; Status DC Labetalol HCl (Normodyne Iv Push) 10 mg PRN Q10MIN PRN IVP HYPERTENSION Last administered on 11/02/19at 21:49; Start 11/02/19 at 20:15; Stop 11/02/19 at 22:12; Status DC Sodium Chloride 1,000 ml @ 125 mls/hr 1X ONCE IV ; Start 11/02/19 at 21:00; Stop 11/03/19 at 04:59; Status DC Hydralazine HCl (Apresoline Inj) 10 mg PRN Q4HRS PRN IVP HTN, SEE COMMENTS, 1ST CHOICE Last administered on 11/06/19 04:41; Start 11/02/19 at 22:45 Polyethylene Glycol (miraLAX PACKET) 17 gm DAILY PO Last administered on 11/06/19 08:26; Start 11/03/19 at 09:00 Psyllium Hydrophilic Mucilloid (Metamucil Fiber Packet) 1 pkt DAILY PO Last a dministered on 11/06/19 08:26; Start 11/03/19 at 09:00 Amlodipine Besylate (Norvasc) 5 mg 1X ONCE PO Last administered on 11/03/19at 02:56; Start 11/02/19 at 23:00; Stop 11/02/19 at 23:01; Status DC Amlodipine Besylate (Norvasc) 5 mg DAILY PO Last administered on 11/06/19 08:25; Start 11/03/19 at 09:00 Labetalol HCl (Normodyne Iv Push) 10 mg PRN Q2HR PRN IVP HYPERTENSION Last admi nistered on 11/03/19at 02:08; Start 11/02/19 at 22:45; Stop 11/03/19 at 03:46; Status DC Labetalol HCl (Normodyne Iv Push) 20 mg PRN Q2HR PRN IVP HYPERTENSION, 2ND CHOICE Last administered on 11/03/19at 04:04; Start 11/03/19 at 03:45 Potassium Chloride/Water 100 ml @ 100 mls/hr Q1H IV Last administered on 11/03/19at 10:15; Start 11/03/19 at 08:00; Stop 11/03/19 at 09:59; Status DC Potassium Chloride (Klor-Con) 20 meq 1X ONCE PO Last administered on 11/03/19at 08:26; Start 11/03/19 at 07:30; Stop 11/03/19 at 07:43; Status DC Insulin Human Lispro (HumaLOG) 0-5 UNITS TIDACHC SQ ; Start 11/03/19 at 07:30; Stop 11/04/19 at 17:06; Status DC Dextrose (Dextrose 50%-Water Syringe) 12.5 gm PRN Q15MIN PRN IV SEE COMMENTS; Start 11/03/19 at 07:30; Stop 11/04/19 at 17:06; Status DC Ketorolac Tromethamine (Toradol 15mg Vial) 15 mg 1X ONCE IVP Last administered on 11/03/19at 16:52; Start 11/03/19 at 16:45; Stop 11/03/19 at 16:46; Status DC Potassium Chloride (Klor-Con) 40 meq 1X ONCE PO Last administered on 11/04/19at 12:34; Start 11/04/19 at 12:15; Stop 11/04/19 at 12:18; Status DC Potassium Chloride (Klor-Con) 20 meq DAILYWBKFT PO ; Start 11/05/19 at 08:00; Stop 11/05/19 at 13:41; Status DC Sodium Chloride 1,000 ml @ 75 mls/hr [id number] IV Last administered on 11/06/19at 04:42; Start 11/04/19 at 12:15 Potassium Chloride (Klor-Con) 40 meq DAILYWBKFT PO Last administered on 11/06/19at 08:26; Start 11/06/19 at 08:00 Vitals/I & O Vital Sign - Last 24 Hours 11/05/19 11/05/19 11/05/19 11/05/19 11:00 15:00 19:00 19:30 Temp 98.3 99.3 99.1 98.3 99.3 99.1 Pulse 107 104 112 Resp 18 18 20 B/P (MAP) 151/78 (102) 169/81 (110) 138/76 (96) Pulse Ox 98 97 98 O2 Delivery Room Air Room Air 11/05/19 11/06/19 11/06/19 11/06/19 23:00 03:02 04:30 04:41 Temp 98.1 98.8 98.1 98.8 Pulse 100 97 104 104 Resp 18 18 B/P (MAP) 153/79 (103) 164/80 (108) 170/96 (120) 170/96 Pulse Ox 96 97 O2 Delivery Room Air Room Air 11/06/19 11/06/19 11/06/19 11/06/19 05:25 07:15 08:00 08:25 Temp 98.2 98.2 Pulse 95 95 Resp 18 16 B/P (MAP) 142/68 (92) 142/68 Pulse Ox 94 99 O2 Delivery Room Air Room Air Room Air Intake and Output 11/05/19 11/05/1911/05/20 15:00 23:00 07:00 Intake Total 0 ml Output Total 300 ml 300 ml 1350 ml Balance -300 ml -300 ml -1350 ml Nutrition Consultation Dietary Evaluation: Recommendations by RD: Dietary education by RD, Increase Calorie Intake, Protein supplementation Comments: cardiac diet with ensure tid mvi and vit c per wound protocal Expected Outcomes/Goals: to meet >75% est nutr needs- not met, goal ongoing Malnutrition Findings: Body Fat Depletion (Non Severe: Mild Depletion Weight Status: Underweight Justicifation of Admission Dx: Justifications for Admission: Justification of Admission Dx: Yes MARKIE GARCIA MD Nov 06, 2019 09:30
[2019-11-06 09:31] LABS: POTASSIUM 2.9 mmol/L (3.5-5.1)
--- NOTE | 2019-11-06 13:37 | NUR ---
SW following. Spoke with RN and reviewed chart. Pt does not want to go to LTAC but agreeable to referral per increased care needs. Spoke with pt's daughter Rita ([phone]) who stated she would actually prefer LTAC referral to [facility] instead of [facility]. CHARLES phoned and faxed LTAC referral to Ciara with [facility], , (fax). Ciara stated she submitted for authorization. CHARLES to continue following.
[2019-11-06] MEDS ORDERED: POTASSIUM CHLORIDE 20 MEQ TABLET.ER. PO ONE (14:15)
--- NOTE | 2019-11-06 14:38 | PDOC ---
PROGRESS NOTES Subjective Subjective Problems overnight: Patient is resting comfortably he does say there is some pain in bilateral BKA stumps wondered how long he has to have the casts on Objective Vital Signs Vital Signs Date Time Temp Pulse Resp B/P (MAP) Pulse Ox O2 Delivery O2 Flow Rate FiO2 11/06/19 11:45 98.0 94 16 108/69 (82) 97 Room Air 98.0 11/05/19 06:21 2.0 Physical Exam On exam he has some slight bloody spotting distally on the casts but no odor and no rubbing proximally Labs Laboratory Tests Test 11/05/19 03:50 11/06/19 08:30 White Blood Count 11.7 x10^3/uL (4.0-11.0) Red Blood Count 3.11 x10^6/uL (4.30-5.70) Hemoglobin 8.4 g/dL (13.0-17.5) Hematocrit 25.5 % (39.0-53.0) Mean Corpuscular Volume 82 fL (79-100) Mean Corpuscular Hemoglobin 27 pg (25-35) Mean Corpuscular Hemoglobin Concent 33 g/dL (31-37) Red Cell Distribution Width 14.9 % (11.5-14.5) Platelet Count 363 x10^3/uL (140-400) Neutrophils (%) (Auto) 73 % (31-73) Lymphocytes (%) (Auto) 17 % (24-48) Monocytes (%) (Auto) 9 % (0-9) Eosinophils (%) (Auto) 0 % (0-3) Basophils (%) (Auto) 0 % (0-3) Neutrophils # (Auto) 8.5 x10^3/uL (1.8-7.7) Lymphocytes # (Auto) 2.0 x10^3/uL (1.0-4.8) Monocytes # (Auto) 1.1 x10^3/uL (0.0-1.1) Eosinophils # (Auto) 0.0 x10^3/uL (0.0-0.7) Basophils # (Auto) 0.0 x10^3/uL (0.0-0.2) Sodium Level 143 mmol/L (136-145) 141 mmol/L (136-145) Potassium Level 3.2 mmol/L (3.5-5.1) 2.9 mmol/L (3.5-5.1) Chloride Level 110 mmol/L (98-107) 108 mmol/L (98-107) Carbon Dioxide Level 17 mmol/L (21-32) 18 mmol/L (21-32) Anion Gap 16 (6-14) 15 (6-14) Blood Urea Nitrogen 12 mg/dL (8-26) 12 mg/dL (8-26) Creatinine 1.0 mg/dL (0.7-1.3) 0.9 mg/dL (0.7-1.3) Estimated GFR (Cockcroft-Gault) 88.6 100.1 BUN/Creatinine Ratio 12 (6-20) Glucose Level 99 mg/dL (70-99) 122 mg/dL (70-99) Calcium Level 8.3 mg/dL (8.5-10.1) 8.4 mg/dL (8.5-10.1) Total Bilirubin 0.4 mg/dL (0.2-1.0) Aspartate Amino Transf (AST/SGOT) 80 U/L (15-37) Alanine Aminotransferase (ALT/SGPT) 41 U/L (16-63) Alkaline Phosphatase 80 U/L (46-116) Total Protein 6.8 g/dL (6.4-8.2) Albumin 2.0 g/dL (3.4-5.0) Albumin/Globulin Ratio 0.4 (1.0-1.7) Laboratory Tests Test 11/06/19 08:30 Sodium Level 141 mmol/L (136-145) Potassium Level 2.9 mmol/L (3.5-5.1) Chloride Level 108 mmol/L (98-107) Carbon Dioxide Level 18 mmol/L (21-32) Anion Gap 15 (6-14) Blood Urea Nitrogen 12 mg/dL (8-26) Creatinine 0.9 mg/dL (0.7-1.3) Estimated GFR (Cockcroft-Gault) 100.1 Glucose Level 122 mg/dL (70-99) Calcium Level 8.4 mg/dL (8.5-10.1) Assessment Assessment POD#bilateral total knee amputations Plan Plan of Care I went over with him that I would plan to have the casts on for generally a couple more weeks at which time we would take them off and remove lucien. If he has significant drainage or any odor or other complaints I would be happy to check him earlier although I usually keep the lucien in for about 3 weeks postoperatively to let healing come well along. Continue medical management, expect no more antibiotics would be warranted as the wound ulcerations were all on the distal stump areas Justicifation of Admission Dx: Justifications for Admission: Justification of Admission Dx: N/A MIRANDA CHAMBERS MD Nov 06, 2019 14:38
[2019-11-06] MEDS ORDERED: MAGNESIUM SULFATE 2GM 50 ML IV PRN (16:30)
[2019-11-06] MEDS: POTASSIUM CITRATE 10 MEQ TABLET.ER PO SCH ×2 (17:37→21:28)
--- NOTE | 2019-11-06 18:10 | PATHOLOGY ---
[facility] Accession Number: [id number] . 01 Material submitted: . PART A: leg - LEFT BKA. Modifiers: left PART B: leg - RIGHT BKA. Modifiers: right . 01 Clinical history: . Ulceration of right lower leg . 02 Diagnosis: A. Left below knee amputation: - Status post transmetatarsal amputation of foot. - Large area of ulceration and acute inflammation of distal foot stump, with pseudoepitheliomatous hyperplasia of skin bordering ulcer. - Multiple additional foci of ulceration and acute inflammation of leg. - Sclerosis and focal calcification of anterior and posterior tibial arteries with moderate to marked luminal stenosis. - Skin, subcutaneous tissue, and skeletal muscle tissue of proximal amputation margin viable. . B. Right below knee amputation: - Focal ulceration and acute inflammation/cellulitis of lateral aspect of dorsal foot. - Multiple additional foci of ulceration and acute inflammation/ cellulitis of distal and proximal leg. - Sclerosis and focal calcification of anterior and posterior tibial arteries with focal marked luminal stenosis. - Skin and subcutaneous tissue and skeletal muscle tissue of proximal amputation margin viable with focal acute cellulitis closely approaching proximal amputation margin. . (DONM:rosemarie; 11/06/2019) [facility] 11/06/2019 1712 Local . 02 Comment: There is no evidence of malignancy. (DONAVAN:rosemarie; 11/06/2019) . 02 Electronically signed: . Zion Valencia MD, Pathologist NPI- [id number] . 01 Gross description: . A. The specimen is received fresh in a red biohazard bag, labeled "Lorenzo Guardado, left BKA". Received is a left [id number] mutation measuring 21.3 cm from heel to distal foot stump, 28.1 cm from heel to skin margin, 38.3 cm from heel to tibial bone margin, and 40.6 cm from heel to fibular bone margin. The bone margins are blunt and transected in appearance, and appear grossly unremarkable. The skin and soft tissue margins are viable. All five toes are absent, consistent with a previous transmetatarsal amputation of the foot. On the dorsal aspect of the foot amputation stump, there is a large irregular area of pink-jessica ulceration. On the medial/anterior aspect and posterior aspects of the leg, there are multiple pink-jessica to barron-jessica ulcerated lesions identified ranging in size from 1.3 x 0.3 to 7.5 x 4.5 cm. The anterior tibial vasculatures are pinpoint to patent in appearance. The posterior tibial vasculature are patent. Healthcare Market Consultant sections are submitted as follows: . A1 skin and soft tissue margin A2 jewelry sales representative sections of ulcerated lesion of distal foot stump A3 jewelry sales representative sections of lesions on medial/anterior and posterior aspects of leg A4 anterior and posterior tibial vasculatures. . Gross photographs are taken. . B. The specimen is received fresh in a red biohazard bag, labeled "right ZAC Hernandez". Received is a right uwzai-[id number] amputation measuring 28.2 cm from heel to toe, 27.1 cm from heel to skin margin, 38.2 cm from heel to tibial bone margin, and 40.3 cm from heel to fibular bone margin. The bone margins are blunt and transected in appearance, and appear grossly unremarkable. The skin and soft tissue margins are viable. 0.3 cm from the skin margin on the lateral aspect, there is a poorly circumscribed, irregular in contour and light jessica to green-jessica lesion measuring 3.9 x 1.8 cm. All five toes are present. On the dorsal aspect of the foot overlying the fourth and fifth metatarsals, there is a well-circumscribed, necrotic-appearing barron-jessica lesion measuring 4.6 x 2.6 cm. On multiple aspects of the lower aspect of the leg, there are multiple light jessica to brown-like lesions ranging in size from 0.5 x 0.5 to 6.4 x 3.8 cm, largest of which exposes underlying tendons. Sectioning through the anterior and posterior tibial vasculature reveals pinpoint to patent lumens. The specimen is submitted representatively as follows: . B1 skin and soft tissue margin B2 jewelry sales representative sections from lesion on dorsal aspect of foot B3 jewelry sales representative sections of lesion with exposed tendons on posterior aspect of lower calf B4 additional jewelry sales representative sections of lesions from anterior and lateral aspects of the leg B5 anterior and posterior tibial vasculatures. . Gross photographs are taken. (CAA; 11/04/2019) QA/QA 11/06/2019 1204 Local . 02 Pathologist provided ICD-10: L97.529, L98.9, I70.209, L97.519, L03.115 . 02 CPT . 477043, [id number] Specimen Comment: A courtesy copy of this report has been sent to [phone], [phone] Specimen Comment: [id number] Specimen Comment: Report sent to / DR CHANG Performed at: 01 [facility] [address], [place] [id number] MD Johnnie Ornelas MD Phone: [phone] Performed at: [address] [facility] [address] [place], [place] [id number] MD Zion Valencia MD Phone: [phone]
[2019-11-06 21:23] LABS: BILIRUBIN,URINE NEGATIVE (NEG); CLARITY,URINE CLEAR; COLOR,URINE YELLOW; NITRITE,URINE NEGATIVE (NEG); PROTEIN,URINE NEGATIVE (NEG-TRACE)
[2019-11-06 21:31] LABS: AMORPHOUS SEDIMENT,UR PRESENT /HPF; BACTERIA,URINE 0 /HPF (0-FEW); SQUAMOUS EPITHELIAL CELL,UR FEW /LPF; WBC,URINE OCC /HPF (0-4)
[2019-11-07 02:08] LABS: CALCIUM PTH 8.8 mg/dL (8.6-10.2); CREATININE PTH 0.84 mg/dL (0.76-1.27); PHOSPHORUS PTH 2.3 mg/dL (2.8-4.1); PTH INTACT 22 pg/mL (15-65)
[2019-11-07 03:00] VITALS: BP 148/71
[2019-11-07 03:52] LABS: BASO % 1 % (0-3); EOS # 0.2 x10^3/uL (0.0-0.7); EOS % 2 % (0-3); HEMATOCRIT 25.9 % (39.0-53.0); HEMOGLOBIN 8.6 g/dL (13.0-17.5); LYMPH # 2.3 x10^3/uL (1.0-4.8); LYMPH % 25 % (24-48); MEAN CORPUSCULAR HEMOGLOBIN 27 pg (25-35); MEAN CORPUSCULAR HGB CONC 33 g/dL (31-37); MEAN CORPUSCULAR VOLUME 81 fL (79-100); MONO # 0.7 x10^3/uL (0.0-1.1); MONO % 8 % (0-9); NEUT # 5.9 x10^3/uL (1.8-7.7); NEUT % 65 % (31-73); PLATELET COUNT 401 x10^3/uL (140-400); RED CELL DISTRIBUTION WIDTH 14.9 % (11.5-14.5); WHITE BLOOD COUNT 9.2 x10^3/uL (4.0-11.0)
[2019-11-07 04:44] LABS: ALBUMIN 2.1 g/dL (3.4-5.0); ALBUMIN/GLOBULIN RATIO 0.4 (1.0-1.7); CREATININE 0.9 mg/dL (0.7-1.3); GFR 100.1; PHOSPHORUS 2.8 mg/dL (2.6-4.7); POTASSIUM 3.3 mmol/L (3.5-5.1); TOTAL BILIRUBIN 0.4 mg/dL (0.2-1.0); TOTAL PROTEIN 6.9 g/dL (6.4-8.2)
[2019-11-07] MEDS: oxyCODONE/APAP 10/325 1 TAB TABLET PO PRN ×2 (05:00→09:41)
[2019-11-07 07:15] VITALS: BP 135/69
[2019-11-07] MEDS: PSYLLIUM HUSK (SUGAR FREE) 1 PKT PACKET PO SCH (09:00)
[2019-11-07] MEDS: POLYETHYLENE GLYCOL 3350 17 GM PACKET. PO SCH (09:00)
[2019-11-07] MEDS: MULTIVITAMIN with MINERAL TABLET. PO SCH (09:41)
[2019-11-07] MEDS: LACTOBACILLUS RHAMNOSUS GG 1 CAPSULE. PO SCH ×2 (09:41→20:32)
[2019-11-07] MEDS: amLODIPine BESYLATE 5 MG TABLET PO SCH (09:41)
[2019-11-07] MEDS: ASCORBIC ACID 500 MG TABLET PO SCH ×2 (09:42→20:31)
[2019-11-07] MEDS: POTASSIUM CITRATE 10 MEQ TABLET.ER PO SCH ×3 (09:43→20:00)
--- NOTE | 2019-11-07 10:17 | NUR ---
stool softeners held d/t pt c/o diarrhea this a.m.
[2019-11-07 11:00] VITALS: BP 139/68
--- NOTE | 2019-11-07 12:00 | PDOC2 ---
CONSULT Date of Consult Date of Consult DATE: 11/07/19 TIME: 11:59 Reason for Consult Reason for Consult: Possible renal tubular acidosis Referring Physician Referring Physician: Yair Identification/Chief Complaint Chief Complaint Mr. Guardado is a pleasant 74-year-old -[place] gentleman who is know to have past medical history of diabetes hypertension dyslipidemia peripheral vascular disease. [place] [facility] [place] He is known to have chronic ulceration of his lower extremity bilaterally and underwent bilateral amputations/BKA. His most recent wounds were noted to have maggots. At present ation his bicarb was 22, with a gap of 11 and a creatinine of 1.5. He has been on chloride-based IV fluids to where yesterday his potassium was down to 2.9 a bicarb of 18 gap of 15. IV fluids were stopped and potassium citrate was started. Today's potassium is 3.3 his gap is 11 and his bicarb is up to 21. We were asked to see him for possible renal tubular acidosis Source Source: Chart review, Patient Past Medical History Cardiovascular: CAD, HTN, Hyperlipidemia Pulmonary: COPD Endocrine: Diabetes Past Surgical History Past Surgical History: Other (Bilateral BKA this admission) Family History Family History: Diabetes, Heart Disease Social History Quit ALCOHOL: none Current Problem List Problem List Problems Medical Problems: (1) Lower extremity ulceration Status: Acute Current Medications Current Medications Current Medications Vancomycin HCl (Vanco Per Pharmacy) 1 each 1X ONCE MC ; Start 10/29/19 at 17:00; Stop 10/30/19 at 16:05; Status DC Sodium Chloride 1,000 ml @ 1,000 mls/hr Q1H IV Last administered on 10/29/19at 17:17; Start 10/29/19 at 16:41; Stop 10/29/19 at 17:40; Status DC Fentanyl Citrate (Fentanyl 2ml Vial) 50 mcg 1X ONCE IVP Last administered on 10/29/19at 17:17; Start 10/29/19 at 16:45; Stop 10/29/19 at 16:46; Status DC Piperacillin Sod/ Tazobactam Sod 3.375 gm/Sodium Chloride 50 ml @ 100 mls/hr 1X ONCE IV Last administered on 10/29/19at 18:06; Start 10/29/19 at 17:00; Stop 10/29/19 at 17:29; Status DC Vancomycin HCl 2 gm/Sodium Chloride 500 ml @ 250 mls/hr 1X ONCE IV Last administered on 10/29/19at 17:18; Start 10/29/19 at 17:00; Stop 10/29/19 at 18:59; Status DC Ondansetron HCl (Zofran) 4 mg PRN Q8HRS PRN IV NAUSEA/VOMITING; Start 10/29/19 at 18:00; Stop 10/30/19 at 17:59; Status DC Fentanyl Citrate (Fentanyl 2ml Vial) 50 mcg PRN Q1HR PRN IV PAIN Last administered on 10/29/19at 22:48; Start 10/29/19 at 18:00; Stop 10/29/19 at 23:47; Status DC Oxycodone/ Acetaminophen (Percocet 10/325) 1 tab PRN Q4HRS PRN PO SEVERE PAIN 7-10 Last administered on 11/07/19at 09:41; Start 10/30/19 at 00:00 Vancomycin HCl 1.25 gm/Sodium Chloride 250 ml @ 167 mls/hr Q24H IV ; Start 10/30/19 at 17:00; Stop 10/30/19 at 12:06; Status DC Vancomycin HCl (Vancomycin Trough Level) 1 each 1X ONCE MC ; Start 10/31/19 at 16:30; Stop 10/31/19 at 16:31; Status Cancel Vancomycin HCl (Vanco Per Pharmacy) 1 each PRN DAILY PRN MC SEE COMMENTS Last administered on 10/30/19at 01:33; Start 10/29/19 at 23:45; Stop 10/30/19 at 12:06; Status DC Hydromorphone HCl (Dilaudid) 1 mg PRN Q2HR PRN IV breakthrough pain Last administered on 11/05/19at 00:59; Start 10/30/19 at 07:15 Lactobacillus Rhamnosus (Culturelle) 1 cap BID PO Last administered on 11/07/19at 09:41; Start 10/30/19 at 21:00 Piperacillin Sod/ Tazobactam Sod (Zosyn Per Pharmacy) 1 each PRN DAILY PRN MC SEE COMMENTS; Start 10/30/19 at 12:00; Stop 10/30/19 at 16:05; Status DC Piperacillin Sod/ Tazobactam Sod 3.375 gm/Sodium Chloride 50 ml @ 100 mls/hr Q6HRS IV Last administered on 10/30/19at 12:51; Start 10/30/19 at 12:15; Stop 10/30/19 at 16:05; Status DC Potassium Chloride (Klor-Con) 40 meq 1X ONCE PO Last administered on 10/30/19at 15:35; Start 10/30/19 at 15:30; Stop 10/30/19 at 15:31; Status DC Potassium Chloride (Klor-Con) 40 meq 1X ONCE PO Last administered on 10/30/19at 19:53; Start 10/30/19 at 19:30; Stop 10/30/19 at 19:31; Status DC Meropenem 500 mg/ Sodium Chloride 50 ml @ 100 mls/hr Q6HRS IV Last administered on 11/05/19at 05:15; Start 10/30/19 at 18:00; Stop 11/05/19 at 09:59; Status DC Daptomycin 510 mg/ Sodium Chloride 50 ml @ 100 mls/hr Q24H IV ; Start 10/30/19 at 16:00; Status Cancel Micafungin Sodium 100 mg/Dextrose 100 ml @ 100 mls/hr Q24H IV Last administered on 11/04/19at 16:03; Start 10/30/19 at 17:00; Stop 11/05/19 at 09:59; Status DC Daptomycin 500 mg/ Sodium Chloride 50 ml @ 100 mls/hr Q24H IV Last administered on 11/04/19at 15:28; Start 10/30/19 at 17:00; Stop 11/05/19 at 09:59; Status DC Potassium Chloride (Klor-Con) 40 meq 1X ONCE PO Last administered on 10/31/19at 21:11; Start 10/31/19 at 20:30; Stop 10/31/19 at 20:31; Status DC Magnesium Sulfate 100 ml @ 25 mls/hr 1X ONCE IV Last administered on 11/01/19at 09:37; Start 11/01/19 at 09:00; Stop 11/01/19 at 12:59; Status DC Potassium Chloride (Klor-Con) 40 meq 1X ONCE PO Last administered on 11/01/19at 09:38; Start 11/01/19 at 08:30; Stop 11/01/19 at 08:31; Status DC Potassium Chloride (Klor-Con) 20 meq DAILYWBKFT PO Last administered on 11/06/19at 08:25; Start 11/02/19 at 08:00; Stop 11/06/19 at 16:33; Status DC Potassium Chloride (Klor-Con) 40 meq 1X ONCE PO Last administered on 11/01/19at 17:23; Start 11/01/19 at 17:00; Stop 11/01/19 at 17:01; Status DC Ondansetron HCl (Zofran) 4 mg PRN Q6HRS PRN IV NAUSEA/VOMITING; Start 11/02/19 at 11:45; Stop 11/02/19 at 21:00; Status DC Ringer's Solution 1,000 ml @ 30 mls/hr Q24H IV ; Start 11/02/19 at 12:00; Stop 11/02/19 at 21:00; Status Cancel Prochlorperazine Edisylate (Compazine) 5 mg PACU PRN PRN IV NAUSEA, MRX1 Last administered on 11/02/19at 20:18; Start 11/02/19 at 11:45; Stop 11/02/19 at 21:00; Status DC Multivitamins (Thera M Plus) 1 tab DAILY PO Last administered on 11/07/19at 09:41; Start 11/02/19 at 14:00 Ascorbic Acid (Vitamin C) 500 mg BID PO Last administered on 11/07/19at 09:42; Start 11/02/19 at 14:00 Dexamethasone Sodium Phosphate (Decadron) 4 mg STK-MED ONCE .ROUTE ; Start 11/02/19 at 14:52; Stop 11/02/19 at 14:56; Status DC Ondansetron HCl (Zofran) 4 mg STK-MED ONCE .ROUTE ; Start 11/02/19 at 14:52; Stop 11/02/19 at 14:56; Status DC Lidocaine HCl (Lidocaine Pf 2% Vial) 5 ml STK-MED ONCE .ROUTE ; Start 11/02/19 at 14:52; Stop 11/02/19 at 14:57; Status DC Propofol (Diprivan) 200 mg STK-MED ONCE IV ; Start 11/02/19 at 14:52; Stop 11/02/19 at 14:59; Status DC Fentanyl Citrate (Fentanyl 2ml Vial) 100 mcg STK-MED ONCE .ROUTE ; Start 11/02/19 at 14:53; Stop 11/02/19 at 14:59; Status DC Phenylephrine HCl (PHENYLEPHRINE in 0.9% NACL PF) 1 mg STK-MED ONCE IV ; Start 11/02/19 at 17:41; Stop 11/02/19 at 17:41; Status DC Fentanyl Citrate (Fentanyl 2ml Vial) 100 mcg STK-MED ONCE .ROUTE ; Start 11/02/19 at 17:45; Stop 11/02/19 at 17:45; Status DC Ephedrine Sulfate (ePHEDrine PF IN SALINE SYRINGE) 50 mg STK-MED ONCE IV ; Start 11/02/19 at 17:57; Stop 11/02/19 at 17:57; Status DC Fentanyl Citrate (Fentanyl 2ml Vial) 100 mcg STK-MED ONCE .ROUTE ; Start 11/02/19 at 18:59; Stop 11/02/19 at 18:59; Status DC Morphine Sulfate (Morphine Sulfate) 2 mg STK-MED ONCE .ROUTE ; Start 11/02/19 at 19:54; Stop 11/02/19 at 19:54; Status DC Morphine Sulfate (Morphine Sulfate) 2 mg 1X ONCE IV Last administered on 11/02/19at 20:02; Start 11/02/19 at 20:00; Stop 11/02/19 at 20:08; Status DC Ringer's Solution 1,000 ml @ 30 mls/hr Q24H IV ; Start 11/02/19 at 20:00; Stop 11/03/19 at 07:59; Status DC Fentanyl Citrate (Fentanyl 2ml Vial) 100 mcg STK-MED ONCE .ROUTE ; Start 11/02/19 at 20:00; Stop 11/02/19 at 20:01; Status DC Fentanyl Citrate (Fentanyl 2ml Vial) 50 mcg PRN Q10MIN PRN IVP PAIN Last administered on 11/02/19at 20:09; Start 11/02/19 at 20:15; Stop 11/03/19 at 01:00; Status DC Morphine Sulfate (Morphine Sulfate) 2 mg PRN Q10MIN PRN IV pain ; Start 11/02/19 at 20:15; Stop 11/03/19 at 01:00; Status DC Hydromorphone HCl (Dilaudid) 1 mg PRN Q10MIN PRN IV pain, 2ND CHOICE Last administered on 11/02/19at 20:46; Start 11/02/19 at 20:15; Stop 11/03/19 at 01:00; Status DC Labetalol HCl (Normodyne Iv Push) 10 mg PRN Q10MIN PRN IVP HYPERTENSION Last administered on 11/02/19at 21:49; Start 11/02/19 at 20:15; Stop 11/02/19 at 22:12; Status DC Sodium Chloride 1,000 ml @ 125 mls/hr 1X ONCE IV ; Start 11/02/19 at 21:00; Stop 11/03/19 at 04:59; Status DC Hydralazine HCl (Apresoline Inj) 10 mg PRN Q4HRS PRN IVP HTN, SEE COMMENTS, 1ST CHOICE Last administered on 11/06/19at 04:41; Start 11/02/19 at 22:45 Polyethylene Glycol (miraLAX PACKET) 17 gm DAILY PO Last administered on at 08:26; Start 11/03/19 at 09:00 Psyllium Hydrophilic Mucilloid (Metamucil Fiber Packet) 1 pkt DAILY PO Last administered on 11/06/19at 08:26; Start 11/03/19 at 09:00 Amlodipine Besylate (Norvasc) 5 mg 1X ONCE PO Last administered on 11/03/19at 02:56; Start 11/02/19 at 23:00; Stop 11/02/19 at 23:01; Status DC Amlodipine Besylate (Norvasc) 5 mg DAILY PO Last administered on 11/07/19at 09:41; Start 11/03/19 at 09:00 Labetalol HCl (Normodyne Iv Push) 10 mg PRN Q2HR PRN IVP HYPERTENSION Last administered on 11/03/19at 02:08; Start 11/02/19 at 22:45; Stop 11/03/19 at 03:46; Status DC Labetalol HCl (Normodyne Iv Push) 20 mg PRN Q2HR PRN IVP HYPERTENSION, 2ND CHOICE Last administered on 11/03/19at 04:04; Start 11/03/19 at 03:45 Potassium Chloride/Water 100 ml @ 100 mls/hr Q1H IV Last administered on 11/03/19at 10:15; Start 11/03/19 at 08:00; Stop 11/03/19 at 09:59; Status DC Potassium Chloride (Klor-Con) 20 meq 1X ONCE PO Last administered on 11/03/19at 08:26; Start 11/03/19 at 07:30; Stop 11/03/19 at 07:43; Status DC Insulin Human Lispro (HumaLOG) 0-5 UNITS TIDACHC SQ ; Start 11/03/19 at 07:30; Stop 11/04/19 at 17:06; Status DC Dextrose (Dextrose 50%-Water Syringe) 12.5 gm PRN Q15MIN PRN IV SEE COMMENTS; Start 11/03/19 at 07:30; Stop 11/04/19 at 17:06; Status DC Ketorolac Tromethamine (Toradol 15mg Vial) 15 mg 1X ONCE IVP Last administered on 11/03/19at 16:52; Start 11/03/19 at 16:45; Stop 11/03/19 at 16:46; Status DC Potassium Chloride (Klor-Con) 40 meq 1X ONCE PO Last administered on 11/04/19at 12:34; Start 11/04/19 at 12:15; Stop 11/04/19 at 12:18; Status DC Potassium Chloride (Klor-Con) 20 meq DAILYWBKFT PO ; Start 11/05/19 at 08:00; Stop 11/05/19 at 13:41; Status DC Sodium Chloride 1,000 ml @ 75 mls/hr [id number] IV Last administered on 11/06/19at 04:42; Start 11/04/19 at 12:15; Stop 11/06/19 at 16:32; Status DC Potassium Chloride (Klor-Con) 40 meq DAILYWBKFT PO Last administered on 11/06/19at 08:26; Start 11/06/19 at 08:00; Stop 11/06/19 at 16:33; Status DC Potassium Chloride (Klor-Con) 40 meq 1X ONCE PO ; Start 11/06/19 at 14:15; Stop 11/06/19 at 14:16; Status DC Potassium Citrate (Urocit-K) 20 meq [id number] PO Last administered on 11/07/19at 09:43; Start 11/06/19 at 16:30 Magnesium Sulfate 50 ml @ 25 mls/hr PRN DAILY PRN IV for Mag < 1.7 on am labs; Start 11/06/19 at 16:30 Allergies Allergies: Coded Allergies: I S O L A T I O N *CONTACT* (Verified Allergy, Unknown, 11/03/19) mrsa No Known Medication Allergies (Verified Allergy, Unknown, 11/03/19) ROS Review of System Specifically denies diarrhea currently. All other systems are negative Physical Exam Physical Exam GEN: Awake, Oriented x 3, In no distress EYES: Vision Unchanged, Conjunctiva Normal EN: No EN Drainage, Mucous Membranes moist NECK: no JVD, no JVP, Supple, no Thyromegaly CVS: S1S2, ? Murmur, No Gallop, No Rub,no Edema RESP: no Rales, no Rhonchi,no Acc. Muscle Use GI: BS + ve, NO Bruit, Non Tender, Non Distended : no CVA tenderness, no Suprapubic Tenderness Vital Signs Vital Signs Date Time Temp Pulse Resp B/P (MAP) Pulse Ox O2 Delivery O2 Flow Rate FiO2 11/07/19 09:41 80 135/69 11/07/19 07:15 98.4 16 98 Room Air 98.4 11/06/19 22:30 2.0 Assessment & Plan Metabolic acidosis: At time of diagnosis is anion gap was elevated especially if corrected follow albumin. I believe he may have an element of hyperchloremic metabolic acidosis due to chloride based IV fluids. However that may not explain his elevated anion gap. Hypokalemia: Continue replacement. If IV fluids are required consider adding potassium to IV fluids ROBERTA at presentation now resolved. It is unclear to me if creatinine is improved due to his amputations and loss of muscle mass Severe hypoalbuminemia: Possibly due to chronic infection. Underlying diabetic nephropathy cannot be ruled out. Recommend continuing potassium citrate for about a total of 10 doses and then c hanged to potassium chloride if required for supplementation. If metabolic acidosis recurs off of IV fluids and will be happy to return for further evaluation Labs Labs Laboratory Tests Test 11/06/19 08:30 11/06/19 16:00 11/06/19 19:50 11/07/19 03:30 Sodium Level 141 mmol/L (136-145) 141 mmol/L (136-145) Potassium Level 2.9 mmol/L (3.5-5.1) 3.3 mmol/L (3.5-5.1) Chloride Level 108 mmol/L (98-107) 109 mmol/L (98-107) Carbon Dioxide Level 18 mmol/L (21-32) 21 mmol/L (21-32) Anion Gap 15 (6-14) 11 (6-14) Blood Urea Nitrogen 12 mg/dL (8-26) 10 mg/dL (8-26) Creatinine 0.9 mg/dL (0.7-1.3) 0.9 mg/dL (0.7-1.3) Estimated GFR (Cockcroft-Gault) 100.1 100.1 Glucose Level 122 mg/dL (70-99) 94 mg/dL (70-99) Calcium Level 8.4 mg/dL (8.5-10.1) 8.0 mg/dL (8.5-10.1) Estimated GFR (Non- 87 (>59) EGFR 100 (>59) PTH (Intact) Specimen Description Comment (.) Parathyroid Hormone (Intact) 22 pg/mL (15-65) Calcium (PTH Intact) 8.8 mg/dL (8.6-10.2) Creatinine (PTH Intact) 0.84 mg/dL (0.76-1.27) Phosphorus (PTH Intact) 2.3 mg/dL (2.8-4.1) Acetone Level Neg (NEG) Urine Collection Type Unknown Urine Color Yellow Urine Clarity Clear Urine pH 7.0 (<5.0-8.0) Urine Specific [place] 1.015 (1.000-1.030) Urine Protein Negative mg/dL (NEG-TRACE) Urine Glucose (UA) Negative mg/dL (NEG) Urine Ketones (Stick) Trace mg/dL (NEG) Urine Blood Negative (NEG) Urine Nitrite Negative (NEG) Urine Bilirubin Negative (NEG) Urine Urobilinogen Dipstick 1.0 mg/dL (0.2 mg/dL) Urine Leukocyte Esterase Negative (NEG) Urine RBC 1-2 /HPF (0-2) Urine WBC Occ /HPF (0-4) Urine Squamous Epithelial Cells Few /LPF Urine Amorphous Sediment Present /HPF Urine Bacteria 0 /HPF (0-FEW) Urine Mucus Slight /LPF White Blood Count 9.2 x10^3/uL (4.0-11.0) Red Blood Count 3.20 x10^6/uL (4.30-5.70) Hemoglobin 8.6 g/dL (13.0-17.5) Hematocrit 25.9 % (39.0-53.0) Mean Corpuscular Volume 81 fL (79-100) Mean Corpuscular Hemoglobin 27 pg (25-35) Mean Corpuscular Hemoglobin Concent 33 g/dL (31-37) Red Cell Distribution Width 14.9 % (11.5-14.5) Platelet Count 401 x10^3/uL (140-400) Neutrophils (%) (Auto) 65 % (31-73) Lymphocytes (%) (Auto) 25 % (24-48) Monocytes (%) (Auto) 8 % (0-9) Eosinophils (%) (Auto) 2 % (0-3) Basophils (%) (Auto) 1 % (0-3) Neutrophils # (Auto) 5.9 x10^3/uL (1.8-7.7) Lymphocytes # (Auto) 2.3 x10^3/uL (1.0-4.8) Monocytes # (Auto) 0.7 x10^3/uL (0.0-1.1) Eosinophils # (Auto) 0.2 x10^3/uL (0.0-0.7) Basophils # (Auto) 0.0 x10^3/uL (0.0-0.2) BUN/Creatinine Ratio 11 (6-20) Lactic Acid Level 0.5 mmol/L (0.4-2.0) Phosphorus Level 2.8 mg/dL (2.6-4.7) Magnesium Level 1.8 mg/dL (1.8-2.4) Total Bilirubin 0.4 mg/dL (0.2-1.0) Aspartate Amino Transf (AST/SGOT) 86 U/L (15-37) Alanine Aminotransferase (ALT/SGPT) 96 U/L (16-63) Alkaline Phosphatase 80 U/L (46-116) Total Protein 6.9 g/dL (6.4-8.2) Albumin 2.1 g/dL (3.4-5.0) Albumin/Globulin Ratio 0.4 (1.0-1.7) Laboratory Tests Test 11/06/19 16:00 7/10/20 19:50 11/07/19 03:30 Estimated GFR (Non- 87 (>59) EGFR 100 (>59) PTH (Intact) Specimen Description Comment (.) Parathyroid Hormone (Intact) 22 pg/mL (15-65) Calcium (PTH Intact) 8.8 mg/dL (8.6-10.2) Creatinine (PTH Intact) 0.84 mg/dL (0.76-1.27) Phosphorus (PTH Intact) 2.3 mg/dL (2.8-4.1) Acetone Level Neg (NEG) Urine Collection Type Unknown Urine Color Yellow Urine Clarity Clear Urine pH 7.0 (<5.0-8.0) Urine Specific [place] 1.015 (1.000-1.030) Urine Protein Negative mg/dL (NEG-TRACE) Urine Glucose (UA) Negative mg/dL (NEG) Urine Ketones (Stick) Trace mg/dL (NEG) Urine Blood Negative (NEG) Urine Nitrite Negative (NEG) Urine Bilirubin Negative (NEG) Urine Urobilinogen Dipstick 1.0 mg/dL (0.2 mg/dL) Urine Leukocyte Esterase Negative (NEG) Urine RBC 1-2 /HPF (0-2) Urine WBC Occ /HPF (0-4) Urine Squamous Epithelial Cells Few /LPF Urine Amorphous Sediment Present /HPF Urine Bacteria 0 /HPF (0-FEW) Urine Mucus Slight /LPF White Blood Count 9.2 x10^3/uL (4.0-11.0) Red Blood Count 3.20 x10^6/uL (4.30-5.70) Hemoglobin 8.6 g/dL (13.0-17.5) Hematocrit 25.9 % (39.0-53.0) Mean Corpuscular Volume 81 fL (79-100) Mean Corpuscular Hemoglobin 27 pg (25-35) Mean Corpuscular Hemoglobin Concent 33 g/dL (31-37) Red Cell Distribution Width 14.9 % (11.5-14.5) Platelet Count 401 x10^3/uL (140-400) Neutrophils (%) (Auto) 65 % (31-73) Lymphocytes (%) (Auto) 25 % (24-48) Monocytes (%) (Auto) 8 % (0-9) Eosinophils (%) (Auto) 2 % (0-3) Basophils (%) (Auto) 1 % (0-3) Neutrophils # (Auto) 5.9 x10^3/uL (1.8-7.7) Lymphocytes # (Auto) 2.3 x10^3/uL (1.0-4.8) Monocytes # (Auto) 0.7 x10^3/uL (0.0-1.1) Eosinophils # (Auto) 0.2 x10^3/uL (0.0-0.7) Basophils # (Auto) 0.0 x10^3/uL (0.0-0.2) Sodium Level 141 mmol/L (136-145) Potassium Level 3.3 mmol/L (3.5-5.1) Chloride Level 109 mmol/L (98-107) Carbon Dioxide Level 21 mmol/L (21-32) Anion Gap 11 (6-14) Blood Urea Nitrogen 10 mg/dL (8-26) Creatinine 0.9 mg/dL (0.7-1.3) Estimated GFR (Cockcroft-Gault) 100.1 BUN/Creatinine Ratio 11 (6-20) Glucose Level 94 mg/dL (70-99) Lactic Acid Level 0.5 mmol/L (0.4-2.0) Calcium Level 8.0 mg/dL (8.5-10.1) Phosphorus Level 2.8 mg/dL (2.6-4.7) Magnesium Level 1.8 mg/dL (1.8-2.4) Total Bilirubin 0.4 mg/dL (0.2-1.0) Aspartate Amino Transf (AST/SGOT) 86 U/L (15-37) Alanine Aminotransferase (ALT/SGPT) 96 U/L (16-63) Alkaline Phosphatase 80 U/L (46-116) Total Protein 6.9 g/dL (6.4-8.2) Albumin 2.1 g/dL (3.4-5.0) Albumin/Globulin Ratio 0.4 (1.0-1.7) Review All relevant outside records, renal labs, imaging studies, telemetry/EKG's were reviewed. JOHANNY YAÑEZ MD Nov 07, 2019 12:00
[2019-11-07 15:00] VITALS: BP 129/63
--- NOTE | 2019-11-07 15:48 | PDOC ---
GENERAL General: Patient examined chart reviewed today is hospital day 10 for this patient with chronic nonhealing lower extremity wounds he ultimately went for a bilateral below the knee amputation for continued severe ulceration he is now postop day 5 from that. We appreciate subspecialty support. We will continue broad-spectrum antibiotics. He will clearly need rehab placement once he is completed his inpatient regimen. Patient had no complaints this afternoon in fact he is sitting resting comfortably interacts appropriately but does not talk much. He just finished having abdominal ultrasound to evaluate his elevated liver function test. We will continue current management otherwise. Problems: (1) S/P bilateral below knee amputation (2) Lower extremity ulceration VITAL SIGNS Vital Signs/I&O: Vital Signs Date Time Temp Pulse Resp B/P (MAP) Pulse Ox O2 Delivery O2 Flow Rate FiO2 11/07/19 11:00 98.3 78 16 139/68 (91) 98 Room Air 98.3 11/06/19 22:30 2.0 I & O 11/06/19 11/06/19 11/07/19 15:00 23:00 07:00 Intake Total 120 ml 1106.3 ml 100 ml Output Total 400 ml 250 ml 200 ml Balance -280 ml 856.3 ml -100 ml Patient sitting up in bed resting comfortably he interacts appropriately but is mostly nonverbal this afternoon Chest is clear to auscultation Heart S1-S2 normal regular rate and rhythm no murmurs or gallops are noted Abdomen soft nontender nondistended no masses organomegaly noted Extremity exam is notable for that both legs have been amputated below the knee and are casted there is some secretion on the right cast noted ALLERGIES Allergies: Allergies Coded Allergies Type Severity Reaction Last Updated Verified I S O L A T I O N *CONTACT* Allergy Unknown 11/03/19 Yes No Known Medication Allergies Allergy Unknown 11/03/19 Yes MEDS Medications: Current Medications Medications (Trade) Dose Ordered Sig/Yannick Start Time Stop Time Status Last Admin Dose Admin Amlodipine Besylate (Norvasc) 5 mg DAILY 11/03/19 09:00 11/07/19 09:41 Ascorbic Acid (Vitamin C) 500 mg BID 11/02/19 14:00 11/07/19 09:42 Daptomycin 500 mg/ Sodium Chloride 50 ml @ 100 mls/hr Q24H 10/30/19 17:00 11/05/19 09:59 DC 11/04/19 15:28 Daptomycin 510 mg/ Sodium Chloride 50 ml @ 100 mls/hr Q24H 10/30/19 16:00 Cancel Dexamethasone Sodium Phosphate (Decadron) 4 mg STK-MED ONCE 11/02/19 14:52 11/02/19 14:56 DC Dextrose (Dextrose 50%-Water Syringe) 12.5 gm PRN Q15MIN PRN 11/03/19 07:30 11/04/19 17:06 DC Ephedrine Sulfate (ePHEDrine PF IN SALINE SYRINGE) 50 mg STK-MED ONCE 11/02/19 17:57 11/02/19 17:57 DC Fentanyl Citrate (Fentanyl 2ml Vial) 50 mcg PRN Q10MIN PRN 11/02/19 20:15 11/03/19 01:00 DC 11/02/19 20:09 Hydralazine HCl (Apresoline Inj) 10 mg PRN Q4HRS PRN 11/02/19 22:45 11/06/19 04:41 Hydromorphone HCl (Dilaudid) 1 mg PRN Q10MIN PRN 11/02/19 20:15 11/03/19 01:00 DC 11/02/19 20:46 Insulin Human Lispro (HumaLOG) 0-5 UNITS TIDACHC 11/03/19 07:30 11/04/19 17:06 DC Ketorolac Tromethamine (Toradol 15mg Vial) 15 mg 1X ONCE 11/03/19 16:45 11/03/19 16:46 DC 11/03/19 16:52 Labetalol HCl (Normodyne Iv Push) 20 mg PRN Q2HR PRN 11/03/19 03:45 11/03/19 04:04 Lactobacillus Rhamnosus (Culturelle) 1 cap BID 10/30/19 21:00 11/07/19 09:41 Lidocaine HCl (Lidocaine Pf 2% Vial) 5 ml STK-MED ONCE 11/02/19 14:52 11/02/19 14:57 DC Magnesium Sulfate 50 ml @ 25 mls/hr PRN DAILY PRN 11/06/19 16:30 Meropenem 500 mg/ Sodium Chloride 50 ml @ 100 mls/hr Q6HRS 10/30/19 18:00 11/05/19 09:59 DC 11/05/19 05:15 Micafungin Sodium 100 mg/Dextrose 100 ml @ 100 mls/hr Q24H 10/30/19 17:00 11/05/19 09:59 DC 11/04/19 16:03 Morphine Sulfate (Morphine Sulfate) 2 mg PRN Q10MIN PRN 11/02/19 20:15 11/03/19 01:00 DC Multivitamins (Thera M Plus) 1 tab DAILY 11/02/19 14:00 11/07/19 09:41 Ondansetron HCl (Zofran) 4 mg STK-MED ONCE 11/02/19 14:52 11/02/19 14:56 DC Oxycodone/ Acetaminophen (Percocet 10) 1 tab PRN Q4HRS PRN 10/30/19 00:00 11/07/19 09:41 Phenylephrine HCl (PHENYLEPHRINE in 0.9% NACL PF) 1 mg STK-MED ONCE 11/02/19 17:41 11/02/19 17:41 DC Piperacillin Sod/ Tazobactam Sod (Zosyn Per Pharmacy) 1 each PRN DAILY PRN 10/30/19 12:00 10/30/19 16:05 DC Piperacillin Sod/ Tazobactam Sod 3.375 gm/Sodium Chloride 50 ml @ 100 mls/hr Q6HRS 10/30/19 12:15 10/30/19 16:05 DC 10/30/19 12:51 Polyethylene Glycol (miraLAX PACKET) 17 gm DAILY 11/03/19 09:00 11/06/19 08:26 Potassium Chloride/Water 100 ml @ 100 mls/hr Q1H 11/03/19 08:00 11/03/19 09:59 DC 11/03/19 10:15 Potassium Chloride (Klor-Con) 40 meq 1X ONCE 11/06/19 14:15 11/06/19 14:16 DC Potassium Citrate (Urocit-K) 20 meq [id number] 11/06/19 16:30 11/07/19 09:43 Prochlorperazine Edisylate (Compazine) 5 mg PACU PRN PRN 11/02/19 11:45 11/02/19 21:00 DC 11/02/19 20:18 Propofol (Diprivan) 200 mg STK-MED ONCE 11/02/19 14:52 11/02/19 14:59 DC Psyllium Hydrophilic Mucilloid (Metamucil Fiber Packet) 1 pkt DAILY 11/03/19 09:00 11/06/19 08:26 Ringer's Solution 1,000 ml @ 30 mls/hr Q24H 11/02/19 20:00 11/03/19 07:59 DC Sodium Chloride 1,000 ml @ 75 mls/hr [id number] 11/04/19 12:15 11/06/19 16:32 DC 11/06/19 04:42 Vancomycin HCl (Vanco Per Pharmacy) 1 each PRN DAILY PRN 10/29/19 23:45 10/30/19 12:06 DC 10/30/19 01:33 Vancomycin HCl (Vancomycin Trough Level) 1 each 1X ONCE 10/31/19 16:30 10/31/19 16:31 Cancel Vancomycin HCl 1.25 gm/Sodium Chloride 250 ml @ 167 mls/hr Q24H 10/30/19 17:00 10/30/19 12:06 DC Vancomycin HCl 2 gm/Sodium Chloride 500 ml @ 250 mls/hr 1X ONCE 10/29/19 17:00 10/29/19 18:59 DC 10/29/19 17:18 Current Medications Medications (Trade) Dose Ordered Sig/Yannick Route PRN Reason Start Time Stop Time Status Last Admin Dose Admin Potassium Citrate (Urocit-K) 20 meq [id number] PO 11/06/19 16:30 11/07/19 09:43 LAB Lab: Laboratory Tests Test 11/06/19 16:00 11/06/19 19:50 11/07/19 03:30 Estimated GFR (Non- 87 (>59) EGFR 100 (>59) PTH (Intact) Specimen Description Comment (.) Parathyroid Hormone (Intact) 22 pg/mL (15-65) Calcium (PTH Intact) 8.8 mg/dL (8.6-10.2) Creatinine (PTH Intact) 0.84 mg/dL (0.76-1.27) Phosphorus (PTH Intact) 2.3 mg/dL (2.8-4.1) L Acetone Level Neg (NEG) Urine Collection Type Unknown Urine Color Yellow Urine Clarity Clear Urine pH 7.0 (<5.0-8.0) Urine Specific [place] 1.015 (1.000-1.030) Urine Protein Negative mg/dL (NEG-TRACE) Urine Glucose (UA) Negative mg/dL (NEG) Urine Ketones (Stick) Trace mg/dL (NEG) Urine Blood Negative (NEG) Urine Nitrite Negative (NEG) Urine Bilirubin Negative (NEG) Urine Urobilinogen Dipstick 1.0 mg/dL (0.2 mg/dL) Urine Leukocyte Esterase Negative (NEG) Urine RBC 1-2 /HPF (0-2) Urine WBC Occ /HPF (0-4) Urine Squamous Epithelial Cells Few /LPF Urine Amorphous Sediment Present /HPF Urine Bacteria 0 /HPF (0-FEW) Urine Mucus Slight /LPF White Blood Count 9.2 x10^3/uL (4.0-11.0) Red Blood Count 3.20 x10^6/uL (4.30-5.70) L Hemoglobin 8.6 g/dL (13.0-17.5) L Hematocrit 25.9 % (39.0-53.0) L Mean Corpuscular Volume 81 fL (79-100) Mean Corpuscular Hemoglobin 27 pg (25-35) Mean Corpuscular Hemoglobin Concent 33 g/dL (31-37) Red Cell Distribution Width 14.9 % (11.5-14.5) H Platelet Count 401 x10^3/uL (140-400) H Neutrophils (%) (Auto) 65 % (31-73) Lymphocytes (%) (Auto) 25 % (24-48) Monocytes (%) (Auto) 8 % (0-9) Eosinophils (%) (Auto) 2 % (0-3) Basophils (%) (Auto) 1 % (0-3) Neutrophils # (Auto) 5.9 x10^3/uL (1.8-7.7) Lymphocytes # (Auto) 2.3 x10^3/uL (1.0-4.8) Monocytes # (Auto) 0.7 x10^3/uL (0.0-1.1) Eosinophils # (Auto) 0.2 x10^3/uL (0.0-0.7) Basophils # (Auto) 0.0 x10^3/uL (0.0-0.2) Sodium Level 141 mmol/L (136-145) Potassium Level 3.3 mmol/L (3.5-5.1) L Chloride Level 109 mmol/L (98-107) H Carbon Dioxide Level 21 mmol/L (21-32) Anion Gap 11 (6-14) Blood Urea Nitrogen 10 mg/dL (8-26) Creatinine 0.9 mg/dL (0.7-1.3) Estimated GFR (Cockcroft-Gault) 100.1 BUN/Creatinine Ratio 11 (6-20) Glucose Level 94 mg/dL (70-99) Lactic Acid Level 0.5 mmol/L (0.4-2.0) Calcium Level 8.0 mg/dL (8.5-10.1) L Phosphorus Level 2.8 mg/dL (2.6-4.7) Magnesium Level 1.8 mg/dL (1.8-2.4) Total Bilirubin 0.4 mg/dL (0.2-1.0) Aspartate Amino Transferase (AST) 86 U/L (15-37) H Alanine Aminotransferase (ALT) 96 U/L (16-63) H Alkaline Phosphatase 80 U/L (46-116) Total Protein 6.9 g/dL (6.4-8.2) Albumin 2.1 g/dL (3.4-5.0) L Albumin/Globulin Ratio 0.4 (1.0-1.7) L Laboratory Tests 11/07/19 03:30 Laboratory Tests 11/07/19 03:30 ASSESSMENT & PLAN A&P Plan as noted above This note was created using [employer] and may have omissions and/or errors due to the nature of 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 Justicifation of Admission Dx: Justifications for Admission: Justification of Admission Dx: N/A Nutrition Consultation Dietary Evaluation: Recommendations by RD: Dietary education by RD, Increase Calorie Intake, Protei n supplementation Comments: cardiac diet with ensure tid mvi and vit c per wound protocal Expected Outcomes/Goals: to meet >75% est nutr needs- not met, goal ongoing Malnutrition Findings: Body Fat Depletion (Non Severe: Mild Depletion Weight Status: Underweight Problem Qualifiers (1) Lower extremity ulceration: Laterality: right Non-pressure ulcer stage: unspecified non-pressure ulcer stage Qualified Codes: L97.919 - Non-pressure chronic ulcer of unspecified part of right lower leg with unspecified severity MICHAEL ROBLES MD Nov 07, 2019 15:48
--- NOTE | 2019-11-07 16:20 | RAD ---
Examination: Ultrasound abdomen complete HISTORY: History of renal tubular acidosis COMPARISON: None available FINDINGS: The liver length measures 16.9 cm. Mild increased echogenicity identified in the liver likely hepatic steatosis. The common bile duct measures 4 mm in diameter. The right kidney measures 10.2 x 6.1 x 4.4 cm. The left kidney measures 9.8 x 4.2 x 4.5 cm. The spleen measures 10.6 cm in length. The pancreas, aorta, IVC are poorly visualized due to bowel gas. No evidence of gallstones. Gallbladder wall thickness measures 2.7 mm. IMPRESSION: 1. Mild hepatic steatosis. Electronically signed by: Thai Shabazz MD (11/07/2019 4:18 PM) [id number]
[2019-11-07 19:00] VITALS: BP 135/70
--- NOTE | 2019-11-07 19:50 | NUR ---
24 hour urine collection completed and hand delivered to lab.
--- NOTE | 2019-11-07 20:00 | NUR ---
Patient refused Potassium. Patient stated he already took his potassium today. I explained to patient that his potassium is ordered three times a day and he stated "i have already taken my potassium today." Marked on MAR that pt refused dose.
[2019-11-07 23:00] VITALS: BP 123/67
[2019-11-08] VITALS (7 sets, daily range): BP systolic 118–151; BP diastolic 61–83
[2019-11-08 07:35] LABS: BASO # 0.1 x10^3/uL (0.0-0.2); BASO % 1 % (0-3); EOS # 0.1 x10^3/uL (0.0-0.7); EOS % 1 % (0-3); HEMOGLOBIN 9.2 g/dL (13.0-17.5); LYMPH # 1.4 x10^3/uL (1.0-4.8); LYMPH % 18 % (24-48); MEAN CORPUSCULAR HEMOGLOBIN 28 pg (25-35); MEAN CORPUSCULAR HGB CONC 34 g/dL (31-37); MEAN CORPUSCULAR VOLUME 81 fL (79-100); MONO # 0.5 x10^3/uL (0.0-1.1); MONO % 6 % (0-9); NEUT # 5.8 x10^3/uL (1.8-7.7); NEUT % 74 % (31-73); PLATELET COUNT 422 x10^3/uL (140-400); RED BLOOD COUNT 3.34 x10^6/uL (4.30-5.70); RED CELL DISTRIBUTION WIDTH 14.6 % (11.5-14.5); WHITE BLOOD COUNT 7.9 x10^3/uL (4.0-11.0)
[2019-11-08 07:55] LABS: ALBUMIN 2.2 g/dL (3.4-5.0); ALBUMIN/GLOBULIN RATIO 0.4 (1.0-1.7); CALCIUM 8.5 mg/dL (8.5-10.1); CREATININE 0.9 mg/dL (0.7-1.3); GFR 100.1; PHOSPHORUS 3.3 mg/dL (2.6-4.7); POTASSIUM 3.1 mmol/L (3.5-5.1); TOTAL BILIRUBIN 0.3 mg/dL (0.2-1.0); TOTAL PROTEIN 7.2 g/dL (6.4-8.2)
--- NOTE | 2019-11-08 08:28 | PDOC ---
SUBJECTIVE ROS Follow-up for metabolic acidosis Patient somewhat upset at this time. He wants his lower extremity casts taken off right now. Not cooperative with review of systems OBJECTIVE Vital Signs Vital Signs Date Time Temp Pulse Resp B/P (MAP) Pulse Ox O2 Delivery O2 Flow Rate FiO2 11/08/19 03:00 98.9 77 18 121/61 (81) 94 Room Air 98.9 I & 0 Intake and Output 11/08/19 07:00 Output Total 900 ml Balance -900 ml Output Urine Total 900 ml # Voids 1 # Bowel Movements 1 PHYSICAL EXAM Physical Exam General Appearance: Awake: Alert Oriented x 1-2 at least Neck: No JVD or JVP Chest: CTA Luis Antonio Heart: S1 S2 Abdomen - Soft NTND Extremities - No Edema DIAGNOSIS/ASSESSMENT Assessment & Plan Metabolic acidosis: At time of diagnosis his anion gap was elevated especially if corrected for low albumin. I believe he may have an element of hyperchloremic metabolic acidosis due to chloride based IV fluids. However this appears to have corrected with potassium citrate supplementation Hypokalemia: Continue replacement as ordered. Magnesium is adequate. If IV fluids are required consider adding potassium to IV fluids ROBERTA at presentation now resolved. It is unclear to me if creatinine is improved due to his amputations and loss of muscle mass Severe hypoalbuminemia: Possibly due to chronic infection. Underlying diabetic nephropathy cannot be ruled out. Poor p.o. intake may be contributing to. I have changed potassium supplements to potassium chloride if required . If metabolic acidosis recurs off of IV fluids and potassium citrate, we will be happy to return for further evaluation We will sign off for now. Please call with questions concerns COMMENT/RELEVANT DATA Meds Current Medications Medications (Trade) Dose Ordered Sig/Yannick Start Time Stop Time Status Last Admin Dose Admin Amlodipine Besylate (Norvasc) 5 mg DAILY 11/03/19 09:00 11/07/19 09:41 5 MG Ascorbic Acid (Vitamin C) 500 mg BID 11/02/19 14:00 11/07/19 20:31 500 MG Daptomycin 500 mg/ Sodium Chloride 50 ml @ 100 mls/hr Q24H 10/30/19 17:00 11/05/19 09:59 DC 11/04/19 15:28 100 MLS/HR Daptomycin 510 mg/ Sodium Chloride 50 ml @ 100 mls/hr Q24H 10/30/19 16:00 Cancel Dexamethasone Sodium Phosphate (Decadron) 4 mg STK-MED ONCE 11/02/19 14:52 11/02/19 14:56 DC Dextrose (Dextrose 50%-Water Syringe) 12.5 gm PRN Q15MIN PRN 11/03/19 07:30 11/04/19 17:06 DC Ephedrine Sulfate (ePHEDrine PF IN SALINE SYRINGE) 50 mg STK-MED ONCE 11/02/19 17:57 11/02/19 17:57 DC Fentanyl Citrate (Fentanyl 2ml Vial) 50 mcg PRN Q10MIN PRN 11/02/19 20:15 11/03/19 01:00 DC 11/02/19 20:09 50 MCG Hydralazine HCl (Apresoline Inj) 10 mg PRN Q4HRS PRN 11/02/19 22:45 11/06/19 04:41 10 MG Hydromorphone HCl (Dilaudid) 1 mg PRN Q10MIN PRN 11/02/19 20:15 11/03/19 01:00 DC 11/02/19 20:46 1 MG Insulin Human Lispro (HumaLOG) 0-5 UNITS TIDACHC 11/03/19 07:30 11/04/19 17:06 DC Ketorolac Tromethamine (Toradol 15mg Vial) 15 mg 1X ONCE 11/03/19 16:45 11/03/19 16:46 DC 11/03/19 16:52 15 MG Labetalol HCl (Normodyne Iv Push) 20 mg PRN Q2HR PRN 11/03/19 03:45 11/03/19 04:04 20 MG Lactobacillus Rhamnosus (Culturelle) 1 cap BID 10/30/19 21:00 11/07/19 20:32 1 CAP Lidocaine HCl (Lidocaine Pf 2% Vial) 5 ml STK-MED ONCE 11/02/19 14:52 11/02/19 14:57 DC Magnesium Sulfate 50 ml @ 25 mls/hr PRN DAILY PRN 11/06/19 16:30 Meropenem 500 mg/ Sodium Chloride 50 ml @ 100 mls/hr Q6HRS 10/30/19 18:00 11/05/19 09:59 DC 11/05/19 05:15 100 MLS/HR Micafungin Sodium 100 mg/Dextrose 100 ml @ 100 mls/hr Q24H 10/30/19 17:00 11/05/19 09:59 DC 11/04/19 16:03 100 MLS/HR Morphine Sulfate (Morphine Sulfate) 2 mg PRN Q10MIN PRN 11/02/19 20:15 11/03/19 01:00 DC Multivitamins (Thera M Plus) 1 tab DAILY 11/02/19 14:00 11/07/19 09:41 1 TAB Ondansetron HCl (Zofran) 4 mg STK-MED ONCE 11/02/19 14:52 11/02/19 14:56 DC Oxycodone/ Acetaminophen (Percocet 10/325) 1 tab PRN Q4HRS PRN 10/30/19 00:00 11/07/19 09:41 1 TAB Phenylephrine HCl (PHENYLEPHRINE in 0.9% NACL PF) 1 mg STK-MED ONCE 11/02/19 17:41 11/02/19 17:41 DC Piperacillin Sod/ Tazobactam Sod (Zosyn Per Pharmacy) 1 each PRN DAILY PRN 10/30/19 12:00 10/30/19 16:05 DC Piperacillin Sod/ Tazobactam Sod 3.375 gm/Sodium Chloride 50 ml @ 100 mls/hr Q6HRS 10/30/19 12:15 10/30/19 16:05 DC 10/30/19 12:51 100 MLS/HR Polyethylene Glycol (miraLAX PACKET) 17 gm DAILY 11/03/19 09:00 11/06/19 08:26 17 GM Potassium Chloride/Water 100 ml @ 100 mls/hr Q1H 11/03/19 08:00 11/03/19 09:59 DC 11/03/19 10:15 100 MLS/HR Potassium Chloride (Klor-Con) 40 meq 1X ONCE 11/06/19 14:15 11/06/19 14:16 DC Potassium Citrate (Urocit-K) 20 meq [id number] 11/06/19 16:30 11/07/19 17:07 20 MEQ Prochlorperazine Edisylate (Compazine) 5 mg PACU PRN PRN 11/02/19 11:45 11/02/19 21:00 DC 11/02/19 20:18 5 MG Propofol (Diprivan) 200 mg STK-MED ONCE 11/02/19 14:52 11/02/19 14:59 DC Psyllium Hydrophilic Mucilloid (Metamucil Fiber Packet) 1 pkt DAILY 11/03/19 09:00 11/06/19 08:26 1 PKT Ringer's Solution 1,000 ml @ 30 mls/hr Q24H 11/02/19 20:00 11/03/19 07:59 DC Sodium Chloride 1,000 ml @ 75 mls/hr [id number] 11/04/19 12:15 11/06/19 16:32 DC 11/06/19 04:42 75 MLS/HR Vancomycin HCl (Vanco Per Pharmacy) 1 each PRN DAILY PRN 10/29/19 23:45 10/30/19 12:06 DC 10/30/19 01:33 1 EACH Vancomycin HCl (Vancomycin Trough Level) 1 each 1X ONCE 10/31/19 16:30 10/31/19 16:31 Cancel Vancomycin HCl 1.25 gm/Sodium Chloride 250 ml @ 167 mls/hr Q24H 10/30/19 17:00 10/30/19 12:06 DC Vancomycin HCl 2 gm/Sodium Chloride 500 ml @ 250 mls/hr 1X ONCE 10/29/19 17:00 10/29/19 18:59 DC 10/29/19 17:18 250 MLS/HR Lab Laboratory Tests Test 11/08/19 07:10 White Blood Count 7.9 x10^3/uL (4.0-11.0) Red Blood Count 3.34 x10^6/uL (4.30-5.70) Hemoglobin 9.2 g/dL (13.0-17.5) Hematocrit 27.0 % (39.0-53.0) Mean Corpuscular Volume 81 fL (79-100) Mean Corpuscular Hemoglobin 28 pg (25-35) Mean Corpuscular Hemoglobin Concent 34 g/dL (31-37) Red Cell Distribution Width 14.6 % (11.5-14.5) Platelet Count 422 x10^3/uL (140-400) Neutrophils (%) (Auto) 74 % (31-73) Lymphocytes (%) (Auto) 18 % (24-48) Monocytes (%) (Auto) 6 % (0-9) Eosinophils (%) (Auto) 1 % (0-3) Basophils (%) (Auto) 1 % (0-3) Neutrophils # (Auto) 5.8 x10^3/uL (1.8-7.7) Lymphocytes # (Auto) 1.4 x10^3/uL (1.0-4.8) Monocytes # (Auto) 0.5 x10^3/uL (0.0-1.1) Eosinophils # (Auto) 0.1 x10^3/uL (0.0-0.7) Basophils # (Auto) 0.1 x10^3/uL (0.0-0.2) Sodium Level 141 mmol/L (136-145) Potassium Level 3.1 mmol/L (3.5-5.1) Chloride Level 108 mmol/L (98-107) Carbon Dioxide Level 23 mmol/L (21-32) Anion Gap 10 (6-14) Blood Urea Nitrogen 8 mg/dL (8-26) Creatinine 0.9 mg/dL (0.7-1.3) Estimated GFR (Cockcroft-Gault) 100.1 BUN/Creatinine Ratio 9 (6-20) Glucose Level 124 mg/dL (70-99) Calcium Level 8.5 mg/dL (8.5-10.1) Phosphorus Level 3.3 mg/dL (2.6-4.7) Magnesium Level 2.0 mg/dL (1.8-2.4) Total Bilirubin 0.3 mg/dL (0.2-1.0) Aspartate Amino Transf (AST/SGOT) 59 U/L (15-37) Alanine Aminotransferase (ALT/SGPT) 93 U/L (16-63) Alkaline Phosphatase 78 U/L (46-116) Total Protein 7.2 g/dL (6.4-8.2) Albumin 2.2 g/dL (3.4-5.0) Albumin/Globulin Ratio 0.4 (1.0-1.7) Results All relevant outside records, renal labs, imaging studies, telemetry/EKG's were reviewed. Justicifation of Admission Dx: Justifications for Admission: Justification of Admission Dx: N/A JOHANNY YAÑEZ MD Nov 08, 2019 08:28
[2019-11-08] MEDS: ASCORBIC ACID 500 MG TABLET PO SCH ×2 (08:29→21:14)
[2019-11-08] MEDS: LACTOBACILLUS RHAMNOSUS GG 1 CAPSULE. PO SCH ×2 (08:29→21:14)
[2019-11-08] MEDS: amLODIPine BESYLATE 5 MG TABLET PO SCH (08:29)
[2019-11-08] MEDS: MULTIVITAMIN with MINERAL TABLET. PO SCH (08:29)
[2019-11-08] MEDS: POTASSIUM CHLORIDE 20 MEQ TABLET.ER. PO SCH ×3 (08:34→16:57)
[2019-11-08] MEDS: oxyCODONE/APAP 10/325 1 TAB TABLET PO PRN ×3 (08:35→16:57)
[2019-11-08] MEDS: PSYLLIUM HUSK (SUGAR FREE) 1 PKT PACKET PO SCH (09:00)
[2019-11-08] MEDS: POLYETHYLENE GLYCOL 3350 17 GM PACKET. PO SCH (09:00)
--- NOTE | 2019-11-08 09:26 | NUR ---
stool softeners held d/t pt having loose stools.
--- NOTE | 2019-11-08 16:25 | PDOC ---
GENERAL General: Patient examined chart reviewed seen with at bedside discussed with nursing. Patient is extremely cranky this afternoon says that he is signing h imself out no matter what and he is going home despite recommendations from physical therapy that he needs rehab to adjust to his bilateral below the knee amputation and the bulky cast. They do have their appointment for discharge home but is not clear that she will be able to handle him there. I am happy to mediate at discharge if that can happen today. Physical therapy was unable to work with him today because he refused. In the meantime we will order some Xanax as needed agitation. Total time today is 30 minutes with greater than 50% in counseling and coordination of care most of which in discussion with patient and his Problems: (1) Lower extremity ulceration (2) Peripheral vascular disease VITAL SIGNS Vital Signs/I&O: Vital Signs Date Time Temp Pulse Resp B/P (MAP) Pulse Ox O2 Delivery O2 Flow Rate FiO2 11/08/19 13:57 Room Air 11/08/19 11:59 98.3 86 20 122/72 (89) 97 98.3 11/08/19 08:00 2.0 I & O 11/07/19 11/07/19 11/08/19 15:00 23:00 07:00 Output Total 900 ml Balance -900 ml Patient is very anxious this afternoon tells me that he is leaving no matter what he will sign himself out if he needs to Chest is clear to auscultation Heart S1-S2 normal regular rate and rhythm no murmurs or gallops are noted Abdomen soft nontender nondistended no masses organomegaly noted Extremity exam is notable for the bulky cast on both lower extremities there is some drainage on the right forearm that has not increased from prior ALLERGIES Allergies: Allergies Coded Allergies Type Severity Reaction Last Updated Verified I S O L A T I O N *CONTACT* Allergy Unknown 11/03/19 Yes No Known Medication Allergies Allergy Unknown 11/03/19 Yes MEDS Medications: Current Medications Medications (Trade) Dose Ordered Sig/Yannick Start Time Stop Time Status Last Admin Dose Admin Amlodipine Besylate (Norvasc) 5 mg DAILY 11/03/19 09:00 11/08/19 08:29 Ascorbic Acid (Vitamin C) 500 mg BID 11/02/19 14:00 11/08/19 08:29 Daptomycin 500 mg/ Sodium Chloride 50 ml @ 100 mls/hr Q24H 10/30/19 17:00 11/05/19 09:59 DC 11/04/19 15:28 Daptomycin 510 mg/ Sodium Chloride 50 ml @ 100 mls/hr Q24H 10/30/19 16:00 Cancel Dexamethasone Sodium Phosphate (Decadron) 4 mg STK-MED ONCE 11/02/19 14:52 11/02/19 14:56 DC Dextrose (Dextrose 50%-Water Syringe) 12.5 gm PRN Q15MIN PRN 11/03/19 07:30 11/04/19 17:06 DC Ephedrine Sulfate (ePHEDrine PF IN SALINE SYRINGE) 50 mg STK-MED ONCE 11/02/19 17:57 11/02/19 17:57 DC Fentanyl Citrate (Fentanyl 2ml Vial) 50 mcg PRN Q10MIN PRN 11/02/19 20:15 11/03/19 01:00 DC 11/02/19 20:09 Hydralazine HCl (Apresoline Inj) 10 mg PRN Q4HRS PRN 11/02/19 22:45 11/06/19 04:41 Hydromorphone HCl (Dilaudid) 1 mg PRN Q10MIN PRN 11/02/19 20:15 11/03/19 01:00 DC 11/02/19 20:46 Insulin Human Lispro (HumaLOG) 0-5 UNITS TIDACHC 11/03/19 07:30 11/04/19 17:06 DC Ketorolac Tromethamine (Toradol 15mg Vial) 15 mg 1X ONCE 11/03/19 16:45 11/03/19 16:46 DC 11/03/19 16:52 Labetalol HCl (Normodyne Iv Push) 20 mg PRN Q2HR PRN 11/03/19 03:45 11/03/19 04:04 Lactobacillus Rhamnosus (Culturelle) 1 cap BID 10/30/19 21:00 11/08/19 08:29 Lidocaine HCl (Lidocaine Pf 2% Vial) 5 ml STK-MED ONCE 11/02/19 14:52 11/02/19 14:57 DC Magnesium Sulfate 50 ml @ 25 mls/hr PRN DAILY PRN 11/06/19 16:30 Meropenem 500 mg/ Sodium Chloride 50 ml @ 100 mls/hr Q6HRS 10/30/19 18:00 11/05/19 09:59 DC 11/05/19 05:15 Micafungin Sodium 100 mg/Dextrose 100 ml @ 100 mls/hr Q24H 10/30/19 17:00 11/05/19 09:59 DC 11/04/19 16:03 Morphine Sulfate (Morphine Sulfate) 2 mg PRN Q10MIN PRN 11/02/19 20:15 11/03/19 01:00 DC Multivitamins (Thera M Plus) 1 tab DAILY 11/02/19 14:00 11/08/19 08:29 Ondansetron HCl (Zofran) 4 mg STK-MED ONCE 11/02/19 14:52 11/02/19 14:56 DC Oxycodone/ Acetaminophen (Percocet 10) 1 tab PRN Q4HRS PRN 10/30/19 00:00 11/08/19 12:35 Phenylephrine HCl (PHENYLEPHRINE in 0.9% NACL PF) 1 mg STK-MED ONCE 11/02/19 17:41 11/02/19 17:41 DC Piperacillin Sod/ Tazobactam Sod (Zosyn Per Pharmacy) 1 each PRN DAILY PRN 10/30/19 12:00 10/30/19 16:05 DC Piperacillin Sod/ Tazobactam Sod 3.375 gm/Sodium Chloride 50 ml @ 100 mls/hr Q6HRS 10/30/19 12:15 10/30/19 16:05 DC 10/30/19 12:51 Polyethylene Glycol (miraLAX PACKET) 17 gm DAILY 11/03/19 09:00 11/06/19 08:26 Potassium Chloride/Water 100 ml @ 100 mls/hr Q1H 11/03/19 08:00 11/03/19 09:59 DC 11/03/19 10:15 Potassium Chloride (Klor-Con) 40 meq TIDWMEALS 11/08/19 09:00 11/09/19 17:01 11/08/19 12:32 Potassium Citrate (Urocit-K) 20 meq [id number] 11/06/19 16:30 11/08/19 08:29 DC 11/07/19 17:07 Prochlorperazine Edisylate (Compazine) 5 mg PACU PRN PRN 11/02/19 11:45 11/02/19 21:00 DC 11/02/19 20:18 Propofol (Diprivan) 200 mg STK-MED ONCE 11/02/19 14:52 11/02/19 14:59 DC Psyllium Hydrophilic Mucilloid (Metamucil Fiber Packet) 1 pkt DAILY 11/03/19 09:00 11/06/19 08:26 Ringer's Solution 1,000 ml @ 30 mls/hr Q24H 11/02/19 20:00 11/03/19 07:59 DC Sodium Chloride 1,000 ml @ 75 mls/hr [id number] 11/04/19 12:15 11/06/19 16:32 DC 11/06/19 04:42 Vancomycin HCl (Vanco Per Pharmacy) 1 each PRN DAILY PRN 10/29/19 23:45 10/30/19 12:06 DC 10/30/19 01:33 Vancomycin HCl (Vancomycin Trough Level) 1 each 1X ONCE 10/31/19 16:30 10/31/19 16:31 Cancel Vancomycin HCl 1.25 gm/Sodium Chloride 250 ml @ 167 mls/hr Q24H 10/30/19 17:00 10/30/19 12:06 DC Vancomycin HCl 2 gm/Sodium Chloride 500 ml @ 250 mls/hr 1X ONCE 10/29/19 17:00 10/29/19 18:59 DC 10/29/19 17:18 Current Medications Medications (Trade) Dose Ordered Sig/Yannick Route PRN Reason Start Time Stop Time Status Last Admin Dose Admin Potassium Chloride (Klor-Con) 40 meq TIDWMEALS PO 11/08/19 09:00 11/09/19 17:01 11/08/19 12:32 LAB Lab: Laboratory Tests Test 11/08/19 07:10 White Blood Count 7.9 x10^3/uL (4.0-11.0) Red Blood Count 3.34 x10^6/uL (4.30-5.70) L Hemoglobin 9.2 g/dL (13.0-17.5) L Hematocrit 27.0 % (39.0-53.0) L Mean Corpuscular Volume 81 fL (79-100) Mean Corpuscular Hemoglobin 28 pg (25-35) Mean Corpuscular Hemoglobin Concent 34 g/dL (31-37) Red Cell Distribution Width 14.6 % (11.5-14.5) H Platelet Count 422 x10^3/uL (140-400) H Neutrophils (%) (Auto) 74 % (31-73) H Lymphocytes (%) (Auto) 18 % (24-48) L Monocytes (%) (Auto) 6 % (0-9) Eosinophils (%) (Auto) 1 % (0-3) Basophils (%) (Auto) 1 % (0-3) Neutrophils # (Auto) 5.8 x10^3/uL (1.8-7.7) Lymphocytes # (Auto) 1.4 x10^3/uL (1.0-4.8) Monocytes # (Auto) 0.5 x10^3/uL (0.0-1.1) Eosinophils # (Auto) 0.1 x10^3/uL (0.0-0.7) Basophils # (Auto) 0.1 x10^3/uL (0.0-0.2) Sodium Level 141 mmol/L (136-145) Potassium Level 3.1 mmol/L (3.5-5.1) L Chloride Level 108 mmol/L (98-107) H Carbon Dioxide Level 23 mmol/L (21-32) Anion Gap 10 (6-14) Blood Urea Nitrogen 8 mg/dL (8-26) Creatinine 0.9 mg/dL (0.7-1.3) Estimated GFR (Cockcroft-Gault) 100.1 BUN/Creatinine Ratio 9 (6-20) Glucose Level 124 mg/dL (70-99) H Calcium Level 8.5 mg/dL (8.5-10.1) Phosphorus Level 3.3 mg/dL (2.6-4.7) Magnesium Level 2.0 mg/dL (1.8-2.4) Total Bilirubin 0.3 mg/dL (0.2-1.0) Aspartate Amino Transferase (AST) 59 U/L (15-37) H Alanine Aminotransferase (ALT) 93 U/L (16-63) H Alkaline Phosphatase 78 U/L (46-116) Total Protein 7.2 g/dL (6.4-8.2) Albumin 2.2 g/dL (3.4-5.0) L Albumin/Globulin Ratio 0.4 (1.0-1.7) L Laboratory Tests 11/08/19 07:10 Laboratory Tests 11/08/19 07:10 ASSESSMENT & PLAN A&P Plan as noted above This note was created using [employer] and may have omissions and/or errors due to 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 Justicifation of Admission Dx: Justifications for Admission: Justification of Admission Dx: N/A Nutrition Consultation Dietary Evaluation: Recommendations by RD: Dietary education by RD, Increase Calorie Intake, Protein supplementation Comments: cardiac diet with ensure tid mvi and vit c per wound protocal Expected Outcomes/Goals: to meet >75% est nutr needs- not met, goal ongoing Malnutrition Findings: Body Fat Depletion (Non Severe: Mild Depletion Weight Status: Underweight Problem Qualifiers (1) Lower extremity ulceration: Laterality: right Non-pressure ulcer stage: unspecified non-pressure ulcer stage Qualified Codes: 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
[2019-11-08] MEDS ORDERED: ALPRAZolam 0.25 MG TABLET PO PRN (16:30)
[2019-11-09 03:02] VITALS: BP 167/84
[2019-11-09 05:51] LABS: ALBUMIN 2.3 g/dL (3.4-5.0); CALCIUM 8.8 mg/dL (8.5-10.1); GFR 88.6; PHOSPHORUS 3.8 mg/dL (2.6-4.7); POTASSIUM 3.9 mmol/L (3.5-5.1)
[2019-11-09 07:00] VITALS: BP 136/71
[2019-11-09] MEDS: ASCORBIC ACID 500 MG TABLET PO SCH ×2 (07:47→20:49)
[2019-11-09] MEDS: MULTIVITAMIN with MINERAL TABLET. PO SCH (07:48)
[2019-11-09] MEDS: POTASSIUM CHLORIDE 20 MEQ TABLET.ER. PO SCH ×3 (07:48→18:15)
[2019-11-09] MEDS: LACTOBACILLUS RHAMNOSUS GG 1 CAPSULE. PO SCH ×2 (07:48→20:49)
[2019-11-09] MEDS: amLODIPine BESYLATE 5 MG TABLET PO SCH (07:48)
[2019-11-09] MEDS: PSYLLIUM HUSK (SUGAR FREE) 1 PKT PACKET PO SCH (07:49)
[2019-11-09] MEDS: POLYETHYLENE GLYCOL 3350 17 GM PACKET. PO SCH (07:49)
--- NOTE | 2019-11-09 08:43 | PDOC ---
PROGRESS NOTES Chief Complaint Chief Complaint impression Chronic ulceration lower extremities bilaterally associated with increased pain, drainage, odor and tendon exposure as well as maggot infestation Nonhealing open transmetatarsal amputation, left foot. Leukocytosis. Renal insufficiency, baseline creatinine not known. Peripheral vascular disease, status post revascularization. Peripheral neuropathy. Diabetes. Hypertension Element of hyperchloremic metabolic acidosis due to chloride based IV fluids 11/03 Continue Dapto, meropenem, micafungin IV 11/08 cast to prevent Contractures Discontinue Dapto, meropenem, micafungin , Await Ortho f/u consult nephrology serum IMMUNOGLOBULINS/ UPIE, SPIE, PARATHYROID HORMONE SELECT REFERRAL d/w RN History of Present Illness History of Present Illness Mr Guardado is a 74yo M [facility] w/ PMHx diabetes, hypertension, hyperlipidemia, peripheral neuropathy and peripheral vascular disease, status post revascularization lower extremities. He is followed by the [place] wound care for chronic ulcerations lower extremities bilaterally. Earlier this year, he underwent an open transmetatarsal amputation of his left foot due to gangrene and osteomyelitis. He says he has been on antibiotics with little improvement. Over the last few days, he developed worsening pain, drainage and odor. He was found to have maggots in his wounds. X-ray imaging showed soft tissue defects. No fractures or bony erosions. A venous ultrasound was negative for DVT. The wounds were cleaned. The maggots removed and cultures were sent. He has since been admitted and started on vancomycin and Zosyn. Vascular surgery and ID were consulted. 10/29: He wants to have a bilateral below the knee amputation 10/30: His lower extremities are both wrapped with clean dry intact dressing 10/31: BP elevated 11/01: Afebrile. Bilateral BKA. No chest pain or shortness of breath. Overnight hypertensive, minimally responsive to hydralazine, added labetalol with good effect. Afebrile. WBC 16. K 3. He is drowsy today, in quite a bit of pain, did just work with PT and OT. Plan: d/c daptomycin, merrem, micafungin 11/04 Add glucose checks, sliding scale Vitals Vitals Vital Signs Date Time Temp Pulse Resp B/P (MAP) Pulse Ox O2 Delivery O2 Flow Rate FiO2 11/09/19 08:00 Room Air 11/09/19 07:48 85 136/71 11/09/19 07:00 98.3 16 99 98.3 11/08/19 08:00 2.0 Physical Exam Physical Exam GENERAL: Propped up in bed, Alert. NAD looks better HEENT: COSME, Oropharynx pink and moist. No lesions seen. NECK: Supple. LUNGS: Clear to auscultation. HEART: S1 and S2. ABDOMEN: Nondistended, soft, nontender with bowel sounds present. EXTREMITIES: No gross edema. Wounds dressed with casts Luis Antonio SKIN: Warm to touch. No signs of rash. NEUROLOGIC: Alert and appropriate General: Alert, Oriented X3, Cooperative, mild distress Heart: Regular rate, Normal S1, Normal S2 Lungs: Clear Abdomen: Normal bowel sounds, Soft, No tenderness Extremities: No cyanosis, No edema, Other (Palpable popliteal pulses bilaterally, palpable femoral pulses bilaterally) Skin: Other (Significant full-thickness diffuse wounds involving bilateral lower extremities with full-thickness wound to the level of the Achilles tendon on the right and multiple other full-thickness wounds scattered throughout the below-knee area on the right and the left. The patient has an open TMA amputation site with dermal graft in place.) Labs LABS Laboratory Tests Test 11/09/19 03:30 Sodium Level 144 mmol/L (136-145) Potassium Level 3.9 mmol/L (3.5-5.1) Chloride Level 110 mmol/L (98-107) Carbon Dioxide Level 19 mmol/L (21-32) Anion Gap 15 (6-14) Blood Urea Nitrogen 9 mg/dL (8-26) Creatinine 1.0 mg/dL (0.7-1.3) Estimated GFR (Cockcroft-Gault) 88.6 Glucose Level 96 mg/dL (70-99) Calcium Level 8.8 mg/dL (8.5-10.1) Phosphorus Level 3.8 mg/dL (2.6-4.7) Magnesium Level 2.0 mg/dL (1.8-2.4) Albumin 2.3 g/dL (3.4-5.0) Assessment and Plan Assessmemt and Plan Problems Medical Problems: (1) Lower extremity ulceration Status: Acute Comment Review of Relevant I have reviewed the following items solomon (where applicable) has been applied. Labs Laboratory Tests Test 11/08/19 07:10 11/09/19 03:30 White Blood Count 7.9 x10^3/uL (4.0-11.0) Red Blood Count 3.34 x10^6/uL (4.30-5.70) Hemoglobin 9.2 g/dL (13.0-17.5) Hematocrit 27.0 % (39.0-53.0) Mean Corpuscular Volume 81 fL (79-100) Mean Corpuscular Hemoglobin 28 pg (25-35) Mean Corpuscular Hemoglobin Concent 34 g/dL (31-37) Red Cell Distribution Width 14.6 % (11.5-14.5) Platelet Count 422 x10^3/uL (140-400) Neutrophils (%) (Auto) 74 % (31-73) Lymphocytes (%) (Auto) 18 % (24-48) Monocytes (%) (Auto) 6 % (0-9) Eosinophils (%) (Auto) 1 % (0-3) Basophils (%) (Auto) 1 % (0-3) Neutrophils # (Auto) 5.8 x10^3/uL (1.8-7.7) Lymphocytes # (Auto) 1.4 x10^3/uL (1.0-4.8) Monocytes # (Auto) 0.5 x10^3/uL (0.0-1.1) Eosinophils # (Auto) 0.1 x10^3/uL (0.0-0.7) Basophils # (Auto) 0.1 x10^3/uL (0.0-0.2) Sodium Level 141 mmol/L (136-145) 144 mmol/L (136-145) Potassium Level 3.1 mmol/L (3.5-5.1) 3.9 mmol/L (3.5-5.1) Chloride Level 108 mmol/L (98-107) 110 mmol/L (98-107) Carbon Dioxide Level 23 mmol/L (21-32) 19 mmol/L (21-32) Anion Gap 10 (6-14) 15 (6-14) Blood Urea Nitrogen 8 mg/dL (8-26) 9 mg/dL (8-26) Creatinine 0.9 mg/dL (0.7-1.3) 1.0 mg/dL (0.7-1.3) Estimated GFR (Cockcroft-Gault) 100.1 88.6 BUN/Creatinine Ratio 9 (6-20) Glucose Level 124 mg/dL (70-99) 96 mg/dL (70-99) Calcium Level 8.5 mg/dL (8.5-10.1) 8.8 mg/dL (8.5-10.1) Phosphorus Level 3.3 mg/dL (2.6-4.7) 3.8 mg/dL (2.6-4.7) Magnesium Level 2.0 mg/dL (1.8-2.4) 2.0 mg/dL (1.8-2.4) Total Bilirubin 0.3 mg/dL (0.2-1.0) Aspartate Amino Transf (AST/SGOT) 59 U/L (15-37) Alanine Aminotransferase (ALT/SGPT) 93 U/L (16-63) Alkaline Phosphatase 78 U/L (46-116) Total Protein 7.2 g/dL (6.4-8.2) Albumin 2.2 g/dL (3.4-5.0) 2.3 g/dL (3.4-5.0) Albumin/Globulin Ratio 0.4 (1.0-1.7) Laboratory Tests Test 11/09/19 03:30 Sodium Level 144 mmol/L (136-145) Potassium Level 3.9 mmol/L (3.5-5.1) Chloride Level 110 mmol/L (98-107) Carbon Dioxide Level 19 mmol/L (21-32) Anion Gap 15 (6-14) Blood Urea Nitrogen 9 mg/dL (8-26) Creatinine 1.0 mg/dL (0.7-1.3) Estimated GFR (Cockcroft-Gault) 88.6 Glucose Level 96 mg/dL (70-99) Calcium Level 8.8 mg/dL (8.5-10.1) Phosphorus Level 3.8 mg/dL (2.6-4.7) Magnesium Level 2.0 mg/dL (1.8-2.4) Albumin 2.3 g/dL (3.4-5.0) Microbiology 11/03/19 Blood Culture - Final, Complete NO GROWTH AFTER 5 DAYS 10/29/19 Gram Stain - Final, Complete 10/29/19 Aerobic and Anaerobic Culture - Final, Complete 10/29/19 Antimicrobic Susceptibility - Final, Complete Medications Current Medications Vancomycin HCl (Vanco Per Pharmacy) 1 each 1X ONCE MC ; Start 10/29/19 at 17:00; Stop 10/30/19 at 16:05; Status DC Sodium Chloride 1,000 ml @ 1,000 mls/hr Q1H IV Last administered on 10/29/19at 17:17; Start 10/29/19 at 16:41; Stop 10/29/19 at 17:40; Status DC Fentanyl Citrate (Fentanyl 2ml Vial) 50 mcg 1X ONCE IVP Last administered on 10/29/19at 17:17; Start 10/29/19 at 16:45; Stop 10/29/19 at 16:46; Status DC Piperacillin Sod/ Tazobactam Sod 3.375 gm/Sodium Chloride 50 ml @ 100 mls/hr 1X ONCE IV Last administered on 10/29/19at 18:06; Start 10/29/19 at 17:00; Stop 10/29/19 at 17:29; Status DC Vancomycin HCl 2 gm/Sodium Chloride 500 ml @ 250 mls/hr 1X ONCE IV Last administered on 10/29/19at 17:18; Start 10/29/19 at 17:00; Stop 10/29/19 at 18:59; Status DC Ondansetron HCl (Zofran) 4 mg PRN Q8HRS PRN IV NAUSEA/VOMITING; Start 10/29/19 at 18:00; Stop 10/30/19 at 17:59; Status DC Fentanyl Citrate (Fentanyl 2ml Vial) 50 mcg PRN Q1HR PRN IV PAIN Last administered on 10/29/19at 22:48; Start 10/29/19 at 18:00; Stop 10/29/19 at 23:47; Status DC Oxycodone/ Acetaminophen (Percocet 10/325) 1 tab PRN Q4HRS PRN PO SEVERE PAIN 7-10 Last administered on 11/08/19at 16:57; Start 10/30/19 at 00:00 Vancomycin HCl 1.25 gm/Sodium Chloride 250 ml @ 167 mls/hr Q24H IV ; Start 10/30/19 at 17:00; Stop 10/30/19 at 12:06; Status DC Vancomycin HCl (Vancomycin Trough Level) 1 each 1X ONCE MC ; Start 10/31/19 at 16:30; Stop 10/31/19 at 16:31; Status Cancel Vancomycin HCl (Vanco Per Pharmacy) 1 each PRN DAILY PRN MC SEE COMMENTS Last administered on 10/30/19at 01:33; Start 10/29/19 at 23:45; Stop 10/30/19 at 12:06; Status DC Hydromorphone HCl (Dilaudid) 1 mg PRN Q2HR PRN IV breakthrough pain Last administered on 11/05/19at 00:59; Start 10/30/19 at 07:15 Lactobacillus Rhamnosus (Culturelle) 1 cap BID PO Last administered on 11/09/19at 07:48; Start 10/30/19 at 21:00 Piperacillin Sod/ Tazobactam Sod (Zosyn Per Pharmacy) 1 each PRN DAILY PRN MC SEE COMMENTS; Start 10/30/19 at 12:00; Stop 10/30/19 at 16:05; Status DC Piperacillin Sod/ Tazobactam Sod 3.375 gm/Sodium Chloride 50 ml @ 100 mls/hr Q6HRS IV Last administered on 10/30/19at 12:51; Start 10/30/19 at 12:15; Stop 10/30/19 at 16:05; Status DC Potassium Chloride (Klor-Con) 40 meq 1X ONCE PO Last administered on 10/30/19at 15:35; Start 10/30/19 at 15:30; Stop 10/30/19 at 15:31; Status DC Potassium Chloride (Klor-Con) 40 meq 1X ONCE PO Last administered on 10/30/19at 19:53; Start 10/30/19 at 19:30; Stop 10/30/19 at 19:31; Status DC Meropenem 500 mg/ Sodium Chloride 50 ml @ 100 mls/hr Q6HRS IV Last administered on 11/05/19at 05:15; Start 10/30/19 at 18:00; Stop 11/05/19 at 09:59; Status DC Daptomycin 510 mg/ Sodium Chloride 50 ml @ 100 mls/hr Q24H IV ; Start 10/30/19 at 16:00; Status Cancel Micafungin Sodium 100 mg/Dextrose 100 ml @ 100 mls/hr Q24H IV Last administered on 11/04/19at 16:03; Start 10/30/19 at 17:00; Stop 11/05/19 at 09:59; Status DC Daptomycin 500 mg/ Sodium Chloride 50 ml @ 100 mls/hr Q24H IV Last administered on 11/04/19at 15:28; Start 10/30/19 at 17:00; Stop 11/05/19 at 09:59; Status DC Potassium Chloride (Klor-Con) 40 meq 1X ONCE PO Last administered on 10/31/19at 21:11; Start 10/31/19 at 20:30; Stop 10/31/19 at 20:31; Status DC Magnesium Sulfate 100 ml @ 25 mls/hr 1X ONCE IV Last administered on 11/01/19at 09:37; Start 11/01/19 at 09:00; Stop 11/01/19 at 12:59; Status DC Potassium Chloride (Klor-Con) 40 meq 1X ONCE PO Last administered on 11/01/19at 09:38; Start 11/01/19 at 08:30; Stop 11/01/19 at 08:31; Status DC Potassium Chloride (Klor-Con) 20 meq DAILYWBKFT PO Last administered on 11/06/19at 08:25; Start 11/02/19 at 08:00; Stop 11/06/19 at 16:33; Status DC Potassium Chloride (Klor-Con) 40 meq 1X ONCE PO Last administered on 11/01/19at 17:23; Start 11/01/19 at 17:00; Stop 11/01/19 at 17:01; Status DC Ondansetron HCl (Zofran) 4 mg PRN Q6HRS PRN IV NAUSEA/VOMITING; Start 11/02/19 at 11:45; Stop 11/02/19 at 21:00; Status DC Ringer's Solution 1,000 ml @ 30 mls/hr Q24H IV ; Start 11/02/19 at 12:00; Stop 11/02/19 at 21:00; Status Cancel Prochlorperazine Edisylate (Compazine) 5 mg PACU PRN PRN IV NAUSEA, MRX1 Last administered on 11/02/19at 20:18; Start 11/02/19 at 11:45; Stop 11/02/19 at 21:00; Status DC Multivitamins (Thera M Plus) 1 tab DAILY PO Last administered on 11/09/19at 07:48; Start 11/02/19 at 14:00 Ascorbic Acid (Vitamin C) 500 mg BID PO Last administered on 11/09/19at 07:47; Start 11/02/19 at 14:00 Dexamethasone Sodium Phosphate (Decadron) 4 mg STK-MED ONCE .ROUTE ; Start 11/02/19 at 14:52; Stop 11/02/19 at 14:56; Status DC Ondansetron HCl (Zofran) 4 mg STK-MED ONCE .ROUTE ; Start 11/02/19 at 14:52; Stop 11/02/19 at 14:56; Status DC Lidocaine HCl (Lidocaine Pf 2% Vial) 5 ml STK-MED ONCE .ROUTE ; Start 11/02/19 at 14:52; Stop 11/02/19 at 14:57; Status DC Propofol (Diprivan) 200 mg STK-MED ONCE IV ; Start 11/02/19 at 14:52; Stop 11/02/19 at 14:59; Status DC Fentanyl Citrate (Fentanyl 2ml Vial) 100 mcg STK-MED ONCE .ROUTE ; Start 11/02/19 at 14:53; Stop 11/02/19 at 14:59; Status DC Phenylephrine HCl (PHENYLEPHRINE in 0.9% NACL PF) 1 mg STK-MED ONCE IV ; Start 11/02/19 at 17:41; Stop 11/02/19 at 17:41; Status DC Fentanyl Citrate (Fentanyl 2ml Vial) 100 mcg STK-MED ONCE .ROUTE ; Start 11/02/19 at 17:45; Stop 11/02/19 at 17:45; Status DC Ephedrine Sulfate (ePHEDrine PF IN SALINE SYRINGE) 50 mg STK-MED ONCE IV ; Start 11/02/19 at 17:57; Stop 11/02/19 at 17:57; Status DC Fentanyl Citrate (Fentanyl 2ml Vial) 100 mcg STK-MED ONCE .ROUTE ; Start 11/02/19 at 18:59; Stop 11/02/19 at 18:59; Status DC Morphine Sulfate (Morphine Sulfate) 2 mg STK-MED ONCE .ROUTE ; Start 11/02/19 at 19:54; Stop 11/02/19 at 19:54; Status DC Morphine Sulfate (Morphine Sulfate) 2 mg 1X ONCE IV Last administered on 11/02/19at 20:02; Start 11/02/19 at 20:00; Stop 11/02/19 at 20:08; Status DC Ringer's Solution 1,000 ml @ 30 mls/hr Q24H IV ; Start 11/02/19 at 20:00; Stop 11/03/19 at 07:59; Status DC Fentanyl Citrate (Fentanyl 2ml Vial) 100 mcg STK-MED ONCE .ROUTE ; Start 11/02/19 at 20:00; Stop 11/02/19 at 20:01; Status DC Fentanyl Citrate (Fentanyl 2ml Vial) 50 mcg PRN Q10MIN PRN IVP PAIN Last administered on 11/02/19at 20:09; Start 11/02/19 at 20:15; Stop 11/03/19 at 01:00; Status DC Morphine Sulfate (Morphine Sulfate) 2 mg PRN Q10MIN PRN IV pain ; Start 11/02/19 at 20:15; Stop 11/03/19 at 01:00; Status DC Hydromorphone HCl (Dilaudid) 1 mg PRN Q10MIN PRN IV pain, 2ND CHOICE Last administered on 11/02/19at 20:46; Start 11/02/19 at 20:15; Stop 11/03/19 at 01:00; Status DC Labetalol HCl (Normodyne Iv Push) 10 mg PRN Q10MIN PRN IVP HYPERTENSION Last administered on 11/02/19at 21:49; Start 11/02/19 at 20:15; Stop 11/02/19 at 22:12; Status DC Sodium Chloride 1,000 ml @ 125 mls/hr 1X ONCE IV ; Start 11/02/19 at 21:00; Stop 11/03/19 at 04:59; Status DC Hydralazine HCl (Apresoline Inj) 10 mg PRN Q4HRS PRN IVP HTN, SEE COMMENTS, 1ST CHOICE Last administered on 11/06/19at 04:41; Start 11/02/19 at 22:45 Polyethylene Glycol (miraLAX PACKET) 17 gm DAILY PO Last administered on 11/06/19at 08:26; Start 11/03/19 at 09:00 Psyllium Hydrophilic Mucilloid (Metamucil Fiber Packet) 1 pkt DAILY PO Last administered on 11/06/19at 08:26; Start 11/03/19 at 09:00 Amlodipine Besylate (Norvasc) 5 mg 1X ONCE PO Last administered on 11/03/19at 02:56; Start 11/02/19 at 23:00; Stop 11/02/19 at 23:01; Status DC Amlodipine Besylate (Norvasc) 5 mg DAILY PO Last administered on 11/09/19at 07:48; Start 11/03/19 at 09:00 Labetalol HCl (Normodyne Iv Push) 10 mg PRN Q2HR PRN IVP HYPERTENSION Last administered on 11/03/19at 02:08; Start 11/02/19 at 22:45; Stop 11/03/19 at 03:46; Status DC Labetalol HCl (Normodyne Iv Push) 20 mg PRN Q2HR PRN IVP HYPERTENSION, 2ND CHOICE Last administered on 11/03/19at 04:04; Start 11/03/19 at 03:45 Potassium Chloride/Water 100 ml @ 100 mls/hr Q1H IV Last administered on 11/03/19at 10:15; Start 11/03/19 at 08:00; Stop 11/03/19 at 09:59; Status DC Potassium Chloride (Klor-Con) 20 meq 1X ONCE PO Last administered on 11/03/19at 08:26; Start 11/03/19 at 07:30; Stop 11/03/19 at 07:43; Status DC Insulin Human Lispro (HumaLOG) 0-5 UNITS TIDACHC SQ ; Start 11/03/19 at 07:30; Stop 11/04/19 at 17:06; Status DC Dextrose (Dextrose 50%-Water Syringe) 12.5 gm PRN Q15MIN PRN IV SEE COMMENTS; Start 11/03/19 at 07:30; Stop 11/04/19 at 17:06; Status DC Ketorolac Tromethamine (Toradol 15mg Vial) 15 mg 1X ONCE IVP Last administered on 11/03/19at 16:52; Start 11/03/19 at 16:45; Stop 11/03/19 at 16:46; Status DC Potassium Chloride (Klor-Con) 40 meq 1X ONCE PO Last administered on 11/04/19at 12:34; Start 11/04/19 at 12:15; Stop 11/04/19 at 12:18; Status DC Potassium Chloride (Klor-Con) 20 meq DAILYWBKFT PO ; Start 11/05/19 at 08:00; Stop 11/05/19 at 13:41; Status DC Sodium Chloride 1,000 ml @ 75 mls/hr [id number] IV Last administered on 11/06/19at 04:42; Start 11/04/19 at 12:15; Stop 11/06/19 at 16:32; Status DC Potassium Chloride (Klor-Con) 40 meq DAILYWBKFT PO Last administered on 11/06/19at 08:26; Start 11/06/19 at 08:00; Stop 11/06/19 at 16:33; Status DC Potassium Chloride (Klor-Con) 40 meq 1X ONCE PO ; Start 11/06/19 at 14:15; Stop 11/06/19 at 14:16; Status DC Potassium Citrate (Urocit-K) 20 meq [id number] PO Last administered on 11/07/19at 17:07; Start 11/06/19 at 16:30; Stop 11/08/19 at 08:29; Status DC Magnesium Sulfate 50 ml @ 25 mls/hr PRN DAILY PRN IV for Mag < 1.7 on am labs; Start 11/06/19 at 16:30 Potassium Chloride (Klor-Con) 40 meq TIDWMEALS PO Last administered on 11/09/19at 07:48; Start 11/08/19 at 09:00; Stop 11/09/19 at 17:01 Alprazolam (Xanax) 0.25 mg PRN Q8HRS PRN PO ANXIETY / AGITATION; Start 11/08/19 at 16:30 Vitals/I & O Vital Sign - Last 24 Hours 11/08/19 11/08/19 11/08/19 11/08/19 11:59 13:57 15:59 19:00 Temp 98.3 98.1 98.5 98.3 98.1 98.5 Pulse 86 86 71 Resp 20 20 20 B/P (MAP) 122/72 (89) 118/74 (89) 127/68 (87) Pulse Ox 97 98 97 O2 Delivery Room Air Room Air Room Air Room Air 11/08/19 11/08/19 11/09/19 11/09/19 19:50 23:01 03:02 07:00 Temp 97.9 97.3 98.3 97.9 97.3 98.3 Pulse 81 91 85 Resp 18 18 16 B/P (MAP) 151/83 (105) 167/84 (111) 136/71 (92) Pulse Ox 99 99 99 O2 Delivery Room Air Room Air Room Air Room Air 11/09/19 11/09/19 07:48 08:00 Pulse 85 B/P (MAP) 136/71 O2 Delivery Room Air Intake and Output 11/08/19 11/08/19 11/09/19 15:00 23:00 07:00 Output Total 200 ml 400 ml Balance -200 ml -400 ml Nutrition Consultation Dietary Evaluation: Recommendations by RD: Dietary education by RD, Increase Calorie Intake, Protein supplementation Comments: cardiac diet with ensure tid mvi and vit c per wound protocal Expected Outcomes/Goals: to meet >75% est nutr needs- not met, goal ongoing Malnutrition Findings: Body Fat Depletion (Non Severe: Mild Depletion Weight Status: Underweight Justicifation of Admission Dx: Justifications for Admission: Justification of Admission Dx: N/A MARKIE GARCIA MD Nov 09, 2019 08:42
[2019-11-09 11:00] VITALS: BP 146/86
--- NOTE | 2019-11-09 12:55 | NUR ---
CHARLES following. Discussed with RN, CO requesting updated clinicals, MARIO Schafer faxed. CHARLES spoke with Ciara at [facility], they are reaching out the the CO to determine auth for LTAC. RN advised pt is wanting to leave. CHARLES will continue to follow. Addendum: 11/09/19 at 1620 by STEFANIE SOTO CHARLES spoke with Ciara at [facility], she advised CO has stated no decision has been made yet. On Saturday [facility] was told a decision would be made on Saturday after [facility] sent updates. Updates were faxed this morning by MARIO Schafer. CHARLES contacted CO to determine hold up, left message for return call. CHARLES will continue to follow.
[2019-11-09 15:00] VITALS: BP 147/83
[2019-11-09 17:08] LABS: COMMENT IMMUNOFIX SERUM Note: (.); IMMUNOGLOBULIN A 614 mg/dL (61-437); IMMUNOGLOBULIN G 1253 mg/dL (603-1613); IMMUNOGLOBULIN M 42 mg/dL (15-143)
[2019-11-09] MEDS: oxyCODONE/APAP 10/325 1 TAB TABLET PO PRN (18:15)
[2019-11-09 19:00] VITALS: BP 135/63
[2019-11-09 23:00] VITALS: BP 118/63
[2019-11-10 03:00] VITALS: BP 140/61
[2019-11-10 07:00] VITALS: BP 150/89
[2019-11-10 08:49] LABS: ALBUMIN 2.3 g/dL (3.4-5.0); CALCIUM 8.7 mg/dL (8.5-10.1); GFR 88.6; MAGNESIUM 1.9 mg/dL (1.8-2.4); POTASSIUM 3.9 mmol/L (3.5-5.1)
[2019-11-10] MEDS: PSYLLIUM HUSK (SUGAR FREE) 1 PKT PACKET PO SCH (09:00)
[2019-11-10] MEDS: POLYETHYLENE GLYCOL 3350 17 GM PACKET. PO SCH (09:00)
[2019-11-10] MEDS: ASCORBIC ACID 500 MG TABLET PO SCH (09:37)
[2019-11-10] MEDS: LACTOBACILLUS RHAMNOSUS GG 1 CAPSULE. PO SCH (09:37)
[2019-11-10] MEDS: MULTIVITAMIN with MINERAL TABLET. PO SCH (09:37)
[2019-11-10] MEDS: amLODIPine BESYLATE 5 MG TABLET PO SCH (09:37)
--- NOTE | 2019-11-10 10:02 | PDOC ---
PROGRESS NOTES Chief Complaint Chief Complaint impression Chronic ulceration lower extremities bilaterally associated with increased pain, drainage, odor and tendon exposure as well as maggot infestation Nonhealing open transmetatarsal amputation, left foot. Leukocytosis. Renal insufficiency, baseline creatinine not known. Peripheral vascular disease, status post revascularization. Peripheral neuropathy. Diabetes. Hypertension Element of hyperchloremic metabolic acidosis due to chloride based IV fluids 11/03 Continue Dapto, meropenem, micafungin IV 11/08 cast to prevent Contractures Discontinue Dapto, meropenem, micafungin , Await Ortho f/u consult nephrology serum IMMUNOGLOBULINS/ UPIE, SPIE, PARATHYROID HORMONE [facility] REFERRAL 11/09 PENDING TRANSFER AT 430 PM d/w RN History of Present Illness History of Present Illness Mr Guardado is a 74yo M [employer] w/ PMHx diabetes, hypertension, hyperli pidemia, peripheral neuropathy and peripheral vascular disease, status post revascularization lower extremities. He is followed by the [facility] for chronic ulcerations lower extremities bilaterally. Earlier this year, he underwent an open transmetatarsal amputation of his left foot due to gangrene and osteomyelitis. He says he has been on antibiotics with little improvement. Over the last few days, he developed worsening pain, drainage and odor. He was found to have maggots in his wounds. X-ray imaging showed soft tissue defects. No fractures or bony erosions. A venous ultrasound was negative for DVT. The wounds were cleaned. The maggots removed and cultures were sent. He has since been admitted and started on vancomycin and Zosyn. Vascular surgery and ID were consulted. 10/29: He wants to have a bilateral below the knee amputation 10/30: His lower extremities are both wrapped with clean dry intact dressing 10/31: BP elevated 11/01: Afebrile. Bilateral BKA. No chest pain or shortness of breath. Overnight hypertensive, minimally responsive to hydralazine, added labetalol with good effect. Afebrile. WBC 16. K 3. He is drowsy today, in quite a bit of pain, did just work with PT and OT. Plan: d/c daptomycin, merrem, micafungin 11/04 Add glucose checks, sliding scale Vitals Vitals Vital Signs Date Time Temp Pulse Resp B/P (MAP) Pulse Ox O2 Delivery O2 Flow Rate FiO2 11/10/19 09:37 91 150/89 11/10/19 08:00 Room Air 11/10/19 07:00 97.5 18 99 97.5 Physical Exam Physical Exam GENERAL: Propped up in bed, Alert. NAD looks better HEENT: COSME, Oropharynx pink and moist. No lesions seen. NECK: Supple. LUNGS: Clear to auscultation. HEART: S1 and S2. ABDOMEN: Nondistended, soft, nontender with bowel sounds present. EXTREMITIES: No gross edema. Wounds dressed with casts Luis Antonio SKIN: Warm to touch. No signs of rash. NEUROLOGIC: Alert and appropriate General: Alert, Oriented X3, Cooperative, mild distress Heart: Regular rate, Normal S1, Normal S2 Lungs: Clear Abdomen: Normal bowel sounds, Soft, No tenderness Extremities: No cyanosis, No edema, Other (Palpable popliteal pulses bilaterally, palpable femoral pulses bilaterally) Skin: Other (Significant full-thickness diffuse wounds involving bilateral lower extremities with full-thickness wound to the level of the Achilles tendon on the right and multiple other full-thickness wounds scattered throughout the below-knee area on the right and the left. The patient has an open TMA amputation site with dermal graft in place.) Labs LABS Laboratory Tests Test 11/10/19 05:20 Sodium Level 142 mmol/L (136-145) Potassium Level 3.9 mmol/L (3.5-5.1) Chloride Level 110 mmol/L (98-107) Carbon Dioxide Level 18 mmol/L (21-32) Anion Gap 14 (6-14) Blood Urea Nitrogen 8 mg/dL (8-26) Creatinine 1.0 mg/dL (0.7-1.3) Estimated GFR (Cockcroft-Gault) 88.6 Glucose Level 103 mg/dL (70-99) Calcium Level 8.7 mg/dL (8.5-10.1) Phosphorus Level 4.0 mg/dL (2.6-4.7) Magnesium Level 1.9 mg/dL (1.8-2.4) Albumin 2.3 g/dL (3.4-5.0) Assessment and Plan Assessmemt and Plan Problems Medical Problems: (1) Lower extremity ulceration Status: Acute Comment Review of Relevant I have reviewed the following items solomon (where applicable) has been applied. Labs Laboratory Tests Test 11/09/19 03:30 11/10/19 05:20 Sodium Level 144 mmol/L (136-145) 142 mmol/L (136-145) Potassium Level 3.9 mmol/L (3.5-5.1) 3.9 mmol/L (3.5-5.1) Chloride Level 110 mmol/L (98-107) 110 mmol/L (98-107) Carbon Dioxide Level 19 mmol/L (21-32) 18 mmol/L (21-32) Anion Gap 15 (6-14) 14 (6-14) Blood Urea Nitrogen 9 mg/dL (8-26) 8 mg/dL (8-26) Creatinine 1.0 mg/dL (0.7-1.3) 1.0 mg/dL (0.7-1.3) Estimated GFR (Cockcroft-Gault) 88.6 88.6 Glucose Level 96 mg/dL (70-99) 103 mg/dL (70-99) Calcium Level 8.8 mg/dL (8.5-10.1) 8.7 mg/dL (8.5-10.1) Phosphorus Level 3.8 mg/dL (2.6-4.7) 4.0 mg/dL (2.6-4.7) Magnesium Level 2.0 mg/dL (1.8-2.4) 1.9 mg/dL (1.8-2.4) Albumin 2.3 g/dL (3.4-5.0) 2.3 g/dL (3.4-5.0) Laboratory Tests Test 11/10/19 05:20 Sodium Level 142 mmol/L (136-145) Potassium Level 3.9 mmol/L (3.5-5.1) Chloride Level 110 mmol/L (98-107) Carbon Dioxide Level 18 mmol/L (21-32) Anion Gap 14 (6-14) Blood Urea Nitrogen 8 mg/dL (8-26) Creatinine 1.0 mg/dL (0.7-1.3) Estimated GFR (Cockcroft-Gault) 88.6 Glucose Level 103 mg/dL (70-99) Calcium Level 8.7 mg/dL (8.5-10.1) Phosphorus Level 4.0 mg/dL (2.6-4.7) Magnesium Level 1.9 mg/dL (1.8-2.4) Albumin 2.3 g/dL (3.4-5.0) Microbiology 11/03/19 Blood Culture - Final, Complete NO GROWTH AFTER 5 DAYS 10/29/19 Gram Stain - Final, Complete 10/29/19 Aerobic and Anaerobic Culture - Final, Complete 10/29/19 Antimicrobic Susceptibility - Final, Complete Medications Current Medications Vancomycin HCl (Vanco Per Pharmacy) 1 each 1X ONCE MC ; Start 10/29/19 at 17:00; Stop 10/30/19 at 16:05; Status DC Sodium Chloride 1,000 ml @ 1,000 mls/hr Q1H IV Last administered on 10/29/19at 17:17; Start 10/29/19 at 16:41; Stop 10/29/19 at 17:40; Status DC Fentanyl Citrate (Fentanyl 2ml Vial) 50 mcg 1X ONCE IVP Last administered on 10/29/19at 17:17; Start 10/29/19 at 16:45; Stop 10/29/19 at 16:46; Status DC Piperacillin Sod/ Tazobactam Sod 3.375 gm/Sodium Chloride 50 ml @ 100 mls/hr 1X ONCE IV Last administered on 10/29/19at 18:06; Start 10/29/19 at 17:00; Stop 10/29/19 at 17:29; Status DC Vancomycin HCl 2 gm/Sodium Chloride 500 ml @ 250 mls/hr 1X ONCE IV Last administered on 10/29/19at 17:18; Start 10/29/19 at 17:00; Stop 10/29/19 at 18:59; Status DC Ondansetron HCl (Zofran) 4 mg PRN Q8HRS PRN IV NAUSEA/VOMITING; Start 10/29/19 at 18:00; Stop 10/30/19 at 17:59; Status DC Fentanyl Citrate (Fentanyl 2ml Vial) 50 mcg PRN Q1HR PRN IV PAIN Last administered on 10/29/19at 22:48; Start 10/29/19 at 18:00; Stop 10/29/19 at 23:47; Status DC Oxycodone/ Acetaminophen (Percocet 10/325) 1 tab PRN Q4HRS PRN PO SEVERE PAIN 7-10 Last administered on 11/09/19at 18:15; Start 10/30/19 at 00:00 Vancomycin HCl 1.25 gm/Sodium Chloride 250 ml @ 167 mls/hr Q24H IV ; Start 10/30/19 at 17:00; Stop 10/30/19 at 12:06; Status DC Vancomycin HCl (Vancomycin Trough Level) 1 each 1X ONCE MC ; Start 10/31/19 at 16:30; Stop 10/31/19 at 16:31; Status Cancel Vancomycin HCl (Vanco Per Pharmacy) 1 each PRN DAILY PRN MC SEE COMMENTS Last administered on 10/30/19at 01:33; Start 10/29/19 at 23:45; Stop 10/30/19 at 12:06; Status DC Hydromorphone HCl (Dilaudid) 1 mg PRN Q2HR PRN IV breakthrough pain Last administered on 11/05/19at 00:59; Start 10/30/19 at 07:15 Lactobacillus Rhamnosus (Culturelle) 1 cap BID PO Last administered on 11/10/19at 09:37; Start 10/30/19 at 21:00 Piperacillin Sod/ Tazobactam Sod (Zosyn Per Pharmacy) 1 each PRN DAILY PRN MC SEE COMMENTS; Start 10/30/19 at 12:00; Stop 10/30/19 at 16:05; Status DC Piperacillin Sod/ Tazobactam Sod 3.375 gm/Sodium Chloride 50 ml @ 100 mls/hr Q6HRS IV Last administered on 10/30/19at 12:51; Start 10/30/19 at 12:15; Stop 10/30/19 at 16:05; Status DC Potassium Chloride (Klor-Con) 40 meq 1X ONCE PO Last administered on 10/30/19at 15:35; Start 10/30/19 at 15:30; Stop 10/30/19 at 15:31; Status DC Potassium Chloride (Klor-Con) 40 meq 1X ONCE PO Last administered on 10/30/19at 19:53; Start 10/30/19 at 19:30; Stop 10/30/19 at 19:31; Status DC Meropenem 500 mg/ Sodium Chloride 50 ml @ 100 mls/hr Q6HRS IV Last administered on 11/05/19at 05:15; Start 10/30/19 at 18:00; Stop 11/05/19 at 09:59; Status DC Daptomycin 510 mg/ Sodium Chloride 50 ml @ 100 mls/hr Q24H IV ; Start 10/30/19 at 16:00; Status Cancel Micafungin Sodium 100 mg/Dextrose 100 ml @ 100 mls/hr Q24H IV Last administered on 11/04/19at 16:03; Start 10/30/19 at 17:00; Stop 11/05/19 at 09:59; Status DC Daptomycin 500 mg/ Sodium Chloride 50 ml @ 100 mls/hr Q24H IV Last administered on 11/04/19at 15:28; Start 10/30/19 at 17:00; Stop 11/05/19 at 09:59; Status DC Potassium Chloride (Klor-Con) 40 meq 1X ONCE PO Last administered on 10/31/19at 21:11; Start 10/31/19 at 20:30; Stop 10/31/19 at 20:31; Status DC Magnesium Sulfate 100 ml @ 25 mls/hr 1X ONCE IV Last administered on 11/01/19at 09:37; Start 11/01/19 at 09:00; Stop 11/01/19 at 12:59; Status DC Potassium Chloride (Klor-Con) 40 meq 1X ONCE PO Last administered on 11/01/19at 09:38; Start 11/01/19 at 08:30; Stop 11/01/19 at 08:31; Status DC Potassium Chloride (Klor-Con) 20 meq DAILYWBKFT PO Last administered on 11/06/19at 08:25; Start 11/02/19 at 08:00; Stop 11/06/19 at 16:33; Status DC Potassium Chloride (Klor-Con) 40 meq 1X ONCE PO Last administered on 11/01/19at 17:23; Start 11/01/19 at 17:00; Stop 11/01/19 at 17:01; Status DC Ondansetron HCl (Zofran) 4 mg PRN Q6HRS PRN IV NAUSEA/VOMITING; Start 11/02/19 at 11:45; Stop 11/02/19 at 21:00; Status DC Ringer's Solution 1,000 ml @ 30 mls/hr Q24H IV ; Start 11/02/19 at 12:00; Stop 11/02/19 at 21:00; Status Cancel Prochlorperazine Edisylate (Compazine) 5 mg PACU PRN PRN IV NAUSEA, MRX1 Last administered on 11/02/19at 20:18; Start 11/02/19 at 11:45; Stop 11/02/19 at 21:00; Status DC Multivitamins (Thera M Plus) 1 tab DAILY PO Last administered on 11/10/19at 09:37; Start 11/02/19 at 14:00 Ascorbic Acid (Vitamin C) 500 mg BID PO Last administered on 11/10/19at 09:37; Start 11/02/19 at 14:00 Dexamethasone Sodium Phosphate (Decadron) 4 mg STK-MED ONCE .ROUTE ; Start 11/02/19 at 14:52; Stop 11/02/19 at 14:56; Status DC Ondansetron HCl (Zofran) 4 mg STK-MED ONCE .ROUTE ; Start 11/02/19 at 14:52; Stop 11/02/19 at 14:56; Status DC Lidocaine HCl (Lidocaine Pf 2% Vial) 5 ml STK-MED ONCE .ROUTE ; Start 11/02/19 at 14:52; Stop 11/02/19 at 14:57; Status DC Propofol (Diprivan) 200 mg STK-MED ONCE IV ; Start 11/02/19 at 14:52; Stop 11/02/19 at 14:59; Status DC Fentanyl Citrate (Fentanyl 2ml Vial) 100 mcg STK-MED ONCE .ROUTE ; Start 11/02/19 at 14:53; Stop 11/02/19 at 14:59; Status DC Phenylephrine HCl (PHENYLEPHRINE in 0.9% NACL PF) 1 mg STK-MED ONCE IV ; Start 11/02/19 at 17:41; Stop 11/02/19 at 17:41; Status DC Fentanyl Citrate (Fentanyl 2ml Vial) 100 mcg STK-MED ONCE .ROUTE ; Start 11/02/19 at 17:45; Stop 11/02/19 at 17:45; Status DC Ephedrine Sulfate (ePHEDrine PF IN SALINE SYRINGE) 50 mg STK-MED ONCE IV ; Start 11/02/19 at 17:57; Stop 11/02/19 at 17:57; Status DC Fentanyl Citrate (Fentanyl 2ml Vial) 100 mcg STK-MED ONCE .ROUTE ; Start 11/02/19 at 18:59; Stop 11/02/19 at 18:59; Status DC Morphine Sulfate (Morphine Sulfate) 2 mg STK-MED ONCE .ROUTE ; Start 11/02/19 at 19:54; Stop 11/02/19 at 19:54; Status DC Morphine Sulfate (Morphine Sulfate) 2 mg 1X ONCE IV Last administered on 11/02/19at 20:02; Start 11/02/19 at 20:00; Stop 11/02/19 at 20:08; Status DC Ringer's Solution 1,000 ml @ 30 mls/hr Q24H IV ; Start 11/02/19 at 20:00; Stop 11/03/19 at 07:59; Status DC Fentanyl Citrate (Fentanyl 2ml Vial) 100 mcg STK-MED ONCE .ROUTE ; Start 11/02/19 at 20:00; Stop 11/02/19 at 20:01; Status DC Fentanyl Citrate (Fentanyl 2ml Vial) 50 mcg PRN Q10MIN PRN IVP PAIN Last administered on 11/02/19at 20:09; Start 11/02/19 at 20:15; Stop 11/03/19 at 01:00; Status DC Morphine Sulfate (Morphine Sulfate) 2 mg PRN Q10MIN PRN IV pain ; Start 11/02/19 at 20:15; Stop 11/03/19 at 01:00; Status DC Hydromorphone HCl (Dilaudid) 1 mg PRN Q10MIN PRN IV pain, 2ND CHOICE Last administered on 11/02/19at 20:46; Start 11/02/19 at 20:15; Stop 11/03/19 at 01:00; Status DC Labetalol HCl (Normodyne Iv Push) 10 mg PRN Q10MIN PRN IVP HYPERTENSION Last administered on 11/02/19at 21:49; Start 11/02/19 at 20:15; Stop 11/02/19 at 22:12; Status DC Sodium Chloride 1,000 ml @ 125 mls/hr 1X ONCE IV ; Start 11/02/19 at 21:00; Stop 11/03/19 at 04:59; Status DC Hydralazine HCl (Apresoline Inj) 10 mg PRN Q4HRS PRN IVP HTN, SEE COMMENTS, 1ST CHOICE Last administered on 11/06/19at 04:41; Start 11/02/19 at 22:45 Polyethylene Glycol (miraLAX PACKET) 17 gm DAILY PO Last administered on 11/05 08:26; Start 11/03/19 at 09:00 Psyllium Hydrophilic Mucilloid (Metamucil Fiber Packet) 1 pkt DAILY PO Last administered on 11/06/19 08:26; Start 11/03/19 at 09:00 Amlodipine Besylate (Norvasc) 5 mg 1X ONCE PO Last administered on 11/03/19at 02:56; Start 11/02/19 at 23:00; Stop 11/02/19 at 23:01; Status DC Amlodipine Besylate (Norvasc) 5 mg DAILY PO Last administered on 11/10/19at 09:37; Start 11/03/19 at 09:00 Labetalol HCl (Normodyne Iv Push) 10 mg PRN Q2HR PRN IVP HYPERTENSION Last administered on 11/03/19 02:08; Start 11/02/19 at 22:45; Stop 11/03/19 at 03:46; Status DC Labetalol HCl (Normodyne Iv Push) 20 mg PRN Q2HR PRN IVP HYPERTENSION, 2ND CHOICE Last administered on 11/03/19 04:04; Start 11/03/19 at 03:45 Potassium Chloride/Water 100 ml @ 100 mls/hr Q1H IV Last administered on 11/03/19at 10:15; Start 11/03/19 at 08:00; Stop 11/03/19 at 09:59; Status DC Potassium Chloride (Klor-Con) 20 meq 1X ONCE PO Last administered on 11/03/19at 08:26; Start 11/03/19 at 07:30; Stop 11/03/19 at 07:43; Status DC Insulin Human Lispro (HumaLOG) 0-5 UNITS TIDACHC SQ ; Start 11/03/19 at 07:30; Stop 11/04/19 at 17:06; Status DC Dextrose (Dextrose 50%-Water Syringe) 12.5 gm PRN Q15MIN PRN IV SEE COMMENTS; Start 11/03/19 at 07:30; Stop 11/04/19 at 17:06; Status DC Ketorolac Tromethamine (Toradol 15mg Vial) 15 mg 1X ONCE IVP Last administered on 11/03/19at 16:52; Start 11/03/19 at 16:45; Stop 11/03/19 at 16:46; Status DC Potassium Chloride (Klor-Con) 40 meq 1X ONCE PO Last administered on 11/04/19at 12:34; Start 11/04/19 at 12:15; Stop 11/04/19 at 12:18; Status DC Potassium Chloride (Klor-Con) 20 meq DAILYWBKFT PO ; Start 11/05/19 at 08:00; Stop 11/05/19 at 13:41; Status DC Sodium Chloride 1,000 ml @ 75 mls/hr [id number] IV Last administered on 11/06/19at 04:42; Start 11/04/19 at 12:15; Stop 11/06/19 at 16:32; Status DC Potassium Chloride (Klor-Con) 40 meq DAILYWBKFT PO Last administered on 11/06/19at 08:26; Start 11/06/19 at 08:00; Stop 11/06/19 at 16:33; Status DC Potassium Chloride (Klor-Con) 40 meq 1X ONCE PO ; Start 11/06/19 at 14:15; Stop 11/06/19 at 14:16; Status DC Potassium Citrate (Urocit-K) 20 meq [id number] PO Last administered on 11/07/19at 17:07; Start 11/06/19 at 16:30; Stop 11/08/19 at 08:29; Status DC Magnesium Sulfate 50 ml @ 25 mls/hr PRN DAILY PRN IV for Mag < 1.7 on am labs; Start 11/06/19 at 16:30 Potassium Chloride (Klor-Con) 40 meq TIDWMEALS PO Last administered on 11/09/19at 18:15; Start 11/08/19 at 09:00; Stop 11/09/19 at 17:01; Status DC Alprazolam (Xanax) 0.25 mg PRN Q8HRS PRN PO ANXIETY / AGITATION; Start 11/08/19 at 16:30 Vitals/I & O Vital Sign - Last 24 Hours 11/09/19 11/09/19 11/09/19 11/09/19 11:00 15:00 18:15 19:00 Temp 98.7 97.8 98.1 98.7 97.8 98.1 Pulse 114 113 102 Resp 17 16 22 B/P (MAP) 146/86 (106) 147/83 (104) 135/63 (87) Pulse Ox 99 98 99 O2 Delivery Room Air Room Air Room Air Room Air 11/09/19 11/09/19 11/09/19 11/10/19 19:15 20:00 23:00 03:00 Temp 98.5 98.0 98.5 98.0 Pulse 85 89 Resp 16 20 20 B/P (MAP) 118/63 (81) 140/61 (87) Pulse Ox 99 100 O2 Delivery Room Air Room Air Room Air Room Air 11/10/19 11/10/19 11/10/19 07:00 08:00 09:37 Temp 97.5 97.5 Pulse 91 91 Resp 18 B/P (MAP) 150/89 (109) 150/89 Pulse Ox 99 O2 Delivery Room Air Room Air Intake and Output 11/09/19 11/09/19 11/10/19 15:00 23:00 07:00 Intake Total 400 ml 100 ml Balance 400 ml 100 ml Nutrition Consultation Dietary Evaluation: Recommendations by RD: Dietary education by RD, Increase Calorie Intake, Protein supplementation Comments: cardiac diet with ensure tid mvi and vit c per wound protocal Expected Outcomes/Goals: to meet >75% est nutr needs- not met, goal ongoing Malnutrition Findings: Body Fat Depletion (Non Severe: Mild Depletion Weight Status: Underweight Justicifation of Admission Dx: Justifications for Admission: Justification of Admission Dx: N/A MARKIE GARCIA MD Nov 10, 2019 10:02
[2019-11-10 11:00] VITALS: BP 136/72
--- NOTE | 2019-11-10 11:58 | NUR ---
CHARLES following. Discussed with RN, pt ready for discharge - paper med rec with RN. [facility] has accepted and insurance has approved. [facility] requested pt transfer at 1630. [facility] set up transportation with [employer] between [id number]. SW awaiting discharge paperwork to fax. Dr. Mazariegos notified of acceptance, auth and transportation time.
--- NOTE | 2019-11-10 12:42 | PDOC3 ---
Discharge Summary Date of Admission: Oct 29, 2019 Date of Discharge: Nov 10, 2019 Follow-Up: 1-2 days Admitting Diagnosis comment: impression Chronic ulceration lower extremities bilaterally associated with increased pain, drainage, odor and tendon exposure as well as maggot infestation Nonhealing open transmetatarsal amputation, left foot. Leukocytosis. Renal insufficiency, baseline creatinine not known. Peripheral vascular disease, status post revascularization. Peripheral neuropathy. Diabetes. Hypertension Element of hyperchloremic metabolic acidosis due to chloride based IV fluids 11/03 Continue Dapto, meropenem, micafungin IV 11/08 cast to prevent Contractures Discontinue Dapto, meropenem, micafungin , Await Ortho f/u consult nephrology serum IMMUNOGLOBULINS/ UPIE, SPIE, PARATHYROID HORMONE SELECT REFERRAL 11/09 PENDING TRANSFER AT 430 PM d/w RN D/C PLANNING 33 MIN History of Present Illness History of Present Illness Mr Guardado is a 74yo M [facility] w/ PMHx diabetes, hypertension, hyperlipidemia, peripheral neuropathy and peripheral vascular disease, status post revascularization lower extremities. He is followed by the [place] wound care for chronic ulcerations lower extremities bilaterally. Earlier this year, he underwent an open transmetatarsal amputation of his left foot due to gangrene and osteomyelitis. He says he has been on antibiotics with little improvement. Over the last few days, he developed worsening pain, drainage and odor. He was found to have maggots in his wounds. X-ray imaging showed soft tissue defects. No fractures or bony erosions. A venous ultrasound was negative for DVT. The wounds were cleaned. The maggots removed and cultures were sent. He has since been admitted and started on vancomycin and Zosyn. Vascular surgery and ID were consulted. 10/29: He wants to have a bilateral below the knee amputation 10/30: His lower extremities are both wrapped with clean dry intact dressing 10/31: BP elevated 11/01: Afebrile. Bilateral BKA. No chest pain or shortness of breath. Overnight hypertensive, minimally responsive to hydralazine, added labetalol with good effect. Afebrile. WBC 16. K 3. He is drowsy today, in quite a bit of pain, did just work with PT and OT. Plan: d/c daptomycin, merrem, micafungin 11/04 Add glucose checks, sliding scale Vitals Vitals Vital Signs Date Time Temp Pulse Resp B/P (MAP) Pulse Ox O2 Delivery O2 Flow Rate FiO2 11/10/19 09:37 91 150/89 11/10/19 08:00 Room Air 11/10/19 07:00 97.5 18 99 97.5 Physical Exam Physical Exam GENERAL: Propped up in bed, Alert. NAD looks better HEENT: COSME, Oropharynx pink and moist. No lesions seen. NECK: Supple. LUNGS: Clear to auscultation. HEART: S1 and S2. ABDOMEN: Nondistended, soft, nontender with bowel sounds present. EXTREMITIES: No gross edema. Wounds dressed with casts Luis Antonio SKIN: Warm to touch. No signs of rash. NEUROLOGIC: Alert and appropriate General: Alert, Oriented X3, Cooperative, mild distress Heart: Regular rate, Normal S1, Normal S2 Lungs: Clear Abdomen: Normal bowel sounds, Soft, No tenderness Extremities: No cyanosis, No edema, Other (Palpable popliteal pulses bilaterally, palpable femoral pulses bilaterally) Skin: Other (Significant full-thickness diffuse wounds involving bilateral lower extremities with full-thickness wound to the level of the Achilles tendon on the right and multiple other full-thickness wounds scattered throughout the below-knee area on the right and the left. The patient has an open TMA amputation site with dermal graft in place.) Labs FINAL DIAGNOSIS Problems Medical Problems: (1) Lower extremity ulceration Status: Acute Brief Hospital Course Mr. Guardado is a 74 old [sex] who presented with [LEG ULCERATION ] CONDITION AT DISCHARGE: Stable Discharge Medications Current Medications Vancomycin HCl (Vanco Per Pharmacy) 1 each 1X ONCE MC ; Start 10/29/19 at 17:00; Stop 10/30/19 at 16:05; Status DC Sodium Chloride 1,000 ml @ 1,000 mls/hr Q1H IV Last administered on 10/29/19at 17:17; Start 10/29/19 at 16:41; Stop 10/29/19 at 17:40; Status DC Fentanyl Citrate (Fentanyl 2ml Vial) 50 mcg 1X ONCE IVP Last administered on 10/29/19at 17:17; Start 10/29/19 at 16:45; Stop 10/29/19 at 16:46; Status DC Piperacillin Sod/ Tazobactam Sod 3.375 gm/Sodium Chloride 50 ml @ 100 mls/hr 1X ONCE IV Last administered on 10/29/19at 18:06; Start 10/29/19 at 17:00; Stop 10/29/19 at 17:29; Status DC Vancomycin HCl 2 gm/Sodium Chloride 500 ml @ 250 mls/hr 1X ONCE IV Last administered on 10/29/19at 17:18; Start 10/29/19 at 17:00; Stop 10/29/19 at 18:59; Status DC Ondansetron HCl (Zofran) 4 mg PRN Q8HRS PRN IV NAUSEA/VOMITING; Start 10/29/19 at 18:00; Stop 10/30/19 at 17:59; Status DC Fentanyl Citrate (Fentanyl 2ml Vial) 50 mcg PRN Q1HR PRN IV PAIN Last administered on 10/29/19at 22:48; Start 10/29/19 at 18:00; Stop 10/29/19 at 23:47; Status DC Oxycodone/ Acetaminophen (Percocet 10/325) 1 tab PRN Q4HRS PRN PO SEVERE PAIN 7-10 Last administered on 11/09/19at 18:15; Start 10/30/19 at 00:00 Vancomycin HCl 1.25 gm/Sodium Chloride 250 ml @ 167 mls/hr Q24H IV ; Start 10/30/19 at 17:00; Stop 10/30/19 at 12:06; Status DC Vancomycin HCl (Vancomycin Trough Level) 1 each 1X ONCE MC ; Start 10/31/19 at 16:30; Stop 10/31/19 at 16:31; Status Cancel Vancomycin HCl (Vanco Per Pharmacy) 1 each PRN DAILY PRN MC SEE COMMENTS Last administered on 10/30/19at 01:33; Start 10/29/19 at 23:45; Stop 10/30/19 at 12:06; Status DC Hydromorphone HCl (Dilaudid) 1 mg PRN Q2HR PRN IV breakthrough pain Last administered on 11/05/19at 00:59; Start 10/30/19 at 07:15 Lactobacillus Rhamnosus (Culturelle) 1 cap BID PO Last administered on 11/10/19at 09:37; Start 10/30/19 at 21:00 Piperacillin Sod/ Tazobactam Sod (Zosyn Per Pharmacy) 1 each PRN DAILY PRN MC SEE COMMENTS; Start 10/30/19 at 12:00; Stop 10/30/19 at 16:05; Status DC Piperacillin Sod/ Tazobactam Sod 3.375 gm/Sodium Chloride 50 ml @ 100 mls/hr Q6HRS IV Last administered on 10/30/19at 12:51; Start 10/30/19 at 12:15; Stop 10/30/19 at 16:05; Status DC Potassium Chloride (Klor-Con) 40 meq 1X ONCE PO Last administered on 10/30/19at 15:35; Start 10/30/19 at 15:30; Stop 10/30/19 at 15:31; Status DC Potassium Chloride (Klor-Con) 40 meq 1X ONCE PO Last administered on 10/30/19at 19:53; Start 10/30/19 at 19:30; Stop 10/30/19 at 19:31; Status DC Meropenem 500 mg/ Sodium Chloride 50 ml @ 100 mls/hr Q6HRS IV Last administered on 11/05/19at 05:15; Start 10/30/19 at 18:00; Stop 11/05/19 at 09:59; Status DC Daptomycin 510 mg/ Sodium Chloride 50 ml @ 100 mls/hr Q24H IV ; Start 10/30/19 at 16:00; Status Cancel Micafungin Sodium 100 mg/Dextrose 100 ml @ 100 mls/hr Q24H IV Last administered on 11/04/19at 16:03; Start 10/30/19 at 17:00; Stop 11/05/19 at 09:59; Status DC Daptomycin 500 mg/ Sodium Chloride 50 ml @ 100 mls/hr Q24H IV Last administered on 11/04/19at 15:28; Start 10/30/19 at 17:00; Stop 11/05/19 at 09:59; Status DC Potassium Chloride (Klor-Con) 40 meq 1X ONCE PO Last administered on 10/31/19at 21:11; Start 10/31/19 at 20:30; Stop 10/31/19 at 20:31; Status DC Magnesium Sulfate 100 ml @ 25 mls/hr 1X ONCE IV Last administered on 11/01/19at 09:37; Start 11/01/19 at 09:00; Stop 11/01/19 at 12:59; Status DC Potassium Chloride (Klor-Con) 40 meq 1X ONCE PO Last administered on 11/01/19at 09:38; Start 11/01/19 at 08:30; Stop 11/01/19 at 08:31; Status DC Potassium Chloride (Klor-Con) 20 meq DAILYWBKFT PO Last administered on 11/06/19at 08:25; Start 11/02/19 at 08:00; Stop 11/06/19 at 16:33; Status DC Potassium Chloride (Klor-Con) 40 meq 1X ONCE PO Last administered on 11/01/19at 17:23; Start 11/01/19 at 17:00; Stop 11/01/19 at 17:01; Status DC Ondansetron HCl (Zofran) 4 mg PRN Q6HRS PRN IV NAUSEA/VOMITING; Start 11/02/19 at 11:45; Stop 11/02/19 at 21:00; Status DC Ringer's Solution 1,000 ml @ 30 mls/hr Q24H IV ; Start 11/02/19 at 12:00; Stop 11/02/19 at 21:00; Status Cancel Prochlorperazine Edisylate (Compazine) 5 mg PACU PRN PRN IV NAUSEA, MRX1 Last administered on 11/02/19at 20:18; Start 11/02/19 at 11:45; Stop 11/02/19 at 21:00; Status DC Multivitamins (Thera M Plus) 1 tab DAILY PO Last administered on 11/10/19at 09:37; Start 11/02/19 at 14:00 Ascorbic Acid (Vitamin C) 500 mg BID PO Last administered on 11/10/19at 09:37; Start 11/02/19 at 14:00 Dexamethasone Sodium Phosphate (Decadron) 4 mg STK-MED ONCE .ROUTE ; Start 11/02/19 at 14:52; Stop 11/02/19 at 14:56; Status DC Ondansetron HCl (Zofran) 4 mg STK-MED ONCE .ROUTE ; Start 11/02/19 at 14:52; Stop 11/02/19 at 14:56; Status DC Lidocaine HCl (Lidocaine Pf 2% Vial) 5 ml STK-MED ONCE .ROUTE ; Start 11/02/19 at 14:52; Stop 11/02/19 at 14:57; Status DC Propofol (Diprivan) 200 mg STK-MED ONCE IV ; Start 11/02/19 at 14:52; Stop 11/02/19 at 14:59; Status DC Fentanyl Citrate (Fentanyl 2ml Vial) 100 mcg STK-MED ONCE .ROUTE ; Start 11/02/19 at 14:53; Stop 11/02/19 at 14:59; Status DC Phenylephrine HCl (PHENYLEPHRINE in 0.9% NACL PF) 1 mg STK-MED ONCE IV ; Start 11/02/19 at 17:41; Stop 11/02/19 at 17:41; Status DC Fentanyl Citrate (Fentanyl 2ml Vial) 100 mcg STK-MED ONCE .ROUTE ; Start 11/02/19 at 17:45; Stop 11/02/19 at 17:45; Status DC Ephedrine Sulfate (ePHEDrine PF IN SALINE SYRINGE) 50 mg STK-MED ONCE IV ; Start 11/02/19 at 17:57; Stop 11/02/19 at 17:57; Status DC Fentanyl Citrate (Fentanyl 2ml Vial) 100 mcg STK-MED ONCE .ROUTE ; Start 11/02/19 at 18:59; Stop 11/02/19 at 18:59; Status DC Morphine Sulfate (Morphine Sulfate) 2 mg STK-MED ONCE .ROUTE ; Start 11/02/19 at 19:54; Stop 11/02/19 at 19:54; Status DC Morphine Sulfate (Morphine Sulfate) 2 mg 1X ONCE IV Last administered on at 20:02; Start 11/02/19 at 20:00; Stop 11/02/19 at 20:08; Status DC Ringer's Solution 1,000 ml @ 30 mls/hr Q24H IV ; Start 11/02/19 at 20:00; Stop 11/03/19 at 07:59; Status DC Fentanyl Citrate (Fentanyl 2ml Vial) 100 mcg STK-MED ONCE .ROUTE ; Start 11/02/19 at 20:00; Stop 11/02/19 at 20:01; Status DC Fentanyl Citrate (Fentanyl 2ml Vial) 50 mcg PRN Q10MIN PRN IVP PAIN Last administered on 11/02/19at 20:09; Start 11/02/19 at 20:15; Stop 11/03/19 at 01:00; Status DC Morphine Sulfate (Morphine Sulfate) 2 mg PRN Q10MIN PRN IV pain ; Start 11/02/19 at 20:15; Stop 11/03/19 at 01:00; Status DC Hydromorphone HCl (Dilaudid) 1 mg PRN Q10MIN PRN IV pain, 2ND CHOICE Last administered on 11/02/19at 20:46; Start 11/02/19 at 20:15; Stop 11/03/19 at 01:00; Status DC Labetalol HCl (Normodyne Iv Push) 10 mg PRN Q10MIN PRN IVP HYPERTENSION Last administered on 11/02/19at 21:49; Start 11/02/19 at 20:15; Stop 11/02/19 at 22:12; Status DC Sodium Chloride 1,000 ml @ 125 mls/hr 1X ONCE IV ; Start 11/02/19 at 21:00; Stop 11/03/19 at 04:59; Status DC Hydralazine HCl (Apresoline Inj) 10 mg PRN Q4HRS PRN IVP HTN, SEE COMMENTS, 1ST CHOICE Last administered on 11/06/19at 04:41; Start 11/02/19 at 22:45 Polyethylene Glycol (miraLAX PACKET) 17 gm DAILY PO Last administered on 11/06/19at 08:26; Start 11/03/19 at 09:00 Psyllium Hydrophilic Mucilloid (Metamucil Fiber Packet) 1 pkt DAILY PO Last administered on 11/06/19at 08:26; Start 11/03/19 at 09:00 Amlodipine Besylate (Norvasc) 5 mg 1X ONCE PO Last administered on 11/03/19at 02:56; Start 11/02/19 at 23:00; Stop 11/02/19 at 23:01; Status DC Amlodipine Besylate (Norvasc) 5 mg DAILY PO Last administered on 11/10/19at 09:37; Start 11/03/19 at 09:00 Labetalol HCl (Normodyne Iv Push) 10 mg PRN Q2HR PRN IVP HYPERTENSION Last administered on 11/03/19at 02:08; Start 11/02/19 at 22:45; Stop 11/03/19 at 03:46; Status DC Labetalol HCl (Normodyne Iv Push) 20 mg PRN Q2HR PRN IVP HYPERTENSION, 2ND CHOICE Last administered on 11/03/19at 04:04; Start 11/03/19 at 03:45 Potassium Chloride/Water 100 ml @ 100 mls/hr Q1H IV Last administered on 11/03/19at 10:15; Start 11/03/19 at 08:00; Stop 11/03/19 at 09:59; Status DC Potassium Chloride (Klor-Con) 20 meq 1X ONCE PO Last administered on 11/03/19at 08:26; Start 11/03/19 at 07:30; Stop 11/03/19 at 07:43; Status DC Insulin Human Lispro (HumaLOG) 0-5 UNITS TIDACHC SQ ; Start 11/03/19 at 07:30; Stop 11/04/19 at 17:06; Status DC Dextrose (Dextrose 50%-Water Syringe) 12.5 gm PRN Q15MIN PRN IV SEE COMMENTS; Start 11/03/19 at 07:30; Stop 11/04/19 at 17:06; Status DC Ketorolac Tromethamine (Toradol 15mg Vial) 15 mg 1X ONCE IVP Last administered on 11/03/19at 16:52; Start 11/03/19 at 16:45; Stop 11/03/19 at 16:46; Status DC Potassium Chloride (Klor-Con) 40 meq 1X ONCE PO Last administered on 11/04/19at 12:34; Start 11/04/19 at 12:15; Stop 11/04/19 at 12:18; Status DC Potassium Chloride (Klor-Con) 20 meq DAILYWBKFT PO ; Start 11/05/19 at 08:00; Stop 11/05/19 at 13:41; Status DC Sodium Chloride 1,000 ml @ 75 mls/hr [id number] IV Last administered on 11/06/19at 04:42; Start 11/04/19 at 12:15; Stop 11/06/19 at 16:32; Status DC Potassium Chloride (Klor-Con) 40 meq DAILYWBKFT PO Last administered on 11/06/19at 08:26; Start 11/06/19 at 08:00; Stop 11/06/19 at 16:33; Status DC Potassium Chloride (Klor-Con) 40 meq 1X ONCE PO ; Start 11/06/19 at 14:15; Stop 7/10/20 at 14:16; Status DC Potassium Citrate (Urocit-K) 20 meq [id number] PO Last administered on 11/07/19at 17:07; Start 11/06/19 at 16:30; Stop 11/08/19 at 08:29; Status DC Magnesium Sulfate 50 ml @ 25 mls/hr PRN DAILY PRN IV for Mag < 1.7 on am labs; Start 11/06/19 at 16:30 Potassium Chloride (Klor-Con) 40 meq TIDWMEALS PO Last administered on 11/09/19at 18:15; Start 11/08/19 at 09:00; Stop 11/09/19 at 17:01; Status DC Alprazolam (Xanax) 0.25 mg PRN Q8HRS PRN PO ANXIETY / AGITATION; Start 11/08/19 at 16:30 Vital Signs Vital Signs Date Time Temp Pulse Resp B/P (MAP) Pulse Ox O2 Delivery O2 Flow Rate FiO2 11/10/19 11:00 98.4 81 16 136/72 (93) 97 Room Air 98.4 Labs Laboratory Tests Test 11/09/19 03:30 11/10/19 05:20 Sodium Level 144 mmol/L (136-145) 142 mmol/L (136-145) Potassium Level 3.9 mmol/L (3.5-5.1) 3.9 mmol/L (3.5-5.1) Chloride Level 110 mmol/L (98-107) 110 mmol/L (98-107) Carbon Dioxide Level 19 mmol/L (21-32) 18 mmol/L (21-32) Anion Gap 15 (6-14) 14 (6-14) Blood Urea Nitrogen 9 mg/dL (8-26) 8 mg/dL (8-26) Creatinine 1.0 mg/dL (0.7-1.3) 1.0 mg/dL (0.7-1.3) Estimated GFR (Cockcroft-Gault) 88.6 88.6 Glucose Level 96 mg/dL (70-99) 103 mg/dL (70-99) Calcium Level 8.8 mg/dL (8.5-10.1) 8.7 mg/dL (8.5-10.1) Phosphorus Level 3.8 mg/dL (2.6-4.7) 4.0 mg/dL (2.6-4.7) Magnesium Level 2.0 mg/dL (1.8-2.4) 1.9 mg/dL (1.8-2.4) Albumin 2.3 g/dL (3.4-5.0) 2.3 g/dL (3.4-5.0) Laboratory Tests Test 11/10/19 05:20 Sodium Level 142 mmol/L (136-145) Potassium Level 3.9 mmol/L (3.5-5.1) Chloride Level 110 mmol/L (98-107) Carbon Dioxide Level 18 mmol/L (21-32) Anion Gap 14 (6-14) Blood Urea Nitrogen 8 mg/dL (8-26) Creatinine 1.0 mg/dL (0.7-1.3) Estimated GFR (Cockcroft-Gault) 88.6 Glucose Level 103 mg/dL (70-99) Calcium Level 8.7 mg/dL (8.5-10.1) Phosphorus Level 4.0 mg/dL (2.6-4.7) Magnesium Level 1.9 mg/dL (1.8-2.4) Albumin 2.3 g/dL (3.4-5.0) Allergies Allergies Coded Allergies Type Severity Reaction Last Updated Verified I S O L A T I O N *CONTACT* Allergy Unknown 11/03/19 Yes No Known Medication Allergies Allergy Unknown 11/03/19 Yes Disposition/Orders: Other (D/C TO [facility]) Justicifation of Admission Dx: Justifications for Admission: Justification of Admission Dx: N/A MARKIE GARCIA MD Nov 10, 2019 12:41
[2019-11-10 15:00] VITALS: BP 134/71
--- NOTE | 2019-11-10 17:16 | NUR ---
PT DISCHARGED TO [facility]. REPORT GIVEN TO CHERRIE. PT PACKED HIS OWN BELONGINGS. ASSISTED TO WHEELCHAIR AND WAS TAKEN TO [facility].
[2019-11-11 18:10] LABS: ALBUMIN UR 11.9 % (.); ALPHA 1 UR 7.2 % (.); ALPHA 2 UR 21.7 % (.); BETA UR 29.7 % (.); GAMMA UR 29.6 % (.); PROTEIN UR 27.2 mg/dL (Not Estab.)
== END 2019-11-10 17:18 | DRG 474 ==
LOC: ER 15:28 → 4 NORTH 17:58
PROVIDERS: ADMIT Internal Medicine; ATTEND Internal Medicine
PROC: 0Y6H0Z1 Detachment at Right Lower Leg, High, Open Approach (ICD-10-PCS; 2019-11-02)
PROC: 0Y6J0Z1 Detachment at Left Lower Leg, High, Open Approach (ICD-10-PCS; principal; 2019-11-02 15:30)
DX: T87.89 Other complications of amputation stump (principal); E43 Unspecified severe protein-calorie malnutrition; L97.919 Non-pressure chronic ulcer of unspecified part of right lower leg with unspecified severity; E11.52 Type 2 diabetes mellitus with diabetic peripheral angiopathy with gangrene; I10 Essential (primary) hypertension; B87.9 Myiasis, unspecified; D72.829 Elevated white blood cell count, unspecified; E11.42 Type 2 diabetes mellitus with diabetic polyneuropathy; E11.621 Type 2 diabetes mellitus with foot ulcer; E11.69 Type 2 diabetes mellitus with other specified complication; E78.5 Hyperlipidemia, unspecified; E87.6 Hypokalemia; F43.10 Post-traumatic stress disorder, unspecified; I25.10 Atherosclerotic heart disease of native coronary artery without angina pectoris; J44.9 Chronic obstructive pulmonary disease, unspecified; L97.529 Non-pressure chronic ulcer of other part of left foot with unspecified severity; N28.9 Disorder of kidney and ureter, unspecified; Y83.5 Amputation of limb(s) as the cause of abnormal reaction of the patient, or of later complication, without mention of misadventure at the time of the procedure; Z83.3 Family history of diabetes mellitus; Z86.73 Personal history of transient ischemic attack (TIA), and cerebral infarction without residual deficits; Z87.891 Personal history of nicotine dependence; Z89.511 Acquired absence of right leg below knee; Z89.512 Acquired absence of left leg below knee; F32.9 Major depressive disorder, single episode, unspecified; Z20.828 Contact with and (suspected) exposure to other viral communicable diseases; Z68.23 Body mass index [BMI] 23.0-23.9, adult
CPT/HCPCS: 36415; 71045; 73590; 73630; 76700; 80048; 80053; 80069; 81001; 82010; 82550; 82565; 82784; 82962; 83605; 83735; 83970; 84100; 84132; 84166; 85007; 85025; 86140; 86334; 86335; 86850; 86900; 86901; 87040; 87071; 87075; 87077; 87186; 88307; 93971; 96365; 96366; 96368; 96375; 99285; A7015; J0360; J0780; J0878; J1100; J1170; J1815; J1885; J2185; J2248; J2270; J2370; J2405; J2543; J2704; J3010; J3370; J3475; J3480; J3490; J7030; J7040; J7060; 97110-GP; 97530-GO; 97530-GP; 97535-GO; A4461; G0378; U0003-CS

== ENCOUNTER 2020-12-29 10:01 | Inpatient (IN) | payer OTHER ==
[~2020-12-29] VITALS: Ht 190.5 cm; Wt 81.0 kg
[~2020-12-29 10:01] MED LIST: AMLO-186 PO; DAPT350V IV; FINA5TAB4 PO; Folic Acid PO; GABA300C18 PO; GABA600T7 PO; HYDR12.58 PO; IBUP-1060 PO; LACT1CAP19 PO; LOSA25TA PO; METO-239 PO; MULT1TAB92 PO; OXYC5TAB4 PO; POTA-121 PO; PSYL3.4P PO; TAMS0.4C97 PO; THIA100T22 PO
[2020-12-29] MEDS ORDERED: IV NORMAL SALINE 1000ML BAG 1,000 ML IV ONE (11:00)
[2020-12-29] MEDS ORDERED: VANCOMYCIN PER PHARMACY MC PRN (11:00)
[2020-12-29] MEDS ORDERED: PIPERACILLIN/TAZOBACTAM 3.375 GM in IV NORMAL SALINE 50ML 50 ML IV ONE (11:00)
[2020-12-29] MEDS ORDERED: VANCOMYCIN 1.5 GM in IV NORMAL SALINE 500ML BAG 500 ML IV ONE (11:15)
[2020-12-29] MEDS: MORPHINE SULFATE 4 MG/ML INJ. IV/SQ PRN ×4 (11:26→17:58)
[2020-12-29 11:36] LABS: BASO # 0.1 x10^3/uL (0.0-0.2); BASO % 0 % (0-3); EOS # 0.1 x10^3/uL (0.0-0.7); EOS % 1 % (0-3); HEMATOCRIT 33.8 % (39.0-53.0); HEMOGLOBIN 11.5 g/dL (13.0-17.5); LYMPH # 1.6 x10^3/uL (1.0-4.8); LYMPH % 12 % (24-48); MEAN CORPUSCULAR HEMOGLOBIN 28 pg (25-35); MEAN CORPUSCULAR HGB CONC 34 g/dL (31-37); MEAN CORPUSCULAR VOLUME 83 fL (79-100); MONO # 0.7 x10^3/uL (0.0-1.1); MONO % 6 % (0-9); NEUT # 10.9 x10^3/uL (1.8-7.7); NEUT % 81 % (31-73); PLATELET COUNT 250 x10^3/uL (140-400); RED BLOOD COUNT 4.08 x10^6/uL (4.30-5.70); RED CELL DISTRIBUTION WIDTH 12.8 % (11.5-14.5); WHITE BLOOD COUNT 13.4 x10^3/uL (4.0-11.0)
[2020-12-29 11:44] LABS: CALCIUM 8.7 mg/dL (8.5-10.1); CREATININE 0.9 mg/dL (0.7-1.3); GFR 99.8; POTASSIUM 3.3 mmol/L (3.5-5.1)
[2020-12-29 11:53] LABS: ALBUMIN 2.8 g/dL (3.4-5.0); ALBUMIN/GLOBULIN RATIO 0.6 (1.0-1.7); C-REACTIVE PROTEIN 125.3 mg/L (0-3.3); TOTAL BILIRUBIN 1.5 mg/dL (0.2-1.0); TOTAL PROTEIN 7.4 g/dL (6.4-8.2)
[2020-12-29] MEDS ORDERED: IOHEXOL 350 MG/ML 100 ML VIAL. IV ONE (12:00)
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
[2020-12-29] MEDS ORDERED: PIP/TAZO PER PHARMACY MC PRN (14:30)
--- NOTE | 2020-12-29 14:59 | HP ---
ADMIT DATE: 12/29/2020 CHIEF COMPLAINT: Stump pain and swelling. HISTORY OF PRESENT ILLNESS: The patient is a pleasant 75-year-old male who had bilateral knee amputations a year ago. The left stump is now a little bit swollen and painful. It is warm to touch. I discussed the case with ER physician. We are going to admit the patient, give him IV antibiotics. PAST MEDICAL HISTORY: Hypertension, PVD, neuropathy, bilateral phlan-hcw-pyyt amputations, previous tobacco abuse, heavy alcohol use. ALLERGIES: None. FAMILY HISTORY: Diabetes. SOCIAL HISTORY: He drinks heavily. No smoking or drugs. He quit smoking. MEDICATIONS: Reviewed, please refer to the MRAD. REVIEW OF SYSTEMS: GENERAL: No history of weight change, weakness or fevers. SKIN: No bruising, hair changes or rashes. EYES: No blurred, double or loss of vision. NOSE AND THROAT: No history of nosebleeds, hoarseness or sore throat. HEART: No history of palpitations, chest pain or shortness of breath on exertion. LUNGS: Denies cough, hemoptysis, wheezing or shortness of breath. GASTROINTESTINAL: Denies changes in appetite, nausea, vomiting, diarrhea or constipation. GENITOURINARY: No history of frequency, urgency, hesitancy or nocturia. NEUROLOGIC: Denies history of numbness, tingling, tremor or weakness. PSYCHIATRIC: No history of panic, anxiety or depression. ENDOCRINE: No history of heat or cold intolerance, polyuria or polydipsia. EXTREMITIES: He complains of left stump pain and swelling. PHYSICAL EXAMINATION: VITALS: Within normal limits and are stable. GENERAL: No apparent distress. Alert and oriented. HEENT: Normal cephalic atraumatic, external auditory canals are patent. EYES: Extraocular muscles are intact, pupils are equally round and reactive to light and accommodation. MUSCULOSKELETAL: Well developed, well nourished, good range of motion. ENDOCRINE: No thyromegaly was palpated. LYMPHATICS: No cervical chain or axillary nodes were noted. HEMATOPOIETIC: No bruising. NECK: Supple, no JVD, no thyromegaly was noted. LUNGS: Clear to auscultation in all lung cruz without rhonchi or wheezing. HEART: RRR, S1, S2 present. Peripheral pulses intact, no obvious murmurs were noted. ABDOMEN: Soft, nontender. Positive bowel sounds no organomegaly, normal bowel sounds. EXTREMITIES: He has bilateral [id number]-[id number] amputations. The left hvvcb-cmr-jeam amputation is a little swollen, it is also slightly red, it is also warm to touch compared to the right. NEUROLOGIC: Normal speech, normal tone. A and O x 3, moves all extremities, no obvious focal deficits. PSYCHIATRIC: Normal affect, normal mood. Stable. SKIN: No ulcerations or rashes, good skin turgor, no jaundice. VASCULAR: Good capillary refill, neurovascular bundle appears to be intact. LABORATORY DATA: White count is 13. ASSESSMENT AND PLAN: Left stump infection. The patient will be admitted. We will give IV antibiotics. Home meds. DVT prophylaxis. Full code. IV Zosyn, IV vancomycin. Wound care. EREN/LRAON DR: EREN/deny TID: [id number]
[2020-12-29] MEDS ORDERED: ONDANSETRON PF 4 MG/2 ML VIAL. IVP PRN (16:30)
[2020-12-29] MEDS ORDERED: MORPHINE SULFATE 4 MG/ML INJ. IVP PRN (16:30)
--- NOTE | 2020-12-29 17:23 | NUR ---
Pharmacy Vancomycin Dosing Note S:Consulted to monitor and dose vancomycin started 12/29/20. O:ERI MARQUES is a 75 year old M with a BKA infection. Height: 6 feet, 3 inches Weight: 81.0 kg Dosing Weight: Actual Other Antibiotics: ZOSYN 3.375G IV Q6HRS LABS: Last BUN: 6 Last Creatinine: 0.9 Creatinine Clearance: 71 mL/min Last WBC: 13.4 Last Procalcitonin: <0.1 Tmax (past 24 hours): 98.4 Microbiology: BLOOD CX PENDING A: Patient requires vancomycin for a BKA infection, goal trough 10-20 mcg/ml. His SCr 0.9 and eCrCl of 72 ml/min. P: 1. Initiate Vancomycin 1500 mg IV x 1 dose then 1250 mg IV q12h 2. Follow up Trough level on 12/31/20 at 1130 3. Pharmacy will continue to monitor, follow and adjust therapy as needed. LUZ MARINA BUTT, [facility], 12/29/20 [id number]
[2020-12-29] MEDS: PIPERACILLIN/TAZOBACTAM 3.375 GM in IV NORMAL SALINE 50ML 50 ML IV SCH ×2 (17:57→23:13)
[2020-12-29] MEDS: ACETAMINOPHEN 325 MG TABLET. PO PRN (17:57)
[2020-12-29 21:32] VITALS: BP 163/85
[2020-12-29] MEDS ORDERED: METOPROLOL SUCC 24HR ER 50 MG TAB.ER.24H. PO ONE (23:00)
[2020-12-29] MEDS ORDERED: POTASSIUM CHLORIDE 20 MEQ TABLET.ER. PO ONE (23:00)
[2020-12-29] MEDS: oxyCODONE IR 5 MG TABLET PO PRN (23:12)
[2020-12-29] MEDS: VANCOMYCIN 1.25 GM in IV NORMAL SALINE 250ML 250 ML IV SCH (23:13)
[2020-12-29 23:59] VITALS: BP 161/81
[2020-12-30 03:13] VITALS: BP 155/77
[2020-12-30] MEDS: PIPERACILLIN/TAZOBACTAM 3.375 GM in IV NORMAL SALINE 50ML 50 ML IV SCH ×4 (05:01→23:14)
--- NOTE | 2020-12-30 06:27 | NUR ---
IP: Pt adm with cellulitis of BKA stump. Pt has a hx of mrsa in R stump wound on 07/13/20. Pt to be in contact precautions.
[2020-12-30 07:54] VITALS: BP 156/75
[2020-12-30 08:09] LABS: BASO % 0 % (0-3); EOS # 0.2 x10^3/uL (0.0-0.7); EOS % 1 % (0-3); HEMOGLOBIN 10.4 g/dL (13.0-17.5); LYMPH # 1.7 x10^3/uL (1.0-4.8); LYMPH % 13 % (24-48); MEAN CORPUSCULAR HEMOGLOBIN 28 pg (25-35); MEAN CORPUSCULAR HGB CONC 33 g/dL (31-37); MEAN CORPUSCULAR VOLUME 84 fL (79-100); MONO # 1.1 x10^3/uL (0.0-1.1); MONO % 9 % (0-9); NEUT # 10.1 x10^3/uL (1.8-7.7); NEUT % 77 % (31-73); PLATELET COUNT 240 x10^3/uL (140-400); RED BLOOD COUNT 3.69 x10^6/uL (4.30-5.70); RED CELL DISTRIBUTION WIDTH 12.6 % (11.5-14.5); WHITE BLOOD COUNT 13.1 x10^3/uL (4.0-11.0)
[2020-12-30] MEDS: TAMSULOSIN 0.4 MG CAP.ER.24H. PO SCH (08:23)
[2020-12-30] MEDS: MULTIVITAMIN with MINERAL TABLET. PO SCH (08:24)
[2020-12-30] MEDS: oxyCODONE IR 5 MG TABLET PO PRN ×4 (08:24→23:15)
[2020-12-30] MEDS: ACETAMINOPHEN 325 MG TABLET. PO PRN (08:24)
[2020-12-30] MEDS: POTASSIUM CHLORIDE 20 MEQ TABLET.ER. PO SCH (08:24)
[2020-12-30] MEDS: METOPROLOL SUCC 24HR ER 50 MG TAB.ER.24H. PO SCH (08:25)
[2020-12-30] MEDS: LOSARTAN POTASSIUM 25 MG TABLET. PO SCH (08:25)
[2020-12-30 08:37] LABS: ALBUMIN 2.4 g/dL (3.4-5.0); ALBUMIN/GLOBULIN RATIO 0.6 (1.0-1.7); CALCIUM 8.3 mg/dL (8.5-10.1); CREATININE 1.2 mg/dL (0.7-1.3); GFR 71.6; POTASSIUM 3.7 mmol/L (3.5-5.1); TOTAL BILIRUBIN 1.4 mg/dL (0.2-1.0); TOTAL PROTEIN 6.7 g/dL (6.4-8.2)
--- NOTE | 2020-12-30 10:23 | CONS ---
DATE OF CONSULTATION: 12/29/2020 ORTHOPEDIC CONSULTATION REQUESTING PHYSICIAN: Shyanne Horn APRN, Emergency Department and Casimiro Vickers DO. HISTORY OF PRESENT ILLNESS: The patient is a 75-year-old retired from the [employer] who has a history of bilateral knee amputations in 10/2019 that were done by me and had a subsequent wound problem in 06/2020, undergoing irrigation, debridement, wound VAC placement by Dr. Riggins and subsequent wound care for a stump abscess and reports now for the past few days that he has had swelling, pain and warmth to that same left stump that had undergone the previous irrigation and debridement in June. On reviewing his activity level, he transfers through a motorized wheelchair. He does not have fitting of any prostheses and he mentioned something about wearing a compressive garment, sounded perhaps like a stump operations examiner on the left side, but states that became very painful over the past few days and he has not been wearing it. Denies any fever, chills, any recent drainage from the stump or any specific injury. PAST MEDICAL HISTORY: Significant for hypertension, neuropathy, peripheral vascular disease. PAST SURGICAL HISTORY: Significant for previous toe amputations and other surgeries to attempt to salvage his feet prior to the below-knee amputations. He also had multiple vascular stents done in his legs, he thinks on further questioning done at the [facility]. FAMILY HISTORY: He does have a family history diabetes. SOCIAL HISTORY: He is a former smoker, quit years ago. Heavy use of alcohol, but denies drug use. ALLERGIES: He has no known drug allergies. MEDICATIONS: List is reviewed. REVIEW OF SYSTEMS: Currently, again, denies any drainage from the stump, fever, chills, radiating pain, focal weakness or new numbness or tingling aside from just baseline neuropathy, but complains of severe tenderness, swelling, warmth of the left below-knee amputation stump. PHYSICAL EXAMINATION: GENERAL: A pleasant 75-year-old male, alert and oriented, no acute distress, examined in bed. EXTREMITIES: Examination of the lower extremities, the right lower extremity has well-healed below-knee amputation stump with no tenderness whatsoever, stump remains well. The bony areas remain well padded. No evidence of any redness, warmth or erythema on the right side. On the left side, however, he does have some swelling. There is no indication of any current wound or drainage; however, he does have some shininess to the skin from obvious swelling. It is tender on palpation and has some mild warmth, erythema present. No particular tenderness on movement of either his hips or his knees and no indication of obvious vascular compromise on either lower extremity and no knee or hip joint instability. LABORATORY DATA: White count is 13. CT angiography of left lower extremity notes, 1. High-grade stenosis of the left proximal internal iliac artery, moderate stenosis of the proximal profunda artery and some stenosis of the superficial femoral artery above an area where there are multiple overlapping stents extending down to the popliteal artery. 2. Showing some subcutaneous edema and stranding within the distal soft tissues of the left lower extremity consistent with cellulitis. IMPRESSION: 1. History of bilateral below-knee amputations with subsequent remote irrigation and debridement of the left below-knee amputation stump. 2. Left below-knee amputation stump cellulitis and pain recurring recently. TREATMENT PLAN: He is currently on some IV antibiotics, which is appropriate. There is no specific indication of abscess currently on the CT angiography. Given his history, he may need some exploration of the stump area; however, he did have some healing problems due to his medical issues including vascular status potentially on the left lower extremity stump, previous. I am a little bit reluctant to really sign him up at this point for exploration without a draining wound or focal abscess present on the imaging at this time. I would probably suggest Vascular Surgery input as well whether they would recommend any additional revascularization procedures on the left side and I think for the near term, observe his status and probably at least initial treatment with antibiotics to determine his response. GILLES/SHELDON DR: Vasquez TID: [id number]
[2020-12-30 11:15] VITALS: BP 132/71
--- NOTE | 2020-12-30 12:18 | PDOC2 ---
CONSULT Date of Service Date of Service DATE: 12/30/20 TIME: 12:13 Reason for Consult Reason for Consult: peripheral vascular disease, left bka stump cellulitis Referring Physician Referring Physician: Dr. Vickers Identification/Chief Complaint Chief Complaint left bka swelling and pain Source Source: Chart review, Patient History of Present Illness Reason for Visit: This is a 75-year-old male who was admitted to the hospital with left below-knee amputation site swelling, redness and pain. Patient states he has had worsening symptoms over the past 2 weeks. Per chart review patient had a left below-knee amputation approximately a year ago, he did have some wound complications that required wound VAC therapy in June 2020. Patient states this healed and he has has had no problems up until recently. 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 Patient denies any fevers or chills although he is febrile during this hospitalization. Patient denies any nausea or vomiting. Past Medical History Cardiovascular: CAD, HTN, Hyperlipidemia Pulmonary: COPD Endocrine: Diabetes Past Surgical History Past Surgical History bilateral below-knee amputation Past Surgical History: Other Family History Family History: Diabetes, Heart Disease Social History No ALCOHOL: heavy Lives: Alone Current Problem List Problem List Problems Medical Problems: (1) Left leg cellulitis Status: Acute Current Medications Current Medications Current Medications Morphine Sulfate (Morphine Sulfate) 4 mg PRN Q15MIN PRN IV/SQ PAIN GREATER THAN 3/10 Last administered on 12/29/20at 17:58; Start 12/29/20 at 11:00; Stop 12/29/20 at 20:10; Status DC Sodium Chloride 1,000 ml @ 1,000 mls/hr 1X ONCE IV Last administered on 12/29/20at 11:00; Start 12/29/20 at 11:00; Stop 12/29/20 at 11:59; Status DC Piperacillin Sod/ Tazobactam Sod 3.375 gm/Sodium Chloride 50 ml @ 100 mls/hr 1X ONCE IV Last administered on 12/29/20at 11:34; Start 12/29/20 at 11:00; Stop 12/29/20 at 11:29; Status DC Vancomycin HCl (Vanco Per Pharmacy) 1 each PRN DAILY PRN MC SEE COMMENTS Last administered on 12/29/20at 17:21; Start 12/29/20 at 11:00; Stop 12/29/20 at 20:11; Status DC Vancomycin HCl 1.5 gm/Sodium Chloride 500 ml @ 250 mls/hr 1X ONCE IV Last administered on 12/29/20at 12:41; Start 12/29/20 at 11:15; Stop 12/29/20 at 13:14; Status DC Iohexol (Omnipaque 350 Mg/ml) 100 ml 1X ONCE IV Last administered on 12/29/20at 12:13; Start 12/29/20 at 12:00; Stop 12/29/20 at 12:05; Status DC Piperacillin Sod/ Tazobactam Sod (Zosyn Per Pharmacy) 1 each PRN DAILY PRN MC SEE COMMENTS; Start 12/29/20 at 14:30 Vancomycin HCl (Vanco Per Pharmacy) 1 each PRN DAILY PRN MC SEE COMMENTS; Start 12/29/20 at 14:30 Ondansetron HCl (Zofran) 4 mg PRN Q8HRS PRN IVP NAUSEA/VOMITING Last administered on 12/29/20at 17:58; Start 12/29/20 at 16:30; Stop 12/30/20 at 16:29 Morphine Sulfate (Morphine Sulfate) 4 mg PRN Q2HR PRN IVP PAIN; Start 12/29/20 at 16:30; Stop 12/30/20 at 16:29 Acetaminophen (Tylenol) 650 mg PRN Q4HRS PRN PO FEVER > 100.3'F Last administered on 12/30/20at 08:24; Start 12/29/20 at 16:30; Stop 12/30/20 at 16:29 Piperacillin Sod/ Tazobactam Sod 3.375 gm/Sodium Chloride 50 ml @ 100 mls/hr Q6HRS IV Last administered on 12/30/20at 05:01; Start 12/29/20 at 18:00 Vancomycin HCl 1.25 gm/Sodium Chloride 250 ml @ 167 mls/hr Q12H IV Last administered on 12/29/20at 23:13; Start 12/30/20 at 00:00 Vancomycin HCl (Vancomycin Trough Level) 1 each 1X ONCE MC ; Start 12/31/20 at 11:30; Stop 12/31/20 at 11:31 Amlodipine Besylate (Norvasc) 5 mg DAILY PO Last administered on 12/30/20at 08:25; Start 12/30/20 at 09:00 Losartan Potassium (Cozaar) 25 mg DAILY PO Last administered on 12/30/20at 08:25; Start 12/30/20 at 09:00 Metoprolol Succinate (Toprol Xl) 50 mg DAILY PO Last administered on 12/30/20at 08:25; Start 12/30/20 at 09:00 Multivitamins (Thera M Plus) 1 tab DAILY PO Last administered on 12/30/20at 08:24; Start 12/30/20 at 09:00 Oxycodone HCl (Roxicodone) 10 mg PRN Q4HRS PRN PO SEVERE PAIN 7-10 Last administered on 12/30/20 08:24; Start 12/29/20 at 22:15 Potassium Chloride (Klor-Con) 20 meq DAILY08 PO Last administered on 12/30/20at 08:24; Start 12/30/20 at 08:00 Tamsulosin HCl (Flomax) 0.4 mg DAILY PO Last administered on 12/30/20at 08:23; Start 12/30/20 at 09:00 Amlodipine Besylate (Norvasc) 5 mg ONCE ONCE PO Last administered on 12/29/20at 23:13; Start 12/29/20 at 23:00; Stop 12/29/20 at 23:01; Status DC Metoprolol Succinate (Toprol Xl) 50 mg ONCE ONCE PO Last administered on 12/29/20at 23:12; Start 12/29/20 at 23:00; Stop 12/29/20 at 23:01; Status DC Potassium Chloride (Klor-Con) 20 meq ONCE ONCE PO Last administered on 12/29at 23:11; Start 12/29/20 at 23:00; Stop 12/29/20 at 23:01; Status DC Active Scripts Active Thera-M Tablet (Multivits,Ca,Minerals/Iron/Fa) 1 Each Tablet 1 Tab PO DAILY 30 Days Vitamin B-1 (Thiamine Mononitrate) 100 Mg Tablet 100 Mg PO DAILY 30 Days Gabapentin 300 Mg Capsule 300 Mg PO TID 30 Days Oxycodone Hcl Immed.release (Oxycodone Hcl) 5 Mg Tablet 10 Mg PO PRN Q4HRS PRN 14 Days Reported Flomax (Tamsulosin Hcl) 0.4 Mg Cap.er.24h 0.4 Mg PO DAILY Klor-Con M20 (Potassium Chloride) 20 Meq Tab.er.prt 20 Meq PO DAILY Metoprolol Succinate ( Xl ) (Metoprolol Succinate) 25 Mg Tab.er.24h 50 Mg PO DAILY Cozaar (Losartan Potassium) 25 Mg Tablet 25 Mg PO DAILY Finasteride 5 Mg Tablet 5 Mg PO DAILY Amlodipine Besylate 5 Mg Tablet 5 Mg PO DAILY Allergies Allergies: Coded Allergies: I S O L A T I O N *CONTACT* (Verified Allergy, Unknown, 11/03/19) mrsa No Known Medication Allergies (Verified Allergy, Unknown, 11/03/19) ROS Review of System Constitutional: Positive for fever Eyes: Denies any visual disturbances HENT: Denies nasal congestion or sore throat Respiratory: Denies cough or shortness of breath Cardiovascular: Denies any palpitations or chest pain GI: Denies abdominal pain, nausea, vomiting, bloody stools or diarrhea : Denies dysuria or hematuria Musculoskeletal: As per HPI Integument: As per HPI Neurologic: No gross deficits Vitals VITALS Vital Signs Date Time Temp Pulse Resp B/P (MAP) Pulse Ox O2 Delivery O2 Flow Rate FiO2 12/30/20 11:15 98.1 81 20 132/71 (91) 94 Room Air 98.1 Labs Labs Laboratory Tests Test 12/29/20 11:18 12/30/20 07:30 12/30/20 07:45 White Blood Count 13.4 x10^3/uL (4.0-11.0) 13.1 x10^3/uL (4.0-11.0) Red Blood Count 4.08 x10^6/uL (4.30-5.70) 3.69 x10^6/uL (4.30-5.70) Hemoglobin 11.5 g/dL (13.0-17.5) 10.4 g/dL (13.0-17.5) Hematocrit 33.8 % (39.0-53.0) 31.0 % (39.0-53.0) Mean Corpuscular Volume 83 fL (79-100) 84 fL (79-100) Mean Corpuscular Hemoglobin 28 pg (25-35) 28 pg (25-35) Mean Corpuscular Hemoglobin Concent 34 g/dL (31-37) 33 g/dL (31-37) Red Cell Distribution Width 12.8 % (11.5-14.5) 12.6 % (11.5-14.5) Platelet Count 250 x10^3/uL (140-400) 240 x10^3/uL (140-400) Neutrophils (%) (Auto) 81 % (31-73) 77 % (31-73) Lymphocytes (%) (Auto) 12 % (24-48) 13 % (24-48) Monocytes (%) (Auto) 6 % (0-9) 9 % (0-9) Eosinophils (%) (Auto) 1 % (0-3) 1 % (0-3) Basophils (%) (Auto) 0 % (0-3) 0 % (0-3) Neutrophils # (Auto) 10.9 x10^3/uL (1.8-7.7) 10.1 x10^3/uL (1.8-7.7) Lymphocytes # (Auto) 1.6 x10^3/uL (1.0-4.8) 1.7 x10^3/uL (1.0-4.8) Monocytes # (Auto) 0.7 x10^3/uL (0.0-1.1) 1.1 x10^3/uL (0.0-1.1) Eosinophils # (Auto) 0.1 x10^3/uL (0.0-0.7) 0.2 x10^3/uL (0.0-0.7) Basophils # (Auto) 0.1 x10^3/uL (0.0-0.2) 0.0 x10^3/uL (0.0-0.2) Erythrocyte Sedimentation Rate 50 (0-15) Sodium Level 139 mmol/L (136-145) 139 mmol/L (136-145) Potassium Level 3.3 mmol/L (3.5-5.1) 3.7 mmol/L (3.5-5.1) Chloride Level 105 mmol/L (98-107) 106 mmol/L (98-107) Carbon Dioxide Level 24 mmol/L (21-32) 24 mmol/L (21-32) Anion Gap 10 (6-14) 9 (6-14) Blood Urea Nitrogen 6 mg/dL (8-26) 5 mg/dL (8-26) Creatinine 0.9 mg/dL (0.7-1.3) 1.2 mg/dL (0.7-1.3) Estimated GFR (Cockcroft-Gault) 99.8 71.6 BUN/Creatinine Ratio 7 (6-20) 4 (6-20) Glucose Level 104 mg/dL (70-99) 95 mg/dL (70-99) Lactic Acid Level 1.0 mmol/L (0.4-2.0) Calcium Level 8.7 mg/dL (8.5-10.1) 8.3 mg/dL (8.5-10.1) Total Bilirubin 1.5 mg/dL (0.2-1.0) 1.4 mg/dL (0.2-1.0) Aspartate Amino Transf (AST/SGOT) 18 U/L (15-37) 16 U/L (15-37) Alanine Aminotransferase (ALT/SGPT) 22 U/L (16-63) 20 U/L (16-63) Alkaline Phosphatase 95 U/L (46-116) 80 U/L (46-116) C-Reactive Protein, Quantitative 125.3 mg/L (0-3.3) Total Protein 7.4 g/dL (6.4-8.2) 6.7 g/dL (6.4-8.2) Albumin 2.8 g/dL (3.4-5.0) 2.4 g/dL (3.4-5.0) Albumin/Globulin Ratio 0.6 (1.0-1.7) 0.6 (1.0-1.7) Procalcitonin < 0.10 ng/mL (0.00-0.10) Laboratory Tests Test 12/30/20 07:30 12/30/20 07:45 Sodium Level 139 mmol/L (136-145) Potassium Level 3.7 mmol/L (3.5-5.1) Chloride Level 106 mmol/L (98-107) Carbon Dioxide Level 24 mmol/L (21-32) Anion Gap 9 (6-14) Blood Urea Nitrogen 5 mg/dL (8-26) Creatinine 1.2 mg/dL (0.7-1.3) Estimated GFR (Cockcroft-Gault) 71.6 BUN/Creatinine Ratio 4 (6-20) Glucose Level 95 mg/dL (70-99) Calcium Level 8.3 mg/dL (8.5-10.1) Total Bilirubin 1.4 mg/dL (0.2-1.0) Aspartate Amino Transf (AST/SGOT) 16 U/L (15-37) Alanine Aminotransferase (ALT/SGPT) 20 U/L (16-63) Alkaline Phosphatase 80 U/L (46-116) Total Protein 6.7 g/dL (6.4-8.2) Albumin 2.4 g/dL (3.4-5.0) Albumin/Globulin Ratio 0.6 (1.0-1.7) White Blood Count 13.1 x10^3/uL (4.0-11.0) Red Blood Count 3.69 x10^6/uL (4.30-5.70) Hemoglobin 10.4 g/dL (13.0-17.5) Hematocrit 31.0 % (39.0-53.0) Mean Corpuscular Volume 84 fL (79-100) Mean Corpuscular Hemoglobin 28 pg (25-35) Mean Corpuscular Hemoglobin Concent 33 g/dL (31-37) Red Cell Distribution Width 12.6 % (11.5-14.5) Platelet Count 240 x10^3/uL (140-400) Neutrophils (%) (Auto) 77 % (31-73) Lymphocytes (%) (Auto) 13 % (24-48) Monocytes (%) (Auto) 9 % (0-9) Eosinophils (%) (Auto) 1 % (0-3) Basophils (%) (Auto) 0 % (0-3) Neutrophils # (Auto) 10.1 x10^3/uL (1.8-7.7) Lymphocytes # (Auto) 1.7 x10^3/uL (1.0-4.8) Monocytes # (Auto) 1.1 x10^3/uL (0.0-1.1) Eosinophils # (Auto) 0.2 x10^3/uL (0.0-0.7) Basophils # (Auto) 0.0 x10^3/uL (0.0-0.2) YONY ODOM APRN Dec 30, 2020 12:18
[2020-12-30] MEDS: VANCOMYCIN 1.25 GM in IV NORMAL SALINE 250ML 250 ML IV SCH (12:55)
[2020-12-30] MEDS: VANCOMYCIN PER PHARMACY MC PRN (13:59)
[2020-12-30 15:00] VITALS: BP 130/71
--- NOTE | 2020-12-30 15:58 | PDOC ---
[facility] PROGRESS NOTE Date of Service DOS: DATE: 12/30/20 TIME: 15:51 Chief Complaint Chief Complaint A/P: Left stump cellulitis - no abscess. Will cont vancomycin and zosyn, monitor renal function Hypertension - cont home meds PVD - no vascular interventions necessary Neuropathy - cont home meds Bilateral [id number] amputations Previous tobacco abuse Heavy alcohol use - counseled on cessation Sepsis - antibiotics and fluids FEN - general diet PPX - lovenox FULL CODE Dispo - inpatient History of Present Illness History of Present Illness Mr Guardado is a 78 year old male with a history of bilateral BKA. He has swelling and cellulitis of the left BKA stump. CT was negative for abscess Febrile 101.1 F overnight, WBC 13, ESR 50, CRP 125, CR up to 1.2 bilirubin 1.4. Vitals/I&O Vitals/I&O: Vital Signs Date Time Temp Pulse Resp B/P (MAP) Pulse Ox O2 Delivery O2 Flow Rate FiO2 12/30/20 15:00 97.6 81 18 130/71 (90) 95 Room Air 97.6 I & O 12/29/20 12/29/20 12/30/20 15:00 23:00 07:00 Intake Total 50 ml 1050 ml 350 ml Output Total 175 ml 250 ml Balance 50 ml 875 ml 100 ml Physical Exam Lungs: Clear Labs Labs: Laboratory Tests Test 12/30/20 07:30 12/30/20 07:45 Sodium Level 139 mmol/L (136-145) Potassium Level 3.7 mmol/L (3.5-5.1) Chloride Level 106 mmol/L (98-107) Carbon Dioxide Level 24 mmol/L (21-32) Anion Gap 9 (6-14) Blood Urea Nitrogen 5 mg/dL (8-26) Creatinine 1.2 mg/dL (0.7-1.3) Estimated GFR (Cockcroft-Gault) 71.6 BUN/Creatinine Ratio 4 (6-20) Glucose Level 95 mg/dL (70-99) Calcium Level 8.3 mg/dL (8.5-10.1) Total Bilirubin 1.4 mg/dL (0.2-1.0) Aspartate Amino Transf (AST/SGOT) 16 U/L (15-37) Alanine Aminotransferase (ALT/SGPT) 20 U/L (16-63) Alkaline Phosphatase 80 U/L (46-116) Total Protein 6.7 g/dL (6.4-8.2) Albumin 2.4 g/dL (3.4-5.0) Albumin/Globulin Ratio 0.6 (1.0-1.7) White Blood Count 13.1 x10^3/uL (4.0-11.0) Red Blood Count 3.69 x10^6/uL (4.30-5.70) Hemoglobin 10.4 g/dL (13.0-17.5) Hematocrit 31.0 % (39.0-53.0) Mean Corpuscular Volume 84 fL (79-100) Mean Corpuscular Hemoglobin 28 pg (25-35) Mean Corpuscular Hemoglobin Concent 33 g/dL (31-37) Red Cell Distribution Width 12.6 % (11.5-14.5) Platelet Count 240 x10^3/uL (140-400) Neutrophils (%) (Auto) 77 % (31-73) Lymphocytes (%) (Auto) 13 % (24-48) Monocytes (%) (Auto) 9 % (0-9) Eosinophils (%) (Auto) 1 % (0-3) Basophils (%) (Auto) 0 % (0-3) Neutrophils # (Auto) 10.1 x10^3/uL (1.8-7.7) Lymphocytes # (Auto) 1.7 x10^3/uL (1.0-4.8) Monocytes # (Auto) 1.1 x10^3/uL (0.0-1.1) Eosinophils # (Auto) 0.2 x10^3/uL (0.0-0.7) Basophils # (Auto) 0.0 x10^3/uL (0.0-0.2) Assessment and Plan Assessmemt and Plan Problems Medical Problems: (1) Left leg cellulitis Status: Acute Comment Review of Relevant I have reviewed the following items solomon (where applicable) has been applied. Medications: Current Medications Medications (Trade) Dose Ordered Sig/Yannick Route PRN Reason Start Time Stop Time Status Last Admin Dose Admin Ondansetron HCl (Zofran) 4 mg PRN Q8HRS PRN IVP NAUSEA/VOMITING 12/29/20 16:30 12/30/20 16:29 12/29/20 17:58 Acetaminophen (Tylenol) 650 mg PRN Q4HRS PRN PO FEVER > 100.3'F 12/29/20 16:30 12/30/20 16:29 12/30/20 08:24 Piperacillin Sod/ Tazobactam Sod 3.375 gm/Sodium Chloride 50 ml @ 100 mls/hr Q6HRS IV 12/29/20 18:00 12/30/20 12:17 Vancomycin HCl 1.25 gm/Sodium Chloride 250 ml @ 167 mls/hr Q12H IV 12/30/20 00:00 12/30/20 12:55 Amlodipine Besylate (Norvasc) 5 mg DAILY PO 12/30/20 09:00 12/30/20 08:25 Losartan Potassium (Cozaar) 25 mg DAILY PO 12/30/20 09:00 12/30/20 08:25 Metoprolol Succinate (Toprol Xl) 50 mg DAILY PO 12/30/20 09:00 12/30/20 08:25 Multivitamins (Thera M Plus) 1 tab DAILY PO 12/30/20 09:00 12/30/20 08:24 Oxycodone HCl (Roxicodone) 10 mg PRN Q4HRS PRN PO SEVERE PAIN 7-10 12/29/20 22:15 12/30/20 12:56 Potassium Chloride (Klor-Con) 20 meq DAILY08 PO 12/30/20 08:00 12/30/20 08:24 Tamsulosin HCl (Flomax) 0.4 mg DAILY PO 12/30/20 09:00 12/30/20 08:23 Amlodipine Besylate (Norvasc) 5 mg ONCE ONCE PO 12/29/20 23:00 12/29/20 23:01 DC 12/29/20 23:13 Metoprolol Succinate (Toprol Xl) 50 mg ONCE ONCE PO 12/29/20 23:00 12/29/20 23:01 DC 12/29/20 23:12 Potassium Chloride (Klor-Con) 20 meq ONCE ONCE PO 12/29/20 23:00 12/29/20 23:01 DC 12/29/20 23:11 Justifications for Admission Other Justification RADHA HOLT MD Dec 30, 2020 15:58
--- NOTE | 2020-12-30 17:05 | PDOC ---
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 Right BKA stump is well-healed and nontender Labs Laboratory Tests Test 12/29/20 11:18 12/30/20 07:30 12/30/20 07:45 White Blood Count 13.4 x10^3/uL (4.0-11.0) 13.1 x10^3/uL (4.0-11.0) Red Blood Count 4.08 x10^6/uL (4.30-5.70) 3.69 x10^6/uL (4.30-5.70) Hemoglobin 11.5 g/dL (13.0-17.5) 10.4 g/dL (13.0-17.5) Hematocrit 33.8 % (39.0-53.0) 31.0 % (39.0-53.0) Mean Corpuscular Volume 83 fL (79-100) 84 fL (79-100) Mean Corpuscular Hemoglobin 28 pg (25-35) 28 pg (25-35) Mean Corpuscular Hemoglobin Concent 34 g/dL (31-37) 33 g/dL (31-37) Red Cell Distribution Width 12.8 % (11.5-14.5) 12.6 % (11.5-14.5) Platelet Count 250 x10^3/uL (140-400) 240 x10^3/uL (140-400) Neutrophils (%) (Auto) 81 % (31-73) 77 % (31-73) Lymphocytes (%) (Auto) 12 % (24-48) 13 % (24-48) Monocytes (%) (Auto) 6 % (0-9) 9 % (0-9) Eosinophils (%) (Auto) 1 % (0-3) 1 % (0-3) Basophils (%) (Auto) 0 % (0-3) 0 % (0-3) Neutrophils # (Auto) 10.9 x10^3/uL (1.8-7.7) 10.1 x10^3/uL (1.8-7.7) Lymphocytes # (Auto) 1.6 x10^3/uL (1.0-4.8) 1.7 x10^3/uL (1.0-4.8) Monocytes # (Auto) 0.7 x10^3/uL (0.0-1.1) 1.1 x10^3/uL (0.0-1.1) Eosinophils # (Auto) 0.1 x10^3/uL (0.0-0.7) 0.2 x10^3/uL (0.0-0.7) Basophils # (Auto) 0.1 x10^3/uL (0.0-0.2) 0.0 x10^3/uL (0.0-0.2) Erythrocyte Sedimentation Rate 50 (0-15) Sodium Level 139 mmol/L (136-145) 139 mmol/L (136-145) Potassium Level 3.3 mmol/L (3.5-5.1) 3.7 mmol/L (3.5-5.1) Chloride Level 105 mmol/L (98-107) 106 mmol/L (98-107) Carbon Dioxide Level 24 mmol/L (21-32) 24 mmol/L (21-32) Anion Gap 10 (6-14) 9 (6-14) Blood Urea Nitrogen 6 mg/dL (8-26) 5 mg/dL (8-26) Creatinine 0.9 mg/dL (0.7-1.3) 1.2 mg/dL (0.7-1.3) Estimated GFR (Cockcroft-Gault) 99.8 71.6 BUN/Creatinine Ratio 7 (6-20) 4 (6-20) Glucose Level 104 mg/dL (70-99) 95 mg/dL (70-99) Lactic Acid Level 1.0 mmol/L (0.4-2.0) Calcium Level 8.7 mg/dL (8.5-10.1) 8.3 mg/dL (8.5-10.1) Total Bilirubin 1.5 mg/dL (0.2-1.0) 1.4 mg/dL (0.2-1.0) Aspartate Amino Transf (AST/SGOT) 18 U/L (15-37) 16 U/L (15-37) Alanine Aminotransferase (ALT/SGPT) 22 U/L (16-63) 20 U/L (16-63) Alkaline Phosphatase 95 U/L (46-116) 80 U/L (46-116) C-Reactive Protein, Quantitative 125.3 mg/L (0-3.3) Total Protein 7.4 g/dL (6.4-8.2) 6.7 g/dL (6.4-8.2) Albumin 2.8 g/dL (3.4-5.0) 2.4 g/dL (3.4-5.0) Albumin/Globulin Ratio 0.6 (1.0-1.7) 0.6 (1.0-1.7) Procalcitonin < 0.10 ng/mL (0.00-0.10) Laboratory Tests Test 12/30/20 07:30 12/30/20 07:45 Sodium Level 139 mmol/L (136-145) Potassium Level 3.7 mmol/L (3.5-5.1) Chloride Level 106 mmol/L (98-107) Carbon Dioxide Level 24 mmol/L (21-32) Anion Gap 9 (6-14) Blood Urea Nitrogen 5 mg/dL (8-26) Creatinine 1.2 mg/dL (0.7-1.3) Estimated GFR (Cockcroft-Gault) 71.6 BUN/Creatinine Ratio 4 (6-20) Glucose Level 95 mg/dL (70-99) Calcium Level 8.3 mg/dL (8.5-10.1) Total Bilirubin 1.4 mg/dL (0.2-1.0) Aspartate Amino Transf (AST/SGOT) 16 U/L (15-37) Alanine Aminotransferase (ALT/SGPT) 20 U/L (16-63) Alkaline Phosphatase 80 U/L (46-116) Total Protein 6.7 g/dL (6.4-8.2) Albumin 2.4 g/dL (3.4-5.0) Albumin/Globulin Ratio 0.6 (1.0-1.7) White Blood Count 13.1 x10^3/uL (4.0-11.0) Red Blood Count 3.69 x10^6/uL (4.30-5.70) Hemoglobin 10.4 g/dL (13.0-17.5) Hematocrit 31.0 % (39.0-53.0) Mean Corpuscular Volume 84 fL (79-100) Mean Corpuscular Hemoglobin 28 pg (25-35) Mean Corpuscular Hemoglobin Concent 33 g/dL (31-37) Red Cell Distribution Width 12.6 % (11.5-14.5) Platelet Count 240 x10^3/uL (140-400) Neutrophils (%) (Auto) 77 % (31-73) Lymphocytes (%) (Auto) 13 % (24-48) Monocytes (%) (Auto) 9 % (0-9) Eosinophils (%) (Auto) 1 % (0-3) Basophils (%) (Auto) 0 % (0-3) Neutrophils # (Auto) 10.1 x10^3/uL (1.8-7.7) Lymphocytes # (Auto) 1.7 x10^3/uL (1.0-4.8) Monocytes # (Auto) 1.1 x10^3/uL (0.0-1.1) Eosinophils # (Auto) 0.2 x10^3/uL (0.0-0.7) Basophils # (Auto) 0.0 x10^3/uL (0.0-0.2) Imaging Imaging showed no evidence of abscess, vascular studies show good patency occluding to the vascular evaluation Assessment Assessment Left BKA stump pain swelling and some cellulitis Plan Plan of Care Vascular surgery consultation noted and appreciated, appears to be good vessel patency Since no abscess present and not a vascular deficit, recommend nonoperative treatment with antibiotics as well as elevation and symptomatic treatment of his stump Justicifation of Admission Dx: Justifications for Admission: Justification of Admission Dx: N/A MIRANDA CHAMBERS MD Dec 30, 2020 17:05
[2020-12-30 19:00] VITALS: BP 95/51
[2020-12-30] MEDS: LACTOBACILLUS RHAMNOSUS GG 1 CAPSULE. PO SCH (20:51)
[2020-12-30] MEDS ORDERED: ACETAMINOPHEN 325 MG TABLET. PO PRN (23:15)
[2020-12-30 23:18] VITALS: BP 153/66
[2020-12-31 00:32] LABS: CREATININE 1.2 mg/dL (0.7-1.3); GFR 71.6
[2020-12-31 00:39] LABS: VANC TR 17.8 mcg/mL (10.0-20.0)
[2020-12-31] MEDS: VANCOMYCIN 1.25 GM in IV NORMAL SALINE 250ML 250 ML IV SCH ×2 (00:52→14:04)
[2020-12-31] MEDS: VANCOMYCIN PER PHARMACY MC PRN (01:39)
--- NOTE | 2020-12-31 01:41 | NUR ---
Pharmacy Vancomycin Dosing Note S:Consulted to monitor and dose vancomycin started 12/29/20. O:ERI MARQUES is a 75 year old M with Cellulitis BKA infection . Height: 6 feet, 3 inches Weight: 81.0 kg Wayne Body Weight: 84.50 Adjusted Body Weight: 83.10 Dosing Weight: Actual Other Antibiotics: ZOSYN 3.375G IV Q6HRS LABS: Last BUN: 5 Last Creatinine: 1.2 Creatinine Clearance: 62 mL/min Last WBC: 10.4 Last Procalcitonin: 240 Tmax (past 24 hours): 101.1 Microbiology: 12/29 BLOOD CX: NGTD I/O: 1450/425 Drug Levels: Last Trough level: 17.8 on 12/31/20 at 0010 Last dose given 12/31/20 at 0052 Vancomycin Dosing: Loading Dose: 1500 mg x1 Dosing Weight: Actual Target Trough: 10-20 A: Based on: THERAPEUTIC TROUGH FOR INDICATION, P: 1. CONTINUE Vancomycin 1250 mg IV q12h 2. Follow up Trough level NEEDED 3. Pharmacy will continue to monitor, follow and adjust therapy as needed. MARY CAMPBELL [facility], 12/31/20 0141
[2020-12-31 02:42] VITALS: BP 134/69
[2020-12-31] MEDS: PIPERACILLIN/TAZOBACTAM 3.375 GM in IV NORMAL SALINE 50ML 50 ML IV SCH ×3 (05:03→18:36)
[2020-12-31 08:24] VITALS: BP 174/90
[2020-12-31 08:27] LABS: BASO % 0 % (0-3); EOS # 0.3 x10^3/uL (0.0-0.7); EOS % 3 % (0-3); HEMOGLOBIN 10.5 g/dL (13.0-17.5); LYMPH # 2.1 x10^3/uL (1.0-4.8); LYMPH % 20 % (24-48); MEAN CORPUSCULAR HEMOGLOBIN 29 pg (25-35); MEAN CORPUSCULAR HGB CONC 34 g/dL (31-37); MEAN CORPUSCULAR VOLUME 85 fL (79-100); MONO # 0.8 x10^3/uL (0.0-1.1); MONO % 8 % (0-9); NEUT # 7.3 x10^3/uL (1.8-7.7); NEUT % 69 % (31-73); PLATELET COUNT 269 x10^3/uL (140-400); RED BLOOD COUNT 3.66 x10^6/uL (4.30-5.70); RED CELL DISTRIBUTION WIDTH 12.6 % (11.5-14.5); WHITE BLOOD COUNT 10.5 x10^3/uL (4.0-11.0)
[2020-12-31 08:41] LABS: CALCIUM 8.5 mg/dL (8.5-10.1); CREATININE 1.1 mg/dL (0.7-1.3); GFR 79.2; POTASSIUM 3.7 mmol/L (3.5-5.1)
[2020-12-31] MEDS: POTASSIUM CHLORIDE 20 MEQ TABLET.ER. PO SCH (09:14)
[2020-12-31] MEDS: METOPROLOL SUCC 24HR ER 50 MG TAB.ER.24H. PO SCH (09:14)
[2020-12-31] MEDS: LACTOBACILLUS RHAMNOSUS GG 1 CAPSULE. PO SCH ×2 (09:14→21:15)
[2020-12-31] MEDS: TAMSULOSIN 0.4 MG CAP.ER.24H. PO SCH (09:14)
[2020-12-31] MEDS: MULTIVITAMIN with MINERAL TABLET. PO SCH (09:14)
[2020-12-31] MEDS: LOSARTAN POTASSIUM 25 MG TABLET. PO SCH (09:15)
[2020-12-31] MEDS: oxyCODONE IR 5 MG TABLET PO PRN ×3 (09:16→18:36)
--- NOTE | 2020-12-31 10:58 | PDOC ---
[employer] PROGRESS NOTE Date of Service DOS: DATE: 12/31/20 TIME: 10:57 Chief Complaint Chief Complaint A/P: Left stump cellulitis - with associated abscess that was not clearly noted on initial admission. Will cont vancomycin and zosyn, monitor renal function. Consult ID given discharge Hypertension - cont home meds PVD - no vascular interventions necessary Neuropathy - cont home meds Bilateral [id number] amputations Previous tobacco abuse Heavy alcohol use - counseled on cessation Sepsis - antibiotics and fluids FEN - general diet PPX - lovenox FULL CODE Dispo - inpatient History of Present Illness History of Present Illness Mr Guardado is a 78 year old male with a history of bilateral BKA. He has swelling and cellulitis of the left BKA stump. CT was negative for abscess 12/30: Febrile 101.1 F overnight, WBC 13, ESR 50, CRP 125, CR up to 1.2 bilirubin 1.4. 12/31: Afebrile overnight. WBC 9. Per nursing overnight blister on left ruptured with over 40 cc of white thick discharge. He felt some relief but he still asking to increase the dosing and frequency of his pain medication. Culture of wound discharge ordered. Will ask ID to see given a much larger Vitals/I&O Vitals/I&O: Vital Signs Date Time Temp Pulse Resp B/P (MAP) Pulse Ox O2 Delivery O2 Flow Rate FiO2 12/31/20 09:46 Room Air 12/31/20 09:15 96 174/90 12/31/20 08:24 99.1 18 88 99.1 I & O 12/30/20 12/30/20 12/31/20 15:00 23:00 07:00 Intake Total 1464 ml 360 ml Output Total 175 ml 325 ml Balance 1464 ml 185 ml -325 ml Physical Exam General: Alert, Cooperative Lungs: Clear Labs Labs: Laboratory Tests Test 12/31/20 00:10 12/31/20 08:05 Creatinine 1.2 mg/dL (0.7-1.3) 1.1 mg/dL (0.7-1.3) Estimated GFR (Cockcroft-Gault) 71.6 79.2 Vancomycin Level Trough 17.8 mcg/mL (10.0-20.0) Vancomycin Last Dose Date Vancomycin Last Dose Time 1200 White Blood Count 10.5 x10^3/uL (4.0-11.0) Red Blood Count 3.66 x10^6/uL (4.30-5.70) Hemoglobin 10.5 g/dL (13.0-17.5) Hematocrit 31.0 % (39.0-53.0) Mean Corpuscular Volume 85 fL (79-100) Mean Corpuscular Hemoglobin 29 pg (25-35) Mean Corpuscular Hemoglobin Concent 34 g/dL (31-37) Red Cell Distribution Width 12.6 % (11.5-14.5) Platelet Count 269 x10^3/uL (140-400) Neutrophils (%) (Auto) 69 % (31-73) Lymphocytes (%) (Auto) 20 % (24-48) Monocytes (%) (Auto) 8 % (0-9) Eosinophils (%) (Auto) 3 % (0-3) Basophils (%) (Auto) 0 % (0-3) Neutrophils # (Auto) 7.3 x10^3/uL (1.8-7.7) Lymphocytes # (Auto) 2.1 x10^3/uL (1.0-4.8) Monocytes # (Auto) 0.8 x10^3/uL (0.0-1.1) Eosinophils # (Auto) 0.3 x10^3/uL (0.0-0.7) Basophils # (Auto) 0.0 x10^3/uL (0.0-0.2) Sodium Level 139 mmol/L (136-145) Potassium Level 3.7 mmol/L (3.5-5.1) Chloride Level 106 mmol/L (98-107) Carbon Dioxide Level 22 mmol/L (21-32) Anion Gap 11 (6-14) Blood Urea Nitrogen 5 mg/dL (8-26) Glucose Level 86 mg/dL (70-99) Calcium Level 8.5 mg/dL (8.5-10.1) Assessment and Plan Assessmemt and Plan Problems Medical Problems: (1) Left leg cellulitis Status: Acute Comment Review of Relevant I have reviewed the following items solomon (where applicable) has been applied. Medications: Current Medications Medications (Trade) Dose Ordered Sig/Yannick Route PRN Reason Start Time Stop Time Status Last Admin Dose Admin Vancomycin HCl (Vancomycin Trough Level) 1 each 1X ONCE 12/30/20 23:30 12/30/20 23:31 DC 12/29/20 23:30 Lactobacillus Rhamnosus (Culturelle) 1 cap BID PO 12/30/20 21:00 12/31/20 09:14 Acetaminophen (Tylenol) 650 mg PRN Q6HRS PRN PO MILD PAIN / TEMP > 100.3'F 12/30/20 23:15 12/30/20 23:15 Justifications for Admission Other Justification RADHA HOLT MD Dec 31, 2020 10:58
[2020-12-31 11:00] VITALS: BP 156/78
[2020-12-31] MEDS ORDERED: MORPHINE SULFATE 4 MG/ML INJ. IV PRN (11:00)
[2020-12-31] MEDS ORDERED: ONDANSETRON PF 4 MG/2 ML VIAL. IVP PRN (11:00)
--- NOTE | 2020-12-31 13:54 | PDOC ---
PROGRESS NOTES Date of Service DATE: 12/31/20 TIME: 13:51 Subjective Subjective Problems overnight: Continues to have left BKA stump pain, developed drainage following the area bursting open Objective Vital Signs Vital Signs Date Time Temp Pulse Resp B/P (MAP) Pulse Ox O2 Delivery O2 Flow Rate FiO2 12/31/20 11:00 98.9 86 18 156/78 (104) 91 Room Air 98.9 Physical Exam Distal stump still has some redness and swelling and now developed drainage Labs Laboratory Tests Test 12/30/20 07:30 12/30/20 07:45 12/31/20 00:10 12/31/20 08:05 Sodium Level 139 mmol/L (136-145) 139 mmol/L (136-145) Potassium Level 3.7 mmol/L (3.5-5.1) 3.7 mmol/L (3.5-5.1) Chloride Level 106 mmol/L (98-107) 106 mmol/L (98-107) Carbon Dioxide Level 24 mmol/L (21-32) 22 mmol/L (21-32) Anion Gap 9 (6-14) 11 (6-14) Blood Urea Nitrogen 5 mg/dL (8-26) 5 mg/dL (8-26) Creatinine 1.2 mg/dL (0.7-1.3) 1.2 mg/dL (0.7-1.3) 1.1 mg/dL (0.7-1.3) Estimated GFR (Cockcroft-Gault) 71.6 71.6 79.2 BUN/Creatinine Ratio 4 (6-20) Glucose Level 95 mg/dL (70-99) 86 mg/dL (70-99) Calcium Level 8.3 mg/dL (8.5-10.1) 8.5 mg/dL (8.5-10.1) Total Bilirubin 1.4 mg/dL (0.2-1.0) Aspartate Amino Transf (AST/SGOT) 16 U/L (15-37) Alanine Aminotransferase (ALT/SGPT) 20 U/L (16-63) Alkaline Phosphatase 80 U/L (46-116) Total Protein 6.7 g/dL (6.4-8.2) Albumin 2.4 g/dL (3.4-5.0) Albumin/Globulin Ratio 0.6 (1.0-1.7) White Blood Count 13.1 x10^3/uL (4.0-11.0) 10.5 x10^3/uL (4.0-11.0) Red Blood Count 3.69 x10^6/uL (4.30-5.70) 3.66 x10^6/uL (4.30-5.70) Hemoglobin 10.4 g/dL (13.0-17.5) 10.5 g/dL (13.0-17.5) Hematocrit 31.0 % (39.0-53.0) 31.0 % (39.0-53.0) Mean Corpuscular Volume 84 fL (79-100) 85 fL (79-100) Mean Corpuscular Hemoglobin 28 pg (25-35) 29 pg (25-35) Mean Corpuscular Hemoglobin Concent 33 g/dL (31-37) 34 g/dL (31-37) Red Cell Distribution Width 12.6 % (11.5-14.5) 12.6 % (11.5-14.5) Platelet Count 240 x10^3/uL (140-400) 269 x10^3/uL (140-400) Neutrophils (%) (Auto) 77 % (31-73) 69 % (31-73) Lymphocytes (%) (Auto) 13 % (24-48) 20 % (24-48) Monocytes (%) (Auto) 9 % (0-9) 8 % (0-9) Eosinophils (%) (Auto) 1 % (0-3) 3 % (0-3) Basophils (%) (Auto) 0 % (0-3) 0 % (0-3) Neutrophils # (Auto) 10.1 x10^3/uL (1.8-7.7) 7.3 x10^3/uL (1.8-7.7) Lymphocytes # (Auto) 1.7 x10^3/uL (1.0-4.8) 2.1 x10^3/uL (1.0-4.8) Monocytes # (Auto) 1.1 x10^3/uL (0.0-1.1) 0.8 x10^3/uL (0.0-1.1) Eosinophils # (Auto) 0.2 x10^3/uL (0.0-0.7) 0.3 x10^3/uL (0.0-0.7) Basophils # (Auto) 0.0 x10^3/uL (0.0-0.2) 0.0 x10^3/uL (0.0-0.2) Vancomycin Level Trough 17.8 mcg/mL (10.0-20.0) Vancomycin Last Dose Date Vancomycin Last Dose Time 1200 Laboratory Tests Test 12/31/20 00:10 12/31/20 08:05 Creatinine 1.2 mg/dL (0.7-1.3) 1.1 mg/dL (0.7-1.3) Estimated GFR (Cockcroft-Gault) 71.6 79.2 Vancomycin Level Trough 17.8 mcg/mL (10.0-20.0) Vancomycin Last Dose Date Vancomycin Last Dose Time 1200 White Blood Count 10.5 x10^3/uL (4.0-11.0) Red Blood Count 3.66 x10^6/uL (4.30-5.70) Hemoglobin 10.5 g/dL (13.0-17.5) Hematocrit 31.0 % (39.0-53.0) Mean Corpuscular Volume 85 fL (79-100) Mean Corpuscular Hemoglobin 29 pg (25-35) Mean Corpuscular Hemoglobin Concent 34 g/dL (31-37) Red Cell Distribution Width 12.6 % (11.5-14.5) Platelet Count 269 x10^3/uL (140-400) Neutrophils (%) (Auto) 69 % (31-73) Lymphocytes (%) (Auto) 20 % (24-48) Monocytes (%) (Auto) 8 % (0-9) Eosinophils (%) (Auto) 3 % (0-3) Basophils (%) (Auto) 0 % (0-3) Neutrophils # (Auto) 7.3 x10^3/uL (1.8-7.7) Lymphocytes # (Auto) 2.1 x10^3/uL (1.0-4.8) Monocytes # (Auto) 0.8 x10^3/uL (0.0-1.1) Eosinophils # (Auto) 0.3 x10^3/uL (0.0-0.7) Basophils # (Auto) 0.0 x10^3/uL (0.0-0.2) Sodium Level 139 mmol/L (136-145) Potassium Level 3.7 mmol/L (3.5-5.1) Chloride Level 106 mmol/L (98-107) Carbon Dioxide Level 22 mmol/L (21-32) Anion Gap 11 (6-14) Blood Urea Nitrogen 5 mg/dL (8-26) Glucose Level 86 mg/dL (70-99) Calcium Level 8.5 mg/dL (8.5-10.1) Imaging Previous CT imaging showed intact vascular supply and no evidence of abscess Assessment Assessment Left BKA stump pain cellulitis and now drainage Plan Plan of Care I went over with him that with the area opening up and draining that surgery is indicated for irrigation debridement continued antibiotics and a likely wound VAC. He agrees to proceed and current plans are for tomorrow due to him just eating lunch N.p.o. past midnight consent was filled out, continue antibiotics and infectious disease consultation Justicifation of Admission Dx: Justifications for Admission: Justification of Admission Dx: N/A MIRANDA CHAMBERS MD Dec 31, 2020 13:54
[2020-12-31 15:00] VITALS: BP 148/78
[2020-12-31 19:15] VITALS: BP 155/80
[2020-12-31 23:06] VITALS: BP 141/77
--- NOTE | 2020-12-31 23:15 | CONS ---
DATE OF CONSULTATION: 12/31/2020 REFERRING PHYSICIAN: Dr. Sanchez. REASON FOR CONSULTATION: Left stump infection. HISTORY OF PRESENT ILLNESS: This is a 75-year-old -[place] gentleman with a history of bilateral below-knee amputation, who has had left stump abscess and I and D was done by Dr. Riggins in June. Culture was positive with MRSA. The patient was discharged on daptomycin. The patient had subsequent some work done at [place]. He says he comes back with a left stump pain, swelling and some drainage coming out. The patient has been put on vancomycin and Zosyn. The patient has been seen by Dr. Overton and vascular surgery and supposed to go for surgery tomorrow. The patient denies any nausea, vomiting, diarrhea, chest pain. He did have fever when he came in. He does have leukocytosis and significant pain, he says. PAST MEDICAL HISTORY: Positive for hypertension, peripheral arterial disease, bilateral below-knee amputation. He has had peripheral vascular stenting done in the past, neuropathy. SOCIAL HISTORY: Drinks heavily. Negative for smoking. He used to smoke, quit smoking. No drug use. ALLERGIES: No known drug allergies. CURRENT MEDICATIONS: The patient is on vancomycin and Zosyn. REVIEW OF SYSTEMS: As per HPI. All other systems reviewed and are negative. CURRENT MEDICATIONS: Reviewed. PHYSICAL EXAMINATION: GENERAL: Alert, oriented gentleman, not in distress. VITAL SIGNS: Temperature 98.9, pulse 86, respirations 18, blood pressure 156/78. The patient did have 101.1 temperature when he came in. HEENT: Both pupils are round and reacting. No conjunctival lesion, no lesion in the mouth. NECK: Supple, no JVD, no lymphadenopathy. LUNGS: Clear. HEART: S1, S2 regular. ABDOMEN: Soft, nontender, no organomegaly. EXTREMITIES: No edema, cyanosis. SKIN: Unremarkable. NEUROLOGIC: The patient alert, awake, appropriate. No focal neurologic deficit. On exam, left stump is red, swollen and there is opening with purulent drainage coming out. LABORATORY DATA: White count is 10,000, down from 13,000. Sed rate is 50. BUN and creatinine is 5 and 1.1. Blood cultures are done, so far negative. CT angio was done. He has a high-grade stenosis. IMPRESSION: 1. Left stump infection. 2. Fever. 3. Leukocytosis. 4. Peripheral arterial disease. 5. Hypertension. RECOMMENDATIONS: Recommend continue vancomycin and Zosyn. Supportive care. We will get the culture from the stump. Surgery has been planned for tomorrow. Thank you very much, Dr. Sanchez, for giving me opportunity to participate in this patient's care. RONA/FREDO DR: RONA/deny TID: [id number]
[2021-01-01] MEDS: PIPERACILLIN/TAZOBACTAM 3.375 GM in IV NORMAL SALINE 50ML 50 ML IV SCH ×4 (00:19→18:13)
[2021-01-01] MEDS: VANCOMYCIN 1.25 GM in IV NORMAL SALINE 250ML 250 ML IV SCH ×2 (01:53→12:38)
[2021-01-01 03:15] VITALS: BP 161/72
[2021-01-01 07:00] VITALS: BP 183/94
[2021-01-01] MEDS: POTASSIUM CHLORIDE 20 MEQ TABLET.ER. PO SCH (08:00)
[2021-01-01 08:10] VITALS: BP 182/95
[2021-01-01] MEDS: TAMSULOSIN 0.4 MG CAP.ER.24H. PO SCH (09:00)
[2021-01-01] MEDS: LOSARTAN POTASSIUM 25 MG TABLET. PO SCH (09:00)
[2021-01-01] MEDS: MULTIVITAMIN with MINERAL TABLET. PO SCH (09:00)
[2021-01-01] MEDS: LACTOBACILLUS RHAMNOSUS GG 1 CAPSULE. PO SCH ×2 (09:00→21:05)
--- NOTE | 2021-01-01 09:08 | PDOC ---
[facility] PROGRESS NOTE Date of Service DOS: DATE: 01/01/21 TIME: 09:08 Chief Complaint Chief Complaint A/P: Left stump cellulitis - with associated abscess that was not clearly noted on initial admission. Will cont vancomycin and zosyn, monitor renal function. Consult ID given discharge. S/p I&D with wound vac on 01/01/2021 Hypertension - cont home meds PVD - no vascular interventions necessary Neuropathy - cont home meds Bilateral wyisf-[id number] amputations Previous tobacco abuse Heavy alcohol use - counseled on cessation Sepsis - antibiotics and fluids FEN - general diet PPX - lovenox FULL CODE Dispo - inpatient History of Present Illness History of Present Illness Mr Guardado is a 78 year old male with a history of bilateral BKA. He has swelling and cellulitis of the left BKA stump. CT was negative for abscess 12/30: Febrile 101.1 F overnight, WBC 13, ESR 50, CRP 125, CR up to 1.2 bilirubin 1.4. 12/31: Afebrile overnight. WBC 9. Per nursing overnight blister on left ruptured with over 40 cc of white thick discharge. He felt some relief but he still asking to increase the dosing and frequency of his pain medication. Culture of w ound discharge ordered. Will ask ID to see Afebrile overnight. Seen pre and postoperatively for washout of left stump and placement of wound VAC. He is asking for a wheelchair to transport to the bathroom as he feels he is going to have a BM. No shortness of breath or chest pain. Pain is reasonably controlled. Vitals/I&O Vitals/I&O: Vital Signs Date Time Temp Pulse Resp B/P (MAP) Pulse Ox O2 Delivery O2 Flow Rate FiO2 01/01/21 07:00 98.7 89 18 183/94 (123) 93 Room Air 98.7 I & O 12/31/20 12/31/20 01/01/21 15:00 23:00 07:00 Intake Total 480 ml Output Total 475 ml 550 ml Balance -475 ml -70 ml Physical Exam General: Alert, Cooperative Lungs: Clear Labs Labs: Laboratory Tests Test 12/31/20 17:01 SARS-CoV-2 Antigen (Rapid) Negative (NEGATIVE) Assessment and Plan Assessmemt and Plan Problems Medical Problems: (1) Left leg cellulitis Status: Acute Comment Review of Relevant I have reviewed the following items solomon (where applicable) has been applied. Justifications for Admission Other Justification RADHA HOLT MD Jan 01, 2021 09:08
[2021-01-01] MEDS: METOPROLOL SUCC 24HR ER 50 MG TAB.ER.24H. PO SCH (09:13)
[2021-01-01] MEDS: hydrALAZINE 20 MG/ML VIAL. IVP PRN ×2 (09:32→21:05)
[2021-01-01] MEDS ORDERED: fentaNYL PF VIAL 100 MCG/2 ML VIAL ONE (10:43)
[2021-01-01 10:48] LABS: BASO % 0 % (0-3); EOS # 0.2 x10^3/uL (0.0-0.7); EOS % 3 % (0-3); HEMATOCRIT 32.3 % (39.0-53.0); HEMOGLOBIN 10.9 g/dL (13.0-17.5); LYMPH # 1.6 x10^3/uL (1.0-4.8); LYMPH % 21 % (24-48); MEAN CORPUSCULAR HEMOGLOBIN 28 pg (25-35); MEAN CORPUSCULAR HGB CONC 34 g/dL (31-37); MEAN CORPUSCULAR VOLUME 84 fL (79-100); MONO # 0.6 x10^3/uL (0.0-1.1); MONO % 7 % (0-9); NEUT # 5.4 x10^3/uL (1.8-7.7); NEUT % 69 % (31-73); PLATELET COUNT 291 x10^3/uL (140-400); RED BLOOD COUNT 3.85 x10^6/uL (4.30-5.70); RED CELL DISTRIBUTION WIDTH 12.5 % (11.5-14.5); WHITE BLOOD COUNT 7.8 x10^3/uL (4.0-11.0)
[2021-01-01 11:06] LABS: CALCIUM 8.8 mg/dL (8.5-10.1); GFR 88.4; POTASSIUM 3.5 mmol/L (3.5-5.1)
[2021-01-01] MEDS ORDERED: LIDOCAINE 2% PF 5 ML VIAL. ONE (11:18)
[2021-01-01] MEDS ORDERED: SEVOFLURANE 31 TO 60 MINUTES. IH ONE (11:18)
[2021-01-01] MEDS ORDERED: PROPOFOL 10 MG/ML (20ML) VIAL. IV ONE (11:18)
[2021-01-01] MEDS ORDERED: DEXAMETHASONE SOD PHOS 4 MG/ML VIAL ONE (11:18)
[2021-01-01] MEDS ORDERED: ONDANSETRON PF 4 MG/2 ML VIAL. ONE (11:18)
[2021-01-01] MEDS ORDERED: MORPHINE SULFATE 2 MG/ML INJ. ONE (11:38)
[2021-01-01] MEDS: MORPHINE SULFATE 2 MG/ML INJ. IVP PRN ×2 (11:39→11:50)
[2021-01-01] MEDS ORDERED: BUPIVACAINE MPF 0.25% 10 ML VIAL. ONE (11:44)
[2021-01-01] MEDS ORDERED: PROCHLORPERAZINE 10 MG/2 ML VIAL. IVP PRN (11:45)
[2021-01-01] MEDS ORDERED: IV RINGERS,LACTATED 1000ML 1,000 ML IV SCH (11:45)
[2021-01-01] MEDS ORDERED: fentaNYL PF VIAL 100 MCG/2 ML VIAL IVP PRN ×2 (11:45)
[2021-01-01] MEDS ORDERED: HYDROmorphone 2 MG/ML VIAL IVP PRN (11:45)
--- NOTE | 2021-01-01 12:33 | PDOC4 ---
Operative Note Operative Note Date of surgery: 01/01/2021 Preoperative diagnosis: Left below-knee amputation stump infection Postoperative diagnosis: Same with approximately a half dollar sized area of compromised skin and subcutaneous tissue with underlying intact muscle and fascia Operative procedure: Irrigation debridement of left below knee amputation stump wound involving skin subcutaneous tissue and fascia Surgeon: Tian Anesthesia: General Estimated blood loss: 25 cc Complications: None Cultures: Intraoperative tissue cultures were taken along with a swab Operative indication: Please see my dictated orthopedic consultation for detailed operative indications and note that he had had significant stump swelling but no evidence of abscess originally on CT and was admitted for IV antibiotics and then had the sudden onset of drainage that the incision burst open and I discussed with him the recommended treatment of operative irrigation debridement and likely placement of a wound VAC so he could heal from the inside out and hopefully minimize the chance of recurrence although that is possible. All his questions were answered he agrees to proceed with surgical evaluation and treatment Operative text: Patient was identified procedure verified patient placed in the supine position on the operating table. After adequate amounts of general anesthesia were administered the left lower extremity was prepped and draped in standard sterile fashion and after timeout was performed patient procedure identified and verified the anterolateral area of his stump incision where he had had recent drainage was unroofed and found to have compromised necrotic skin and subcutaneous tissue that was first cultured and then sharply debrided back to stable tissue with scalpel and rongeurs and the underlying fascia was sharply scraped to remove any devitalized tissue. Thorough irrigation was carried out with normal saline solution with pulse lavage and I carefully probed with a [place] elevator to evaluate for any deep involvement since the whole stump was previously swollen on presentation yet no evidence of abscess was noted on CT. There was no evidence of deep penetration and the previous closure of the muscle flap appeared to be intact. Bleeding points were controlled by electrocautery and further irrigation carried out normal saline solution with pulse lavage and the stump was then dried and a wound VAC was placed under 125 mmHg continuous suction. Patient was returned to recovery room in stable condition having tolerated procedure well. He underwent postoperatively an adductor canal block by anesthesia to address some of his postoperative pain MIRANDA CHAMBERS MD Jan 01, 2021 12:33
--- NOTE | 2021-01-01 13:26 | PDOC ---
Infectious Disease Note Subjective Subjective pt is feeling better, did have I and D done today ROS ROS no n/v/d/sob/fever Vital Sign Vital Signs Vital Signs Date Time Temp Pulse Resp B/P (MAP) Pulse Ox O2 Delivery O2 Flow Rate FiO2 01/01/21 12:37 Room Air 01/01/21 12:01 97.7 84 22 178/93 95 97.7 01/01/21 11:46 5 Physical Exam PHYSICAL EXAM GENERAL: Alert, oriented gentleman, not in distress. HEENT: Both pupils are round and reacting. No conjunctival lesion, no lesion in the mouth. NECK: Supple, no JVD, no lymphadenopathy. LUNGS: Clear. HEART: S1, S2 regular. ABDOMEN: Soft, nontender, no organomegaly. EXTREMITIES: No edema, cyanosis. Lt stump dressing in place dry SKIN: Unremarkable. NEUROLOGIC: The patient alert, awake, appropriate. No focal neurologic deficit. Labs Lab Laboratory Tests Test 12/31/20 17:01 01/01/21 10:10 SARS-CoV-2 RNA (LIZET) Negative (Negative) SARS-CoV-2 Antigen (Rapid) Negative (NEGATIVE) White Blood Count 7.8 x10^3/uL (4.0-11.0) Red Blood Count 3.85 x10^6/uL (4.30-5.70) Hemoglobin 10.9 g/dL (13.0-17.5) Hematocrit 32.3 % (39.0-53.0) Mean Corpuscular Volume 84 fL (79-100) Mean Corpuscular Hemoglobin 28 pg (25-35) Mean Corpuscular Hemoglobin Concent 34 g/dL (31-37) Red Cell Distribution Width 12.5 % (11.5-14.5) Platelet Count 291 x10^3/uL (140-400) Neutrophils (%) (Auto) 69 % (31-73) Lymphocytes (%) (Auto) 21 % (24-48) Monocytes (%) (Auto) 7 % (0-9) Eosinophils (%) (Auto) 3 % (0-3) Basophils (%) (Auto) 0 % (0-3) Neutrophils # (Auto) 5.4 x10^3/uL (1.8-7.7) Lymphocytes # (Auto) 1.6 x10^3/uL (1.0-4.8) Monocytes # (Auto) 0.6 x10^3/uL (0.0-1.1) Eosinophils # (Auto) 0.2 x10^3/uL (0.0-0.7) Basophils # (Auto) 0.0 x10^3/uL (0.0-0.2) Sodium Level 135 mmol/L (136-145) Potassium Level 3.5 mmol/L (3.5-5.1) Chloride Level 103 mmol/L (98-107) Carbon Dioxide Level 23 mmol/L (21-32) Anion Gap 9 (6-14) Blood Urea Nitrogen 3 mg/dL (8-26) Creatinine 1.0 mg/dL (0.7-1.3) Estimated GFR (Cockcroft-Gault) 88.4 Glucose Level 95 mg/dL (70-99) Calcium Level 8.8 mg/dL (8.5-10.1) Micro Microbiology 12/29/20 Blood Culture - Preliminary, Resulted NO GROWTH AFTER 3 DAYS Objective Assessment 1. Left stump infection. 01/01 Irrigation debridement of left below knee amputation stump wound involving skin subcutaneous tissue and fascia 2. Fever. 3. Leukocytosis. 4. Peripheral arterial disease. 5. Hypertension. Plan Plan of Care Recommend continue vancomycin and Zosyn. Vanc level 17.8,creat wnl Monitor renal func follow cult Supportive care. VENANCIO YAÑEZ MD Jan 01, 2021 13:26
[2021-01-01 19:15] VITALS: BP 186/97
[2021-01-01] MEDS: oxyCODONE IR 5 MG TABLET PO PRN (21:06)
[2021-01-01 23:02] VITALS: BP 164/80
[2021-01-02] MEDS: PIPERACILLIN/TAZOBACTAM 3.375 GM in IV NORMAL SALINE 50ML 50 ML IV SCH ×5 (00:02→23:33)
[2021-01-02] MEDS: VANCOMYCIN 1.25 GM in IV NORMAL SALINE 250ML 250 ML IV SCH ×2 (00:02→12:27)
[2021-01-02 03:06] VITALS: BP 172/83
[2021-01-02 05:38] LABS: CALCIUM 8.3 mg/dL (8.5-10.1); GFR 88.4; POTASSIUM 3.3 mmol/L (3.5-5.1)
[2021-01-02 07:15] VITALS: BP 155/76
[2021-01-02] MEDS: POTASSIUM CHLORIDE 20 MEQ TABLET.ER. PO SCH (08:43)
[2021-01-02] MEDS: METOPROLOL SUCC 24HR ER 50 MG TAB.ER.24H. PO SCH (08:44)
[2021-01-02] MEDS: TAMSULOSIN 0.4 MG CAP.ER.24H. PO SCH (08:44)
[2021-01-02] MEDS: LACTOBACILLUS RHAMNOSUS GG 1 CAPSULE. PO SCH ×2 (08:45→21:03)
[2021-01-02] MEDS: LOSARTAN POTASSIUM 25 MG TABLET. PO SCH (08:45)
[2021-01-02] MEDS: MULTIVITAMIN with MINERAL TABLET. PO SCH (08:45)
[2021-01-02] MEDS: oxyCODONE IR 5 MG TABLET PO PRN ×2 (08:46→12:27)
[2021-01-02] MEDS: VANCOMYCIN PER PHARMACY MC PRN (09:52)
[2021-01-02 10:58] VITALS: BP 147/83
--- NOTE | 2021-01-02 14:40 | PDOC ---
[facility] PROGRESS NOTE Date of Service DOS: DATE: 01/02/21 TIME: 14:37 Chief Complaint Chief Complaint Left stump cellulitis. Hypertension. PVD. Neuropathy. Bilateral below the knee amputations. Previous tobacco use. Heavy alcohol use. Sepsis. History of Present Illness History of Present Illness Mr Guardado is a 78 year old male with a history of bilateral BKA. He has swelling and cellulitis of the left BKA stump. CT was negative for abscess 12/30: Febrile 101.1 F overnight, WBC 13, ESR 50, CRP 125, CR up to 1.2 bilirubin 1.4. 12/31: Afebrile overnight. WBC 9. Per nursing overnight blister on left ruptured with over 40 cc of white thick discharge. He felt some relief but he still asking to increase the dosing and frequency of his pain medication. Culture of wound discharge ordered. Will ask ID to see Afebrile overnight. Seen pre and postoperatively for washout of left stump and placement of wound VAC. He is asking for a wheelchair to transport to the bathroom as he feels he is going to have a BM. No shortness of breath or chest pain. Pain is reasonably controlled. 01/02: Mr. Guardado was seen and evaluated in his room this morning. We discussed his current disposition with his nurse and reviewed his chart. He was up eating breakfast and appears to be doing fine. He states that he is ready to return home. Vitals/I&O Vitals/I&O: Vital Signs Date Time Temp Pulse Resp B/P (MAP) Pulse Ox O2 Delivery O2 Flow Rate FiO2 01/02/21 12:57 Room Air 01/02/21 10:58 97.8 62 20 147/83 (104) 98 97.8 01/01/21 11:46 5 I & O 01/01/21 01/01/21 01/02/21 15:00 23:00 07:00 Intake Total 0 ml 480 ml Output Total 260 ml 800 ml 350 ml Balance -260 ml -800 ml 130 ml Physical Exam Physical Exam: GENERAL: Alert, oriented gentleman, not in distress. HEENT: Both pupils are round and reacting. No conjunctival lesion, no lesion in the mouth. NECK: Supple, no JVD, no lymphadenopathy. LUNGS: Clear. HEART: S1, S2 regular. ABDOMEN: Soft, nontender, no organomegaly. EXTREMITIES: No edema, cyanosis. Lt stump dressing in place dry SKIN: Unremarkable. NEUROLOGIC: The patient alert, awake, appropriate. No focal neurologic deficit. General: Alert, Oriented X3, Cooperative Heart: Regular rate Lungs: Clear Abdomen: Normal bowel sounds Extremities: No clubbing Skin: No rashes Labs Labs: Laboratory Tests Test 01/02/21 04:00 Sodium Level 135 mmol/L (136-145) Potassium Level 3.3 mmol/L (3.5-5.1) Chloride Level 104 mmol/L (98-107) Carbon Dioxide Level 21 mmol/L (21-32) Anion Gap 10 (6-14) Blood Urea Nitrogen 5 mg/dL (8-26) Creatinine 1.0 mg/dL (0.7-1.3) Estimated GFR (Cockcroft-Gault) 88.4 Glucose Level 126 mg/dL (70-99) Calcium Level 8.3 mg/dL (8.5-10.1) Review of Systems Review of Systems: No bleeding No headache Assessment and Plan Assessmemt and Plan Problems Medical Problems: (1) Left leg cellulitis Status: Acute Assessment: 1. Left stump cellulitis. 2. Hypertension. 3. PVD. 4. Neuropathy. 5. Bilateral below the knee amputations. 6. Previous tobacco use. 7. Heavy alcohol use. 8. Sepsis. Plan: 1. Continue wound care. 2. FEN - General diet. 3. Full Code 4. Home medications 5. Continue antibiotics. 6. Discharge disposition pending. Comment Review of Relevant I have reviewed the following items solmoon (where applicable) has been applied. Justifications for Admission Other Justification BRIANNA LOVE III, DO Jan 02, 2021 14:40
[2021-01-02 14:49] VITALS: BP 139/80
[2021-01-02] MEDS: HYDROcodone/APAP 10/325 1 TAB TABLET PO PRN (17:43)
[2021-01-02 19:04] VITALS: BP 140/72
[2021-01-02 22:59] VITALS: BP 158/80
[2021-01-03] MEDS: VANCOMYCIN 1.25 GM in IV NORMAL SALINE 250ML 250 ML IV SCH (00:28)
[2021-01-03 03:08] VITALS: BP 169/93
[2021-01-03] MEDS: PIPERACILLIN/TAZOBACTAM 3.375 GM in IV NORMAL SALINE 50ML 50 ML IV SCH (05:31)
[2021-01-03] MEDS: HYDROcodone/APAP 10/325 1 TAB TABLET PO PRN ×2 (05:36→20:07)
[2021-01-03 05:53] LABS: CALCIUM 8.5 mg/dL (8.5-10.1); CREATININE 1.3 mg/dL (0.7-1.3); GFR 65.3; POTASSIUM 3.3 mmol/L (3.5-5.1)
[2021-01-03 07:15] VITALS: BP 138/77
[2021-01-03] MEDS: MULTIVITAMIN with MINERAL TABLET. PO SCH (08:53)
[2021-01-03] MEDS: POTASSIUM CHLORIDE 20 MEQ TABLET.ER. PO SCH (08:53)
[2021-01-03] MEDS: TAMSULOSIN 0.4 MG CAP.ER.24H. PO SCH (08:53)
[2021-01-03] MEDS: METOPROLOL SUCC 24HR ER 50 MG TAB.ER.24H. PO SCH (08:54)
[2021-01-03] MEDS: LACTOBACILLUS RHAMNOSUS GG 1 CAPSULE. PO SCH ×2 (08:54→21:00)
[2021-01-03] MEDS: LOSARTAN POTASSIUM 25 MG TABLET. PO SCH (08:54)
--- NOTE | 2021-01-03 09:13 | PDOC ---
Infectious Disease Note Subjective Subjective pt is feeling better, says ready to go home ROS ROS No nausea vomiting diarrhea chest pain shortness of breath Vital Sign Vital Signs Vital Signs Date Time Temp Pulse Resp B/P (MAP) Pulse Ox O2 Delivery O2 Flow Rate FiO2 01/03/21 08:54 81 138/77 01/03/21 07:15 97.8 20 96 Room Air 97.8 Physical Exam PHYSICAL EXAM GENERAL: Alert, oriented gentleman, not in distress. HEENT: Both pupils are round and reacting. No conjunctival lesion, no lesion in the mouth. NECK: Supple, no JVD, no lymphadenopathy. LUNGS: Clear. HEART: S1, S2 regular. ABDOMEN: Soft, nontender, no organomegaly. EXTREMITIES: No edema, cyanosis. Lt stump dressing in place dry SKIN: Unremarkable. NEUROLOGIC: The patient alert, awake, appropriate. No focal neurologic deficit. Labs Lab Laboratory Tests Test 01/03/21 04:30 Sodium Level 145 mmol/L (136-145) Potassium Level 3.3 mmol/L (3.5-5.1) Chloride Level 110 mmol/L (98-107) Carbon Dioxide Level 24 mmol/L (21-32) Anion Gap 11 (6-14) Blood Urea Nitrogen 7 mg/dL (8-26) Creatinine 1.3 mg/dL (0.7-1.3) Estimated GFR (Cockcroft-Gault) 65.3 Glucose Level 90 mg/dL (70-99) Calcium Level 8.5 mg/dL (8.5-10.1) Micro GRAM STAIN Final Final NO ORGANISMS SEEN. RBC:RARE SQUAMOUS EPI CELL:NONE SEEN PMN (WBCs):NONE SEEN Unless otherwise specified, Testing Performed by: [address] [id number] For Inquires, the Physician may contact the Microbiology department at [phone] ANAEROBIC-AEROBIC CULTURE Preliminary Preliminary FEW [STAPHYLOCOCCUS AUREUS] on 01/03/21 at 0831 STAPHYLOCOCCUS AUREUS Unless otherwise specified, Testing Performed by: [facility] [address] [place] [address] For Inquires, the Physician may contact the Microbiology department at [phone] Objective Assessment 1. Left stump infection. 01/01 Irrigation debridement of left below knee amputation stump wound involving skin subcutaneous tissue and fascia 2. Fever. 3. Leukocytosis. 4. Peripheral arterial disease. 5. Hypertension. Plan Plan of Care Change antibiotics to p.o. Zyvox Continue wound VAC follow cult Supportive care. Hopefully discharge soon VENANCIO YAÑEZ MD Jan 03, 2021 09:13
--- NOTE | 2021-01-03 10:28 | NUR ---
CHARLES following. Discussed with RN. Pt from home alone, room air, cardiac diet, COVID-19 negative. Pt had an 1&D on 01/01/21. Pt wants to go home, does not want any nurses coming by, says he can do the care himself. CHARLES will continue to follow. Addendum: 01/03/21 at 1413 by STEFANIE SOTO Pt now agreeable to home health, had [facility]. CHARLES faxed clinicals and discharge orders to [facility]. RN notified.
[2021-01-03 11:15] VITALS: BP 132/79
--- NOTE | 2021-01-03 12:06 | PDOC ---
PROGRESS NOTES Date of Service DATE: 01/03/21 TIME: 12:03 Subjective Subjective Problems overnight: Lorenzo notes that pain is much better controlled post surgery Objective Vital Signs Vital Signs Date Time Temp Pulse Resp B/P (MAP) Pulse Ox O2 Delivery O2 Flow Rate FiO2 01/03/21 11:15 98.1 79 18 132/79 (96) 95 Room Air 98.1 01/01/21 11:46 5 Physical Exam Wound VAC remains intact and there is very little bloody drainage, swelling of the stump has almost completely resolved and no redness or erythema remains. He has good knee joint range of motion and no swelling Labs Laboratory Tests Test 01/02/21 04:00 01/03/21 04:30 Sodium Level 135 mmol/L (136-145) 145 mmol/L (136-145) Potassium Level 3.3 mmol/L (3.5-5.1) 3.3 mmol/L (3.5-5.1) Chloride Level 104 mmol/L (98-107) 110 mmol/L (98-107) Carbon Dioxide Level 21 mmol/L (21-32) 24 mmol/L (21-32) Anion Gap 10 (6-14) 11 (6-14) Blood Urea Nitrogen 5 mg/dL (8-26) 7 mg/dL (8-26) Creatinine 1.0 mg/dL (0.7-1.3) 1.3 mg/dL (0.7-1.3) Estimated GFR (Cockcroft-Gault) 88.4 65.3 Glucose Level 126 mg/dL (70-99) 90 mg/dL (70-99) Calcium Level 8.3 mg/dL (8.5-10.1) 8.5 mg/dL (8.5-10.1) Laboratory Tests Test 01/03/21 04:30 Sodium Level 145 mmol/L (136-145) Potassium Level 3.3 mmol/L (3.5-5.1) Chloride Level 110 mmol/L (98-107) Carbon Dioxide Level 24 mmol/L (21-32) Anion Gap 11 (6-14) Blood Urea Nitrogen 7 mg/dL (8-26) Creatinine 1.3 mg/dL (0.7-1.3) Estimated GFR (Cockcroft-Gault) 65.3 Glucose Level 90 mg/dL (70-99) Calcium Level 8.5 mg/dL (8.5-10.1) Assessment Assessment POD#irrigation debridement of left stump abscess Plan Plan of Care From an orthopedic standpoint he is stable for discharge with home health as long as they continue recommended wound VAC changes 3 times weekly, antibiotics per infectious disease I emphasized to him the need to continue the wound care until healed to allow this to heal from the inside out and avoid potentially trapping any infection and keeping pressure off the area as well Follow-up orthopedics 3 to 4 weeks or otherwise as needed based on his progress with wound care Justicifation of Admission Dx: Justifications for Admission: Justification of Admission Dx: N/A MIRANDA CHAMBERS MD Jan 03, 2021 12:06
--- NOTE | 2021-01-03 13:09 | PDOC ---
[facility] PROGRESS NOTE Date of Service DOS: DATE: 01/03/21 TIME: 13:00 Chief Complaint Chief Complaint Left stump cellulitis. Hypertension. PVD. Neuropathy. Previous tobacco use. Bilateral below the knee amputations. Heavy Alcohol use. Sepsis. Plan: 1. Continue wound care. 2. FEN - General diet. 3. Full Code 4. Home medications 5. Continue antibiotics. 6. Discharge disposition pending. History of Present Illness History of Present Illness Mr Guardado is a 78 year old male with a history of bilateral BKA. He has swelling and cellulitis of the left BKA stump. CT was negative for abscess 12/30: Febrile 101.1 F overnight, WBC 13, ESR 50, CRP 125, CR up to 1.2 bilirubin 1.4. 12/31: Afebrile overnight. WBC 9. Per nursing overnight blister on left ruptured with over 40 cc of white thick discharge. He felt some relief but he still asking to increase the dosing and frequency of his pain medication. Culture of wound discharge ordered. Will ask ID to see Afebrile overnight. Seen pre and postoperatively for washout of left stump and placement of wound VAC. He is asking for a wheelchair to transport to the bathroom as he feels he is going to have a BM. No shortness of breath or chest pain. Pain is reasonably controlled. 01/02: Mr. Guardado was seen and evaluated in his room this morning. We discussed his current disposition with his nurse and reviewed his chart. He was up eating breakfast and appears to be doing fine. He states that he is ready to return home. 01/03: Mr. Guardado was seen and examined in his room this morning. We discussed his current disposition with his nurse and reviewed his chart. He was up and able to eat his breakfast this morning and he is ready to return home. We discussed the discharge plan with Mr. Guardado as we will wait for Wound Care evaluation for his woundvac, and then consult with Dr. Posey regarding Mr. Guardado disposition. Mr. Guardado' Potassium levels were low this morning (3.3L), thus we will order Potassium replacement. Vitals/I&O Vitals/I&O: Vital Signs Date Time Temp Pulse Resp B/P (MAP) Pulse Ox O2 Delivery O2 Flow Rate FiO2 01/03/21 11:15 98.1 79 18 132/79 (96) 95 Room Air 98.1 I & O 01/02/21 01/02/21 01/03/21 15:00 23:00 07:00 Intake Total 480 ml 180 ml 290 ml Output Total 850 ml 1200 ml Balance -370 ml 180 ml -910 ml Physical Exam Physical Exam: GENERAL: Alert, oriented gentleman, not in distress. HEENT: Both pupils are round and reacting. No conjunctival lesion, no lesion in the mouth. NECK: Supple, no JVD, no lymphadenopathy. LUNGS: Clear. HEART: S1, S2 regular. ABDOMEN: Soft, nontender, no organomegaly. EXTREMITIES: No edema, cyanosis. Lt stump dressing in place dry SKIN: Unremarkable. NEUROLOGIC: The patient alert, awake, appropriate. No focal neurologic deficit. General: Alert, Oriented X3, Cooperative Heart: Regular rate Lungs: Clear Abdomen: Normal bowel sounds Extremities: No clubbing Skin: No rashes Labs Labs: Laboratory Tests Test 01/03/21 04:30 Sodium Level 145 mmol/L (136-145) Potassium Level 3.3 mmol/L (3.5-5.1) Chloride Level 110 mmol/L (98-107) Carbon Dioxide Level 24 mmol/L (21-32) Anion Gap 11 (6-14) Blood Urea Nitrogen 7 mg/dL (8-26) Creatinine 1.3 mg/dL (0.7-1.3) Estimated GFR (Cockcroft-Gault) 65.3 Glucose Level 90 mg/dL (70-99) Calcium Level 8.5 mg/dL (8.5-10.1) Review of Systems Review of Systems: No headaches No Vomiting Assessment and Plan Assessmemt and Plan Problems Medical Problems: (1) Left leg cellulitis Status: Acute Assessment: 1. Left stump cellulitis. 2. Hypertension. 3. PVD. 4. Neuropathy. 5. Previous tobacco use. 6. Bilateral below the knee amputations. 7. Heavy Alcohol use. 8. Sepsis. Plan: 1. Discharge/Disposition Pending (Wound Care evaluation and Dr. Posey evaluation). 2. FEN - General diet. 3. Full Code. 4. Home medications 5. Continue antibiotics. Comment Review of Relevant I have reviewed the following items solomon (where applicable) has been applied. Medications: Current Medications Medications (Trade) Dose Ordered Sig/Yannick Route PRN Reason Start Time Stop Time Status Last Admin Dose Admin Acetaminophen/ Hydrocodone Bitart (Lortab ) 1 tab PRN Q6HRS PRN PO MODERATE PAIN, SEVERE PAIN 01/02/21 17:30 01/03/21 05:36 Justifications for Admission Other Justification BRIANNA LOVE III DO Jan 03, 2021 13:09
[2021-01-03] MEDS ORDERED: HYDR-2769 PO (13:38)
[2021-01-03] MEDS ORDERED: LINE600T12 PO (13:38)
--- NOTE | 2021-01-03 13:39 | SNU/HH DC ---
DISCHARGE WITH HOME HEALTH DISCHARGE INFORMATION: Final Diagnosis: Problems Medical Problems: (1) Left leg cellulitis Status: Acute Condition on Discharge: Stable CODE STATUS: Code Status: Full HOME HEALTH: Face to Face: I certify this patient is under my care and that I, or a nurse practitioner or physician's certified physician assistant working with me, had a face to face encounter that meets the physician face to face encounter requirements with this patient on []. Medical Complications: Other (Stump infection) Long Term For: Assess & Educate Safety RN For Eval/Treatment: Yes Physical Therapy For: Evalulation/Treatment Occupational Therapy For: Evaluation/Treatment Home Health Aide For: Self-care DIRECTOR OF INDUSTRIAL RELATIONS For: Community Resources Pt Meets Homebound Status: Poor coordination w/ amb. POST DISCHARGE ORDERS: Activity Instructions for Disc: Activity as tolerated DIET AFTER DISCHARGE: Cardiac CHECKS AFTER DISCHARGE: Checks after discharge: Check blood press - daily TREATMENT/EQUIPMENT ORDERS: Adaptive Equipment Issued: Wheelchair CERTIFICATION STATEMENT: Certification Statement: Certification Statement: Based on the above finding, I certify that this patient is confined to the home and needs intermittent senior care care, physical therapy and/or speech therapy, or continues to need occupational therapy.~ This patient is under my care, and I have initiated the establishment of the plan of care.~ This patient will be followed by myself or a community physician who will periodically review the plan of care. Home Meds Active Scripts Hydrocodone Bit/Acetaminophen (HYDROCODONE-APAP 10-325 ) 1 Tab Tablet, 1 TAB PO PRN Q6HRS PRN for MODERATE PAIN, SEVERE PAIN for 7 Days, #20 TAB Prov:CASTLE,NIAL K III DO 01/03/21 Multivits,Ca,Minerals/Iron/Fa (THERA-M TABLET) 1 Each Tablet, 1 TAB PO DAILY for SUPPLEMENT for 30 Days, #30 TAB Prov:MARKIE GARCIA MD 07/19/20 Thiamine Mononitrate (VITAMIN B-1) 100 Mg Tablet, 100 MG PO DAILY for SUPPLEMENT for 30 Days, #30 TAB Prov:MARKIE GARCIA MD 07/19/20 Gabapentin (GABAPENTIN) 300 Mg Capsule, 300 MG PO TID for NERVE PAIN for 30 Days, #90 CAP Prov:MARKIE GARCIA MD 07/19/20 Oxycodone Hcl (OXYCODONE HCL IMMED.RELEASE ) 5 Mg Tablet, 10 MG PO PRN Q4HRS PRN for SEVERE PAIN 7-10 for 14 Days, #60 TAB Prov:MARKIE GARCIA MD 07/19/20 Reported Medications Tamsulosin Hcl (FLOMAX) 0.4 Mg Cap.er.24h, 0.4 MG PO DAILY for BPH, TAB 07/19/20 Potassium Chloride (KLOR-CON M20) 20 Meq Tab.er.prt, 20 MEQ PO DAILY for supplement, TAB.SR 07/19/20 Metoprolol Succinate (METOPROLOL SUCCINATE ( XL )) 25 Mg Tab.er.24h, 50 MG PO DAILY for FOR HYPERTENSION, #30 TAB 0 Refills 07/19/20 Losartan Potassium (COZAAR ) 25 Mg Tablet, 25 MG PO DAILY for HYPERTENSION, TAB 07/19/20 Finasteride (FINASTERIDE) 5 Mg Tablet, 5 MG PO DAILY for BPH, TAB 07/19/20 Amlodipine Besylate (AMLODIPINE BESYLATE) 5 Mg Tablet, 5 MG PO DAILY for hypertension, TAB 07/19/20 BRIANNA LOVE III DO Jan 03, 2021 13:39
[2021-01-03 14:54] VITALS: BP 160/80
--- NOTE | 2021-01-03 16:57 | NUR ---
Wound/Ostomy Care Wound Type/Assessment: Patient seen per wound care consult. See wound assessment. Patient is s/p I&D on 01/01/[address] Overton. The wound is granulated with some maceration to the jamison-wound. Orders for wound vac. Dressing removed and wound cleansed, assessed, measured, and pictured. Patient to possibly discharge tomorrow. Treatment Recommendations/Plan: Skin prepped and one piece of barba foam placed to wound bed, tracked directly above the wound, with a good seal maintained at 125mmHg continuous. There are no other wounds noted. Patient did have pain but was able to tolerate the dressing. There are no other wounds noted. Education provided: Patient educated on dressing changes, PU prevention, wound vac therapy. Offloading surface/device: Patient has motorized wheelchair and will offload the left BKA. Recommended Referrals/Tests: Follow up with surgeon following discharge and we will apply for home wound vac. Discharge Recommendations for dressings: Patient will likely discharge tomorrow and [facility] with wound vac if approved.
[2021-01-03] MEDS ORDERED: POTASSIUM CHLORIDE 20 MEQ TABLET.ER. PO ONE ×2 (17:00→20:00)
[2021-01-03 20:11] VITALS: BP 181/91
[2021-01-03] MEDS: LINEZOLID 600 MG TABLET PO SCH (21:00)
[2021-01-03 23:08] VITALS: BP 152/79
[2021-01-04 03:39] VITALS: BP 174/91
[2021-01-04 07:15] VITALS: BP 186/100
--- NOTE | 2021-01-04 07:59 | PDOC ---
Infectious Disease Note Subjective Subjective pt is feeling better, says ready to go home ROS ROS No nausea vomiting diarrhea Vital Sign Vital Signs Vital Signs Date Time Temp Pulse Resp B/P (MAP) Pulse Ox O2 Delivery O2 Flow Rate FiO2 01/04/21 03:39 98.4 72 18 174/91 (118) 98 Room Air 98.4 Physical Exam PHYSICAL EXAM GENERAL: Alert, oriented gentleman, not in distress. HEENT: Both pupils are round and reacting. No conjunctival lesion, no lesion in the mouth. NECK: Supple, no JVD, no lymphadenopathy. LUNGS: Clear. HEART: S1, S2 regular. ABDOMEN: Soft, nontender, no organomegaly. EXTREMITIES: No edema, cyanosis. Lt stump dressing in place dry SKIN: Unremarkable. NEUROLOGIC: The patient alert, awake, appropriate. No focal neurologic deficit. Labs Micro GRAM STAIN Final Final NO ORGANISMS SEEN. RBC:RARE SQUAMOUS EPI CELL:NONE SEEN PMN (WBCs):NONE SEEN Unless otherwise specified, Testing Performed by: [address] [address] For Inquires, the Physician may contact the Microbiology department at [phone] ANAEROBIC-AEROBIC CULTURE Preliminary Preliminary FEW [STAPHYLOCOCCUS AUREUS (MRSA)] on 01/03/21 at 0831 REFER TO CULTURE AN988 FOR SUSCEPTIBILITY STAPHYLOCOCCUS AUREUS (MRSA) Unless otherwise specified, Testing Performed by: [address] [id number] For Inquires, the Physician may contact the Microbiology department at [phone] Objective Assessment 1. Left stump infection. 01/01 Irrigation debridement of left below knee amputation stump wound involving skin subcutaneous tissue and fascia 2. Fever. 3. Leukocytosis. 4. Peripheral arterial disease. 5. Hypertension. Plan Plan of Care p.o. Zyvox Continue wound VAC follow cult Supportive care. VENANCIO Mclean MD Jan 04, 2021 07:59
[2021-01-04] MEDS: METOPROLOL SUCC 24HR ER 50 MG TAB.ER.24H. PO SCH (08:37)
[2021-01-04] MEDS: LACTOBACILLUS RHAMNOSUS GG 1 CAPSULE. PO SCH (08:37)
[2021-01-04] MEDS: LOSARTAN POTASSIUM 25 MG TABLET. PO SCH (08:38)
[2021-01-04] MEDS: MULTIVITAMIN with MINERAL TABLET. PO SCH (08:38)
[2021-01-04] MEDS: LINEZOLID 600 MG TABLET PO SCH (08:38)
[2021-01-04] MEDS: POTASSIUM CHLORIDE 20 MEQ TABLET.ER. PO SCH (08:38)
[2021-01-04] MEDS: TAMSULOSIN 0.4 MG CAP.ER.24H. PO SCH (08:38)
[2021-01-04] MEDS: HYDROcodone/APAP 10/325 1 TAB TABLET PO PRN ×2 (08:39→14:47)
--- NOTE | 2021-01-04 09:06 | PDOC ---
[employer] PROGRESS NOTE Date of Service DOS: DATE: 01/04/21 TIME: 08:56 Chief Complaint Chief Complaint Left stump cellulitis. PVD. Hypertension. Neuropathy. Previous tobacco use. Heavy Alcohol use. Bilateral below the knee amputations. Sepsis. History of Present Illness History of Present Illness Mr Guardado is a 78 year old male with a history of bilateral BKA. He has swelling and cellulitis of the left BKA stump. CT was negative for abscess 12/30: Febrile 101.1 F overnight, WBC 13, ESR 50, CRP 125, CR up to 1.2 bilirubin 1.4. 12/31: Afebrile overnight. WBC 9. Per nursing overnight blister on left ruptured with over 40 cc of white thick discharge. He felt some relief but he still asking to increase the dosing and frequency of his pain medication. Culture of wound discharge ordered. Will ask ID to see Afebrile overnight. Seen pre and postoperatively for washout of left stump and placement of wound VAC. He is asking for a wheelchair to transport to the bathroom as he feels he is going to have a BM. No shortness of breath or chest pain. Pain is reasonably controlled. 01/02: Mr. Guardado was seen and evaluated in his room this morning. We discussed his current disposition with his nurse and reviewed his chart. He was up eating breakfast and appears to be doing fine. He states that he is ready to return home. 01/03: Mr. Guardado was seen and examined in his room this morning. We discussed his current disposition with his nurse and reviewed his chart. He was up and able to eat his breakfast this morning and he is ready to return home. We discussed the discharge plan with Mr. Guardado as we will wait for Wound Care evaluation for his woundvac, and then consult with Dr. Posey regarding Mr. Guardado disposition. Mr. Guardado' Potassium levels were low this morning (3.3L), thus we will order Potassium replacement. 01/04: Mr. Guardado was evaluated and seen in his room this morning. He was sitting up in his bed awake and alert. He was oriented to the date. We discussed his current disposition with his nurse and reviewed his chart. We also discussed his situation with Infectious Disease and they agree that he is ready for discharge. We will plan for discharge today. As of yesterday, social work was putting in orders for a wound vac. Vitals/I&O Vitals/I&O: Vital Signs Date Time Temp Pulse Resp B/P (MAP) Pulse Ox O2 Delivery O2 Flow Rate FiO2 01/04/21 08:39 95 Room Air 01/04/21 08:38 82 186/100 01/04/21 07:15 98.5 20 98.5 I & O 01/03/21 01/03/21 01/04/21 15:00 23:00 07:00 Intake Total 240 ml 180 ml 480 ml Output Total 400 ml 700 ml Balance -160 ml 180 ml -220 ml Physical Exam Physical Exam: GENERAL: Alert, oriented gentleman, not in distress. HEENT: Both pupils are round and reacting. No conjunctival lesion, no lesion in the mouth. NECK: Supple, no JVD, no lymphadenopathy. LUNGS: Clear. HEART: S1, S2 regular. ABDOMEN: Soft, nontender, no organomegaly. EXTREMITIES: No edema, cyanosis. Lt stump dressing in place dry SKIN: Unremarkable. NEUROLOGIC: The patient alert, awake, appropriate. No focal neurologic deficit. General: Alert, Oriented X3, Cooperative Heart: Regular rate Lungs: Clear Abdomen: Normal bowel sounds Extremities: No clubbing Skin: No rashes Review of Systems Review of Systems: No headache No vomiting Assessment and Plan Assessmemt and Plan Problems Medical Problems: (1) Left leg cellulitis Status: Acute Assessment: 1. Left stump cellulitis. 2. Hypertension. 3. PVD. 4. Neuropathy. 5. Previous tobacco use. 6. Bilateral below the knee amputations. 7. Heavy Alcohol use. 8. Sepsis. Plan: 1. FEN - General diet. 2. Full Code. 3. Home Medications. 4. Continue antibiotics 5. Plan to discharge Comment Review of Relevant I have reviewed the following items solomon (where applicable) has been applied. Medications: Current Medications Medications (Trade) Dose Ordered Sig/Yannick Route PRN Reason Start Time Stop Time Status Last Admin Dose Admin Linezolid (Zyvox) 600 mg BID PO 01/03/21 21:00 01/04/21 08:38 Potassium Chloride (Klor-Con) 40 meq 1X ONCE PO 01/03/21 20:00 01/03/21 20:01 DC 01/03/21 20:07 Justifications for Admission Other Justification BRIANNA LOVE III DO Jan 04, 2021 09:06
[2021-01-04 10:56] VITALS: BP 155/80
--- NOTE | 2021-01-04 12:17 | NUR ---
SW following. Discussed with RN, pt accepted with [facility]. Discharge home today after wound vac placed. RN notified. No further SW needs.
[2021-01-04 14:39] VITALS: BP 146/79
--- NOTE | 2021-01-04 16:05 | NUR ---
Wound Care Pt seen for transfer to home wound vac, tubing connected to home vac, vac troubleshooting reviewed with pt at bedside. Pt instructed to sponge bathe, no shower water to wound. Vac supplies left at bedside for pt to take home for [facility], and [facility]. Consignment vac taken to [facility] for cleaning.
--- NOTE | 2021-01-04 16:36 | NUR ---
Patient left around 1620 with a friend. Belongings all taken with the patient and he was taken out of the building with his electric scooter. WC team saw patient prior to discharge and was given his home wound vac and treatment. [facility]. IV discontinued without complications. Medications sent to patients pharmacy per Dr Vickers. No concerns noted at discharge.
--- NOTE | 2021-01-04 17:34 | DS ---
DATE OF DISCHARGE: 01/04/2021 ADMISSION DIAGNOSIS: Left stump cellulitis infection. DISCHARGE DIAGNOSIS: Postoperative day 3, irrigation and debridement of the left [id number] amputation stump wound involving skin, subcutaneous tissue and fascia. HOSPITAL COURSE: The patient is a pleasant middle-aged male who has bilateral [id number] amputations. He was admitted with a left stump infection. Dr. Overton took him to surgery and the above procedure was performed. Today, I saw him and examined him. He is at his baseline. We plan to discharge with a wound VAC. DISPOSITION: Home with wound VAC. ACTIVITY: As tolerated. DIET: Low sodium. MEDICATIONS: Please see the [facility]AD. Hydrocodone/Tylenol 10/325 one q.6 p.r.n., Zyvox 600 b.i.d., Augmentin 875 b.i.d., amlodipine 5 a day, finasteride 5 daily, gabapentin 300 t.i.d., losartan 20 a day, metoprolol 25 a day, vitamins, instant release oxycodone 10 q.4 p.r.n., potassium 20 a day, Flomax 0.4 a day and vitamin B1 100 a day. Total time [address]: Gabriela TID: [id number]
== END 2021-01-04 16:30 | disposition home health service (06) | DRG 463 ==
LOC: ER 10:01 → ED HOLD 13:55 → 4 NORTH 14:44
PROVIDERS: ADMIT Internal Medicine; ATTEND Internal Medicine
PROC: 0JBP0ZZ Excision of Left Lower Leg Subcutaneous Tissue and Fascia, Open Approach (ICD-10-PCS; principal; 2021-01-01 10:00)
DX: T87.44 Infection of amputation stump, left lower extremity (principal); A41.9 Sepsis, unspecified organism; L03.116 Cellulitis of left lower limb; J44.9 Chronic obstructive pulmonary disease, unspecified; I77.1 Stricture of artery; E78.5 Hyperlipidemia, unspecified; E11.40 Type 2 diabetes mellitus with diabetic neuropathy, unspecified; I10 Essential (primary) hypertension; I25.10 Atherosclerotic heart disease of native coronary artery without angina pectoris; Y83.5 Amputation of limb(s) as the cause of abnormal reaction of the patient, or of later complication, without mention of misadventure at the time of the procedure; I70.8 Atherosclerosis of other arteries; Z20.822 Contact with and (suspected) exposure to COVID-19; E11.51 Type 2 diabetes mellitus with diabetic peripheral angiopathy without gangrene; B95.62 Methicillin resistant Staphylococcus aureus infection as the cause of diseases classified elsewhere; Z83.3 Family history of diabetes mellitus; Z87.891 Personal history of nicotine dependence; Z89.511 Acquired absence of right leg below knee; Z89.512 Acquired absence of left leg below knee; Z82.49 Family history of ischemic heart disease and other diseases of the circulatory system
CPT/HCPCS: 36415; 73706; 80048; 80053; 80202; 82565; 83605; 84145; 85025; 85651; 86140; 87040; 87071; 87075; 87426; 96361; 96365; 96366; 96368; A4930; A6211; J0360; J1100; J2270; J2405; J2543; J2704; J3010; J3370; J3490; J7030; J7040; J7050; Q9967; U0003; U0005; 99285-25; G0378

== ENCOUNTER 2021-07-09 13:10 | Emergency (ER) | payer MEDICARE, OTHER ==
[~2021-07-09] VITALS: Ht 190.5 cm; Wt 90.0 kg
[~2021-07-09 13:10] MED LIST changes: +HYDR-2769 PO; +LINE600T12 PO
--- NOTE | 2021-07-09 14:06 | PHYS DOC ---
Past Medical History Past Medical History: Hypertension, Vascular Disease Additional Past Medical Histor: PVD,NEUROPATHY. DENIES HX OF DIABETES Past Surgical History: Other Additional Past Surgical Histo: X2 TOE REMOVAL (01/15), X3 TOE REMOVAL (05/18),bka bilat Smoking Status: Former Smoker Alcohol Use: None General Adult EDM: Chief Complaint: LOWER EXTREMITY SWELLING HPI: HPI: Patient is a 75-year-old male that presents today with left stump swelling. Patient states he first started noticing some swelling and slight pain approximately 1 week ago and his left stump, he says he is presenting today for treatment of this. Patient is" able to recall his primary care physician, he denies fever and chills at this time. Patient states he has had bilateral below the knee amputations due to peripheral vascular disease approximately in 2019, he denies a history of diabetes. Patient states that he is unable to be admitted today, he states he has too much going on at home he states that he would be able to come in tomorrow to be admitted for IV antibiotics but at this time he states that he has too much going on to be admitted today. Review of Systems: Review of Systems: Constitutional: Denies fever or chills. [] Eyes: Denies change in visual acuity. [] HENT: Denies nasal congestion or sore throat. [] Respiratory: Denies cough or shortness of breath. [] Cardiovascular: Denies chest pain or edema. [] GI: Denies abdominal pain, nausea, vomiting, bloody stools or diarrhea. [] : Denies dysuria. [] Musculoskeletal: Left stump swelling and pain denies back pain or joint pain. [] Integument: Denies rash. [] Neurologic: Denies headache, focal weakness or sensory changes. [] Endocrine: Denies polyuria or polydipsia. [] Lymphatic: Denies swollen glands. [] Psychiatric: Denies depression or anxiety. [] Heart Score: C/O Chest Pain: No Risk Factors: Risk Factors: DM, Current or recent (<one month) smoker, HTN, HLP, family history of CAD, obesity. Risk Scores: Score 0 - 3: 2.5% MACE over next 6 weeks - Discharge Home Score 4 - 6: 20.3% MACE over next 6 weeks - Admit for Clinical Observation Score 7 - 10: 72.7% MACE over next 6 weeks - Early Invasive Strategies Allergies: Allergies: Allergies Coded Allergies Type Severity Reaction Last Updated Verified I S O L A T I O N *CONTACT* Allergy Unknown 11/03/19 Yes No Known Medication Allergies Allergy Unknown 11/03/19 Yes Physical Exam: PE: Constitutional: Well developed, well nourished, no acute distress, non-toxic appearance. [] HENT: Normocephalic, atraumatic, bilateral external ears normal, oropharynx moist, no oral exudates, nose normal. [] Eyes: PERRLA, EOMI, conjunctiva normal, no discharge. [] Neck: Normal range of motion, no tenderness, supple, no stridor. [] Cardiovascular:Heart rate regular rhythm, no murmur [] Lungs & Thorax: Bilateral breath sounds clear to auscultation [] Abdomen: Bowel sounds normal, soft, no tenderness, no masses, no pulsatile masses. [] Skin: Left lower cyst leg stump is warm to touch, and painful to palpation. Back: No tenderness, no CVA tenderness. [] Extremities: Bilateral below the knee amputations noted, left stump is swollen more lateral than medial, warmth is noted at the site along with pain with palpation. Patient denies any wound at that area. Patient is wheelchair-bound. Neurologic: Alert and oriented X 3, normal motor function, normal sensory f unction, no focal deficits noted. [] Psychologic: Affect normal, judgement normal, mood normal. [] Current Patient Data: Labs: Laboratory Tests Test 07/09/21 15:32 White Blood Count 13.0 x10^3/uL Red Blood Count 4.76 x10^6/uL Hemoglobin 12.8 g/dL Hematocrit 39.0 % Mean Corpuscular Volume 82 fL Mean Corpuscular Hemoglobin 27 pg Mean Corpuscular Hemoglobin Concent 33 g/dL Red Cell Distribution Width 12.3 % Platelet Count 298 x10^3/uL Neutrophils (%) (Auto) 66 % Lymphocytes (%) (Auto) 25 % Monocytes (%) (Auto) 8 % Eosinophils (%) (Auto) 1 % Basophils (%) (Auto) 1 % Neutrophils # (Auto) 8.5 x10^3/uL Lymphocytes # (Auto) 3.2 x10^3/uL Monocytes # (Auto) 1.0 x10^3/uL Eosinophils # (Auto) 0.1 x10^3/uL Basophils # (Auto) 0.1 x10^3/uL Erythrocyte Sedimentation Rate 36 Sodium Level 140 mmol/L Potassium Level 3.6 mmol/L Chloride Level 103 mmol/L Carbon Dioxide Level 25 mmol/L Anion Gap 12 Blood Urea Nitrogen 9 mg/dL Creatinine 1.0 mg/dL Estimated GFR (Cockcroft-Gault) 88.4 BUN/Creatinine Ratio 9 Glucose Level 85 mg/dL Lactic Acid Level 1.0 mmol/L Calcium Level 8.8 mg/dL Total Bilirubin 1.4 mg/dL Aspartate Amino Transf (AST/SGOT) 21 U/L Alanine Aminotransferase (ALT/SGPT) 38 U/L Alkaline Phosphatase 79 U/L C-Reactive Protein, Quantitative 67.2 mg/L Total Protein 8.5 g/dL Albumin 3.4 g/dL Albumin/Globulin Ratio 0.7 Procalcitonin < 0.10 ng/mL Vital Signs: Vital Signs Date Time Temp Pulse Resp B/P (MAP) Pulse Ox O2 Delivery O2 Flow Rate FiO2 07/09/21 16:00 84 18 145/74 (97) 100 Room Air 07/09/21 13:25 98.8 90 16 178/84 (115) 96 Room Air 98.8 Vital Signs Date Time Temp Pulse Resp B/P (MAP) Pulse Ox O2 Delivery O2 Flow Rate FiO2 07/09/21 13:25 98.8 90 16 178/84 (115) 96 Room Air 98.8 EKG: EKG: [] Radiology/Procedures: Radiology/Procedures: REASON: r/o osteo in swollen stump PROCEDURE: KNEE LEFT 2V XR KNEE_LT 1-2 VIEWS Clinical indications: Reason: Evaluation for osteo in swollen stump Findings: A below the knee amputation is apparent. The amputation stump appears well-defined without osteolysis. Therefore, there are no findings indicative of osteomyelitis. No discrete soft tissue air is seen. No acute fracture is evident. Femoral vascular stent is apparent. 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 IMPRESSION: No radiographic finding of osteomyelitis. Electronically signed by: Luis Hansen MD (07/09/2021 2:28 PM) [id number][] Course & Med Decision Making: Course & Med Decision Making Pertinent Labs and Imaging studies reviewed. (See chart for details) 1700 reviewed radiological and laboratory results with patient did inform him that I am concerned that he has a cellulitis of his left stump area and that IV antibiotics is the treatment of choice due to his history of MRSA in the past, he states that he is unable to stay due to prior commitments, I did asked the patient if he has follow-up he says he sees the [facility] for all of his other medical issues, I informed him that I will be giving him an antibiotic called Zyvox which he had the last time he was here for infection and he states that he was able to get that medication at the [facility], he is also requesting pain medication which I am okay with giving him. Patient did sign an AMA form stating that since the recommendations are for admission and he at this time does not want to be admitted that I have him sign that form. Patient will be given antibiotics for the infection and also pain medication at this time. Patient was given strict return precautions to return to the emergency department if swelling pain and redness worsens, he develops a fever or he has any other concerns that he may have. Jenny Disclaimer: Jenny Disclaimer: This electronic medical record was generated, in whole or in part, using a voice recognition dictation system. Departure Departure Impression: Primary Impression: Left leg cellulitis Disposition: 01 HOME / SELF CARE / HOMELESS Condition: STABLE Referrals: ROSELYN CHANG (PCP) Patient Instructions: Cellulitis Additional Instructions: Zyvox 600 mg take 1 tablet twice daily for 10 days Hydrocodone take 1 tablet every 6 hours as needed for severe pain, use with caution may cause drowsiness do not operate heavy machinery while taking this medication. Use with caution as well may cause constipation Continue all your home medications as previously ordered by your primary care physician Follow-up with your primary care physician for further management of the cellulitis tomorrow by phone for an appointment this week Return to the emergency department if you have increased pain and swelling, development of a fever, or decrease in mental status. Scripts Hydrocodone Bit/Acetaminophen (HYDROCODONE-APAP 5-325 ) 1 Tab Tablet 1 TAB PO PRN Q6HRS PRN for PAIN, #20 TAB 0 Refills Prov: ANGELIA KOENIG APRN 07/09/21 Linezolid (ZYVOX) 600 Mg Tablet 600 MG PO BID for 10 Days, #20 TAB Prov: ANGELIA KOENIG APRN 07/09/21 ANGELIA KOENIG APRN Jul 09, 2021 14:06
--- NOTE | 2021-07-09 14:31 | RAD ---
XR KNEE_LT 1-2 VIEWS Clinical indications: Reason: Evaluation for osteo in swollen stump Findings: A below the knee amputation is apparent. The amputation stump appears well-defined without osteolysis. Therefore, there are no findings indicative of osteomyelitis. No discrete soft tissue ai r is seen. No acute fracture is evident. Femoral vascular stent is apparent. There is calcified ather omatous arterial disease. 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 IMPRESSION: No radiographic finding of osteomyelitis. Electronically signed by: Luis Hansen MD (07/09/2021 2:28 PM) [id number]
[2021-07-09 15:52] LABS: BASO # 0.1 x10^3/uL (0.0-0.2); BASO % 1 % (0-3); EOS # 0.1 x10^3/uL (0.0-0.7); EOS % 1 % (0-3); HEMOGLOBIN 12.8 g/dL (13.0-17.5); LYMPH # 3.2 x10^3/uL (1.0-4.8); LYMPH % 25 % (24-48); MEAN CORPUSCULAR HEMOGLOBIN 27 pg (25-35); MEAN CORPUSCULAR HGB CONC 33 g/dL (31-37); MEAN CORPUSCULAR VOLUME 82 fL (79-100); MONO % 8 % (0-9); NEUT # 8.5 x10^3/uL (1.8-7.7); NEUT % 66 % (31-73); PLATELET COUNT 298 x10^3/uL (140-400); RED BLOOD COUNT 4.76 x10^6/uL (4.30-5.70); RED CELL DISTRIBUTION WIDTH 12.3 % (11.5-14.5)
[2021-07-09 16:00] VITALS: BP 145/74
[2021-07-09 16:01] LABS: CALCIUM 8.8 mg/dL (8.5-10.1); GFR 88.4; POTASSIUM 3.6 mmol/L (3.5-5.1)
[2021-07-09 16:07] LABS: ALBUMIN 3.4 g/dL (3.4-5.0); ALBUMIN/GLOBULIN RATIO 0.7 (1.0-1.7); TOTAL BILIRUBIN 1.4 mg/dL (0.2-1.0); TOTAL PROTEIN 8.5 g/dL (6.4-8.2)
[2021-07-09] MEDS ORDERED: HYDR-2761 PO (17:19)
[2021-07-09] MEDS ORDERED: LINE600T12 PO (17:19)
[2021-07-09] MEDS ORDERED: HYDROcodone/APAP 5/325MG 1 TAB TABLET PO ONE (17:30)
[2021-07-09] MEDS ORDERED: LINEZOLID 600 MG TABLET PO ONE (17:30)
== END 2021-07-09 18:27 | disposition home or self-care (01) ==
LOC: ER 13:10
DX: L03.116 Cellulitis of left lower limb (principal); I10 Essential (primary) hypertension; Z87.891 Personal history of nicotine dependence; Z91.041 Radiographic dye allergy status
CPT/HCPCS: 36415; 73560; 80053; 83605; 84145; 85025; 85651; 86140; 87040; 99284

== ENCOUNTER 2021-07-18 12:38 | Emergency (ER) | payer MEDICARE ==
[~2021-07-18] VITALS: Ht 160 cm; Wt 160.0 kg
[~2021-07-18 12:38] MED LIST changes: +HYDR-2761 PO
[2021-07-18] MEDS ORDERED: VANCOMYCIN PER PHARMACY MC PRN (14:15)
[2021-07-18 14:25] LABS: BASO % 1 % (0-3); EOS # 0.3 x10^3/uL (0.0-0.7); EOS % 4 % (0-3); HEMATOCRIT 38.5 % (39.0-53.0); HEMOGLOBIN 12.4 g/dL (13.0-17.5); LYMPH # 3.3 x10^3/uL (1.0-4.8); LYMPH % 46 % (24-48); MEAN CORPUSCULAR HEMOGLOBIN 26 pg (25-35); MEAN CORPUSCULAR HGB CONC 32 g/dL (31-37); MEAN CORPUSCULAR VOLUME 81 fL (79-100); MONO # 0.5 x10^3/uL (0.0-1.1); MONO % 8 % (0-9); NEUT % 42 % (31-73); PLATELET COUNT 391 x10^3/uL (140-400); RED BLOOD COUNT 4.74 x10^6/uL (4.30-5.70); WHITE BLOOD COUNT 7.1 x10^3/uL (4.0-11.0)
[2021-07-18] MEDS ORDERED: PIPERACILLIN/TAZOBACTAM 3.375 GM in IV NORMAL SALINE 50ML 50 ML IV ONE (14:30)
[2021-07-18] MEDS ORDERED: VANCOMYCIN 2 GM in IV NORMAL SALINE 500ML BAG 500 ML IV ONE (14:30)
[2021-07-18 14:39] LABS: CALCIUM 8.8 mg/dL (8.5-10.1); GFR 88.4; POTASSIUM 3.8 mmol/L (3.5-5.1)
[2021-07-18 14:46] LABS: ALBUMIN 3.4 g/dL (3.4-5.0); ALBUMIN/GLOBULIN RATIO 0.7 (1.0-1.7); TOTAL BILIRUBIN 0.4 mg/dL (0.2-1.0); TOTAL PROTEIN 8.4 g/dL (6.4-8.2)
--- NOTE | 2021-07-18 15:06 | RAD ---
Exam: Left knee 3 views INDICATION: Left lower extremity wound TECHNIQUE: Frontal, lateral and oblique views of the left knee Comparisons: None FINDINGS: Postoperative changes of below knee amputation. Soft tissue swelling at the amputation stump. No acut e fractures. Joint spaces are well-maintained. IMPRESSION: Soft tissue swelling at the amputation stump without underlying osseous abnormality identified. Electronically signed by: Lola Quiroga MD (07/18/2021 3:03 PM) ADALBERTO
[2021-07-18 15:52] VITALS: BP 144/67
--- NOTE | 2021-07-18 16:35 | PHYS DOC ---
Past Medical History Past Medical History: Hypertension, Vascular Disease Additional Past Medical Histor: PVD,NEUROPATHY. DENIES HX OF DIABETES Past Surgical History: Other Additional Past Surgical Histo: X2 TOE REMOVAL (01/15), X3 TOE REMOVAL (05/18),bka bilat Smoking Status: Former Smoker Alcohol Use: Rarely General Adult EDM: Chief Complaint: LOWER EXT PAIN HPI: HPI: Patient is a 75 year old male patient with history of hypertension, PVD and bilateral below the knee amputations done in 2019, who presents to the ED today complaining of a wound on the left below the knee amputation stump site. Patient states he had redness to the area for the last 1-1/2 weeks. He states he was seen in the ED last week and was sent home on Zyvox. He states the stump site opened up. He states this is not the first time for this to happen. He states he would like to be checked out to make sure he does not have gangrene otherwise he does not want to stay in the hospital neither does he want a wound vac. Review of Systems: Review of Systems: Constitutional: Denies fever or chills. [][] Respiratory: Denies cough or shortness of breath. [] Cardiovascular: Denies chest pain or edema. [] GI: Denies abdominal pain, nausea, vomiting, bloody stools or diarrhea. [] : Denies dysuria. [] Musculoskeletal: Denies back pain or joint pain. [] Integument: Left lower extremity stump site wound Neurologic: Denies headache, focal weakness or sensory changes. [] Psychiatric: Denies depression or anxiety. [] Heart Score: C/O Chest Pain: N/A Risk Factors: Risk Factors: DM, Current or recent (<one month) smoker, HTN, HLP, family history of CAD, obesity. Risk Scores: Score 0 - 3: 2.5% MACE over next 6 weeks - Discharge Home Score 4 - 6: 20.3% MACE over next 6 weeks - Admit for Clinical Observation Score 7 - 10: 72.7% MACE over next 6 weeks - Early Invasive Strategies Current Medications: Current Medications Medications (Trade) Dose Ordered Sig/Yannick Start Time Stop Time Status Last Admin Dose Admin Linezolid/Dextrose 300 ml @ 300 mls/hr Q12HR 07/18/21 21:00 UNV Piperacillin Sod/ Tazobactam Sod 3.375 gm/Sodium Chloride 50 ml @ 100 mls/hr 1X ONCE 07/18/21 14:30 07/18/21 14:59 DC 07/18/21 14:47 100 MLS/HR Vancomycin HCl (Vanco Per Pharmacy) 1 each PRN DAILY PRN 07/18/21 14:15 UNV Vancomycin HCl 2 gm/Sodium Chloride 500 ml @ 250 mls/hr 1X ONCE 07/18/21 14:30 07/18/21 16:29 07/18/21 14:50 250 MLS/HR Allergies: Allergies: Allergies Coded Allergies Type Severity Reaction Last Updated Verified I S O L A T I O N *CONTACT* Allergy Unknown 07/18/21 Yes No Known Medication Allergies Allergy Unknown 07/18/21 Yes Physical Exam: PE: Constitutional: Well developed, well nourished, no acute distress, non-toxic appearance. [] Cardiovascular:Heart rate regular rhythm, no murmur [] Lungs & Thorax: Bilateral breath sounds clear to auscultation [] Abdomen: Bowel sounds normal, soft, no tenderness, no masses, no pulsatile masses. [] Skin: Bilateral below the knee amputations noted. Left below the knee amputation stump site with an open wound approximately 4 x 2 cm long. There is trace yellow drainage from the wound. There is no erythema around the wound. Back: No tenderness, no CVA tenderness. [] Extremities: No tenderness, no cyanosis, no clubbing, ROM intact, no edema. [] Neurologic: Alert and oriented X 3, normal motor function, normal sensory function, no focal deficits noted. [] Psychologic: Affect normal, judgement normal, mood normal. [] Current Patient Data: Labs: Laboratory Tests Test 07/18/21 14:08 White Blood Count 7.1 x10^3/uL (4.0-11.0) Red Blood Count 4.74 x10^6/uL (4.30-5.70) Hemoglobin 12.4 g/dL (13.0-17.5) L Hematocrit 38.5 % (39.0-53.0) L Mean Corpuscular Volume 81 fL (79-100) Mean Corpuscular Hemoglobin 26 pg (25-35) Mean Corpuscular Hemoglobin Concent 32 g/dL (31-37) Red Cell Distribution Width 12.0 % (11.5-14.5) Platelet Count 391 x10^3/uL (140-400) Neutrophils (%) (Auto) 42 % (31-73) Lymphocytes (%) (Auto) 46 % (24-48) Monocytes (%) (Auto) 8 % (0-9) Eosinophils (%) (Auto) 4 % (0-3) H Basophils (%) (Auto) 1 % (0-3) Neutrophils # (Auto) 3.0 x10^3/uL (1.8-7.7) Lymphocytes # (Auto) 3.3 x10^3/uL (1.0-4.8) Monocytes # (Auto) 0.5 x10^3/uL (0.0-1.1) Eosinophils # (Auto) 0.3 x10^3/uL (0.0-0.7) Basophils # (Auto) 0.0 x10^3/uL (0.0-0.2) Erythrocyte Sedimentation Rate 41 (0-15) H Sodium Level 141 mmol/L (136-145) Potassium Level 3.8 mmol/L (3.5-5.1) Chloride Level 110 mmol/L (98-107) H Carbon Dioxide Level 22 mmol/L (21-32) Anion Gap 9 (6-14) Blood Urea Nitrogen 6 mg/dL (8-26) L Creatinine 1.0 mg/dL (0.7-1.3) Estimated GFR (Cockcroft-Gault) 88.4 BUN/Creatinine Ratio 6 (6-20) Glucose Level 83 mg/dL (70-99) Lactic Acid Level 0.9 mmol/L (0.4-2.0) Calcium Level 8.8 mg/dL (8.5-10.1) Total Bilirubin 0.4 mg/dL (0.2-1.0) Aspartate Amino Transferase (AST) 22 U/L (15-37) Alanine Aminotransferase (ALT) 35 U/L (16-63) Alkaline Phosphatase 68 U/L (46-116) C-Reactive Protein, Quantitative 0.8 mg/L (0-3.3) Total Protein 8.4 g/dL (6.4-8.2) H Albumin 3.4 g/dL (3.4-5.0) Albumin/Globulin Ratio 0.7 (1.0-1.7) L Laboratory Tests 07/18/21 14:08 Laboratory Tests 07/18/21 14:08 Vital Signs: Vital Signs Date Time Temp Pulse Resp B/P (MAP) Pulse Ox O2 Delivery O2 Flow Rate FiO2 07/18/21 12:50 98.3 74 14 164/79 (107) 92 Room Air 98.3 EKG: EKG: [] Radiology/Procedures: Radiology/Procedures: []PROCEDURE: KNEE LEFT 3V Exam: Left knee 3 views INDICATION: Left lower extremity wound TECHNIQUE: Frontal, lateral and oblique views of the left knee Comparisons: None FINDINGS: Postoperative changes of below knee amputation. Soft tissue swelling at the amputation stump. No acute fractures. Joint spaces are well-maintained. IMPRESSION: Soft tissue swelling at the amputation stump without underlying osseous abnormality identified. Electronically signed by: Lola Bartlett MD (07/18/2021 3:03 PM) [facility] DICTATED and SIGNED BY: LOLA BARTLETT MD DATE: 07/18/21 1500 Course & Med Decision Making: Course & Med Decision Making Pertinent Labs and Imaging studies reviewed. (See chart for details) This is a 75-year-old male patient presented to the ED today complaining of a wound on the left lower extremity stump site. Patient is currently on Zyvox for infection to the stump site. Zyvox was started last week. He states the wound opened up today. Vitals on arrival to the ED temperature 98.3, heart rate 74, respiration 14 on room air, blood pressure 164/79, O2 sats 92% Left knee x-rays interpreted by radiologist noted for soft tissue swelling at the amputation stump without underlying osseous abnormality identified. CBC with a normal WBC, hemoglobin 12.8 with hematocrit of 38.5. Sed rate 41, CRP 0.8, CMP with no acute findings. Considering he does not have osteomyelitis this wound can be cared for as an outpatient through the wound clinic. He states he is [facility] and will follow up with the [facility] and his home health nurse. He has continued to refuse admission. Jaspreeton Disclaimer: Jenny Disclaimer: This electronic medical record was generated, in whole or in part, using a voice recognition dictation system. Departure Departure Impression: Primary Impression: Non-healing wound of amputation stump Disposition: HOME / SELF CARE / HOMELESS Condition: STABLE Referrals: ROSELYN CHANG (PCP) Please follow-up with the [facility] as soon as possible Patient Instructions: Wound Care, [id number] Additional Instructions: You have an open wound on the left stump site. We highly encourage you to keep the area clean and dry and change dressings daily. Please contact your home health nurse as well as [facility] and follow up as soon as you can, complete your antibiotics REMY GRIMALDO APRN Jul 18, 2021 16:35
== END 2021-07-18 16:35 | disposition home or self-care (01) ==
LOC: ER 12:38
DX: M25.562 Pain in left knee (principal); I10 Essential (primary) hypertension; I73.9 Peripheral vascular disease, unspecified; Z87.891 Personal history of nicotine dependence; Z91.041 Radiographic dye allergy status
CPT/HCPCS: 36415; 73562; 80053; 83605; 84145; 85025; 85651; 86140; 87040; 87071; 87077; 87186; 96365; 96368; 99285; J2543; J3370; J7040